=== PATIENT | female | born 1940 | race Caucasian/White ===

== ENCOUNTER 2018-01-18 19:47 | Emergency (ER) | payer OTHER ==
[~2018-01-18] VITALS: Ht 172.7 cm; Wt 79.4 kg
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
[2018-01-18] MEDS ORDERED: METHYLPREDNISOLONE SOD SUCC 125 MG/2ML VIAL ONE (20:04)
[2018-01-18] MEDS ORDERED: METHYLPREDNISOLONE SOD SUCC 125 MG/2ML VIAL IV ONE (20:15)
--- NOTE | 2018-01-18 21:59 | Diagnostic Imaging Report ---
Examination:CT SOFT TISSUE NECK WITH CONTRAST History: Throat swelling. Comparison studies: None Technique: Axial images from the skull base to the thoracic inlet Coronal and sagittal reformatted images. Intravenous contrast: 100mL of Isovue 370. Findings: Soft tissues: No abnormalities. Aerodigestive tract: Apposed true vocal cord. No enhancing abnormalities in remaining tract. Lymph nodes: No radiographically significant adenopathy. Vessels: Arteries and veins are patent. Thyroid gland: Normal in size and homogeneous. Submandibular glands: Normal in size and homogeneous. Parotid glands: Normal in size and homogeneous. Orbits: Bilateral slitlike lenses. Paranasal sinuses: Clear. Temporal bones: No abnormalities. Skull base and facial bones: Intact. Cervical spine: C5-C6: Diffuse disc osteophyte complex and bilateral uncovertebral arthropathy result in severe canal stenosis and severe left foramina narrowing. IMPRESSION: No abnormalities to explain patient's symptoms. Signed by: Dr. Aleah Gaspar M.D. on 01/18/2018 9:56 PM
[2018-01-18] MEDS ORDERED: SODIUM CHLORIDE 0.9% 50ML 50 ML ONE (22:00)
[2018-01-18] MEDS ORDERED: IOPAMIDOL 370 MG/ML 200 ML INFUS..BTL INJ ONE (22:02)
[2018-01-18 23:49] VITALS: BP 154/91
[2018-01-19 08:47] LABS: RED BLOOD COUNT 3.71 x10e6/uL (3.6-5.1)
[2018-01-19 08:48] LABS: HEMATOCRIT 37.4 % (34.2-44.1); MEAN CORPUSCULAR HEMOGLOBIN 32.3 pg (28-32); MEAN CORPUSCULAR HGB CONC 32.1 g/dL (31-35); MEAN CORPUSCULAR VOLUME 100.8 fL (81-99)
[2018-01-19 08:49] LABS: BASOPHILS % 0.3 % (0.0-1.0); EOSINOPHILS # (AUTO) 0.2 (0.0-0.4); EOSINOPHILS % 1.6 % (0.0-6.0); LYMPHOCYTES # (AUTO) 2.6 (1.0-3.2); LYMPHOCYTES % 25.3 % (18.0-39.1); MONOCYTES # (AUTO) 0.6 (0.2-0.8); MONOCYTES % 5.5 % (4.4-11.3); NEUTROPHILS # (AUTO) 6.9 (2.1-6.9); NEUTROPHILS % 66.9 % (38.7-80.0); PLATELET COUNT 361 x10e3/uL (140-360)
[2018-01-19 08:50] LABS: ALBUMIN 3.5 g/dL (3.5-5.0); ANION GAP 13.4 mmol/L (8-16); CALCIUM 9.5 mg/dL (8.4-10.2); CREATININE, SERUM 1.12 mg/dL (0.57-1.11); POTASSIUM 4.4 mmol/L (3.5-5.1)
== END 2018-01-18 23:55 | disposition home or self-care (01) ==
LOC: ER 19:47
DX: T78.3XXA Angioneurotic edema, initial encounter (principal); I10 Essential (primary) hypertension; E03.9 Hypothyroidism, unspecified; E78.5 Hyperlipidemia, unspecified; F32.9 Major depressive disorder, single episode, unspecified
CPT/HCPCS: 36415; 70491; 80053; 83518; 85025; 87070; 99284; J2930; Q9967

== ENCOUNTER 2020-03-26 12:48 | Observation (INO) | payer MEDICARE, OTHER ==
[~2020-03-26] VITALS: Ht 170.2 cm; Wt 97.1 kg
--- NOTE | 2020-03-26 14:12 | Diagnostic Imaging Report ---
EXAMINATION: CXR 2 VIEW - HOPD INDICATION: Chest pain COMPARISON: None FINDINGS: LINES/TUBES:None LUNGS:The lungs are mildly hyperinflated. Mild biapical pleural parenchymal thickening/scarring. Mild left basilar subsegmental atelectasis. No focal consolidation or pulmonary edema. PLEURA:No pleural effusion or pneumothorax. MEDIASTINUM:The cardiomediastinal silhouette appears normal in size and shape. Atherosclerotic calcifications of the thoracic aorta. Septal occlusion device. BONES/SOFT TISSUES:No acute osseous injury. Old left ninth posterior rib fracture. ABDOMEN:No free air under the diaphragm. IMPRESSION: Mildly hyperinflated lungs. Mild left basilar subsegmental atelectasis. No focal pneumonia or pulmonary edema. Signed by: Pranay Barrett MD on 03/26/2020 2:09 PM
--- NOTE | 2020-03-26 14:34 | Emergency Department Note ---
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 Patient states that she has had associated shortness of breath and increased swelling of her lower extremities for the past 2-3 days. The Chest pain lasts for a "few minutes, and then resolves." She is not currently having any chest pain. The chest pain does not seem to be exertional. She is having some orthopnea without PND. Patient denies any cough, upper respiratory symptoms, fever, chills, nausea, or vomiting. Historian: Patient Arrival Mode: Car Passenger Screener Required: No Onset (how long ago): day(s) (2) Location: upper chest Quality: tightness, heaviness Radiation: Reports non-radiation Severity: moderate Onset quality: sudden Duration (how long): hour(s) ("several minutes.") Timing of current episode: intermittent Progression: resolved Chronicity: new Context: Denies recent illness, Denies trauma/injury Relieving factors: none Exacerbating factors: none Associated symptoms: Denies cough, Denies fever/chills, Denies malaise, Denies nausea/vomiting, Denies shortness of breath Treatments prior to arrival: none Risk factors: advanced age, CHF, hypertension, obesity, and heavy cigarette use Past Medical/Family History Physician Review I have reviewed the patient's past medical and family history. Any updates have been documented here. Past Medical History Recent Fever: No Clinical Suspicion of Infectio: No New/Unexplained Change in Ment: No Past Medical History: Hypertension, COPD, CHF, A-Fib, Hypothyroidism, CAD, Depression, Hyperlipedemia, DVT/PE Other Medical History: lipoma Past Surgical History: Appendectomy, Hysterectomy Other Surgery: STATES SHE HAS HAD APPROX 15 SURGERIES AND DOES NOT KNOW WHAT ALL SHE HAD Watchman IVC Filter Breast Bx. Social History Smoking Cessation: Current every day smoker (1 - 1.5 ppd, smoked over 60 years. Here) Counseling Performed: Yes Alcohol Use: None Any Illegal Drug Use: No TB Exposure/Symptoms: No Physically hurt or threatened: No Family History Family history of heart diseas: No Other Last Tetanus: 2011 Any Pre-Existing Lines (PICC,: No Review of Systems Review of Systems Constitutional: Denies chills, Denies diaphoresis, Denies fever, Denies weakness EENTM: Reports no symptoms Cardiovascular: Reports chest pain, Reports edema (BLE); Denies palpitations Respiratory: Denies chest congestion, Denies cough Gastrointestinal: Denies abdominal pain, Denies nausea, Denies vomiting Genitourinary: Reports no symptoms Musculoskeletal: Denies back pain Integumentary: Denies change in color Neurological: Denies numbness, Denies weakness Psychological: Reports no symptoms Review of other systems: All other systems negative Physical Exam Related Data Allergies: Coded Allergies: cephalexin (Verified Allergy, Unknown, 03/26/20) Triage Vital Signs Vital Signs Date Time Temp Pulse Resp B/P (MAP) Pulse Ox O2 Delivery O2 Flow Rate FiO2 03/26/20 12:55 98.6 80 18 159/68 98 Room Air Vital signs reviewed: Yes Physical Exam CONSTITUTIONAL Constitutional: Present well-developed, Present well-nourished, Present obese; Absent distressed HENT HENT: Present normocephalic, Present atraumatic, Present oropharynx clear/moist, Present nose normal HENT L/R: Present left ext ear normal, Present right ext ear normal EYES Eyes: Reports PERRL, Reports conjunctivae normal NECK Neck: Present ROM normal PULMONARY Pulmonary: Present effort normal, Present breath sounds normal CARDIOVASCULAR Cardiovascular: Present regular rhythm, Present heart sounds normal, Present capillary refill normal, Present normal rate, Present murmur (II/ ERICA;), Present LLE edema, Present RLE edema (2+ bilateral lower extremity pedal edema) GASTROINTESTINAL Abdominal: Present soft, Present nontender, Present bowel sounds normal GENITOURINARY SKIN Skin: Present warm, Present dry, Present erythema (chronic venous stasis changes bilateral lower extremities, with no skin breakdown. 2+ pedal edema.) MUSCULOSKELETAL Musculoskeletal: Present ROM normal NEUROLOGICAL Neurological: Present alert, Present oriented x 3, Present no gross motor or sensory deficits PSYCHOLOGICAL Psychological: Present mood/affect normal, Present judgement normal Results Laboratory Lab results reviewed: Yes Laboratory comments CBC - nl WBC, no anemia; CMP - normal, except for gluc = 145; BUN = 22, Cr = 1.3; Cardiacs - negative except for CKMB = 4.7 , Vitaly = 161; BNP -137; D-dimer = 3250; UA - negative; Imaging Imaging results reviewed: Yes Impressions [place] [id number] Patient Name: TOMAS PERAZA MR #: [id number] : 1940 Age/Sex: 79/F Req #: [id number] Adm Physician: Ordered by: ANNI MANN MD Report #: [id number] Location: [facility] Room/Bed: Procedure: [id number] HOPD/CXR 2 VIEW - HOPD Exam Date: 03/26/20 Exam Time: 1403 REPORT STATUS: Signed EXAMINATION: CXR 2 VIEW - HOPD INDICATION: Chest pain COMPARISON: None FINDINGS: LINES/TUBES:None LUNGS:The lungs are mildly hyperinflated. Mild biapical pleural parenchymal thickening/scarring. Mild left basilar subsegmental atelectasis. No focal consolidation or pulmonary edema. PLEURA:No pleural effusion or pneumothorax. MEDIASTINUM:The cardiomediastinal silhouette appears normal in size and shape. Atherosclerotic calcifications of the thoracic aorta. Septal occlusion device. BONES/SOFT TISSUES:No acute osseous injury. Old left ninth posterior rib fracture. ABDOMEN:No free air under the diaphragm. IMPRESSION: Mildly hyperinflated lungs. Mild left basilar subsegmental atelectasis. No focal pneumonia or pulmonary edema. Signed by: Sandip Barrett MD on 03/26/2020 2:09 PM Dictated By: SANDIP BARRETT MD 08 Transcribed By: VAISHALI on 03/26/201408 COPY TO: ANNI MANN MD~ Diagnostics Tests Diagnostic test(s) reviewed: Yes Procedures 12 Lead ECG Interpretation ECG Interpretation : ECG: ECG 1 Passenger Screener: Interpreted by ED physician Date: Mar 26, 2020 Time: 13:01 Prior ECG tracings: not available for review Rhythm: atrial fibrillation Rate: normal BPM: 79 QRS axis: normal ST segments normal: Yes T waves normal: No (non-specific T-wave changes) Clinical Impression: abnormal ECG Assessment & Plan Medical Decision Making MDM -Explained to patient, that even know her lab work and EKG showed no acute changes of a heart attack, her symptoms are very concerning for underlying atherosclerotic cardiovascular disease. She has multiple risk factors including a history of CHF, hypertension, heavy cigarette smoking, and advanced age. Patient is advised that hospital admission, for further evaluation of her chest pain and shortness of breath is highly recommended. She may have diastolic dysfunction, as she does not appear to be volume overloaded at this time. Patient was also agreeable to admission. 15:[address] Dk Barrera, who covers patients with [employer] insurance, was agreeable to admission, to Obs telemetry. Assessment & Plan Final Impression: (1) Chest pain (2) Dyspnea (3) CHF (congestive heart failure) (4) Elevated d-dimer (5) COPD (chronic obstructive pulmonary disease) Depart Disposition: ADMITTED (to [facility] Tele Obs, with Dr. Dk Barrera) Last Vital Signs Date Time Temp Pulse Resp B/P (MAP) Pulse Ox O2 Delivery O2 Flow Rate FiO2 03/26/20 12:55 98.6 80 18 159/68 98 Room Air ANNI MANN MD Mar 26, 2020 14:34
--- OUTSIDE RECORDS SUMMARY | 2020-03-26 14:46 | XMS REPORT | Continuity of Care Document ---
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 TABLET DAILY. [facility] Matzim LA 360 MG Oral Tablet Extended Release 24 Hour Matzim LA 360 MG Oral Tablet Extended Release 24 Hour Yes 1 QD TAKE 1 TABLET DAILY. [facility] Levothyroxine Sodium 137 MCG Oral Tablet Levothyroxine Sodium 137 MCG Oral Tablet Yes MARIA GUADALUPE MICHELLE P.A. 1 QD TAKE 1 TABLET DAILY . [facility] Sertraline HCl - 50 MG Oral Tablet Sertraline HCl - 50 MG Oral Tablet Yes MARIA GUADALUPE MICHELLE P.A. 1 QD TAKE 1 TABLET DAILY. [facility] Immunizations Ordered Immunization Name Filled Immunization Name Date Status Comments Source Fluzone High-Dose 0.5 ML Intramuscular Suspension Prefilled Syringe 2019-05-14 08:41:00 Completed [facility] Pneumovax 23 25 MCG/0.5ML Injection Injectable 2019-03 11:48:00 Completed [facility] Fluzone High-Dose 0.5 ML Intramuscular Suspension Prefilled Syringe 2018-06-13 09:00:00 Completed [facility] Fluzone Quadrivalent 0.5 ML Intramuscular Suspension Prefill ed Syringe 2017-05-18 00:00:00 Completed [facility] Fluzone Quadrivalent 0.5 ML Intramuscular Suspension 2016-05-18 14:01:00 Completed [facility] Prevnar 13 Intramuscular Suspension 2015-05-12 00:00:00 Co mpleted [facility] Fluzone Quadrivalent 0.5 ML Intramuscular Suspension 2015-05-08 08:21:00 Completed [facility] Influenza 2014-07-09 17:01:[address] [facility] Influenza 2012-05-15 00:00:[address] [facility] Vital Signs Vital Name Observation Time Observation Value Comments Source Respitory Rate 2020-01-18 18:45:00 Memori al Cristhian Systolic (mm Hg) 2020-01-18 18:45:00 Riley rial Cristhian Diastolic (mm Hg) 2020-01-18 18:45:00 Mem orial [place] Respitory Rate 2020-01-18 18:30:00 Memori al [place] Systolic (mm Hg) 2020-01-18 18:30:00 Riley rial Cristhian Diastolic (mm Hg) 2020-01-18 18:30:00 Mem orial Cristhian Respitory Rate 2020-01-18 18:19:00 Memori al [place] Systolic (mm Hg) 2020-01-18 18:19:00 Riley rial [place] Diastolic (mm Hg) 2020-01-18 18:19:00 Mem orial Cristhian Height 2020-01-17 19:49:00 [facility] 2020-01-17 19:49:00 [facility] BMI Calculated 2020-01-17 19:49:00 Memori al Cristhian Systolic blood pressure 2019-12-18 10:12:00 108 mm[Hg] Loca tion: LUE; Position: Sitting [facility] Diastolic blood pressure 2019-12-18 10:12:00 63 mm[Hg] Loc ation: LUE; Position: Sitting [facility] Body height 2019-12-18 10:12:00 65 [in_us] [facility] Weight 2019-12-18 10:12:00 210 [lb_av] [facility] Body mass index (BMI) [Ratio] 2019-12-18 10:12:00 34.95 kg/m2 [facility] Heart Rate 2019-12-18 10:12:00 73 /min [facility] Body temperature 2019-12-18 10:12:00 99.3 [degF] [facility] Systolic blood pressure 2019-10-24 08:58:00 89 mm[Hg] Loca tion: LUE; Position: Sitting [facility] Diastolic blood pressure 2019-10-24 08:58:00 56 mm[Hg] Loc ation: LUE; Position: Sitting [facility] Body height 2019-10-24 08:58:00 65 [in_us] [facility] Weight 2019-10-24 08:58:00 211.5 [lb_av] [facility] Body mass index (BMI) [Ratio] 2019-10-24 08:58:00 35.2 kg/m2 [facility] Body temperature 2019-10-24 08:58:00 97.6 [degF] Method: Temporal [facility] Respiratory rate 2019-10-24 08:58:00 16 /min [facility] Heart Rate 2019-10-24 08:58:00 64 /min [facility] Systolic blood pressure 2019-09-21 09:19:00 119 mm[Hg] Loca tion: LUE; Position: Sitting [facility] Diastolic blood pressure 2019-09-21 09:19:00 82 mm[Hg] Loc ation: LUE; Position: Sitting [facility] Body height 2019-09-21 09:19:00 65 [in_us] [facility] Weight 2019-09-21 09:19:00 219.1875 [lb_av] [facility] Body mass index (BMI) [Ratio] 2019-09-21 09:19:00 36.47 kg/m2 [facility] Body temperature 2019-09-21 09:19:00 98 [degF] Method: Temporal [facility] Heart Rate 2019-09-21 09:19:00 103 /min [facility] Respiratory rate 2019-09-21 09:19:00 16 /min [facility] Systolic blood pressure 2019-09-18 10:04:00 135 mm[Hg] Loca tion: CHERYLE; Position: Sitting [facility] Diastolic blood pressure 2019-09-18 10:04:00 95 mm[Hg] Loc ation: ANUSHA; Position: Sitting [facility] Body height 2019-09-18 10:04:00 65 [in_us] [facility] Weight 2019-09-18 10:04:00 223.3125 [lb_av] [facility] Body mass index (BMI) [Ratio] 2019-09-18 10:04:00 37.16 kg/m2 [facility] Heart Rate 2019-09-18 10:04:00 147 /min Location: L Radial; [facility] BP Systolic 2019-09-11 13:44:00 108 mm[Hg] Location: ANUSHA; Positi on: Sitting [facility] BP Diastolic 2019-09-11 13:44:00 69 mm[Hg] Location: ANUSHA; Positi on: Sitting [facility] Height 2019-09-11 13:44:00 65 [in_us] [facility] Weight 2019-09-11 13:44:00 217.8 [lb_av] [facility] Body Mass Index Calculated 2019-09-11 13:44:00 36.24 kg/m2 [facility] Temperature 2019-09-11 13:44:00 98.3 [degF] Method: Temporal [facility] Respiration Rate 2019-09-11 13:44:00 20 /min [facility] Heart Rate 2019-09-11 13:44:00 115 /min [facility] BP Systolic 2019-08-22 10:09:00 129 mm[Hg] Location: ANUSHA; Positi on: Sitting [facility] BP Diastolic 2019-08-22 10:09:00 89 mm[Hg] Location: CHERYLE; Positi on: Sitting [facility] Height 2019-08-22 10:09:00 65 [in_us] [facility] Weight 2019-08-22 10:09:00 217.25 [lb_av] [facility] Body Mass Index Calculated 2019-08-22 10:09:00 36.15 kg/m2 [facility] Temperature 2019-08-22 10:09:00 97.9 [degF] Method: Temporal [facility] Respiration Rate 2019-08-22 10:09:00 16 /min [facility] Heart Rate 2019-08-22 10:09:00 114 /min [facility] BP Systolic 2019-08-03 11:01:00 107 mm[Hg] Location: ANUSHA; Positi on: Sitting [facility] BP Diastolic 2019-08-03 11:01:00 72 mm[Hg] Location: ANUSHA; Positi on: Sitting [facility] Height 2019-08-03 11:01:00 65 [in_us] [facility] Weight 2019-08-03 11:01:00 218.3125 [lb_av] [facility] Body Mass Index Calculated 2019-08-03 11:01:00 36.33 kg/m2 [facility] Temperature 2019-08-03 11:01:00 97.7 [degF] Method: Temporal [facility] Heart Rate 2019-08-03 11:01:00 117 /min [facility] Respiration Rate 2019-08-03 11:01:00 16 /min [facility] O2 SAT 2019-08-03 11:01:00 98 % [facility] BP Systolic 2019-07-07 09:28:00 94 mm[Hg] Location: CHERYLE; Positi on: Sitting [facility] BP Diastolic 2019-07-07 09:28:00 63 mm[Hg] Location: ANUSHA; Positi on: Sitting [facility] Height 2019-07-07 09:28:00 65 [in_us] [facility] Weight 2019-07-07 09:28:00 222.5 [lb_av] [facility] Body Mass Index Calculated 2019-07-07 09:28:00 37.03 kg/m2 [facility] Temperature 2019-07-07 09:28:00 98.8 [degF] Method: Temporal [facility] Heart Rate 2019-07-07 09:28:00 147 /min [facility] Respiration Rate 2019-07-07 09:28:00 16 /min [facility] BP Systolic 2019-06-19 09:18:00 118 mm[Hg] Location: ANUSHA; Positi on: Sitting [facility] BP Diastolic 2019-06-19 09:18:00 72 mm[Hg] Location: ANUSHA; Positi on: Sitting [facility] Height 2019-06-19 09:18:00 65 [in_us] [facility] Weight 2019-06-19 09:18:00 214 [lb_av] [facility] Body Mass Index Calculated 2019-06-19 09:18:00 35.61 kg/m2 [facility] Heart Rate 2019-06-19 09:18:00 65 /min Location: L Brachial Artery; [facility] BP Systolic 2019-06-08 09:49:00 134 mm[Hg] Location: ANUSHA; Positi on: Sitting [facility] BP Diastolic 2019-06-08 09:49:00 75 mm[Hg] Location: ANUSHA; Positi on: Sitting [facility] Height 2019-06-08 09:49:00 65 [in_us] [facility] Body Mass Index Calculated 2019-06-08 09:49:00 35.85 kg/m2 [facility] Weight 2019-06-08 09:49:00 215.4375 [lb_av] [facility] Temperature 2019-06-08 09:49:00 98.3 [degF] Method: Temporal [facility] Heart Rate 2019-06-08 09:49:00 69 /min [facility] Respiration Rate 2019-06-08 09:49:00 16 /min [facility] BP Systolic 2019-06-08 08:43:00 129 mm[Hg] Location: ANUSHA; Positi on: Sitting [facility] BP Diastolic 2019-06-08 08:43:00 83 mm[Hg] Location: LUE; Positi on: Sitting [facility] Height 2019-06-08 08:43:00 65 [in_us] [facility] Body Mass Index Calculated 2019-06-08 08:43:00 35.63 kg/m2 [facility] Weight 2019-06-08 08:43:00 214.125 [lb_av] [facility] Heart Rate 2019-06-08 08:43:00 76 /min [facility] Respiration Rate 2019-06-08 08:43:00 16 /min [facility] BP Systolic 2019-05-14 08:33:00 120 mm[Hg] Location: LUE; Positi on: Sitting [facility] BP Diastolic 2019-05-14 08:33:00 72 mm[Hg] Location: CHERYLE; Positi on: Sitting [facility] Height 2019-05-14 08:33:00 65 [in_us] [facility] Weight 2019-05-14 08:33:00 210.1875 [lb_av] [facility] Body Mass Index Calculated 2019-05-14 08:33:00 34.98 kg/m2 [facility] Temperature 2019-05-14 08:33:00 97.9 [degF] Method: Temporal [facility] Respiration Rate 2019-05-14 08:33:00 16 /min [facility] Heart Rate 2019-05-14 08:33:00 61 /min [facility] BP Systolic 2019-05-10 12:01:00 115 mm[Hg] Location: ANUSHA; Positi on: Sitting [facility] BP Diastolic 2019-05-10 12:01:00 74 mm[Hg] Location: CHERYLE; Positi on: Sitting [facility] Height 2019-05-10 12:01:00 65 [in_us] [facility] Weight 2019-05-10 12:01:00 212 [lb_av] [facility] Body Mass Index Calculated 2019-05-10 12:01:00 35.28 kg/m2 [facility] Temperature 2019-05-10 12:01:00 98 [degF] Method: Temporal [facility] Respiration Rate 2019-05-10 12:01:00 16 /min [facility] Heart Rate 2019-05-10 12:01:00 73 /min [facility] O2 SAT 2019-05-10 12:01:00 97 % [facility] BP Systolic 2019-04-23 10:33:00 132 mm[Hg] Location: LUE; Positi on: Sitting [facility] BP Diastolic 2019-04-23 10:33:00 82 mm[Hg] Location: LUE; Positi on: Sitting [facility] Height 2019-04-23 10:33:00 65 [in_us] [facility] Weight 2019-04-23 10:33:00 208.0625 [lb_av] [facility] Body Mass Index Calculated 2019-04-23 10:33:00 34.62 kg/m2 [facility] Temperature 2019-04-23 10:33:00 99.1 [degF] Method: Temporal [facility] Heart Rate 2019-04-23 10:33:00 68 /min Location: L Brachial Artery; [facility] Respiration Rate 2019-04-23 10:33:00 16 /min Quality: Normal [facility] BP Systolic 2019-03-21 08:42:00 133 mm[Hg] Location: LUE; Positi on: Sitting [facility] BP Diastolic 2019-03-21 08:42:00 74 mm[Hg] Location: LUE; Positi on: Sitting [facility] Height 2019-03-21 08:42:00 65 [in_us] [facility] Weight 2019-03-21 08:42:00 215.8 [lb_av] [facility] Body Mass Index Calculated 2019-03-21 08:42:00 35.91 kg/m2 [facility] Heart Rate 2019-03-21 08:42:00 64 /min Location: L Brachial Artery; [facility] Respiration Rate 2019-03-21 08:42:00 18 /min [facility] BP Systolic 2019-03-15 08:54:00 133 mm[Hg] Location: LUE; Positi on: Sitting [facility] BP Diastolic 2019-03-15 08:54:00 82 mm[Hg] Location: LUE; Positi on: Sitting [facility] Height 2019-03-15 08:54:00 65 [in_us] [facility] Weight 2019-03-15 08:54:00 215.3125 [lb_av] [facility] Body Mass Index Calculated 2019-03-15 08:54:00 35.83 kg/m2 [facility] Temperature 2019-03-15 08:54:00 98.3 [degF] Method: Temporal [facility] Respiration Rate 2019-03-15 08:54:00 16 /min [facility] Heart Rate 2019-03-15 08:54:00 75 /min [facility] BP Systolic 2019-03-08 13:31:00 80 mm[Hg] Location: LUE; Positi on: Sitting [facility] BP Diastolic 2019-03-08 13:31:00 49 mm[Hg] Location: LUE; Positi on: Sitting [facility] Heart Rate 2019-03-08 13:31:00 93 /min Location: L Radial; [facility] BP Systolic 2019-03-08 13:15:00 96 mm[Hg] Location: LUE; Positi on: Sitting [facility] BP Diastolic 2019-03-08 13:15:00 61 mm[Hg] Location: LUE; Positi on: Sitting [facility] Heart Rate 2019-03-08 13:15:00 97 /min Location: L Radial; [facility] BP Systolic 2019-03-08 13:14:00 84 mm[Hg] Location: LUE; Positi on: Sitting [facility] BP Diastolic 2019-03-08 13:14:00 54 mm[Hg] Location: LUE; Positi on: Sitting [facility] Heart Rate 2019-03-08 13:14:00 118 /min Location: L Radial; [facility] BP Systolic 2019-03-08 13:01:00 83 mm[Hg] Location: LUE; Positi on: Sitting [facility] BP Diastolic 2019-03-08 13:01:00 47 mm[Hg] Location: LUE; Positi on: Sitting [facility] Heart Rate 2019-03-08 13:01:00 105 /min [facility] Temperature 2019-03-08 13:01:00 99.4 [degF] Method: Oral [facility] BP Systolic 2019-03-01 08:30:00 122 mm[Hg] Location: RUE; Positi on: Sitting [facility] BP Diastolic 2019-03-01 08:30:00 73 mm[Hg] Location: RUE; Positi on: Sitting [facility] Height 2019-03-01 08:30:00 65 [in_us] [facility] Weight 2019-03-01 08:30:00 212.375 [facility]lb_av] [facility] Calculated 2019-03-01 08:30:00 35.34 kg/m2 [facility] Temperature 2019-03-01 08:30:00 98.2 [degF] Method[facility] Heart Rate 2019-03-01 08:30:00 62 /min [facility] Respiration Rate 2019-03-01 08:30:00 16 /min [facility] BP Systolic 2019-02-22 14:12:00 100 mm[Hg] Location: LUE; Positi on: Sitting [facility] BP Diastolic 2019-02-22 14:12:00 62 mm[Hg] Location: LUE; Positi on: Sitting [facility] Height 2019-02-22 14:12:00 65 [in_us] [facility] Weight 2019-02-22 14:12:00 220.3125 [lb_av] [facility] Body Mass Index Calculated 2019-02-22 14:12:00 36.66 kg/m2 [facility] Temperature 2019-02-22 14:12:00 98.9 [degF] [facility] Heart Rate 2019-02-22 14:12:00 82 /min [facility] Respiration Rate 2019-02-22 14:12:00 16 /min [facility] BP Systolic 2019-02-13 09:50:00 128 mm[Hg] Location: LUE; Positi on: Sitting [facility] BP Diastolic 2019-02-13 09:50:00 78 mm[Hg] Location: LUE; Positi on: Sitting [facility] Height 2019-02-13 09:50:00 65 [in_us] [facility] Weight 2019-02-13 09:50:00 216 [lb_av] [facility] [place] [facility] Body Mass Index Calculated 2019-02-13 09:50:00 35.94 kg/m2 [facility] Heart Rate 2019-02-13 09:50:00 68 /min [facility] Respiration Rate 2019-02-13 09:50:00 16 /min [facility] BP Systolic 2019-01-30 07:59:00 130 mm[Hg] Location: LUE; Positi on: Sitting [facility] BP Diastolic 2019-01-30 07:59:00 82 mm[Hg] Location: LUE; Positi on: Sitting [facility] Height 2019-01-30 07:59:00 65 [in_us] [facility] Weight 2019-01-30 07:59:00 213.1875 [lb_av] [facility] Body Mass Index Calculated 2019-01-30 07:59:00 35.48 kg/m2 [facility] Temperature 2019-01-30 07:59:00 98 [degF] Method: Temporal [facility] Respiration Rate 2019-01-30 07:59:00 16 /min [facility] Heart Rate 2019-01-30 07:59:00 65 /min [facility] BP Systolic 2019-01-15 08:57:00 133 mm[Hg] Location: CHERYLE; Positi on: Sitting [facility] BP Diastolic 2019-01-15 08:57:00 77 mm[Hg] Location: CHERYLE; Positi on: Sitting [facility] O2 SAT 2019-01-15 08:57:00 98 % Source: RA [facility] Height 2019-01-15 08:57:00 65 [in_us] [facility] Weight 2019-01-15 08:57:00 209.1875 [lb_av] [facility] Body Mass Index Calculated 2019-01-15 08:57:00 34.81 kg/m2 [facility] Temperature 2019-01-15 08:57:00 97.7 [degF] Method: Temporal [facility] Heart Rate 2019-01-15 08:57:00 72 /min Location: L Brachial Artery; [facility] Respiration Rate 2019-01-15 08:57:00 16 /min [facility] Systolic 2018-12-04 08:31:00 157 mm[Hg] Location: LUE; Positi on: Sitting [facility] BP Diastolic 2018-12-04 08:31:00 80 mm[Hg] Location: LUE; Positi on: Sitting [facility] Height 2018-12-04 08:31:00 65 [in_us] [facility] Weight 2018-12-04 08:31:00 211 [lb_av] [facility] Body Mass Index Calculated 2018-12-04 08:31:00 35.11 kg/m2 [facility] Heart Rate 2018-12-04 08:31:00 69 /min [facility] Respiration Rate 2018-12-04 08:31:00 16 /min [facility] BP Systolic 2018-12-01 10:21:00 120 mm[Hg] Location: CHERYLE; Positi on: Sitting [facility] BP Diastolic 2018-12-01 10:21:00 81 mm[Hg] Location: LUE; Positi on: Sitting [facility] Heart Rate 2018-12-01 10:21:00 67 /min [facility] BP Systolic 2018-12-01 09:57:00 147 mm[Hg] Location: CHERYLE; Positi on: Sitting [facility] BP Diastolic 2018-12-01 09:57:00 86 mm[Hg] Location: LUE; Positi on: Sitting [facility] Heart Rate 2018-12-01 09:57:00 71 /min [facility] Height 2018-12-01 09:57:00 65 [in_us] [facility] Weight 2018-12-01 09:57:00 208.0625 [lb_av] [facility] Body Mass Index Calculated 2018-12-01 09:57:00 34.62 kg/m2 [facility] Respiration Rate 2018-12-01 09:57:00 16 /min [facility] BP Systolic 2018-11-17 08:37:00 129 mm[Hg] Location: LUE; Positi on: Sitting [facility] BP Diastolic 2018-11-17 08:37:00 82 mm[Hg] Location: LUE; Positi on: Sitting [facility] Height 2018-11-17 08:37:00 65 [in_us] [facility] Weight 2018-11-17 08:37:00 212.375 [lb_av] [facility] Body Mass Index Calculated 2018-11-17 08:37:00 35.34 kg/m2 [facility] Heart Rate 2018-11-17 08:37:00 76 [facility] Respiration Rate 2018-11-17 08:37:00 16 /min [facility] BP Systolic 2018-11-07 11:52:00 127 mm[Hg] Location: LUE; Positi on: Sitting [facility] BP Diastolic 2018-11-07 11:52:00 79 mm[Hg] Location: CHERYLE; Positi on: Sitting [facility] Height 2018-11-07 11:52:00 65 [in_us] [facility] Weight 2018-11-07 11:52:00 208.1 [lb_av] [facility] Body Mass Index Calculated 2018-11-07 11:52:00 34.63 kg/m2 [facility] Temperature 2018-11-07 11:52:00 98.3 [degF] Method: Temporal [facility] Heart Rate 2018-11-07 11:52:00 82 /min [facility] O2 SAT 2018-11-07 11:52:00 96 % [facility] BP Systolic 2018-10-31 09:34:00 105 mm[Hg] Location: CHERYLE; Positi on: Sitting [facility] BP Diastolic 2018-10-31 09:34:00 69 mm[Hg] Location: ANUSHA; Positi on: Sitting [facility] Height 2018-10-31 09:34:00 65 [in_us] [facility] Weight 2018-10-31 09:34:00 211 [lb_av] [facility] Body Mass Index Calculated 2018-10-31 09:34:00 35.11 kg/m2 [facility] Heart Rate 2018-10-31 09:34:00 106 /min Location: L Radial; [facility] BP Systolic 2018-10-05 13:06:00 124 mm[Hg] Location: CHERYLE; Positi on: Sitting [facility] BP Diastolic 2018-10-05 13:06:00 78 mm[Hg] Location: CHERYLE; Positi on: Sitting [facility] Height 2018-10-05 13:06:00 65 [in_us] [facility] Weight 2018-10-05 13:06:00 212 [lb_av] [facility] Body Mass Index Calculated 2018-10-05 13:06:00 35.28 kg/m2 [facility] Heart Rate 2018-10-05 13:06:00 96 /min Location: L Radial; Q uality: Normal [facility] BP Systolic 2018-09-28 14:04:00 116 mm[Hg] Location: CHERYLE; Positi on: Sitting [facility] BP Diastolic 2018-09-28 14:04:00 69 mm[Hg] Location: CHERYLE; Positi on: Sitting [facility] Height 2018-09-28 14:04:00 65 [in_us] [facility] Weight 2018-09-28 14:04:00 215.375 [lb_av] Unive [facility] Body Mass Index Calculated 2018-09-28 14:04:00 35.84 kg/m2 [facility] Temperature 2018-09-28 14:04:00 97.8 [degF] Method: Temporal [facility] Respiration Rate 2018-09-28 14:04:00 16 /min [facility] Heart Rate 2018-09-28 14:04:00 77 /min [facility] BP Systolic 2018-08-21 10:17:00 121 mm[Hg] Location: CHERYLE; Positi on: Sitting [facility] BP Diastolic 2018-08-21 10:17:00 79 mm[Hg] Location: ANUSHA; Positi on: Sitting [facility] Height 2018-08-21 10:17:00 65 [in_us] [facility] Weight 2018-08-21 10:17:00 205.125 [lb_av] Unive [facility] Body Mass Index Calculated 2018-08-21 10:17:00 34.13 kg/m2 [facility] Temperature 2018-08-21 10:17:00 97.5 [degF] Method: [facility] Heart Rate 2018-08-21 10:17:00 81 /min [facility] Respiration Rate 2018-08-21 10:17:00 16 /min [facility] O2 SAT 2018-08-21 10:17:00 98 % [facility] BP Systolic 2018-08-03 09:23:00 132 mm[Hg] Location: ANUSHA; Positi on: Sitting [facility] BP Diastolic 2018-08-03 09:23:00 84 mm[Hg] Location: ANUSHA; Positi on: Sitting [facility] Height 2018-08-03 09:23:00 65 [in_us] [facility] Weight 2018-08-03 09:23:00 205.25 [lb_av] [facility] Body Mass Index Calculated 2018-08-03 09:23:00 34.16 kg/m2 [facility] Temperature 2018-08-03 09:23:00 98.8 [degF] Method: Temporal [facility] Heart Rate 2018-08-03 09:23:00 74 /min [facility] Respiration Rate 2018-08-03 09:23:00 16 /min [facility] BP Systolic 2018-07-26 11:16:00 133 mm[Hg] Location: [facility]IE [facility] BP Diastolic 2018-07-26 11:16:00 83 mm[Hg] Location: ELLIE Yo [facility] Height 2018-07-26 11:16:00 65 [in_us] [facility] Weight 2018-07-26 11:16:00 209 [lb_av] [facility] Body Mass Index Calculated 2018-07-26 11:16:00 34.78 kg/m2 [facility] Heart Rate 2018-07-26 11:16:00 75 /min Location: L Brachial Artery; [facility] BP Systolic 2018-06-13 08:27:00 149 mm[Hg] Location: ANUSHA; Positi on: Sitting [facility] BP Diastolic 2018-06-13 08:27:00 88 mm[Hg] Location: ANUSHA; Positi on: Sitting [facility] Heart Rate 2018-06-13 08:27:00 67 /min [facility] BP Systolic 2018-06-13 08:26:00 154 mm[Hg] Location: LUE; Positi on: Sitting [facility] BP Diastolic 2018-06-13 08:26:00 99 mm[Hg] Location: LUE; Positi on: Sitting [facility] Heart Rate 2018-06-13 08:26:00 73 /min [facility] Height 2018-06-13 08:26:00 65 [in_us] [facility] Weight 2018-06-13 08:26:00 194 [lb_av] [facility] Body Mass Index Calculated 2018-06-13 08:26:00 32.28 kg/m2 [facility] Temperature 2018-06-13 08:26:00 97.6 [degF] Method: Temporal [facility] Respiration Rate 2018-06-13 08:26:00 16 /min [facility] BP Systolic 2018-06-09 08:44:00 119 mm[Hg] Location: LUE; Positi on: Sitting [facility] BP Diastolic 2018-06-09 08:44:00 77 mm[Hg] Location: LUE; Positi on: Sitting [facility] Height 2018-06-09 08:44:00 65 [in_us] [facility] Weight 2018-06-09 08:44:00 198.3125 [lb_av] [facility] Body Mass Index Calculated 2018-06-09 08:44:00 33 kg/m2 [facility] Heart Rate 2018-06-09 08:44:00 58 /min [facility] Respiration Rate 2018-06-09 08:44:00 16 /min [facility] BP Systolic 2018-05-29 08:57:00 107 mm[Hg] Location: LUE; Positi on: Sitting [facility] BP Diastolic 2018-05-29 08:57:00 66 mm[Hg] Location: LUE; Positi on: Sitting [facility] Height 2018-05-29 08:57:00 65 [in_us] [facility] Weight 2018-05-29 08:57:00 200.375 [lb_av] [facility] Body Mass Index Calculated 2018-05-29 08:57:00 33.34 kg/m2 [facility] Heart Rate 2018-05-29 08:57:00 58 /min Location: L Radial; [facility] BP Systolic 2018-04-25 10:40:00 122 mm[Hg] Location: CHERYLE; Positi on: Sitting [facility] BP Diastolic 2018-04-25 10:40:00 86 mm[Hg] Location: CHEYRLE; Positi on: Sitting [facility] Height 2018-04-25 10:40:00 65 [in_us] [facility] Weight 2018-04-25 10:40:00 193 [lb_av] [facility] Body Mass Index Calculated 2018-04-25 10:40:00 32.12 kg/m2 [facility] Heart Rate 2018-04-25 10:40:00 56 /min Location: L Radial; Q uality: Normal [facility] BP Systolic 2018-04-24 09:38:00 144 mm[Hg] Location: ANUSHA; Positi on: Sitting [facility] BP Diastolic 2018-04-24 09:38:00 79 mm[Hg] Location: ANUSHA; Positi on: Sitting [facility] Height 2018-04-24 09:38:00 65 [in_us] [facility] Weight 2018-04-24 09:38:00 196 [lb_av] [facility] Body Mass Index Calculated 2018-04-24 09:38:00 32.62 kg/m2 [facility] Heart Rate 2018-04-24 09:38:00 61 /min [facility] Respiration Rate 2018-04-24 09:38:00 16 /min [facility] BP Systolic 2018-04-07 13:45:00 111 mm[Hg] Location: ANUSHA; Positi on: Sitting [facility] BP Diastolic 2018-04-07 13:45:00 72 mm[Hg] Location: CHERYLE; Positi on: Sitting [facility] Height 2018-04-07 13:45:00 65 [in_us] [facility] Weight 2018-04-07 13:45:00 190.0 [lb_av] [facility] Body Mass Index Calculated 2018-04-07 13:45:00 31.62 kg/m2 [facility] Heart Rate 2018-04-07 13:45:00 70 /min [facility] BP Systolic 2018-03-31 08:40:00 125 mm[Hg] Location: LUE; Positi on: Sitting [facility] BP Diastolic 2018-03-31 08:40:00 81 mm[Hg] Location: LUE; Positi on: Sitting [facility] Height 2018-03-31 08:40:00 65 [in_us] [facility] Weight 2018-03-31 08:40:00 200.5625 [lb_av] [facility] Body Mass Index Calculated 2018-03-31 08:40:00 33.38 kg/m2 [facility] Temperature 2018-03-31 08:40:00 97.8 [degF] Method[facility] Heart Rate 2018-03-31 08:40:00 65 /min [facility] Respiration Rate 2018-03-31 08:40:00 16 /min [facility] BP Systolic 2018-03-14 08:07:00 156 mm[Hg] Location: LUE; Positi on: Sitting [facility] BP Diastolic 2018-03-14 08:07:00 89 mm[Hg] Location: LUE; Positi on: Sitting [facility] Heart Rate 2018-03-14 08:07:00 61 /min [facility] BP Systolic 2018-03-14 08:05:00 172 mm[Hg] Location: LUE; Positi on: Sitting [facility] BP Diastolic 2018-03-14 08:05:00 92 mm[Hg] Location: LUE; Positi on: Sitting [facility] Heart Rate 2018-03-14 08:05:00 61 /min [facility] Height 2018-03-14 08:05:00 65 [in_us] [facility] Weight 2018-03-14 08:05:00 196 [lb_av] [facility] Body Mass Index Calculated 2018-03-14 08:05:00 32.62 kg/m2 [facility] Temperature 2018-03-14 08:05:00 98 [degF] Method: Temporal [facility] Respiration Rate 2018-03-14 08:05:00 16 /min [facility] BP Systolic 2018-02-21 15:16:00 130 mm[Hg] Location: LUE; Positi on: Supine [facility] [place] [facility] BP Diastolic 2018-02-21 15:16:00 77 mm[Hg] Location: LUE; Positi on: Supine [facility] Heart Rate 2018-02-21 15:16:00 88 /min [facility]i [facility] BP Systolic 2018-02-21 14:54:00 119 mm[Hg] Location: LUE; Positi on: Sitting [facility] BP Diastolic 2018-02-21 14:54:00 80 mm[Hg] Location: LUE; Positi on: Sitting [facility] Heart Rate 2018-02-21 14:54:00 80 /min [facility] Height 2018-02-21 14:54:00 65 [in_us] Universi ty [facility] Weight 2018-02-21 14:54:00 198 [lb_av] [facility] Body Mass Index Calculated 2018-02-21 14:54:00 32.95 kg/m2 [facility] Temperature 2018-02-21 14:54:00 97.6 [degF] Method[facility] Respiration Rate 2018-02-21 14:54:00 16 /min [facility] BP Systolic 2018-01-19 14:22:00 137 mm[Hg] Location: LUE; Positi on: Sitting [facility] BP Diastolic 2018-01-19 14:22:00 86 mm[Hg] Location: LUE; Positi on: Sitting [facility] Height 2018-01-19 14:22:00 65 [in_us] [facility] Weight 2018-01-19 14:22:00 198 [lb_av] [facility] Body Mass Index Calculated 2018-01-19 14:22:00 32.95 kg/m2 [facility] Temperature 2018-01-19 14:22:00 97.1 [degF] Method: [facility]poral [facility] Heart Rate 2018-01-19 14:22:00 88 /min [facility] Respiration Rate 2018-01-19 14:22:00 16 /min [facility] BP Systolic 2017-12-21 08:37:00 128 mm[Hg] Location: LUE; Positi on: Sitting [facility] [place] [facility] BP Diastolic 2017-12-21 08:37:00 75 mm[Hg] Location: LUE; Positi on: Sitting [facility] Heart Rate 2017-12-21 08:37:00 56 /min [facility] BP Systolic 2017-12-21 08:34:00 147 mm[Hg] Location: LUE; Positi on: Sitting [facility] BP Diastolic 2017-12-21 08:34:00 78 mm[Hg] Location: LUE; Positi on: Sitting [facility] Heart Rate 2017-12-21 08:34:00 58 /min Universi [facility] Height 2017-12-21 08:34:00 65 [in_us] [facility]i ty [facility] Weight 2017-12-21 08:34:00 193 [lb_av] [facility] Body Mass Index Calculated 2017-12-21 08:34:00 32.12 kg/m2 [facility] Temperature 2017-12-21 08:34:00 97.9 [degF] Method: Temporal [facility] Respiration Rate 2017-12-21 08:34:00 16 /min [facility] BP Systolic 2017-11-18 08:12:00 133 mm[Hg] Location: LUE; Positi on: Sitting [facility] BP Diastolic 2017-11-18 08:12:00 81 mm[Hg] Location: LUE; Positi on: Sitting [facility] Height 2017-11-18 08:12:00 65 [in_us] [facility] Weight 2017-11-18 08:12:00 192 [lb_av] [facility] Body Mass Index Calculated 2017-11-18 08:12:00 31.95 kg/m2 [facility] Heart Rate 2017-11-18 08:12:00 66 /min [facility] Respiration Rate 2017-11-18 08:12:00 16 /min [facility] BP Systolic 2017-10-25 09:53:00 144 mm[Hg] Location: LUE; Positi on: Sitting [facility] BP Diastolic 2017-10-25 09:53:00 82 mm[Hg] Location: LUE; Positi on: Sitting [facility] Height 2017-10-25 09:53:00 65 [in_us] [facility]i [facility] Weight 2017-10-25 09:53:00 194.375 [lb_av] [facility] Body Mass Index Calculated 2017-10-25 09:53:00 32.35 kg/m2 [facility] Heart Rate 2017-10-25 09:53:00 58 /min Location: L Radial; [facility] BP Systolic 2017-10-20 08:10:00 136 mm[Hg] Location: LUE; Positi on: Sitting [facility] BP Diastolic 2017-10-20 08:10:00 84 mm[Hg] Location: LUE; Positi on: Sitting [facility] Height 2017-10-20 08:10:00 65 [in_us] [facility] Weight 2017-10-20 08:10:00 190.1875 [lb_av] [facility] Body Mass Index Calculated 2017-10-20 08:10:00 31.65 kg/m2 [facility] Temperature 2017-10-20 08:10:00 97 [degF] Method: Temporal [facility] Respiration Rate 2017-10-20 08:10:00 16 /min [facility] Heart Rate 2017-10-20 08:10:00 67 /min [facility] BP Systolic 2017-07-21 14:00:00 138 mm[Hg] Location: LUE; Positi on: Sitting [facility] BP Diastolic 2017-07-21 14:00:00 82 mm[Hg] Location: LUE; Positi on: Sitting [facility] Height 2017-07-21 14:00:00 65 [in_us] [facility] Weight 2017-07-21 14:00:00 202.5 [lb_av] [facility] Body Mass Index Calculated 2017-07-21 14:00:00 33.7 kg/m2 [facility] Temperature 2017-07-21 14:00:00 97.2 [degF] Method: Temporal [facility] Respiration Rate 2017-07-21 14:00:00 16 /min [facility] Heart Rate 2017-07-21 14:00:00 60 /min [facility] Procedures Procedure Date / Time Performed Performing Clinician Sour e [QL] CULTURE, URINE, ROUTINE 2020-02-04 00:00:00 [facility] [QL] T4, FREE 2019-12-26 00:00:00 [place] [facility] [QL] TSH, 3RD GENERATION W/REFLEX TO FT4 2019-12-26 00:00:00 [facility] [QL] CBC (INCLUDES DIFF/PLT) 2019-12-18 00:00:00 [facility] [QL] CMP W/EGFR 2019-12-18 00:00:00 [place] [facility] [QL] CEA 2019-12-18 00:00:00 [place] [facility] [QL] CA 19-9 2019-12-18 00:00:00 [place] [facility] [QLH] URINALYSIS, COMPLETE W/REFLEX TO CULTURE 2019-10-22 00:00: 00 [facility] [QLH] CMP W/EGFR 2019-08-22 00:00:00 [facility] [QLH] TSH, 3RD GENERATION W/REFLEX TO FT4 2019-08-22 00:00:00 [facility] CBC (INCLUDES DIFF/PLT) 2019-08-22 00:00:00 [facility] [QL] HEMOGLOBIN A1c 2019-08-22 00:00:00 [facility] ity [facility] XRAY Chest 2 views [id number] 2019-08-03 00:00:00 Uni versity [facility] CT Chest w contrast [id number] 2019-05-14 00:00:00 Un iversity [facility] EKG (In Office) 2019-05-10 00:00:00 [place] [facility] XRAY Chest 2 views [id number] 2019-05-10 00:00[facility]00 [facility] US Extremity lower venous Doppler Unilat [id number] 2019-02-22 00:00: 00 [facility] [QLH] CBC (INCLUDES DIFF/PLT) 2019-01-30 00:00:00 [facility] [QLH] CMP W/EGFR 2019-01-30 00:00:00 [facility] [QL] TSH, 3RD GENERATION W/REFLEX TO FT4 2019-01-30 00:00:00 [facility] [QL] VITAMIN B12 2019-01-30 00:00:00 [facility]] Lupus Anticoagulant Panel 2018-12-01 00:00:00 [facility] [QL] BETA 2 GLYCOPROTEIN I AB (IGG,IGA,IGM) 2018-12-01 00:00:00 [facility] [QLH] CARDIOLIPIN AB (IGA,IGG,IGM) 2018-12-01 00:00:00 [facility] [QLH] CRYOGLOBULIN SCREEN W/REFLEX TO CRYOGLOBULIN PRO FILE, SERUM 2018-12-01 00:00:00 [facility] US Extremity lower venous Doppler Unilat [id number] 2018-10-31 00:00: 00 [facility] [N] Venous Duplex Lower Unilateral 2018-10-31 00:00:00 [facility] Colonoscopy 2018-10-11 00:00:00 [facility] [QLH] CBC (INCLUDES DIFF/PLT) 2018-05-26 00:00:00 [facility] US Transesophageal echo [id number] 2018-05-24 00:00:00 [facility] [QLH] CMP W/EGFR 2018-04-06 00:00:00 [facility] [QL] CBC (INCLUDES DIFF/PLT) 2018-04-06 00:00:00 [facility] [QLH] CBC (INCLUDES DIFF/PLT) 2018-03-31 00:00:00 [facility] [QLH] CMP W/EGFR 2018-03-31 00:00:00 [facility] XRAY Chest 2 views [id number] 2018-03-31 00:00:00 Uni [facility] CT Abdomen/Pelvis w contrast [id number] 2018-03-14 00:00:00 [facility] Computed tomography of soft tissues of neck with contrast 20 30-01-06 00:00:00 MARIUSZ BRADY [facility] [N] 2D Echo complete, with Doppler [id number] 2017-10-25 00:00:00 [facility] [QLH] CBC (INCLUDES DIFF/PLT) 2017-10-20 00:00:00 [facility] [QLH] CMP W/EGFR 2017-10-20 00:00:00 [facility] [QLH] VITAMIN D, 25-HYDROXY, LC/MS/MS 2017-10-20 00:00:00 [facility] [QL] VITAMIN B12/FOLATE, SERUM PANEL 2017-10-20 00:00:00 [facility] [QLH] TSH, 3RD GENERATION W/REFLEX TO FT4 2017-10-20 00:00:00 [facility]] CULTURE, URINE, ROUTINE 2017-10-20 00:00:00 [facility] MA Digital Mammo Screening Hang [id number] 2017-10-20 00:00:00 [facility]] CBC (INCLUDES DIFF/PLT) 2017-07-21 00:00:00 [facility]] CMP W/EGFR 2017-07-21 00:00:00 [facility]] TSH, 3RD GENERATION W/REFLEX TO FT4 2017-07-21 00:00:00 [facility] [[facility]] HEMOGLOBIN A1c 2017-07-21 00:00:00 Univers [facility] History of Appendectomy [facility] History of Hysterectomy [facility] History of Oophorectomy - Bilat (Removal Of Both Ovaries) Laparo scopic [facility] History of Dilation And Curettage [facility] History of [facility]adder [facility] of Hernia [facility] History [facility] of Section [facility] History of Atrial appendage closure device insertion [facility] Appendectomy [facility] Back care<sup>1</sup> [facility] Bladder care management [facility] section [facility] n Colonoscopy [facility] D&C - Dilatation and curettage [facility] Esophagogastroduodenoscopy Memor ial [facility] Hernia repair [facility] Hysterectomy [facility] Implantation of heart assist system<sup>2</sup> [facility] Oophorectomy [facility] Operation [facility] Plan of Care Planned Activity Planned Date Details Comments Source Diagnostic Test Pending 2019-04-03 00:00:00 Colonoscopy [code = 737 27428] [facility] Diagnostic Test Pending 2019-04-03 00:00:00 Colonoscopy [code = 737 61510] [facility] Diagnostic Test Pending 2018-11-16 00:00:00 Colonoscopy [code = 737 00608] [facility] Diagnostic Test Pending 2018-11-16 00:00:00 Colonoscopy [code = 737 62688] [facility] Diagnostic Test Pending 2018-10-31 00:00:00 [N] Venous Duple x Lower Unilateral [code = [N] Venous Duplex Lower Unilateral] [facility] Diagnostic Test Pending 2018-05-24 00:00:00 US Rafa al echo 37803 [code = 86502] [facility] Diagnostic Test Pending 2018-04-14 00:00:00 [QLH] CMP W/EGFR [code = [QLH] CMP W/EGFR] [facility] Diagnostic Test Pending 2018-04-14 00:00:00 [QLH] CBC (INCLU GABI DIFF/PLT) [code = [QLH] CBC (INCLUDES DIFF/PLT)] [facility] Future Scheduled Test 2013-12-17 14:32:43 Plan of Care [code = 1877 6-5] [facility] Scheduled Test 2013-11-23 02:30:42 Plan of Care [code = 1877 6-5] [facility] Scheduled Test 2013-11-22 21:32:18 Plan of Care [code = 1877 6-5] [facility] Scheduled Test 2013-11-14 22:46:21 Plan of Care [code = 1877 6-5] [facility] Scheduled Test 2013-11-12 15:02:48 Plan of Care [code = 1877 6-5] [facility] Scheduled Test 2013-10-25 14:34:03 Plan of Care [code = 1877 6-5] [facility] Scheduled Test 2013-10-18 19:51:26 Plan of Care [code = 1877 6-5] [facility] Scheduled Test 2013-04-27 02:00:20 Plan of Care [code = 1877 6-5] [facility] Scheduled Test 2013-01-25 07:11:51 Plan of Care [code = 1877 6-5] [facility] Appointment 2020-05-23 10:00:00 Lela LAND, [facility] Future Appointment 2020-04-01 10:00:00 Cedric LERMA, [facility] Future Appointment 2020-03-31 13:45:00 Lela WYATT, [facility] Encounters Start Date/Time End Date/Time Encounter Type Admission Type Attendi [email or web address] Care Department Encounter ID Source 2020-01-09 07:43:06 Outpatient MHSE MHSE [id number] [facility] 2019-11-13 15:21:49 Outpatient MHSE MHSE [id number] [facility] 2019-11-06 08:55:38 Outpatient MHSE MHSE [id number] [facility] 2020-03-25 10:00:00 2020-03-25 10:00:00 Appointment; MARIA GUADALUPE MARTINEZ P.A. CRUZ, LETICIA, P.A. [facility] [id number] [facility] 2020-01-31 11:42:00 2020-01-31 23:59:00 Outpatient Lilly Leung MHSE MHSE [id number] 2020-01-31 11:42:00 2020-01-31 11:42:00 Outpatient MHSE MHSE [id number] [facility] 2020-01-18 08:55:00 2020-01-18 14:00:00 Outpatient Lucero Oden MHSE MHSE [id number] 2019-12-18 10:00:00 2019-12-18 10:00:00 Appointment; Manny Mina M.D. Quesada, Jorge, M.D. [facility], [address] [id number] [facility] 2019-11-20 12:40:00 2019-11-20 12:40:00 Appointment; SHANDA KITCHEN M.D. CHARITAKIS, KONSTANTINOS, M.D. [facility], [address] [id number] [facility] 2019-11-02 09:30:00 2019-11-02 09:30:00 Appointment; Manny Mina M.D. Quesada, Jorge, M.D. [facility] [id number] [facility] 2019-10-24 09:00:00 2019-10-24 09:00:00 Appointment; MARIA GUADALUPE MARTINEZ P.A. CRUZ, LETICIA, P.A. [facility], [address] [id number] [facility] 2019-10-22 13:15:00 2019-10-22 13:15:00 Appointment; CODI HUI A PRN SAXE, KAILA, APRN [facility] [id number] [facility] 2019-09-28 09:00:00 2019-09-28 09:00:00 Appointment; SHANDA KITCHEN M.D. CHARITAKIS, KONSTANTINOS, M.D. [facility] [id number] [facility] 2019-09-27 12:38:00 2019-09-27 06:27:00 Inpatient E MHSE MED [id number] [facility] 2019-09-21 09:30:00 2019-09-21 09:30:00 Appointment; MARIA GUADALUPE MARTINEZ P.A. CRUZ, LETICIA, P.A. [facility], [address] [id number] [facility] 2019-09-18 09:40:00 2019-09-18 09:40:00 Appointment; SHANDA KITCHEN M.D. CHARITAKIS, KONSTANTINOS, M.D. [facility] [address] [id number] [facility] 2019-09-14 10:30:00 2019-09-14 10:30:00 Appointment; RAMY REDMOND M.D. MARTIN, GORDON, M.D. [facility] Thoracic Surgery [facility] [id number] [facility] 2019-09-11 13:30:00 2019-09-11 13:30:00 Appointment; MARIA GUADALUPE MARTINEZ P.A. CRUZ, LETICIA, P.A. [facility], [address] [id number] [facility] 2019-09-04 05:27:00 2019-09-04 05:27:00 Emergency E MHSE MHSE [id number] [facility] 2019-08-22 10:45:00 2019-08-22 10:45:00 Appointment; MARIA GUADALUPE MARTINEZ P.A. CRUZ, LETICIA, P.A. [facility] [id number] [facility] 2019-08-21 14:00:00 2019-08-21 14:00:00 Appointment; MARIA GUADALUPE MARTINEZ P.A. CRUZ, LETICIA, P.A. [facility] [id number] [facility] 2019-08-16 12:30:00 2019-08-16 12:30:00 Appointment; ANASTASIYA MCKENZIE RADIATION PROTECTION ENGINEERRODY HAIR APRN [facility] [id number] [facility] 2019-08-06 08:45:00 2019-08-06 08:45:00 Appointment; RAMY REDMOND M.D. MARTIN, GORDON, M.D. [facility] Thoracic Surgery [facility] [id number] [facility] 2019-08-03 11:00:00 2019-08-03 11:00:00 Appointment; MARIA GUADALUPE MARTINEZ P.A. CRUZ, LETICIA, P.A. [facility], [address] [id number] [facility] 2019-07-20 11:00:00 2019-07-20 11:00:00 Appointment; RAMY REDMOND M.D. MARTIN, GORDON, M.D. [facility] Cardiothoracic & Vascular Surgery [facility] [id number] [facility] 2019-07-07 09:30:00 2019-07-07 09:30:00 Appointment; MARIA GUADALUPE MARTINEZ P.A. CRUZ, LETICIA, P.A. [facility], [address] [id number] [facility] 2019-06-19 09:20:00 2019-06-19 09:20:00 Appointment; SHANDA KITCHEN M.D. CHARITAKIS, KONSTANTINOS, M.D. [facility], [address] [id number] [facility] 2019-06-08 09:45:00 2019-06-08 09:45:00 Appointment; MARIA GUADALUPE MARTINEZ P.A. CRUZ, LETICIA, P.A. [facility], [address] [id number] [facility] 2019-06-08 08:30:00 2019-06-08 08:30:00 Appointment; EVELINE BURDEN M.D. KOSHELEV, MISHA, M.D. [facility], [address] [id number] [facility] 2019-05-14 08:30:00 2019-05-14 08:30:00 Appointment; MARIA GUADALUPE MARTINEZ P.A. CRUZ, LETICIA, P.A. [facility], [address] [id number] [facility] 2019-05-10 12:00:00 2019-05-10 12:00:00 Appointment; ALESSANDRO MESA AP RN TRAN, THUY, APRN [facility] [id number] [facility] 2019-04-23 10:45:00 2019-04-23 10:45:00 Appointment; ORTEGA LONGO APRN DUGAS, NANCY, APRN [facility], [address] [id number] [facility] 2019-04-03 08:09:00 2019-04-03 08:09:00 Outpatient MHSE MHSE [id number] [facility] 2019-03-21 08:45:00 2019-03-21 08:45:00 Appointment; ANTIONETTE CABRERA APRN OBONYANO, THERESA, APRN [facility] [id number] [facility] 2019-03-15 08:30:00 2019-03-15 08:30:00 Appointment; MARIA GUADALUPE MARTINEZ P.A. CRUZ, LETICIA, P.A. [facility], [address] [id number] [facility] 2019-03-08 14:29:00 2019-03-08 14:29:00 Emergency E MHSE MHSE [id number] [facility] 2019-03-08 13:00:00 2019-03-08 13:00:00 Appointment; YOSELIN DIXON M.D. CATALANO, MARC, M.D. [facility], [address] [id number] [facility] 2019-03-01 13:08:00 2019-03-01 13:08:00 Emergency E MHSE MHSE [id number] [facility] 2019-03-01 08:30:00 2019-03-01 08:30:00 Appointment; CODI HUI A PRN SAXE, KAILA, APRN [facility] [id number] [facility] 2019-02-22 14:30:00 2019-02-22 14:30:00 Appointment; CODI HUI A PRN SAXE, KAILA, APRN [facility] [id number] [facility] 2019-02-13 09:20:00 2019-02-13 09:20:00 Appointment; SHANDA KITCHEN M.D. CHARITAKIS, KONSTANTINOS, M.D. [facility] [address] [id number] [facility] 2019-01-30 08:00:00 2019-01-30 08:00:00 Appointment; MARIA GUADALUPE MARTINEZ P.A. CRUZ, LETICIA, P.A. [facility], [address] [id number] [facility] 2019-01-15 09:00:00 2019-01-15 09:00:00 Appointment; CODI HUI A PRN SAXE, KAILA, APRN [facility] [id number] [facility] 2018-12-04 08:40:00 2018-12-04 08:40:00 Appointment; JEREMIAH VENTURA M.D. DHOBLE, ABHIJEET, M.D. [facility] [id number] [facility] 2018-12-01 10:00:00 2018-12-01 10:00:00 Appointment; EVELINE BURDEN M.D. KOSHELEV, MISHA, M.D. [facility] [address] [id number] [facility] 2018-11-28 11:43:00 2018-11-28 11:43:00 Emergency E MHSE SE [id number] [facility] 2018-11-21 08:36:00 2018-11-21 08:36:00 Outpatient [facility] CAR [id number] [facility] 2018-11-17 08:00:00 2018-11-17 08:00:00 Appointment; EVELINE BURDEN M.D. KOSHELEV, MISHA, M.D. [facility] [address] [id number] [facility] 2018-11-17 08:00:00 2018-11-17 08:00:00 Appointment; EVELINE BURDEN M.D. KOSHELEV, MISHA, M.D. [facility] [id number] [facility] 2018-11-07 11:15:00 2018-11-07 11:15:00 Appointment; MARIA GUADALUPE MARTINEZ P.A. CRUZ, LETICIA, P.A. [facility] [address] [id number] [facility] 2018-11-02 13:00:00 2018-11-02 13:00:00 Appointment; KENYETTA-MS, E KEVIN [facility], YARIEL [facility] [id number] [facility] 2018-10-31 09:20:00 2018-10-31 09:20:00 Appointment; SHANDA KITCHEN M.D. CHARITAKIS, KONSTANTINOS, M.D. [facility]Specialty [address] [id number] [facility] 2018-10-05 13:00:00 2018-10-05 13:00:00 Appointment; YOSELIN DIXON M.D. CATALANO, MARC, M.D. [facility] [address] [id number] [facility] 2018-09-28 14:00:00 2018-09-28 14:00:00 Appointment; MARIA GUADALUPE MARTINEZ P.A. CRUZ, LETICIA, P.A. [facility] [address] [id number] [facility] 2018-08-21 10:15:00 2018-08-21 10:15:00 Appointment; MARIA GUADALUPE MARTINEZ P.A. CRUZ, LETICIA PMadyson [facility] [address] [id number] [facility] 2018-08-09 10:20:00 2018-08-09 10:20:00 Appointment; JEREMIAH VENTURA M.D. DHOBLE, ABHIJEET, M.D. [facility] [id number] [facility] 2018-08-03 09:00:00 2018-08-03 09:00:00 Appointment; MARIA GUADALUPE MARTINEZ P.A. CRUZ, LETICIA, P.A. [facility] [address] [id number] [facility] 2018-07-26 11:40:00 2018-07-26 11:40:00 Appointment; JEREMIAH VENTURA M.D. DHOBLE, ABHIJEET, M.D. [facility] [id number] [facility] 2018-06-13 08:45:00 2018-06-13 08:45:00 Appointment; MARIA GUADALUPE MARTINEZ P.A. CRUZ, LETICIA, P.A. [facility] [address] [id number] [facility] 2018-06-09 08:15:00 2018-06-09 08:15:00 Appointment; THU CHEEMA M.D. SIMMONS, JOHN, M.D. [facility] [id number] [facility] 2018-05-29 09:00:00 2018-05-29 09:00:00 Appointment; JEREMIAH VENTURA M.D. DHOBLE, ABHIJEET, M.D. [facility] [address] [id number] [facility] 2018-04-25 11:00:00 2018-04-25 11:00:00 Appointment; SHANDA KITCHEN M.D. CHARITAKIS, KONSTANTINOS, M.D. [facility] [address] [id number] [facility] 2018-04-25 10:00:00 2018-04-25 10:00:00 Appointment; Herbert CHATMAN ECHO [facility] [id number] [facility] 2018-04-24 09:00:00 2018-04-24 09:00:00 Appointment; JEREMIAH VENTURA M.D. DHOBLE, ABHIJEET, M.D. [facility] [id number] [facility] 2018-04-07 13:30:00 2018-04-07 13:30:00 Appointment; THU CHEEMA M.D. SIMMONS, JOHN, M.D. [facility] [id number] [facility] 2018-03-31 09:15:00 2018-03-31 09:15:00 Appointment; MARIA GUADALUPE MARTINEZ P.A. CRUZ, LETICIA PKevenAKeven [facility] [address] [id number] [facility] 2018-03-21 13:30:00 2018-03-21 13:30:00 Appointment; NICO CORNEJO D.O. YEH, SHAO-CHUN, D.O. [facility] [id number] [facility] 2018-03-14 08:00:00 2018-03-14 08:00:00 Appointment; MARIA GUADALUPE MARTINEZ P.A. CRUZ, LETICIA P.AKeven [facility] [address] [id number] [facility] 2018-02-21 15:00:00 2018-02-21 15:00:00 Appointment; MARIA GUADALUPE MARTINEZ P.A. CRUZ, LETICIA P.AKeven [facility] [address] [id number] [facility] 2018-01-19 14:00:00 2018-01-19 14:00:00 Appointment; MARIA GUADALUPE MARTINEZ P.A. CRUZ, LETICIA PKevenAKeven [facility] [address] [id number] [facility] 2018-01-18 19:47:00 2018-01-18 23:55:00 Departed Emergency Room 1 MARIUSZ BRADY [facility] [id number] [facility] 2017-12-21 08:15:00 2017-12-21 08:15:00 Appointment; MARIA GUADALUPE MARTINEZ P.A. CRUZ, LETICIA P.AKeven [facility] [address] [id number] [facility] 2017-11-18 08:00:00 2017-11-18 08:00:00 Appointment; EVELINE BURDEN M.D. KOSHELEV, MISHA, M.D. [facility] [address] [id number] [facility] 2017-10-25 10:20:00 2017-10-25 10:20:00 Appointment; SHANDA KITCHEN M.D. CHARITAKIS, KONSTANTINOS, M.D. [facility] [address] [id number] [facility] 2017-10-20 08:00:00 2017-10-20 08:00:00 Appointment; MARIA GUADALUPE MARTINEZ P.A. CRUZ, LETICIA, P.A. UTP [facility] [address] [id number] [facility] 2017-07-21 13:30:00 2017-07-21 13:30:00 Appointment; MARIA GUADALUPE MARTINEZ P.A. CRUZ, LETICIA, P.A. UTP [facility]3] [address] [id number] [facility] 2017-05-26 08:30:00 2017-05-26 08:30:00 Appointment; MARIA GUADALUPE MARTINEZ P.A. CRUZ, LETICIA, P.A. UTP UTP [id number] [facility] 2017-05-06 10:20:00 2017-05-06 10:20:00 Appointment; SHANDA KITCHEN M.D. CHARITAKIS, KONSTANTINOS, M.D. UTP UTP [id number] [facility] 2017-05-06 09:00:00 2017-05-06 09:00:00 Appointment; [place]-MS, Herbert BROWN [place]-MS, ECHO UTP UTP [id number] [facility] 2017-03-15 13:40:00 2017-03-15 13:40:00 Appointment; SHANDA KITCHEN M.D. CHARITAKIS, KONSTANTINOS, M.D. UTP UTP [id number] [facility] 2017-03-07 13:00:00 2017-03-07 13:00:00 Appointment; [place]-MS, E KEVIN [place]-MS, ECHO UTP UTP [id number] [facility] 2017-02-21 08:00:00 2017-02-21 08:00:00 Appointment; MARIA GUADALUPE MARTINEZ P.A. CRUZ, LETICIA, P.AKeven UTP UTP [id number] [facility] 2017-02-16 08:00:00 2017-02-16 08:00:00 Appointment; MARIA GUADALUPE MARTINEZ P.A. CRUZ, LETICIA, P.A. UTP UTP [id number] [facility] 2017-01-19 10:15:00 2017-01-19 10:15:00 Appointment; MARIA GUADALUPE MARTINEZ P.A. CRUZ, LETICIA P.A. UTP UTP [id number] [facility] 2016-11-30 09:30:00 2016-11-30 09:30:00 Appointment; MARIA GUADALUPE MARTINEZ P.A. CRUZ, LETICIA, P.A. UTP UTP [id number] [facility] 2016-11-02 09:00:00 2016-11-02 09:00:00 Appointment; SHANDA KITCHEN M.D. CHARITAKIS, KONSTANTINOS, M.D. UTP UTP [id number] [facility] 2016-11-01 08:00:00 2016-11-01 08:00:00 Appointment; MARIA GUADALUPE MARTINEZ P.A. CRUZ, LETICIA, P.A. UTP UTP [id number] [facility] 2016-10-20 09:45:00 2016-10-20 09:45:00 Appointment; THU CHEEMA M.D. SIMMONS, JOHN, M.D. UTP UTP [id number] [facility] 2016-10-18 08:15:00 2016-10-18 08:15:00 Appointment; MARIA GUADALUPE MARTINEZ P.A. CRUZ, LETICIA, P.A. UTP UTP [id number] [facility] 2016-08-10 08:15:00 2016-08-10 08:15:00 Appointment; NING LECHUGA M.D. HARLIN, STUART, M.D. UTP UTP [id number] [facility] 2016-08-02 11:00:00 2016-08-02 11:00:00 Appointment; VASCULAR, SE VASCULAR, SE UTP UTP [id number] [facility] 2016-07-27 10:00:00 2016-07-27 10:00:00 Appointment; NING LECHUGA M.D. HARLIN, STUART, M.D. UTP UTP [id number] [facility] 2016-07-14 08:30:00 2016-07-14 08:30:00 Appointment; MARIA GUADALUPE MARTINEZ P.A. CRUZ, LETICIA P.A. UTP UTP [id number] [facility] 2016-05-31 11:00:00 2016-05-31 11:00:00 Appointment; MARIA GUADALUPE MARTINEZ P.A. CRUZ, LETICIA, P.A. UTP UTP [id number] [facility] 2016-05-26 15:15:00 2016-05-26 15:15:00 Appointment; MARIA GUADALUPE MARTINEZ P.A. CRUZ, LETICIA, P.A. UTP UTP [id number] [facility] 2016-05-24 16:00:00 2016-05-24 16:00:00 Appointment; MARIA GUADALUPE MARTINEZ P.A. CRUZ, LETICIA, P.A. UTP UTP [id number] [facility] 2016-05-18 13:30:00 2016-05-18 13:30:00 Appointment; MARIA GUADALUPE MARTINEZ P.A. CRUZ, LETICIA, P.A. UTP UTP [id number] [facility] 2016-05-04 10:40:00 2016-05-04 10:40:00 Appointment; SHANDA KITCHEN M.D. CHARITAKIS, KONSTANTINOS, M.D. UTP UTP [id number] [facility] 2016-05-04 08:45:00 2016-05-04 08:45:00 Appointment; NING LECHUGA M.D. HARLIN, STUART, M.D. UTP UTP [id number] [facility] 2016-04-26 13:00:00 2016-04-26 13:00:00 Appointment; [facility] UTP UTP [id number] [facility] 2016-04-20 09:00:00 2016-04-20 09:00:00 Appointment; NING LECHUGA M.D. HARLIN, STUART, M.D. UTP UTP [id number] [facility] 2016-04-08 15:00:00 2016-04-08 15:00:00 Appointment; MARIA GUADALUPE MARTINEZ P.A. CRUZ, LETICIA P.A. UTP UTP [id number] [facility] 2016-03-15 08:30:00 2016-03-15 08:30:00 Appointment; NING LECHUGA M.D. HARLIN, STUART, M.D. UTP UTP [id number] [facility] 2016-03-05 13:00:00 2016-03-05 13:00:00 Appointment; [facility] U[facility] UTP [id number] [facility] 2016-03-01 09:15:00 2016-03-01 09:15:00 Appointment; NING LECHUGA M.D. HARLIN, STUART, M.D. UTP UTP [id number] [facility] 2016-02-24 09:40:00 2016-02-24 09:40:00 Appointment; SHANDA KITCHEN M.D. CHARITAKIS, KONSTANTINOS, M.D. UTP UTP [id number] [facility] 2016-02-11 11:30:00 2016-02-11 11:30:00 Appointment; ALESSANDRO MESA, ICE CREAM MAKER MESAALESSANDRO, ICE CREAM MAKER UTP UTP [id number] [facility] 2016-02-04 17:30:00 2016-02-04 17:30:00 Appointment; ALESSANDRO MESA ICE CREAM MAKER MESA, ALESSANDRO, ICE CREAM MAKER UTP UTP [id number] [facility] 2015-12-02 08:30:00 2015-12-02 08:30:00 Appointment; MARIA GUADALUPE MARTINEZ P.A. CRUZ, LETICIA, P.A. UTP UTP [id number] [facility] 2015-10-29 12:20:00 2015-10-29 12:20:00 Appointment; SHANDA KITCHEN M.D. CHARITAKIS, KONSTANTINOS, M.D. UTP UTP [id number] [facility] 2015-09-12 08:45:00 2015-09-12 08:45:00 Appointment; CHARLA BETTS P.A. CAMPOS, BERTHA, P.A. UTP UTP [id number] [facility] 2015-08-26 11:20:00 2015-08-26 11:20:00 Appointment; SHANDA KITCHEN M.D. CHARITAKIS, KONSTANTINOS, M.D. [facility] UTP [id number] [facility] 2015-08-13 09:30:00 2015-08-13 09:30:00 Appointment; CHARLA BETTS P.A. CAMPOS, BERTHA, P.A. UTP UTP [id number] [facility] 2013-12-17 09:32:43 2013-12-17 09:32:43 Outpatient MHIE MHIE [id number] 2013-11-22 21:30:43 2013-11-22 21:30:42 Outpatient MHIE MHIE [id number] 2013-11-22 16:32:19 2013-11-22 16:32:18 Outpatient MHIE MHIE [id number] 2013-11-22 14:15:00 2013-11-22 14:15:00 Appointment; MARIA GUADALUPE MARTINEZ P.A. CRUZ, LETICIA, P.A. UTP [facility] 2 [id number] [facility] 2013-11-14 17:46:22 2013-11-14 17:46:21 Outpatient MHIE MHIE [id number] 2013-11-12 10:02:49 2013-11-12 10:02:48 Outpatient MHIE MHIE [id number] 2013-10-25 09:34:03 2013-10-25 09:34:03 Outpatient MHIE MHIE [id number] 2013-10-18 13:51:27 2013-10-18 13:51:26 Outpatient MHIE MHIE [id number] 2013-09-20 15:06:43 2013-09-20 15:06:42 Outpatient MHIE MHIE [id number] 2013-09-18 15:47:13 2013-09-18 15:47:12 Outpatient MHIE MHIE [id number] 2013-07-04 17:47:33 2013-07-04 17:47:33 Outpatient MHIE MHIE [id number] 2013-06-25 08:16:14 2013-06-25 08:16:14 Outpatient MHIE MHIE [id number] 2013-06-18 17:31:26 2013-06-18 17:31:25 Outpatient MHIE MHIE [id number] 2013-06-13 18:02:07 2013-06-13 18:02:06 Outpatient BRANDON BRANDON [id number] 2013-04-28 14:00:22 2013-04-28 14:00:22 Outpatient BRANDON BRANDON [id number] 2013-04-26 21:00:20 2013-04-26 21:00:20 Outpatient HEIKE BURROUGHS [id number] 2013-02-06 23:04:23 2013-02-06 23:03:58 Outpatient BRANDON BURROUGHS [id number] 2013-01-25 02:12:10 2013-01-25 02:11:51 Outpatient BRANDON BRANDON [id number] 2012-12-20 00:14:19 2012-12-20 00:14:01 Outpatient BRANDON BRANDON [id number] Results Test Description Test Time Test Comments Results Result Comments Source CXR 2 VIEW - HOPD 2020-03-26 14:07:00 [place] [address] Patient Name: TOMAS PERAZA MR #: [id number] : 1940 Age/Sex: 79/F Req #: [id number] Adm Physician: Ordered by: ANNI MANN MD Report #: [id number] Location: [facility] Room/Bed: Procedure: [id number] HOPD/CXR 2 VIEW - HOPD Exam Date: 03/26/20 Exam Time: 1403 REPORT STATUS: Signed EXAMINATION: CXR 2 VIEW - HOPD INDICATION: Chest pain COMPARISON: None FINDINGS: LINES/TUBES:None LUNGS:The lungs are mildly hyperinflated. Mild biapical pleural parenchymal thickening/scarring. Mild left basilar subsegmental atele ctasis. No focal consolidation or pulmonary edema. PLEURA:No pleural effusion or pneumothorax. MEDIASTINUM:The cardiomediastinal silhouette appears normal in size and shape. Atherosclerotic calcifications of the thoracic aorta. Septal occlusion device. BONES/SOFT TISSUES:No acute osseous injury. Old left ninth posterior rib fracture. ABDOMEN:No free air under the diaphragm. IMPRESSION: Mildly hyperinflated lungs. Mild left basilar subsegmental atelectasis. No focal pneumonia or pulmonary edema. Signed by: Sandip Olivera MD on 03/26/2020 2:09 PM Dictated By: SANDIP OLIVERA MD 08 Transcribed By: VAISHALI on 03/26/201408 COPY TO: ANNI MANN MD [QL] CULTURE, URINE, ROUTINE 2020-02-05 10:51:00 Test Item CULTURE (test code = CULTURE) See Comment A CULTURE, URINE, ROUTINE Micro Number: [id number] Test Status: Final Specimen Source: URINE Specimen Quality: Adequate Result: Greater than 100,000 CFU/mL of Escherichia coli E.coli INT EDUAR AMOX/CLAVULANATE I 16 AMPICILLIN R >=32 AMP/SULBACTAM R >=32 CEFAZOLIN NR <=4 2 CEFEPIME S <=1 CEFTRIAXONE S <=1 CIPROFLOXACIN R >=4 GENTAMICIN S <=1 IMIPENEM S <=0.25 LEVOFLOXACIN R >=8 NITROFURANTOIN S <=16 PIP/TAZOBACTAM S <=4 TOBRAMYCIN S <=1 TRIMETHOPRIM/SULFA R >=320S=Susceptible I=Intermediate R=Resistant * = Not TestedNR = Not Reported NN = See Therapy CommentsTHERAPY COMMENTS Note 1: For infections other than uncomplicated UTI caused by E. coli, K. pneumoniae or P. mirabilis: Cefazolin is resistant if EDUAR > or = 8 mcg/mL. (Distinguishing susceptible versus intermediate for isolates with EDUAR < or = 4 mcg/mL requires additional testing.) Note 2: For uncomplicated UTI caused by E. coli, K. pneumoniae or P. mirabilis: Cefazolin is susceptible if EDUAR <32 mcg/mL and predicts susceptible to the oral agents cefaclor, cefdinir, cefpodoxime, cefprozil, cefuroxime, cephalexin and loracarbef. [facility] [id number] 14:43:00Not Detected (01/14/20 9:43 AM)[facility][QL] CMP [id number] 11:39:00* Test Item Value Reference Range Interpretation Comments GLUCOSE; Normal (test code = 1547-9) 120 mg/dl 65-139 N Non-fasting reference interval UREA NITROGEN (BUN) (test code = UREA NITROGEN (BUN)) 22 mg/dl 7-25 N CREATININE (test code = CREATININE) 1.61 mg/dl 0.60-0.93 For patients >49 years of age, the reference limitfor Creatinine is approximately 13% higher for peopleidentified as -[place]. eGFR NON- (test code = eGFR NON-DANILO N CYMRAES) 31 {ML/MIN/1.7} > OR = 60 eGFR (test code = eGFR ) 36 {ML/MIN/1.7} > OR = 60 BUN/CREATININE RATIO (test code = BUN/CREATININE RATIO) 14 {CALC} 6-22 N SODIUM (test code = SODIUM) 145 mmol/L 135-146 N POTASSIUM (test code = POTASSIUM) 5.2 mmol/L 3.5-5.3 N CHLORIDE (test code = CHLORIDE) 109 mmol/L 98-110 N CARBON DIOXIDE (test code = CARBON DIOXIDE) 30 mmol/L 20-32 N CALCIUM (test code = CALCIUM) 9.1 mg/dl 8.6-10.4 N PROTEIN, TOTAL (test code = PROTEIN, TOTAL) 6.2 g/dl 6.1-8.1 N ALBUMIN (test code = ALBUMIN) 4.0 g/dl 3.6-5.1 N GLOBULIN (test code = GLOBULIN) 2.2 {G/DL CALC} 1.9-3.7 N ALBUMIN/GLOBULIN RATIO (test code = ALBUMIN/GLOBULIN RATIO) 1.8 {CALC} 1.0-2.5 N BILIRUBIN, TOTAL; Normal (test code = 14244-7) 0.3 mg/dl 0.2-1.2 N ALKALINE PHSPHATASE (test code = ALKALINE PHSPHATASE) 109 u/l 37-153 N AST; Normal (test code = 1916-6) 12 u/l 10-35 N ALT; Normal (test code = 1742-6) 9 u/l 6-29 N [facility][QL] CBC (INCLUDES DIFF/PLT)2019-12-18 11:39:00* Test Item Value Reference Range Interpretation Comments WHITE BLOOD CELL COUNT (test code = WHITE BLOOD CELL COUNT) 7.6 {Thousand/u} 3.8-10.8 N RED BLOOD CELL COUNT (test code = RED BLOOD CELL COUNT) 3.99 {Million/uL} 3.80-5.10 N HEMAGLOBIN; Normal (test code = 16786-3) 12.8 g/dl 11.7-15.5 N HEMATOCRIT; Normal (test code = 4544-3) 39.1 % 35.0-45.0 N MCV; Normal (test code = 787-2) 98.0 fL 80.0-100.0 N MCHC; Normal (test code = 61656-7) 32.7 g/dl 32.0-36.0 N RDW; Normal (test code = 788-0) 13.1 % 11.0-15.0 N PLATELET COUNT; Normal (test code = 777-3) 351 {Thousand/u} 140-400 N MPV; Normal (test code = 89603-7) 9.7 fL 7.5-12.5 N ABSOLUTE NEUTROPHILS (test code = ABSOLUTE NEUTROPHILS) 5480 {cells/uL} 3626-4151 N ABSOLUTE LYMPHOCYTES (test code = ABSOLUTE LYMPHOCYTES) 1497 {cells/uL} 850-3900 N ABSOLUTE MONOCYTES (test code = ABSOLUTE MONOCYTES) 410 {cells/uL} 200-950 N ABSOLUTE EOSINOPHILS (test code = ABSOLUTE EOSINOPHILS) 182 {cells/ uL} 15-500 N ABSOLUTE BASOPHILS (test code = ABSOLUTE BASOPHILS) 30 {cells/uL} 0 -200 N NEUTROPHILS (test code = NEUTROPHILS) 72.1 % N LYMPHOCYTES (test code = LYMPHOCYTES) 19.7 % N MONOCYTES; Normal (test code = 59929-2) 5.4 % N EOSINOPHILS; Normal (test code = 80447-5) 2.4 % N BASOPHILS; Normal (test code = 10565-8) 0.4 % N [facility][QL] [id number] 11:39:00* Test Item Value Reference Range Interpretation Comments CEA (test code = CEA) 2.3 ng/ml N Non-Sm oker: <2.5Smoker: <5.0 This test was performed using the Siemens chemiluminescent method. Values obtained fromdifferent assay methods cannot be usedinterchangeably. CEA levels, regardle ss ofvalue, should not be interpreted as absoluteevidence of the presence or absence of disease. [facility][] [id number] 11:39:00* Test Item Value Reference Range Interpretation Comments CA 19-9 (test code = CA 19-9) 26 U/ml <34 N This test was performed using the Siemens chemiluminescent method. Values obtained fromdifferent assay methods cannot be usedinterchangeably. CA 19-9 levels, regardless ofvalue, should not be interpreted as absoluteevidence of the presence or absence of disease. [facility][O] Urine Dipstick (In Office)2019-10-22 13:07:00 * Test Item Value Reference Range Interpretation Comments Glucose (test code = Glucose) negative N LEUKOCYTES (test code = LEUKOCYTES) ++ A NITRITE; Abnormal (test code = 84994-8) Positive A UROBILINOGEN; Normal (test code = 00643-9) normal N PROTEIN; Abnormal (test code = 71872-5) +30 A pH (test code = pH) 6 N URINE BLOOD; Abnormal (test code = 59973-1) ~250 A SPECIFIC GRAVITY; Normal (test code = 2965-2) 1.015 N KETONES; Normal (test code = 97107-1) negative N BILIRUBIN; Normal (test code = 91775-9) negative N COLOR URINE; Abnormal (test code = 5778-6) dk yellow A APPEARANCE; Abnormal (test code = 5767-9) cloudy A COMMENT (test code = COMMENT) foul odor A [facility]] URINALYSIS, COMPLETE W/REFLEX TO CULTURE 2019-10-22 00:00:00* Test Item Value Reference Range Interpretation Comments COLOR; Normal (test code = 5778-6) DARK YELLOW YELLOW N APPEARANCE (test code = APPEARANCE) CLOUDY CLEAR A SPECIFIC GRAVITY; Normal (test code = 2965-2) 1.020 1.001-1. 035 N PH; Normal (test code = 2756-5) 5.5 5.0-8.0 N GLUCOSE; Normal (test code = 1547-9) NEGATIVE NEGATIVE N BILIRUBIN; Normal (test code = 90333-8) NEGATIVE NEGATIVE N KETONES; Abnormal (test code = 24997-2) TRACE NEGATIVE A OCCULT BLOOD; Normal (test code = 77910-0) NEGATIVE NEGATIVE N PROTEIN; Abnormal (test code = 39151-5) 1+ NEGATIVE A NITRITE (test code = NITRITE) NEGATIVE NEGATIVE N LEUKOCYTE ESTERASE (test code = LEUKOCYTE ESTERASE) 2+ NE GATIVE A WBC; Abnormal (test code = 6690-2) PACKED < OR = 5 A RBC; Normal (test code = 789-8) 0-2 < OR = 2 N SQUAMOUS EPITHELIAL CELLS (test code = 29865-8) 0-5 < OR = 5 BACTERIA; Abnormal (test code = 630-4) MODERATE NONE SEEN A HYALINE CAST; Normal (test code = 21983-6) NONE SEEN NONE SEEN N NOTE (test code = NOTE) See Below This urine was analyzed for the presence of WBC, RBC, bacteria, casts, and other formed elements. Only those elements seen were reported. [facility][] REFLEXIVE URINE [id number] 00:00:00* Test Item Value Reference Range Interpretation Comments REFLEXIVE URINE CULTURE (test code = REFLEXIVE URINE C ULTURE) CULTURE INDICATED - RESULTS TO FOLLOW [facility]] CULTURE, URINE, [id number] 00:00:00* Test Item Value Reference Range Interpretation Comments CULTURE (test code = CULTURE) See Comment A CULTURE, URINE, ROUTINE Micro Number: [id number] Test Status: Final Specimen Source: URINE Specimen Quality: Adequate Result: Greater than 100,000 CFU/mL of Escherichia coli E.coli INT EDUAR AMOX/CLAVULANATE S 4 AMPICILLIN R >=32 AMP/SULBACTAM I 16 CEFAZOLIN NR <=4 2 CEFEPIME S <=1 CEFTRIAXONE S <=1 CIPROFLOXACIN R >=4 GENTAMICIN S <=1 IMIPENEM S <=0.25 LEVOFLOXACIN R >=8 NITROFURANTOIN S <=16 PIP/TAZOBACTAM S <=4 TOBRAMYCIN S <=1 TRIMETHOPRIM/SULFA R >=320S=Susceptible I=Intermediate R=Resistant * = Not TestedNR = Not Reported NN = See Therapy CommentsTHERAPY COMMENTS Note 1: For infections other than uncomplicated UTI caused by E. coli, K. pneumoniae or P. mirabilis: Cefazolin is resistant if EDUAR > or = 8 mcg/mL. (Distinguishing susceptible versus intermediate for isolates with EDUAR < or = 4 mcg/mL requires additional testing.) Note 2: For uncomplicated UTI caused by E. coli, K. pneumoniae or P. mirabilis: Cefazolin is susceptible if EDUAR <32 mcg/mL and predicts susceptible to the oral agents cefaclor, cefdinir, cefpodoxime, cefprozil, cefuroxime, cephalexin and loracarbef. [facility][QL] URINALYSIS, COMPLETE W/REFLEX TO CULTURE 2019-10-22 00:00:00* Test Item Value Reference Range Interpretation Comments COLOR; Normal (test code = 5778-6) DARK YELLOW YELLOW N APPEARANCE (test code = APPEARANCE) CLOUDY CLEAR A SPECIFIC GRAVITY; Normal (test code = 2965-2) 1.020 1.001-1. 035 N PH; Normal (test code = 2756-5) 5.5 5.0-8.0 N GLUCOSE; Normal (test code = 1547-9) NEGATIVE NEGATIVE N BILIRUBIN; Normal (test code = 96163-0) NEGATIVE NEGATIVE N KETONES; Abnormal (test code = 76623-7) TRACE NEGATIVE A OCCULT BLOOD; Normal (test code = 30889-5) NEGATIVE NEGATIVE N PROTEIN; Abnormal (test code = 73739-7) 1+ NEGATIVE A NITRITE (test code = NITRITE) NEGATIVE NEGATIVE N LEUKOCYTE ESTERASE (test code = LEUKOCYTE ESTERASE) 2+ NE GATIVE A WBC; Abnormal (test code = 6690-2) PACKED < OR = 5 A RBC; Normal (test code = 789-8) 0-2 < OR = 2 N SQUAMOUS EPITHELIAL CELLS (test code = 17983-8) 0-5 < OR = 5 BACTERIA; Abnormal (test code = 630-4) MODERATE NONE SEEN A HYALINE CAST; Normal (test code = 28616-4) NONE SEEN NONE SEEN N NOTE (test code = NOTE) See Below This urine was analyzed for the presence of WBC, RBC, bacteria, casts, and other formed elements. Only those elements seen were reported. [facility][] CULTURE, URINE, [id number] 00:00:00* Test Item Value Reference Range Interpretation Comments CULTURE (test code = CULTURE) See Comment A CULTURE, URINE, ROUTINE Micro Number: [id number] Test Status: Final Specimen Source: URINE Specimen Quality: Adequate Result: Greater than 100,000 CFU/mL of Escherichia coli E.coli INT EDUAR AMOX/CLAVULANATE S 4 AMPICILLIN R >=32 AMP/SULBACTAM I 16 CEFAZOLIN NR <=4 2 CEFEPIME S <=1 CEFTRIAXONE S <=1 CIPROFLOXACIN R >=4 GENTAMICIN S <=1 IMIPENEM S <=0.25 LEVOFLOXACIN R >=8 NITROFURANTOIN S <=16 PIP/TAZOBACTAM S <=4 TOBRAMYCIN S <=1 TRIMETHOPRIM/SULFA R >=320S=Susceptible I=Intermediate R=Resistant * = Not TestedNR = Not Reported NN = See Therapy CommentsTHERAPY COMMENTS Note 1: For infections other than uncomplicated UTI caused by E. coli, K. pneumoniae or P. mirabilis: Cefazolin is resistant if EDUAR > or = 8 mcg/mL. (Distinguishing susceptible versus intermediate for isolates with EDUAR < or = 4 mcg/mL requires additional testing.) Note 2: For uncomplicated UTI caused by E. coli, K. pneumoniae or P. mirabilis: Cefazolin is susceptible if EDUAR <32 mcg/mL and predicts susceptible to the oral agents cefaclor, cefdinir, cefpodoxime, cefprozil, cefuroxime, cephalexin and loracarbef. [facility] Chest 2 views [id number] 13:31:00EXAM: XR CHEST 2 VIEWSDATE: 08/23/2019 13:31 CSTINDICATION: - J18.9 Pneumonia, unspecified organismCOMPARISON: May 10, 2019TECHNIQUE: PA and lateral ches t radiographsFINDINGS:BONES: The bones are osteopenic. There are mild compressio n deformities of midthoracic vertebral bodies with anterior disc space loss lead to a prominentdorsal kyphosis. This is grossly stable.HEART: [Normal in size an d configuration]Mediastinum and Gus: There is mild, stable tortuosity of the de scendingthoracic aorta.Lungs: Patchy airspace disease is present in the right lo wer lung partiallysilhouetting the dome of the right hemidiaphragm and part of t he right heartborder.A stable 7.5 mm calcified granulomas present in the left cheryl ng base.There is stable apical pleural thickening to a mild degree bilaterally.I MPRESSION: New airspace disease in the right lower lung likely mostly in therigh t middle lobe. This is consistent with pneumonia or other airspaceprocesses such as atelectasis.--Read by: Mariusz Arredondo MDDictated Date/time: 08/23/19 1 4:01Electronically Signed by: Mariusz Arredondo MD 014:05FINAL REPORTO[facility]] CMP [id number] 12:51:00* Test Item Value Reference Range Interpretation Comments GLUCOSE; Above High Threshold (test code = 1547-9) 104 mg/dl 65- 99 Fasting reference interval For someone without known diabetes, a glucose valuebetween 100 and 125 mg/dL is consistent withprediabetes and should be confirmed with afollow-up test. UREA NITROGEN (BUN) (test code = UREA NITROGEN (BUN)) 22 mg/dl 7-25 N CREATININE (test code = CREATININE) 1.13 mg/dl 0.60-0.93 For patients >49 years of age, the reference limitfor Creatinine is approximately 13% higher for peopleidentified as -[place]. eGFR NON- (test code = eGFR NON-DANILO N CYMRAES) 47 {ML/MIN/1.7} > OR = 60 eGFR (test code = eGFR ) 55 {ML/MIN/1.7} > OR = 60 BUN/CREATININE RATIO (test code = BUN/CREATININE RATIO) 19 {CALC} 6-22 N SODIUM (test code = SODIUM) 140 mmol/L 135-146 N POTASSIUM (test code = POTASSIUM) 4.5 mmol/L 3.5-5.3 N CHLORIDE (test code = CHLORIDE) 104 mmol/L 98-110 N CARBON DIOXIDE (test code = CARBON DIOXIDE) 27 mmol/L 20-32 N CALCIUM (test code = CALCIUM) 9.2 mg/dl 8.6-10.4 N PROTEIN, TOTAL (test code = PROTEIN, TOTAL) 6.2 g/dl 6.1-8.1 N ALBUMIN (test code = ALBUMIN) 4.0 g/dl 3.6-5.1 N GLOBULIN (test code = GLOBULIN) 2.2 {G/DL CALC} 1.9-3.7 N ALBUMIN/GLOBULIN RATIO (test code = ALBUMIN/GLOBULIN RATIO) 1.8 {CALC} 1.0-2.5 N BILIRUBIN, TOTAL; Normal (test code = 84839-9) 0.3 mg/dl 0.2-1.2 N ALKALINE PHSPHATASE (test code = ALKALINE PHSPHATASE) 67 u/l 33-130 N AST; Normal (test code = 1916-6) 14 u/l 10-35 N ALT; Normal (test code = 1742-6) 24 u/l 6-29 N [facility]] CBC (INCLUDES DIFF/PLT)2019-08-23 12:51:00* Test Item Value Reference Range Interpretation Comments WHITE BLOOD CELL COUNT (test code = WHITE BLOOD CELL COUNT) 6.7 {Thousand/u} 3.8-10.8 N RED BLOOD CELL COUNT (test code = RED BLOOD CELL COUNT) 3.69 {Million/uL} 3.80-5.10 HEMAGLOBIN; Normal (test code = 94721-0) 11.9 g/dl 11.7-15.5 N HEMATOCRIT; Normal (test code = 4544-3) 35.1 % 35.0-45.0 N MCV; Normal (test code = 787-2) 95.1 fL 80.0-100.0 N MCHC; Normal (test code = 97327-1) 33.9 g/dl 32.0-36.0 N RDW; Normal (test code = 788-0) 14.5 % 11.0-15.0 N PLATELET COUNT; Normal (test code = 777-3) 248 {Thousand/u} 140-400 N MPV; Normal (test code = 10061-4) 9.4 fL 7.5-12.5 N ABSOLUTE NEUTROPHILS (test code = ABSOLUTE NEUTROPHILS) 4663 {cells/uL} 3225-3307 N ABSOLUTE LYMPHOCYTES (test code = ABSOLUTE LYMPHOCYTES) 1561 {cells/uL} 850-3900 N ABSOLUTE MONOCYTES (test code = ABSOLUTE MONOCYTES) 382 {cells/uL} 200-950 N ABSOLUTE EOSINOPHILS (test code = ABSOLUTE EOSINOPHILS) 67 {cells/u L} 15-500 N ABSOLUTE BASOPHILS (test code = ABSOLUTE BASOPHILS) 27 {cells/uL} 0 -200 N NEUTROPHILS (test code = NEUTROPHILS) 69.6 % N LYMPHOCYTES (test code = LYMPHOCYTES) 23.3 % N MONOCYTES; Normal (test code = 45743-4) 5.7 % N EOSINOPHILS; Normal (test code = 32786-6) 1.0 % N BASOPHILS; Normal (test code = 04351-4) 0.4 % N [facility]] TSH, 3RD GENERATION W/REFLEX TO FT4 2019-08-23 12:51:00* Test Item Value Reference Range Interpretation Comments TSH, 3RD GENERATION W/REFLEX TO FT4 (rocio t code = TSH, 3RD GENERATION W/REFLEX TO FT4) 45.33 {MIU/L} 0.40-4.50 [facility]] T4, [id number] 12:51:00* Test Item Value Reference Range Interpretation Comments T4, FREE (test code = T4, FREE) 0.8 ng/dl 0.8-1.8 N [facility]] HEMOGLOBIN [id number] 12:51:00* Test Item Value Reference Range Interpretation Comments HEMOGLOBIN A1c; Above High Threshold (test code = 4548-4) 7.0 {% of total} <5.7 For someone without known diabetes, a he [facility] O4pukblu of 6.5% or greater indicates that they may have diabetes and this should be confirmed with a follow-up test. For someone with known diabetes, a value <7% indicates that their diabetes is well controlled and a value greater than or equal to 7% indicates suboptimal control. A1c targets should be individualized based on duration of diabetes, age, comorbid conditions, and other considerations. Currently, no consensus exists regarding use ofhemoglobin A1c for diagnosis of diabetes for children. [facility] ZicibigtpiMSLCBBQW-[id number] 01:05:00* Test Item Value Reference Range Interpretation Comments TROPONIN-I (test code = TROPI) 0.045 ng/mL 0-0.045 N COMMENTS TO ABORIGINAL CEREMONIAL CELEBRANT: COLLECT 3 HOURS AFTER PREVIOUS [id number] 21:38:00* Test Item Value Reference Range Interpretation Comments TROPONIN-I (test code = TROPI) 0.057 ng/mL 0-0.045 HH COMMENTS TO ABORIGINAL CEREMONIAL CELEBRANT: COLLECT 3 HOURS AFTER PREVIOUS SAMPLE- CT CHEST W/O [id number] 18:39:00 Name: TOMAS PERAZA [facility] : 1940 Age/S: 78 / F [address] Unit #: [id number] Loc: SARAH [place] [address] Phys: Dk Mesa MD Acct: [id number] Dis Date: Status: ADM IN PHONE #: [phone] Exam Date: 07/31/2019 180 FAX #: [phone] Reason: sob EXAMS: CPT CODE: [id number] CT CHEST W/O CONTRAST [id number] EXAM: CT of the chest without contrast; INFORMATION: Shortness of breath, pneumonia; TECHNIQUE AND FINDINGS: CT dose reduction protocol; 5 mm cuts through the chest without contrast. Lung windows show no parenchymal abnormalities; no infiltrates. There is a small interlobar effusion in the medial basilar portions of the greater fissure and there is a partially organized, small right pleural effusion. There is chest wall herniation along the posterior basilar portion of the left hemithorax herniation of a small portion of the left lower lobe and of subdiaphragmatic tissues including a portion of the colon. The heart is slightly enlarged. There is a left atrial occluder device in place and there are calcifications of the thoracic aorta and coronary arteries. Scans through the upper abdomen show a 1 cm left cortical renal cyst. IMPRESSION: 1. No evidence of pulmonary infiltrates or other acute cardiothoracic abnormalities. 2. Small right pleural effusion, partially organized and small interlobar effusion on the right. 3. Left posterior latera l chest wall hernia. 4. Mild cardiomegaly. 5. Small left renal c yst. Location code: [facility] Electronically Si gned by Lela Diaz on 07/31/2019 at 1839 Reported and signed by: Abelino Diaz M.D. CC: Richard Dawson; Dk Mesa Technologist :Mily [place] RT(R); GERMAIN Zendejas CTDI: DLP: Trnscb Date/Time: 07/15 (183) Patricia Orig Print D/T: S: 07/31/2019 (18 42) PAGE 1 Signed Report - CTA [id number] 16:02:00 Name: TOMAS PERAZA [facility] : 1940 Age/S: 78 / F [address] [facility] Unit #: [id number] Loc: Sarah Morrissey [address] Phys: Yan Rudolph MD Acct: [id number] Dis Date: 07/20/2019 Status: DIS IN PHONE #: [phone] Exam Date: 07/11/2019 1140 FAX #: [phone] Reason: AAA Report Has Been Amended EXAMS: CPT CODE: [id number] CTA ABDOMEN 44178 Addendum - 07/31/2019 SIGNED 07/31/2019 ADDENDUM: [id number] CT/CTABWWO Focal herniation of the left lung as well as a stenotic change of the adjacent rib likely represents sequela of remote trauma. at 1602 Reported and signed by: Vince Willett MD Transcribed: 07/31/2019 (1602) [email or web address] Report REASON FOR EXAM: history of AAA< epigastric pain EXAM ORDER DATE: 07/11/2019 10:06 AM Ordering M.D.: Yan Rudolph MD PROCEDURE: - CTA CHEST contrast-enhanced axial CT images were acquired through the chest/abdomen/pelvis. Sagittal and coronal reformatted images were generated. Automated exposure control was utilized for this reduction. Phases of contrast: Aortic and delayed COMPARISON: Report of CT chest May 18, 2012 was reviewed however the images are not available at this time FINDINGS: Timing of the contrast bolus is suboptimal for evaluation of nonvascular pathologies Vascular findings There is severe atherosclerotic disease in the thoracic aorta. Evaluation of the aortic annulus is somewhat limited due to absence of cardiac gating resulting in cardiac motion. Ascending aorta is normal in caliber measuring approximately 3.2 cm in diameter. At the aortic arch the aorta is normal in caliber measuring 2.6 cm in diameter. At the level of the pulmonary trunk the descending thoracic aorta is PAGE 1 Signed Report (CONTINUED) Name: TOMAS PERAZA [facility] : 1940 Age/S: 78 / F [address] [facility] Unit #: [id number] Loc: [place] [address] Phys: Yan Rudolph MD Acct: [id number] Dis Date: 07/20/2019 Stat us: DIS IN PHONE #: [phone] Exam Date: 07/11/2019 1140 FAX #: [phone] Reason: AAA Report Has Been Amended EXAMS: CPT CODE: [id number] CTA ABDOMEN 55868 < Continued> mildly dilated measuring 3.2 cm in diameter. At the aortic hiatus, the thoracic aorta normalizes in caliber measuring 2.8 cm in diameter. There is extensive atherosclerotic disease of the abdominal aorta that extends into the iliac arteries. There is fusiform aneurysmal dilatation of the infrarenal abdominal aorta. The aneurysmal segment measures approximately 7.9 cm in length and measures up to 4.2 x 3.3 cm in diameter. Normal caliber of the iliac arteries. Nonvascular findings Visualized neck: Normal Airways, Lungs and Pleura: Small right-sided pleural effusion and a trace left-sided pleural effusion is seen. There are also groundglass opacities throughout the right lung and in the dependent left lung. Small amount of mucous is present in the bronchus intermedius there is also bronchial wall thickening in the right lower lobe. Incidental note is made of a hernia of the left lung between the ninth and 10th ribs. Posttraumatic change is also noted in the left ninth rib adjacent to the hernia site. Heart, pulmonary vessels, mediastinum: Left atrial appendage closure device is noted. Central pulmonary arteries are normal in size. The heart is slightly prominent relative to the thorax. Thoracic Lymph nodes: There are subcentimeter mediastinal lymph nodes which are nonspecific. No axillary or internal mammary adenopathy. Subcentimeter right hilar lymph nodes are also noted. Hepatobiliary system: Grossly normal Pancreas: Atrophic with fatty replacement Spleen: Numerous calcified granulomas are present Adrenal glands: Grossly normal Genitourinary system: Simple exophytic cortical cyst in the midpole of PAGE 2 Signed Report (CONTINUED) Name: TOMAS PERAZA [facility] : 1940 Age/S: 78 / F [address] [facility] Unit #: [id number] Loc: [place] [address] Phys: Yan Rudolph MD Acct: [id number] Dis Date: 07/20/2019 Status: DIS IN PHONE #: [phone] Exam Date: 07/11/2019 1140 FAX #: [phone] Reason: AAA Report Has Been Amended EXAMS: CPT CODE: [id number] CTA ABDOMEN 77112 < Continued> the left kidney. Prior hysterectomy. Otherwise grossly normal Gastrointestinal tract and appendix: Prior appendectomy. Otherwise grossly normal Peritoneum and retroperitoneum: No free fluid or free air. No omental or mesenteric masses. No abnormal lymph nodes. Musculoskeletal structures, chest wall, and abdominal wall: There appears to be chronic compression fracture of the L1 vertebrae. No bone retropulsion into the spinal canal. Disc degeneration is seen in the mid to lower thoracic spine and in the lower lumbar spine and there are vertebral body sclerotic changes at L4-L5. IMPRESSION: Infrarenal abdominal aortic aneurysm measures up to 4.2 cm in diameter and involves a 7.9 cm length of the aorta. There is also fusiform dilation of the descending thoracic aorta. Severe atherosclerotic disease of the thoracic and abdominal aorta. Bronchial wall thickening in the right lower lobe with mucous in the right bronchus may represent aspiration and/or infectious bronchiolitis. Cardiomegaly with small pleural effusions and groundglass opacities, may represent CHF with pulmonary edema. Location: [facility] at 1201 Reported and signed by: Vince Willett MD CC: Richard Dawson; Yan Rudolph MD Technologist:Chris Hastings RT(R) CTDI: DLP: Trnscb Date/Time: 07/11/2019 (1201) [email or web address] Orig Print D/T: S: 07/31/2019 (2744) PAGE 3 Signed Report - CTA [id number] 16:02:00 Name: TOMAS PERAZA [facility] : 1940 Age/S: 78 / F [address] [facility] Unit #: [id number] Loc: [place] [address] Phys: Yan Rudolph MD Acct: [id number] Dis Date: 07/20/2019 Status: DIS IN PHONE #: [phone] Exam Date: 07/11/2019 1142 FAX #: [phone] Reason: AAA Report Has Been Amended EXAMS: CPT CODE: [id number] CTA ABDOMEN 79077 Addendum - 07/31/2019 SIGNED 07/31/2019 ADDENDUM: [id number] CT/CTABWWO Focal herniation of the left lung as well as a stenotic change of the adjacent rib likely represents sequela of remote trauma. at 1602 Reported and signed by: Vince Willett MD Transcribed: 07/31/2019 (9480) [email or web address] Report REASON FOR EXAM: history of AAA< epigastric pain EXAM ORDER DATE: 07/11/2019 10:06 AM Ordering M.D.: Yan Rudolph MD PROCEDURE: - CTA CHEST contrast-enhanced axial CT images were acquired through the chest/abdomen/pelvis. Sagittal and coronal reformatted images were generated. Automated exposure control was utilized for this reduction. Phases of contrast: Aortic and delayed COMPARISON: Report of CT chest May 18, 2012 was reviewed however the images are not available at this time FINDINGS: Timing of the contrast bolus is suboptimal for evaluation of nonvascular pathologies Vascular findings There is severe atherosclerotic disease in the thoracic aorta. Evaluation of the aortic annulus is somewhat limited due to absence of cardiac gating resulting in cardiac motion. Ascending aorta is normal in caliber measuring approximately 3.2 cm in diameter. At the aortic arch the aorta is normal in caliber measuring 2.6 cm in diameter. At the level of the pulmonary trunk the descending thoracic aorta is PAGE 1 Signed Report (CONTINUED) Name: TOMAS PERAZA [facility] : 1940 Age/S: 78 / F [address] [facility] Unit #: [id number] Loc: [place] [address] Phys: Yan Rudolph MD Acct: [id number] Dis Date: 07/20/2019 Status: DIS IN PHONE #: [phone] Exam Date: 07/11/2019 1140 FAX #: [phone] Reason: AAA Report Has Been Amended EXAMS: CPT CODE: [id number] CTA ABDOMEN 33300 <Continued> mildly dilated measuring 3.2 cm in diameter. At the aortic hiatus, the thoracic aorta normalizes in caliber measuring 2.8 cm in diameter. There is extensive atherosclerotic disease of the abdominal aorta that extends into the iliac arteries. There is fusiform aneurysmal dilatation of the infrarenal abdominal aorta. The aneurysmal segment measures appr oximately 7.9 cm in length and measures up to 4.2 x 3.3 cm in diameter. Normal caliber of the iliac arteries. Nonvascu lar findings Visualized neck: Normal Airways, Lungs and Pleura: Small right-sided pleural effusion and a trace left-sided pleu ral effusion is seen. There are also groundglass opacities throughout the right lung and in the dependent left lung. Small amount of mucous is prese nt in the bronchus intermedius there is also bronchial wall thickening in the right lower lobe. Incidental note is made of a hernia of the left lung between the ninth and 10th ribs. Posttraumatic change is also noted in th e left ninth rib adjacent to the hernia site. Heart, pulmona ry vessels, mediastinum: Left atrial appendage closure device is noted. Ce ntral pulmonary arteries are normal in size. The heart is slightly promine nt relative to the thorax. Thoracic Lymph nodes: There are subcent imeter mediastinal lymph nodes which are nonspecific. No axillary or inter nal mammary adenopathy. Subcentimeter right hilar lymph nodes are also not ed. Hepatobiliary system: Grossly normal Pancreas: A trophic with fatty replacement Spleen: Numerous calcified granulom as are present Adrenal glands: Grossly normal Genito urinary system: Simple exophytic cortical cyst in the midpole of PAGE 2 Signed Report (CONTINUED) Name: TOMAS PERAZA [facility] : 1940 Age /S: 78 / F [address] [facility] Unit #: [id number] Loc: [place] [address] Phys: Yan Rudolph MD Acct: [id number] Dis Date: 2018 Status: DIS IN PHONE #: [phone] Exam Date: 07/11/2019 1140 FAX #: [phone] Reason: AAA Repor t Has Been Amended EXAMS: CPT CODE: [id number] CTA ABDOMEN 47633 <Continued> the left kidney. Prior hysterectomy. Otherwise grossly normal Gastrointestinal tract and appendix: Prior appendectomy. Otherwise grossly normal Peritoneum and retroperitoneum: No free fluid or free air. No omental or mesenteric masses. No abnormal lymph nodes. Musculoskeletal structures, chest wall, and abdominal wall: There appears to be chronic compression fracture of the L1 vertebrae. No bone retropulsion into the spinal canal. Disc degeneration is seen in the mid to lower thoracic spine and in the lower lumbar spine and there are vertebral body sclerotic changes at L4- L5. IMPRESSION: Infrarenal abdominal aortic aneurysm measures up to 4.2 cm in diameter and involves a 7.9 cm length of the aorta. There is also fusiform dilation of the descending thoracic aorta. Severe atherosclerotic disease of the thoracic and abdominal aorta. Bronchial wall thickening in the right lower lobe with mucous in the right bronchus may represent aspiration and/or infectious bronchiolitis. Cardiomegaly with small pleural effusions and groundglass opacities, may represent CHF with pulmonary edema. Location: [facility] at 1201 Reported and signed by: Vince Willett MD CC: Richard Dawson; Yan Rudolph MD Technologist:Chris Hastings RT(R) CTDI: DLP: Trnscb Date/Time: 07/11/2019 (1201) [email or web address] Orig Print D/T: S: 07/31/2019 (8804) PAGE 3 Signed Report - CTA [id number] 16:02:00 Name: TOMAS PERAZA [facility] : 1940 Age/S: 78 / F [address] [facility] Unit #: [id number] Loc: [place] [address] Phys: Yan Rudolph MD Acct: [id number] Dis Date: 07/20/2019 Status: DIS IN PHONE #: [phone] Exam Date: 07/11/2019 1123 FAX #: [phone] Reason: history of AAA< epigastric pain Report Has Been Amended EXAMS: CPT CODE: [id number] CTA CHEST 27028 Addendum - 07/31/2019 SIGNED 07/31/2019 ADDENDUM: [id number] CT/CTACHWWO Focal herniation of the left lung as well as a stenotic change of the adjacent rib likely represents sequela of remote trauma. at 1602 Reported and signed by: Vince Willett MD Transcribed: 07/31/2019 (1602) [email or web address] Addendum - 07/11/2019 SIGNED 07/11/2019 ADDENDUM: [id number] CT/CTACHWWO Focal herniation of the left lung as well as a s tenotic change of the adjacent rib likely represents sequela of remote tra wilbert. at 1444 * * Reported and signed by: Vince Willett MD Transcribed: 07/11/2019 (1444) [email or web address] Report REASON FOR EXAM: history of AAA< epigastric pain EXAM ORDER DATE: 07/11/2019 10:06 AM Ordering M.D.: Yan Rudolph MD PROCEDURE: - CTA CHEST contrast-enhanced axial CT images were acquired through the chest/abdomen/pelvis. Sagittal and coronal reformatted images were generated. Automated exposure control was utilized for this reduction. Phases of contrast: Aortic and delayed COMPARISON: Report of CT chest May 18, 2012 was reviewed however the images are not available at this time FINDINGS: PAGE 1 Signed Report (CONTINUED) Name: TOMAS PERAZA [facility] : 1940 Age/S: 78 / F [address] [facility] Unit #: [id number] [place]: [place] [address] Phys: Yan Rudolph MD Acct: [id number] Dis Date: 07/20/2019 Status: DIS IN PHONE #: [phone] Exam Date: 07/11/2019 1123 FAX #: [phone] Reason: history of AAA< epigastric pain Report Has Been Amended EXAMS: CPT CODE: [id number] CTA CHEST 25518 <Continued> Timing of the contrast bolus is suboptimal for evaluation of nonvascular pathologies Vascular findings There is severe atherosclerotic disease in the thoracic aorta. Evaluation of the aortic annulus is somewhat limited due to absence of cardiac gating resulting in cardiac motion. Ascending aorta is normal in caliber measuring approximately 3.2 cm in diameter. At the aortic arch the aorta is normal in caliber measuring 2.6 cm in diameter. At the level of the pulmonary trunk the descending thoracic aorta is mildly dilated measuring 3.2 cm in diameter. At the aortic hiatus, the thoracic aorta normalizes in caliber measuring 2.8 cm in diameter. There is extensive atherosclerotic disease of the abdominal aorta that extends into the iliac arteries. There is fusiform aneurysmal dilatation of the infrarenal abdominal aorta. The aneurysmal segment measures approximately 7.9 cm in length and measures up to 4.2 x 3.3 cm in diameter. Normal caliber of the iliac arteries. Nonvascular findings Visualized neck: Normal Airways, Lungs and Pleura: Small right-sided pleural effusion and a trace left-sided pleural effusion is seen. There are also groundglass opacities throughout the right lung and in the dependent left lung. Small amount of mucous is present in the bronchus intermedius there is also bronchial wall thickening in the right lower lobe. Incidental note is made of a hernia of the left lung between the ninth and 10th ribs. Posttraumatic change is also noted in the left ninth rib adjacent to the hernia site. Heart, pulmonary vessels, mediastinum: Left atrial appendage closure device is noted. Central pulmonary arteries are normal in size. The heart is slightly prominent relative to the thorax. Thoracic Lymph nod es: There are subcentimeter mediastinal lymph nodes which are nonspecific. No axillary or internal mammary adenopathy. PAGE 2 S igned Report (CONTINUED) Name: TOMAS PERAZA [facility] : 1940 Age/S: 78 / F [address] [facility] Unit #: [id number] Loc: [place] [address] Phys: Yan Rudolph MD Acct: [id number] Dis Date: 07/20/2019 Status: DIS IN PHONE #: [phone] Exam Date: 9 1123 FAX #: [phone] Reason: history of AAA< epigastric pain Report Has Been Amend ed EXAMS: CPT CODE: [id number] CTA CHEST 88901 < Continued> Subcentimeter right hilar lymph nodes are also noted. Hepatobiliary system: Grossly normal Pancreas: Atrophic with fatty replacement Spleen: Numerous calcified granulomas are present Adrenal glands: Grossly normal Genitourinary system: Simple exophytic cortical cyst in the midpole of the left kidney. Prior hysterectomy. Otherwise grossly normal Gastrointestinal tract and appendix: Prior appendectomy. Otherwise grossly normal Peritoneum and retroperitoneum: No free fluid or free air. No omental or mesenteric masses. No abnormal lymph nodes. Musculoskeletal structures, chest wall, and abdominal wall: There appears to be chronic compression fracture of the L1 vertebrae. No bone retropulsion into the spinal canal. Disc degeneration is seen in the mid to lower thoracic spine and in the lower lumbar spine and there are vertebral body sclerotic changes at L4-L5. IMPRESSION: Infrarenal abdominal aortic aneurysm measures up to 4.2 cm in diameter and involves a 7.9 cm length of the aorta. There is also fusiform dilation of the descending thoracic aorta. Severe atherosclerotic disease of the thoracic and abdominal aorta. Bronchial wall thickening in the right lower lobe with mucous in the right bronchus may represent aspiration and/or infectious bronchiolitis. Cardiomegaly with small pleural effusions and groundglass opacities, may represent CHF with pulmonary edema. Location: [facility] at 1201 Reported and signed by: Vince Willett MD PAGE 3 Signed Report (CONTINUED) Name: TOMAS PERAZA [facility] : 1940 Age/S: 78 / F [address] [facility] Unit #: [id number] Loc: [place] [address] Phys: Yan Rudolph MD Acct: [id number] Dis Date: 07/20/2019 Status: DIS IN PHONE #: [phone] Exam Date: 07/11/2019 1123 FAX #: [phone] Reason: history of AAA< epigastric pain Report Has Been Amended EXAMS: CPT CODE: [id number] CTA CHEST 69271 <Continued> CC: Yan Rudolph MD Technologist:Chris Hastings RT(R) CTDI: DLP: Trnscb Date/Time: 07/11/2019 (1201) [email or web address] Orig Print D/T: S: 07/11/2019 (8445) PAGE 4 Signed Report - CTA [id number] 16:02:00 Name: TOMAS PERAZA [facility] : 1940 Age/S: 78 / F [address] [facility] Unit #: [id number] Loc: [place] [address] Phys: Yan Rudolph MD Acct: [id number] Dis Date: 07/20/2019 Status: DIS IN PHONE #: [phone] Exam Date: 07/11/2019 1123 FAX #: [phone] Reason: history of AAA< epigastric pain Report Has Been Amended EXAMS: CPT CODE: [id number] CTA CHEST 39786 Addendum - 07/31/2019 SIGNED 07/31/2019 ADDENDUM: [id number] CT/CTACHWWO Focal herniation of the left lung as well as a stenotic change of the adjacent rib likely represents sequela of remote trauma. at 1602 Reported and signed by: Vince Willett MD Transcribed: 07/31/2019 (1602) [email or web address] Addendum - 07/31/2019 SIGNED 07/31/2019 ADDENDUM: [id number] CT/CTACHWWO Focal herniation of the left lung as well as a stenotic change of the adjacent rib likely represents sequela of remote trauma. at 1602 Reported and signed by: Vince Willett MD Transcribed: 07/31/2019 (1602) [email or web address] Addendum - 07/11/2019 SIGNED 07/11/2019 ADDENDUM: [id number] CT/CTACHWWO Focal herniation of the left lung as well as a stenotic change of the adjacent rib likely represents sequela of remote trauma. at 1444 Reported and signed by: Vince Willett MD Transcribed: 07/11/2019 (2753) [email or web address] Report REASON FOR EXAM: history of AAA< epigastric pain EXAM ORDER DATE: 07/11/2019 10:06 AM Ordering M.D.: Yan Rudolph MD PROCEDURE: - CTA CHEST contrast-enhanced axial CT images were PAGE 1 Signed Report (CONTINUED) Name: TOMAS PERAZA [facility] : 1940 Age/S: 78 / F [address] [facility] Unit #: [id number] Loc: [place] [address] Phys: Yan Rudolph MD Acct: [id number] Dis Date: 07/20/2019 Status: DIS IN PHONE #: [phone] Exam Date: 07/11/2019 1123 FAX #: [phone] Reason: history of AAA< epigastric pain Report Has Been Amended EXAMS: CPT CODE: [id number] CTA CHEST 26816 <Continued> acquired through the chest/abdomen/pelvis. Sagittal and coronal reformatted images were generated. Automated exposure control was utilized for this reduction. Phases of contrast: Aortic and delayed COMPARISON: Report of CT chest May 18, 2012 was reviewed however the images are not available at this time FINDINGS: Timing of the contrast bolus is suboptimal for evaluation of nonvascular pathologies Vascular findings There is severe atherosclerotic disease in the thoracic aorta. Evaluation of the aortic annulus is somewhat limited due to absence of cardiac gating resulting in cardiac motion. Ascending aorta is normal in caliber measuring approximately 3.2 cm in diameter. At the aortic arch the aorta is normal in caliber measuri ng 2.6 cm in diameter. At the level of the pulmonary trunk the descending thoracic aorta is mildly dilated measuring 3.2 cm in diameter. At the aort ic hiatus, the thoracic aorta normalizes in caliber measuring 2.8 cm in di ameter. There is extensive atherosclerotic disease of the abdomin al aorta that extends into the iliac arteries. There is fusiform ane urysmal dilatation of the infrarenal abdominal aorta. The aneurysmal segme nt measures approximately 7.9 cm in length and measures up to 4.2 x 3.3 cm in diameter. Normal caliber of the iliac arteries. Nonvascular findings Visualized neck: Normal Airways, Lungs and Pleura: Small right-sided pleural effusion and a trace left-sided pleural effusion is seen. There are also groundglass opacities throughout the right lung and in the dependent left lung. Small amount of mucous is present in the bronchus intermedius there is PAGE 2 Signed Report (CONTINUED) Name: TOMAS PERAZA [facility] : 1940 Age/S: 78 / F [address] [facility] Unit #: [id number] Loc: [place] [address] Phys: Yan Rudolph MD Acct: [id number] Dis Date: 07/20/2019 Sta tus: DIS IN PHONE #: [phone] Exam Date : 07/11/2019 1123 FAX #: [phone] Reason: history of AAA< epigastric pain Report Has Been Amended EXAMS: CPT CODE: [id number] CTA CHEST 16872 <Continued> also bronchial wall thickening in the right lower lobe. Incidental note is made of a hernia of the left lung between the ninth and 10th ribs. Posttraumatic change is also noted in the left ninth rib adjacent to the hernia site. Heart, pulmonary vessels, mediastinum: Left atrial appendage closure device is noted. Central pulmonary arteries are normal in size. The heart is slightly prominent relative to the thorax. Thoracic Lymph nodes: There are subcentimeter mediastinal lymph nodes which are nonspecific. No axillary or internal mammary adenopathy. Subcentimeter right hilar lymph nodes are also noted. Hepatobiliary system: Grossly normal Pancreas: Atrophic with fatty replacement Spleen: Numerous calcified granulomas are present Adrenal glands: Grossly normal Genitourinary system: Simple exophytic cortical cyst in the midpole of the left kidney. Prior hysterectomy. Otherwise grossly normal Gastrointestinal tract and appendix: Prior appendectomy. Otherwise grossly normal Peritoneum and retroperitoneum: No free fluid or free air. No omental or mesenteric masses. No abnormal lymph nodes. Musculoskeletal structures, chest wall, and abdominal wall: There appears to be chronic compression fracture of the L1 vertebrae. No bone retropulsion into the spinal canal. Disc degeneration is seen in the mid to lower thoracic spine and in the lower lumbar spine and there are vertebral body sclerotic changes at L4-L5. IMPRESSION: Infrarenal abdominal aortic aneurysm measures up to 4.2 cm in diameter and involves a 7.9 cm length of the aorta. There is also fusiform dilation of the descending thoracic aorta. Severe atherosclerotic d isease of the thoracic and abdominal aorta. Bronchial wall thickening in the right lower lobe with mucous in the PAGE 3 Alona d Report (CONTINUED) Name: TOMAS PERAZA [facility] : 1940 Age/S: 78 / F [address] [facility] Unit #: [id number] Loc: [place] [address] Phys: Yan Rudolph MD Acct: [id number] Dis Date: 07/20/2019 Status: DIS IN PHONE #: [phone] Exam Date: 07/11/2019 1 123 FAX #: [phone] Reason: history of AAA< epigastric pain Report Has Been Amend ed EXAMS: CPT CODE: [id number] CTA CHEST 80247 < Continued> right bronchus may represent aspiration and/or infectious bronchiolitis. Cardiomegaly with small pleural effusions and groundglass opacities, may represent CHF with pulmonary edema. Location: [facility] at 1201 Reported and signed by: Vince Willett MD CC: Yan Rudolph MD Technologist:Chris Hastings RT(R) CTDI: DLP: Trnscb Date/Time: 07/11/2019 (1201) [email or web address] Orig Print D/T: S: 07/11/2019 (1205) PAGE 4 Signed Report B-TYPE NATRIURETIC [id number] 14:00:00* Test Item Value Reference Range Interpretation Comments B-TYPE NATRIURETIC PEPTIDE (test code = BNP) 292.89 pgram/mL 0-100 H BASIC METABOLIC [id number] 13:24:00* Test Item Value Reference Range Interpretation Comments SODIUM (test code = NA) 142 mmol/L 136-145 N POTASSIUM (test code = K) 4.6 mmol/L 3.5-5.1 N CHLORIDE (test code = CL) 106.0 mmol/L 98-107 N CARBON DIOXIDE (test code = CO2) 30.0 mmol/L 21-32 N ANION GAP (test code = GAP) 10.6 10-20 N GLUCOSE (test code = GLU) 192 mg/dL 74-106 H BLOOD UREA NITROGEN (test code = BUN) 31 mg/dL 7-18 H GLOMERULAR FILTRATION RATE (test code = GFR) 48 mL/min >=60 Estimated GFR by using Modified MDRD formula.Chronic kidney disease is defined as either kidney damageor GFR <60 mL/min/1.73 m2 for >3 months. CREATININE (test code = CREAT) 1.10 mg/dL 0.55-1.02 H Note change in reference range due to change in reagent. BUN/CREATININE RATIO (test code = BUN/CREA) 28.2 10-20 H CALCIUM (test code = CA) 8.8 mg/dL 8.5-10.1 N [id number] 13:24:00* Test Item Value Reference Range Interpretation Comments TROPONIN-I (test code = TROPI) 0.051 ng/mL 0-0.045 HH Results called to DR CALLE by [email or web address] 07/31/19 1322Critical results verified and read back by Nurse? Y BASIC METABOLIC [id number] 13:13:00* Test Item Value Reference Range Interpretation Comments SODIUM (test code = NA) 142 mmol/L 136-145 N POTASSIUM (test code = K) 4.6 mmol/L 3.5-5.1 N CHLORIDE (test code = CL) 106.0 mmol/L 98-107 N CARBON DIOXIDE (test code = CO2) mmol/L 21-32 ANION GAP (test code = GAP) 10-20 GLUCOSE (test code = GLU) mg/dL 74-106 BLOOD UREA NITROGEN (test code = BUN) mg/dL 7-18 GLOMERULAR FILTRATION RATE (test code = GFR) mL/min >=60 CREATININE (test code = CREAT) mg/dL 0.55-1.02 BUN/CREATININE RATIO (test code = BUN/CREA) 10-20 CALCIUM (test code = CA) 8.8 mg/dL 8.5-10.1 N [id number] 13:13:00* Test Item Value Reference Range Interpretation Comments TROPONIN-I (test code = TROPI) ng/mL 0-0.045 CBC W/O [id number] 13:08:00* Test Item Value Reference Range Interpretation Comments WHITE BLOOD CELL (test code = WBC) 9.4 K/mm3 4.5-12.5 N RED BLOOD CELL (test code = RBC) 3.36 mill/mm3 3.7-5.2 L HEMOGLOBIN (test code = HGB) 10.7 gram/dL 11.5-15.5 L HEMATOCRIT (test code = HCT) 33.7 % 36.0-46.0 L MEAN CELL VOLUME (test code = MCV) 100.3 fL 80-98 H MEAN CELL HGB (test code = MCH) 31.8 picogram 27.0-33.0 N MEAN CELL HGB CONCETRATION (test code = MCHC) 31.8 gram/dL 33.0-36. 0 L RED CELL DISTRIBUTION WIDTH (test code = RDW) 14.5 % 11.6-16. 2 N PLATELET COUNT (test code = PLT) 214 K/mm3 150-450 N MEAN PLATELET VOLUME (test code = MPV) 8.7 fL 6.7-11.0 N - XR CHEST 2 [id number] 12:29:00 FAX: Franck Calle MD [place]: St: [facility] FAX: Richard Gabriel MD [phone] Name: TOMAS PERAZA [facility] : 1940 Age/S: 78/F [address] Unit #: [id number] Loc: [place] [address] Phys: Franck Calle MD Acct: [id number] Dis Date: Status: REG ER PHONE #: [phone] Exam Date: 07/31/2019 1219 FAX #: [phone] Reason: cough sob EXAMS: CPT CODE: [id number] XR CHEST 2 V 09140 HISTORY: Cough and shortness of breath. COMPARISON: July 11, 2019. Location: [facility]. Small right effusion with subsegmental atelectasis. Patchy basal infiltrate. Calcified granuloma in the left lower lobe. DJD of the dorsal spine. Cardiac silhouette is moderately enlarged. IMPRESSION: Small right effusion with subsegmental atelectasis and patchy infiltrate. at 1229 Reported and signed by: Harjeet Ryder M.D. CC: Franck Calle MD; Richard Dawson Technologist: Dawna Hansen(Fiona) Trnscrd Date/Time/By: 9 (1222) : By: [email or web address] Orig Print D/T: S: 07/31/2019 (6023) PAGE 1 Signed Report [id number] 06:19:00* Test Item Value Reference Range Interpretation Comments GLYCOSYLATED HEMOGLOBIN (HA1C) (test code = GLYHGB) 6.7 % HbA1 SUGGESTED DIAGNOSIS: HbA1C (%) Diabetic >6.4Prediabetes 5.7 - 6.4Normal <5.7 ESTIMATED AVERAGE GLUCOSE (test code = EAG) 146 MG/DL BASIC METABOLIC [id number] 05:49:00* Test Item Value Reference Range Interpretation Comments SODIUM (test code = NA) 138 mmol/L 136-145 N POTASSIUM (test code = K) 4.1 mmol/L 3.5-5.1 N CHLORIDE (test code = CL) 100.0 mmol/L 98-107 N CARBON DIOXIDE (test code = CO2) 33.0 mmol/L 21-32 H ANION GAP (test code = GAP) 9.1 10-20 L GLUCOSE (test code = GLU) 273 mg/dL 74-106 H BLOOD UREA NITROGEN (test code = BUN) 40 mg/dL 7-18 H GLOMERULAR FILTRATION RATE (test code = GFR) 54 mL/min >=60 Estimated GFR by using Modified MDRD formula.Chronic kidney disease is defined as either kidney damageor GFR <60 mL/min/1.73 m2 for >3 months. CREATININE (test code = CREAT) 1.00 mg/dL 0.55-1.02 N Note change in reference range due to change in reagent. BUN/CREATININE RATIO (test code = BUN/CREA) 41.8 10-20 H CALCIUM (test code = CA) 8.6 mg/dL 8.5-10.1 N BASIC METABOLIC [id number] 05:46:00* Test Item Value Reference Range Interpretation Comments SODIUM (test code = NA) 138 mmol/L 136-145 N POTASSIUM (test code = K) 4.1 mmol/L 3.5-5.1 N CHLORIDE (test code = CL) 100.0 mmol/L 98-107 N CARBON DIOXIDE (test code = CO2) mmol/L 21-32 ANION GAP (test code = GAP) 10-20 GLUCOSE (test code = GLU) mg/dL 74-106 BLOOD UREA NITROGEN (test code = BUN) mg/dL 7-18 GLOMERULAR FILTRATION RATE (test code = GFR) mL/min >=60 CREATININE (test code = CREAT) mg/dL 0.55-1.02 BUN/CREATININE RATIO (test code = BUN/CREA) 10-20 CALCIUM (test code = CA) 8.6 mg/dL 8.5-10.1 N BASIC METABOLIC [id number] 07:55:00* Test Item Value Reference Range Interpretation Comments SODIUM (test code = NA) 139 mmol/L 136-145 N POTASSIUM (test code = K) 4.3 mmol/L 3.5-5.1 N CHLORIDE (test code = CL) 100.0 mmol/L 98-107 N CARBON DIOXIDE (test code = CO2) 32.0 mmol/L 21-32 N ANION GAP (test code = GAP) 11.3 10-20 N GLUCOSE (test code = GLU) 227 mg/dL 74-106 H BLOOD UREA NITROGEN (test code = BUN) 35 mg/dL 7-18 H GLOMERULAR FILTRATION RATE (test code = GFR) > 60 mL/min >=60 Estimated GFR by using Modified MDRD formula.Chronic kidney disease is defined as either kidney damageor GFR <60 mL/min/1.73 m2 for >3 months. CREATININE (test code = CREAT) 0.90 mg/dL 0.55-1.02 N Note change in reference range due to change in reagent. BUN/CREATININE RATIO (test code = BUN/CREA) 40.8 10-20 H CALCIUM (test code = CA) 8.8 mg/dL 8.5-10.1 N BASIC METABOLIC [id number] 08:15:00* Test Item Value Reference Range Interpretation Comments SODIUM (test code = NA) 140 mmol/L 136-145 N POTASSIUM (test code = K) 4.4 mmol/L 3.5-5.1 N CHLORIDE (test code = CL) 103.0 mmol/L 98-107 N CARBON DIOXIDE (test code = CO2) 30.0 mmol/L 21-32 N ANION GAP (test code = GAP) 11.4 10-20 N GLUCOSE (test code = GLU) 209 mg/dL 74-106 H BLOOD UREA NITROGEN (test code = BUN) 29 mg/dL 7-18 H GLOMERULAR FILTRATION RATE (test code = GFR) > 60 mL/min >=60 Estimated GFR by using Modified MDRD formula.Chronic kidney disease is defined as either kidney damageor GFR <60 mL/min/1.73 m2 for >3 months. CREATININE (test code = CREAT) 0.90 mg/dL 0.55-1.02 N Note change in reference range due to change in reagent. BUN/CREATININE RATIO (test code = BUN/CREA) 33.0 10-20 H CALCIUM (test code = CA) 9.0 mg/dL 8.5-10.1 N BASIC METABOLIC [id number] 08:09:00* Test Item Value Reference Range Interpretation Comments SODIUM (test code = NA) 140 mmol/L 136-145 N POTASSIUM (test code = K) 4.4 mmol/L 3.5-5.1 N CHLORIDE (test code = CL) 103.0 mmol/L 98-107 N CARBON DIOXIDE (test code = CO2) mmol/L 21-32 ANION GAP (test code = GAP) 10-20 GLUCOSE (test code = GLU) mg/dL 74-106 BLOOD UREA NITROGEN (test code = BUN) mg/dL 7-18 GLOMERULAR FILTRATION RATE (test code = GFR) mL/min >=60 CREATININE (test code = CREAT) mg/dL 0.55-1.02 BUN/CREATININE RATIO (test code = BUN/CREA) 10-20 CALCIUM (test code = CA) mg/dL 8.5-10.1 CBC W/AUTO [id number] 07:42:00* Test Item Value Reference Range Interpretation Comments WHITE BLOOD CELL (test code = WBC) K/mm3 4.5-12.5 RED BLOOD CELL (test code = RBC) mill/mm3 3.7-5.2 HEMOGLOBIN (test code = HGB) 12.3 gram/dL 11.5-15.5 N HEMATOCRIT (test code = HCT) 38.4 % 36.0-46.0 N MEAN CELL VOLUME (test code = MCV) fL 80-98 MEAN CELL HGB (test code = MCH) picogram 27.0-33.0 MEAN CELL HGB CONCETRATION (test code = MCHC) gram/dL 33.0-36. 0 RED CELL DISTRIBUTION WIDTH (test code = RDW) % 11.6-16. 2 RED CELL DISTRIBUTION WIDTH SD (test code = RDW-SD) fL 37 .0-51.0 PLATELET COUNT (test code = PLT) K/mm3 150-450 MEAN PLATELET VOLUME (test code = MPV) fL 6.7-11.0 NEUTROPHIL % (test code = NT%) % 39.0-69.0 IMMATURE GRANULOCYTE % (test code = IG%) % 0.0-5.0 LYMPHOCYTE % (test code = LY%) % 25.0-55.0 MONOCYTE % (test code = MO%) % 0.0-10.0 EOSINOPHIL % (test code = EO%) % 0.0-5.0 BASOPHIL % (test code = BA%) % 0.0-1.0 NEUTROPHIL # (test code = NT#) K/mm3 1.8-7.7 LYMPHOCYTE # (test code = LY#) K/mm3 1.0-5.0 MONOCYTE # (test code = MO#) K/mm3 0-0.8 EOSINOPHIL # (test code = EO#) K/mm3 0.0-0.5 BASOPHIL # (test code = BA#) K/mm3 0.0-0.2 CBC W/AUTO [id number] 07:42:00* Test Item Value Reference Range Interpretation Comments WHITE BLOOD CELL (test code = WBC) 8.4 K/mm3 4.5-12.5 N RED BLOOD CELL (test code = RBC) 3.91 mill/mm3 3.7-5.2 N HEMOGLOBIN (test code = HGB) 12.3 gram/dL 11.5-15.5 N HEMATOCRIT (test code = HCT) 38.4 % 36.0-46.0 N MEAN CELL VOLUME (test code = MCV) 98.2 fL 80-98 H MEAN CELL HGB (test code = MCH) 31.5 picogram 27.0-33.0 N MEAN CELL HGB CONCETRATION (test code = MCHC) 32.0 gram/dL 33.0-36. 0 L RED CELL DISTRIBUTION WIDTH (test code = RDW) 14.1 % 11.6-16. 2 N RED CELL DISTRIBUTION WIDTH SD (test code = RDW-SD) 50.4 fL 37 .0-51.0 N PLATELET COUNT (test code = PLT) 497 K/mm3 150-450 H MEAN PLATELET VOLUME (test code = MPV) 9.2 fL 6.7-11.0 N NEUTROPHIL % (test code = NT%) 86.6 % 39.0-69.0 H IMMATURE GRANULOCYTE % (test code = IG%) 3.1 % 0.0-5.0 N LYMPHOCYTE % (test code = LY%) 6.6 % 25.0-55.0 L MONOCYTE % (test code = MO%) 3.5 % 0.0-10.0 N EOSINOPHIL % (test code = EO%) 0.0 % 0.0-5.0 N BASOPHIL % (test code = BA%) 0.2 % 0.0-1.0 N NUCLEATED RBC % (test code = NRBC%) 0.4 % 0-0 H NEUTROPHIL # (test code = NT#) 7.26 K/mm3 1.8-7.7 N IMMATURE GRANULOCYTE # (test code = IG#) 0.26 x10 3/uL 0-0.03 H LYMPHOCYTE # (test code = LY#) 0.55 K/mm3 1.0-5.0 L MONOCYTE # (test code = MO#) 0.29 K/mm3 0-0.8 N EOSINOPHIL # (test code = EO#) 0.00 K/mm3 0.0-0.5 N BASOPHIL # (test code = BA#) 0.02 K/mm3 0.0-0.2 N NUCLEATED RBC # (test code = NRBC#) 0.03 K/mm3 0.0-0.1 N BASIC METABOLIC [id number] 05:56:00* Test Item Value Reference Range Interpretation Comments SODIUM (test code = NA) 143 mmol/L 136-145 N POTASSIUM (test code = K) 5.0 mmol/L 3.5-5.1 N CHLORIDE (test code = CL) 110.0 mmol/L 98-107 H CARBON DIOXIDE (test code = CO2) 27.0 mmol/L 21-32 N ANION GAP (test code = GAP) 11.0 10-20 N GLUCOSE (test code = GLU) 201 mg/dL 74-106 H BLOOD UREA NITROGEN (test code = BUN) 36 mg/dL 7-18 H GLOMERULAR FILTRATION RATE (test code = GFR) 48 mL/min >=60 Estimated GFR by using Modified MDRD formula.Chronic kidney disease is defined as either kidney damageor GFR <60 mL/min/1.73 m2 for >3 months. CREATININE (test code = CREAT) 1.10 mg/dL 0.55-1.02 H Note change in reference range due to change in reagent. BUN/CREATININE RATIO (test code = BUN/CREA) 32.4 10-20 H CALCIUM (test code = CA) 8.7 mg/dL 8.5-10.1 N BASIC METABOLIC [id number] 05:52:00* Test Item Value Reference Range Interpretation Comments SODIUM (test code = NA) 143 mmol/L 136-145 N POTASSIUM (test code = K) 5.0 mmol/L 3.5-5.1 N CHLORIDE (test code = CL) 110.0 mmol/L 98-107 H CARBON DIOXIDE (test code = CO2) mmol/L 21-32 ANION GAP (test code = GAP) 10-20 GLUCOSE (test code = GLU) mg/dL 74-106 BLOOD UREA NITROGEN (test code = BUN) mg/dL 7-18 GLOMERULAR FILTRATION RATE (test code = GFR) mL/min >=60 CREATININE (test code = CREAT) mg/dL 0.55-1.02 BUN/CREATININE RATIO (test code = BUN/CREA) 10-20 CALCIUM (test code = CA) mg/dL 8.5-10.1 CBC W/AUTO [id number] 05:31:00* Test Item Value Reference Range Interpretation Comments WHITE BLOOD CELL (test code = WBC) 8.9 K/mm3 4.5-12.5 N RED BLOOD CELL (test code = RBC) 3.18 mill/mm3 3.7-5.2 L HEMOGLOBIN (test code = HGB) 9.9 gram/dL 11.5-15.5 L HEMATOCRIT (test code = HCT) 33.0 % 36.0-46.0 L MEAN CELL VOLUME (test code = MCV) 103.8 fL 80-98 H MEAN CELL HGB (test code = MCH) 31.1 picogram 27.0-33.0 N MEAN CELL HGB CONCETRATION (test code = MCHC) 30.0 gram/dL 33.0-36. 0 L RED CELL DISTRIBUTION WIDTH (test code = RDW) 14.4 % 11.6-16. 2 N RED CELL DISTRIBUTION WIDTH SD (test code = RDW-SD) 55.1 fL 37 .0-51.0 H PLATELET COUNT (test code = PLT) 351 K/mm3 150-450 N MEAN PLATELET VOLUME (test code = MPV) 9.2 fL 6.7-11.0 N NEUTROPHIL % (test code = NT%) 88.4 % 39.0-69.0 H IMMATURE GRANULOCYTE % (test code = IG%) 0.8 % 0.0-5.0 N LYMPHOCYTE % (test code = LY%) 8.0 % 25.0-55.0 L MONOCYTE % (test code = MO%) 2.8 % 0.0-10.0 N EOSINOPHIL % (test code = EO%) 0.0 % 0.0-5.0 N BASOPHIL % (test code = BA%) 0.0 % 0.0-1.0 N NUCLEATED RBC % (test code = NRBC%) 0.0 % 0-0 N NEUTROPHIL # (test code = NT#) 7.88 K/mm3 1.8-7.7 H IMMATURE GRANULOCYTE # (test code = IG#) 0.07 x10 3/uL 0-0.03 H LYMPHOCYTE # (test code = LY#) 0.71 K/mm3 1.0-5.0 L MONOCYTE # (test code = MO#) 0.25 K/mm3 0-0.8 N EOSINOPHIL # (test code = EO#) 0.00 K/mm3 0.0-0.5 N BASOPHIL # (test code = BA#) 0.00 K/mm3 0.0-0.2 N NUCLEATED RBC # (test code = NRBC#) 0.00 K/mm3 0.0-0.1 N MANUAL DIFF REQUIRED (test code = MDIFF) NO [id number] 18:05:00* Test Item Value Reference Range Interpretation Comments TROPONIN-I (test code = TROPI) <0.015 ng/mL 0-0.045 N [id number] 17:06:00* Test Item Value Reference Range Interpretation Comments MAGNESIUM (test code = MAG) 2.1 mg/dL 1.8-2.4 N THYROID STIMULATING [id number] 17:06:00* Test Item Value Reference Range Interpretation Comments THYROID STIMULATING HORMONE (test code = TSH) 3.410 uIU/mL 0.36-3.7 4 N TSH REFERENCE RANGES: EUTHYROID: 0.35 - 4.3 mIU/mL HYPO : > 5.5 mIU/mL HYPER : < 0.35 mIU/mL [id number] 16:36:00* Test Item Value Reference Range Interpretation Comments MAGNESIUM (test code = MAG) 2.1 mg/dL 1.8-2.4 N THYROID STIMULATING [id number] 16:36:00* Test Item Value Reference Range Interpretation Comments THYROID STIMULATING HORMONE (test code = TSH) uIU/mL 0.36-3.7 4 [id number] 15:41:00* Test Item Value Reference Range Interpretation Comments TROPONIN-I (test code = TROPI) <0.015 ng/mL 0-0.045 N - CTA [id number] 14:44:00 Name: TOMAS PERAZA [facility] : 1940 Age/S: 78 / F [address] [facility] Unit #: [id number] Loc: [place] [address] Phys: Yan Rudolph MD Acct: [id number] Dis Date: Status: ADM IN PHONE #: [phone] Exam Date: 07/11/2019 1123 FAX #: [phone] Reason: history of AAA< epigastric pain Report Has Been Amended EXAMS: CPT CODE: [id number] CTA CHEST 11594 Addendum - 07/11/2019 SIGNED 07/11/2019 ADDENDUM: [id number] CT/CTACHWWO Focal herniation of the left lung as well as a stenotic change of the adjacent rib likely represents sequela of remote trauma. at 1444 Reported and signed by: Vince Willett MD Transcribed: 07/11/2019 (0681) [id number].RR31 Report REASON FOR EXAM: history of AAA< epigastric pain EXAM ORDER DATE: 07/11/2019 10:06 AM Ordering MAdama: Yan Rudolph MD PROCEDURE: - CTA CHEST contrast-enhanced axial CT images were acquired through the chest/abdomen/pelvis. Sagittal and coronal reformatted images were generated. Automated exposure control was utilized for this reduction. Phases of contrast: Aortic and delayed COMPARISON: Report of CT chest May 18, 2012 was reviewed however the images are not available at this time FINDINGS: Timing of the contrast bolus is suboptimal for evaluation of nonvascular pathologies Vascular findings There is severe atherosclerotic disease in the thoracic aorta. Evaluation of the aortic annulus is somewhat limited due to absence of cardiac gating resulting in cardiac motion. Ascending aorta is normal in caliber measuring approximately 3.2 cm in diameter. At the aortic arch the aorta is normal in caliber measuring 2.6 cm in diameter. At the level of the pulmonary trunk the descending thoracic aorta is PAGE 1 Signed Report (CONTINUED) Name: TOMAS PERAZA [facility] : 1940 Age/S: 78 / F [address] [facility] Unit #: [id number] [place]: [place] [address] Phys: Yan Rudolph MD Acct: [id number] Dis Date: Status: ADM IN PHONE #: [phone] Exam Date: 07/11/2019 1123 FAX #: [phone] Reason: history of AAA< epigastric pain Report Has Been Amend ed EXAMS: CPT CODE: [id number] CTA CHEST 07277 < Continued> mildly dilated measuring 3.2 cm in diameter. At the aortic hiatus, the thoracic aorta normalizes in caliber measuring 2.8 cm in diameter. There is extensive atherosclerotic disease of the abdominal aorta that extends into the iliac arteries. There is fusiform aneurysmal dilatation of the infrarenal abdominal aorta. The aneurysmal segment measures approximately 7.9 cm in length and measures up to 4.2 x 3.3 cm in diameter. Normal caliber of the iliac arteries. Nonvascular findings Visualized neck: Normal Airways, Lungs and Pleura: Small right-sided pleural effusion and a trace left-sided pleural effusion is seen. There are also groundglass opacities throughout the right lung and in the dependent left lung. Small amount of mucous is present in the bronchus intermedius there is also bronchial wall thickening in the right lower lobe. Incidental note is made of a hernia of the left lung between the ninth and 10th ribs. Posttraumatic change is also noted in the left ninth rib adjacent to the hernia site. Heart, pulmonary vessels, mediastinum: Left atrial appendage closure device is noted. Central pulmonary arteries are normal in size. The heart is slightly prominent relative to the thorax. Thoracic Lymph nodes: There are subcentimeter mediastinal lymph nodes which are nonspecific. No axillary or internal mammary adenopathy. Subcentimeter right hilar lymph nodes are also noted. Hepatobiliary system: Grossly normal Pancreas: Atrophic with fatty replacement Spleen: Numerous calcified granulomas are present Adrenal glands: Grossly normal Genitourinary system: Simple exophytic cortical cyst in the midpole of PAGE 2 Signed Report (CONTINUED) Name: TOMAS PERAZA [facility] : 1940 Age/S: 78 / F [address] [facility] Unit #: [id number] Loc: [place] [address] Phys: Yan Rudolph MD Acct: [id number] Dis Date: Status: ADM IN PHONE #: [phone] Exam Date: 07/11/2019 1123 FAX #: [phone] Reason: history of AAA< epigastric pain Report Has Been Amended EXAMS: CPT CODE: [id number] CTA CHEST 39818 < Continued> the left kidney. Prior hysterectomy. Otherwise grossly normal Gastrointestinal tract and appendix: Prior appendectomy. Otherwise grossly normal Peritoneum and retroperitoneum: No free fluid or free air. No omental or mesenteric masses. No abnormal lymph nodes. Musculoskeletal structures, chest wall, and abdominal wall: There appears to be chronic compression fracture of the L1 vertebrae. No bone retropulsion into the spinal canal. Disc degeneration is seen in the mid to lower thoracic spine and in the lower lumbar spine and there are vertebral body sclerotic changes at L4-L5. IMPRESSION: Infrarenal abdominal aortic aneurysm measures up to 4.2 cm in diameter and involves a 7.9 cm length of the aorta. There is also fusiform dilation of the descending thoracic aorta. Severe atherosclerotic disease of the thoracic and abdominal aorta. Bronchial wall thickening in the right lower lobe with mucous in the right bronchus may represent aspiration and/or infectious bronchiolitis. Cardiomegaly with small pleural effusions and groundglass opacities, may represent CHF with pulmonary edema. Location: [facility] at 1201 Reported and signed by: Vince Willett MD CC: Yan Rudolph MD Technologist:Chris Hastings RT(R) CTDI: DLP: Trnscb Date/Time: 07/11/2019 (1201) [email or web address].[email or web address] Orig Print D/T: S: 07/11/2019 (5221) PAGE 3 Signed Report - CTA [id number] 12:01:00 Name: TOMAS PERAZA [facility] : 1940 Age/S: 78 / F [address] [facility] Unit #: [id number] Loc: [place] [address] Phys: Kyra Rudolph MD Acct: [id number] Di s Date: Status: REG ER PHONE #: [phone] Exam Date: 07/11/2019 1123 FAX #: Reason: history of AAA< epigastric pain EXAMS: CPT CODE: [id number] CTA CHEST 74641 REASON FOR EXAM: history of AAA< epigastric pain EXAM ORDER DATE: 07/11/2019 10:06 AM Ordering M.DKeven: Yan Rudolph MD PROCEDURE: - CTA CHEST contrast-enhanced axial CT images were acquired through the chest/abdomen/pelvis. Sagittal and coronal reformatted images were generated. Automated exposure control was utilized for this reduction. Phases of contrast: Aortic and delayed COMPARISON: Report of CT chest May 18, 2012 was reviewed however the images are not available at this time FINDINGS: Timing of the contrast bolus is suboptimal for evaluation of nonvascular pathologies Vascular findings There is severe atherosclerotic disease in the thoracic aorta. Evaluation of the aortic annulus is somewhat limited due to absence of cardiac gating resulting in cardiac motion. Ascending aorta is normal in caliber measuring approximately 3.2 cm in diameter. At the aortic arch the aorta is normal in caliber measuring 2.6 cm in diameter. At the level of the pulmonary trunk the descending thoracic aorta is mildly dilated measuring 3.2 cm in diameter. At the aortic hiatus, the thoracic aorta normalizes in caliber measuring 2.8 cm in diameter. There is extensive atherosclerotic disease of the abdominal aorta that extends into the iliac arteries. There is fusiform aneurysmal dilatation of the infrarenal abdominal aorta. The aneurysmal segment measures approximately 7.9 cm in length and measures up to 4.2 x 3.3 cm in diameter. Normal caliber of the iliac arteries. Nonvascular findings Visualized neck: Normal PAGE 1 Signed Report (CONTINUED) Name: TOMAS PERAZA [facility] : 1940 Age/S: 78 / F [address] [facility] Unit #: [id number] Loc: [place] [address] Phys: Yan Rudolph MD Acct: [id number] Dis Date: Status: REG ER PHONE #: [phone] Exam Date: 07/11/2019 1123 FAX #: [phone] Reason: history of AAA< epigastric pain EXAMS: CPT CODE: [id number] CTA CHEST 79686 < Continued> Airways, Lungs and Pleura: Small right-sided pleural effusion and a trace left-sided pleural effusion is seen. There are also groundglass opacities throughout the right lung and in the dependent left lung. Small amount of mucous is present in the bronchus intermedius there is also bronchial wall thickening in the right lower lobe. Incidental note is made of a hernia of the left lung between the ninth and 10th ribs. Posttraumatic change is also noted in the left ninth rib adjacent to the hernia site. Heart, pulmonary vessels, mediastinum: Left atrial appendage closure device is noted. Central pulmonary arteries are normal in size. The heart is slightly prominent relative to the thorax. Thoracic Lymph nodes: There are subcentimeter mediastinal lymph nodes which are nonspecific. No axillary or internal mammary adenopathy. Subcentimeter right hilar lymph nodes are also noted. Hepatobiliary system: Grossly normal Pancreas: Atrophic with fatty replacement Spleen: Numerous calcified granulomas are present Adrenal glands: Grossly normal Genitourinary system: Simple exophytic cortical cyst in the midpole of the left kidney. Prior hysterectomy. Otherwise grossly normal Gastrointestinal tract and appendix: Prior appendectomy. Otherwise grossly normal Peritoneum and retroperitoneum: No free fluid or free air. No omental or mesenteric masses. No abnormal lymph nodes. Musculoskeletal structures, chest wall, and abdominal wall: There appears to be chronic compression fracture of the L1 vertebrae. No bone retropulsion into the spinal canal. Disc degeneration is seen in the mid to lower thoracic spine and in the lower lumbar spine and there are vertebral body sclerotic changes at L4-L5. IMPRESSION: Infrarenal abdominal aortic aneurysm measures up to 4.2 cm in diameter and involves a 7.9 cm length of the aorta. There is also fusiform dilation of the descending thoracic aorta. PAGE 2 Signed Report (CONTINUED) Name: TOMAS PERAZA [facility] : 1940 Age/S: 78 / F [address] [facility] Unit #: [id number] Loc: [place] [address] Phys: Yan Rudolph MD Acct: [id number] Dis Date: Status: REG ER PHONE #: [phone] Exam Date: 07/11/2019 1123 FAX #: [phone] Reason: history of AAA< epigastric pain EXAMS: CPT CODE: [id number] CTA CHEST 44209 < Continued> Severe atherosclerotic disease of the thoracic and abdominal aorta. Bronchial wall thickening in the right lower lobe with mucous in the right bronchus may represent aspiration and/or infectious bronchiolitis. Cardiomegaly with small pleural effusions and groundglass opacities, may represent CHF with pulmonary edema. Location: [facility] at 1201 Reported and signed by: Vince Willett MD CC: Yan Rudolph MD Technologist:Chris Hastings RT(R) CTDI: DLP: Trnscb Date/Time: 07/11/2019 (1201) [id number] Orig Print D/T: S: 07/11/2019 (2340) PAGE 3 Signed Report URINALYSIS [id number] 10:52:00* Test Item Value Reference Range Interpretation Comments UA COLOR (test code = COLU) YELLOW YELLOW UA APPEARANCE (test code = APPU) HAZY CLEAR A UA GLUCOSE DIPSTICK (test code = DGLUU) norm mg/dL NEGATIVE UA BILIRUBIN DIPSTICK (test code = BILU) NEGATIVE mg/dL NEGATIVE UA KETONE DIPSTICK (test code = KETU) neg mg/dL NEGATIVE UA SPECIFIC GRAVITY (test code = SGU) 1.015 1.001-1.035 UA BLOOD DIPSTICK (test code = RIAN) 25 (1+) Cole/uL NEGATIVE A UA PH DIPSTICK (test code = CLARK) 5.0 5.0-8.0 UA PROTEIN DIPSTICK (test code = PROU) 30 (1+) mg/dL Neg-15 A UA UROBILINIOGEN DIPSTICK (test code = URO) norm mg/dL 0.0-0.2 UA NITRITE DIPSTICK (test code = ARAM) POSITIVE NEGATIVE UA LEUKOCYTE ESTERASE DIPSTICK (test code = LEUU) 500 Philip/uL (3+) u L NEGATIVE A UA WBC (test code = WBCU) TNTC per HPF 0-5 A UA RBC (test code = RBCU) 3-5 per HPF 0-5 A UA EPITHELIAL CELLS (test code = EPIU) Moderate (5-10/hpf) per HPF Few UA BACTERIA (test code = BACU) MANY per HPF NONE A Urine Source? Clean Catch- XR CHEST 1 [id number] 10:45:00 Name: TOMAS PERAZA [facility] : 1940 Age/S:78 /F [address] [facility] Unit#:[id number] Loc: [place] [address] Phys: Kyra Rudolph MD Dis Date: PHONE #: [phone] Status: REG ER FAX #: [phone] Exam Date: 07/11/2019 Re ason: CODE SEPSIS EXAMS: CPT CODE: [id number] XR CHEST 1 V 32108 REASON FOR EXAM: CODE SEPSIS Exam Order Date: 07/11/2019 9:57 AM Ordering M.D.: Yan Rudolph MD PROCEDURE: - XR CHEST 1 V CO MPARISON: Frontal chest x-ray November 08, 2016 FINDINGS: The re are opacities in the lung bases which may represent any combination of atelectasis and consolidations. Upper lungs are clear. Cardiomedia stinal silhouette is enlarged but stable in size. The aorta is tortuous. Musculoskeletal structures are within normal limits. The visualized upper abdomen is within normal limits. IM PRESSION: Bibasilar pulmonary opacities. These may represent any combina tion of atelectasis and pneumonia. The upper lungs are clear. Location: [facility] Electronically Signed by Vince Willett MD on at 1045 Reported and signed by: Vince Willett MD CC: Yan Rudolph MD Technologi st: [facility] Venkata RT(R) Trnscrpt Data: 2018 (1045) t.SDR.RR31 Orig Print D/T: S: 07/11/2019 (89 76) PAGE 1 Signed Report B-TYPE NATRIURETIC [id number] 10:44:00* Test Item Value Reference Range Interpretation Comments B-TYPE NATRIURETIC PEPTIDE (test code = BNP) 489 pg/mL 0-100 H URINALYSIS [id number] 10:43:00* Test Item Value Reference Range Interpretation Comments UA COLOR (test code = COLU) YELLOW YELLOW UA APPEARANCE (test code = APPU) HAZY CLEAR A UA GLUCOSE DIPSTICK (test code = DGLUU) norm mg/dL NEGATIVE UA BILIRUBIN DIPSTICK (test code = BILU) NEGATIVE mg/dL NEGATIVE UA KETONE DIPSTICK (test code = KETU) neg mg/dL NEGATIVE UA SPECIFIC GRAVITY (test code = SGU) 1.015 1.001-1.035 UA BLOOD DIPSTICK (test code = RIAN) 25 (1+) Cole/uL NEGATIVE A UA PH DIPSTICK (test code = CLARK) 5.0 5.0-8.0 UA PROTEIN DIPSTICK (test code = PROU) 30 (1+) mg/dL Neg-15 A UA UROBILINIOGEN DIPSTICK (test code = URO) norm mg/dL 0.0-0.2 UA NITRITE DIPSTICK (test code = ARAM) POSITIVE NEGATIVE UA LEUKOCYTE ESTERASE DIPSTICK (test code = LEUU) 500 Philip/uL (3+) u L NEGATIVE A UA WBC (test code = WBCU) per HPF 0-5 UA RBC (test code = RBCU) per HPF 0-5 UA EPITHELIAL CELLS (test code = EPIU) per HPF Few UA BACTERIA (test code = BACU) per HPF NONE Urine Source? Clean CatchBASIC METABOLIC [id number] 10:38:00* Test Item Value Reference Range Interpretation Comments SODIUM (test code = NA) 144 mmol/L 136-145 N POTASSIUM (test code = K) 3.5 mmol/L 3.5-5.1 N CHLORIDE (test code = CL) 103 mmol/L 101-109 N CARBON DIOXIDE (test code = CO2) 27.1 mmol/L 21-32 N ANION GAP (test code = GAP) 17 mmol/L 10-20 N GLUCOSE (test code = GLU) 138 mg/dL 74-106 H BLOOD UREA NITROGEN (test code = BUN) 13 mg/dL 3-21 N GLOMERULAR FILTRATION RATE (test code = GFR) 53 mL/min >=60 Estimated GFR by using Modified MDRD formula.Chronic kidney disease is defined as either kidney damageor GFR <60 mL/min/1.73 m2 for >3 months. CREATININE (test code = CREAT) 1.02 mg/dL 0.55-1.3 N BUN/CREATININE RATIO (test code = BUN/CREA) 12.7 10-20 N CALCIUM (test code = CA) 8.9 mg/dL 8.4-10.2 N HEPATIC FUNCTION [id number] 10:38:00* Test Item Value Reference Range Interpretation Comments TOTAL PROTEIN (test code = PROT) 7.2 g/dL 6.5-8.4 N ALBUMIN (test code = ALB) 3.2 g/dL 3.4-4.8 L GLOBULIN (test code = GLOB) 4.0 G/DL 1-10 N ALBUMIN/GLOBULIN RATIO (test code = A/G) 0.80 RATIO 0.75-1.50 N BILIRUBIN TOTAL (test code = BILT) 0.70 mg/dL 0.0-1.0 N BILIRUBIN DIRECT (test code = BILD) 0.10 mg/dL 0.0-0.30 N SGOT/AST (test code = AST) 19 U/L 6-32 N SGPT/ALT (test code = ALT) 26 U/L 12-78 N N ote: Change in REFERENCE RANGE due to new reagent method. ALKALINE PHOSPHATASE TOTAL (test code = ALKP) 92 U/L 38-126 N [id number] 10:38:00* Test Item Value Reference Range Interpretation Comments TROPONIN-I (test code = TROPI) <0.015 ng/mL 0.00-0.056 N LACTIC [id number] 10:36:00* Test Item Value Reference Range Interpretation Comments LACTIC ACID (test code = LACT) 1.6 MMOL/L 0.4-1.9 N CBC W/AUTO [id number] 10:31:00* Test Item Value Reference Range Interpretation Comments WHITE BLOOD CELL (test code = WBC) 7.2 K/mm3 4.5-12.5 N RED BLOOD CELL (test code = RBC) 3.49 mill/mm3 3.7-5.2 L HEMOGLOBIN (test code = HGB) 11.0 gram/dL 11.5-15.5 L HEMATOCRIT (test code = HCT) 33.9 % 36.0-46.0 L MEAN CELL VOLUME (test code = MCV) 97.1 fL 80-98 N MEAN CELL HGB (test code = MCH) 31.5 picogram 27.0-33.0 N MEAN CELL HGB CONCETRATION (test code = MCHC) 32.4 gram/dL 33.0-36. 0 L RED CELL DISTRIBUTION WIDTH (test code = RDW) 13.7 % 11.6-16. 2 N RED CELL DISTRIBUTION WIDTH SD (test code = RDW-SD) 49.3 fL 37 .0-51.0 N PLATELET COUNT (test code = PLT) 345 K/mm3 150-450 N MEAN PLATELET VOLUME (test code = MPV) 9.1 fL 6.7-11.0 N NEUTROPHIL % (test code = NT%) 77.0 % 39.0-69.0 H LYMPHOCYTE % (test code = LY%) 15.5 % 25.0-55.0 L MONOCYTE % (test code = MO%) 6.9 % 0.0-10.0 N EOSINOPHIL % (test code = EO%) 0.3 % 0.0-5.0 N BASOPHIL % (test code = BA%) 0.3 % 0.0-1.0 N NEUTROPHIL # (test code = NT#) 5.56 K/mm3 1.8-7.7 N LYMPHOCYTE # (test code = LY#) 1.12 K/mm3 1.0-5.0 N MONOCYTE # (test code = MO#) 0.50 K/mm3 0-0.8 N EOSINOPHIL # (test code = EO#) 0.02 K/mm3 0.0-0.5 N BASOPHIL # (test code = BA#) 0.02 K/mm3 0.0-0.2 N PROTHROMBIN [id number] 10:30:00* Test Item Value Reference Range Interpretation Comments PROTHROMBIN TIME PATIENT (test code = PTP) 10.4 seconds 9.0-13.0 N INTERNATIONAL NORMAL RATIO (test code = INR) 1.0 0.8-1.2 N The therapeutic range for oral anticoagulant therapy formost indications is an international normalized ratio (INR)of between 2.0 and 3.0. The recommended therapeutic INRrange for various clinical situations is listed below: Clinical Situation INR range Pulmonary e mbolism treatment (2.0-3.0)Venous thrombosis treatmentVenous thrombosis prophylaxis (high risk surgery)Prevention of systemic embolism from: Acute myocardial infarction Valvular heart disease Atrial fibrillation Mechanical prosthetic heart valves (2.5-3.5) IS PATIENT ON ANTICOAGULANTS? NTHROMBOPLASTIN TIME [id number] 10:30:00* Test Item Value Reference Range Interpretation Comments THROMBOPLASTIN TIME PARTIAL (test code = PTT) 25.7 seconds 25.5-34. 3 N Therapeutic Range for patients on Heparin Therapy is 2 to2.5 times their baseline PTT level. IS PATIENT ON ANTICOAGULANTS? NCT Chest w contrast [id number] 15:55:00EXAM: CT CHEST WITH CONTRASTDATE: 05/15/2019 15:55 CDTINDICATION: - R07.89 Other chest painCOMPARISON: CT chest dated 03/21/2018TECHNIQUE: Volumetric CT of the chest is acquired following intravenousadministration of contrast. Axial, axial MIPS coronal and sagittal images areprovided.IV Contrast: 100 mL Visipaque 32 0.DLP (mGy-cm): 717.48FINDINGS: Lines, tubes and hardware: None.Lower neck: The visible portions or the lower neck and thyroid areunremarkable.No supraclavicul ar lymphadenopathy.Axilla: Clear, no lymphadenopathy.Airway: Patent.Lungs and pl eura: Stable biapical pleural-parenchymal opacities, likely torepresent scarrin g. Mild centrilobular and paraseptal emphysema with upper lobepredominance. Ther e is interval resolution of previously seen patchygroundglass opacities in the l eft upper, left lower and right lower lobes.There is a small groundglass nodule in the right lower lobe on image 138 ofseries 2 measuring 8 mm. This nodule is n ot seen on prior study, may be due todifference in slice selection. A few small calcified granulomas are noted.There is interval improvement of previously seen diffuse bronchial wallthickening in the lower lobes. Small residual area of bron chial wall thickeningis seen the right lower lobe on image 155 of series 2. No p leural effusions orpneumothorax. Stable small posterolateral broad-based interco stal herniation ofthe left lower lobe as seen on image 192 of series 2.Mediastin um, gus and intrathoracic lymph nodes: Unchanged small calcified lefthilar gran ulomas are present. No enlarged mediastinal or hilar lymph nodes.Heart, pericard ium and great vessels: The ascending aorta and main pulmonaryartery are normal i n caliber. Mild coronary calcified atherosclerosis, andcalcified atherosclerosis in the aorta. The descending aorta is ectatic andthere is partially visualized aneurysmal dilatation of the abdominal aorta. Theheart is normal in size. Interv al placement of left atrial appendage device inposition.Upper abdomen: Stable 7 mm right hypodense hepatic focal lesion, too small tocharacterize. Scattered he patic and splenic calcifications, most consistentwith sequela prior granulomatou s disease. Bilateral simple renal cysts.Bones: Severe chronic fracture deformity of vertebral body L1. Degenerativechanges throughout the thoracic spine.Soft ti ssues: UnremarkableIMPRESSION: 1. Stable biapical pleural-parenchymal opacities , likely to representscarring.2. Mild centrilobular and paraseptal emphysema wi th upper lobe predominance.3. Interval resolution of patchy groundglass opaciti es in the left upper, leftlower and right lower lobes.4. Small groundglass nodu le in the right lower lobe is not seen on priorstudy, may be due to difference i n slice selection. This may representinfectious/inflammatory etiology or sequela prior infection.5. Interval improvement of diffuse bronchial wall thickening i n the lowerlobes. Small residual area of bronchial wall thickening is seen the r ight lowerlobe. This is likely to represent chronic mucoid impaction, although u nderlyingendobronchial lesion cannot be completely excluded. Follow-up in 3 shruthi hsrecommended.6. Stable small posterolateral broad-based intercostal herniation of the leftlower lobe.7. Partially visualized dilatation of the abdominal aort a, characterized on CTabdomen pelvis February 2019. Recommend follow-up imaging to a ssess for stability.8. Stable small hypodense right hepatic focal lesion is too small tocharacterize.9. Bilateral simple renal cysts.10. Chronic severe compr ession deformity vertebral body L1.--This report was dictated by a Radiology Res ident/Fellow/Physician [employer]. Ihave personallyreviewed the images as well as the interpretation and agree with the findings.Read by: Ashwin Rios MD Resident/Fellow/PhysicianAssistant: Ashwin Rios MDDict ated Date/time: 05/16/19 08:23Electronically Signed by: Ayah Balderas MD 05/16/1912:17FINAL REPORTUnGarfield Memorial Hospital PhysiciansXRAY Chest 2 views [id number] 13:13:00EXAM: XR CHEST 2 VIEWSDATE: 05/10/2019 13:13 CDTINDICATION: - bronchitisCOMPARISON: 05/10/2019 at 1313 hours.TECHNIQUE: PA and lateral chest radiographs.FINDINGS:Lines, tubes and hardware: None.Lungs and pleura: Pulmonary vascularity is normal. The lungs are clear. Thecostophrenic sulci are sharp without effusion. No pneumothorax is identified.Heart and mediastinum: The heart size is normal. The mediastinal contours arenormal.Bones, soft tissues: No acute abnormality.IMPRESSION: 1. No significant abnormalities.--Read by: Michael Stewart MDDictated Date/time: 05/10/19 14:58Electronically Signed by: Michael Stewart MD 05/10/1914:59FINAL REPORTUnGarfield Memorial Hospital Physicians[QL] CMP W/EGFR 2019-01-30 09:03:00* Test Item Value Reference Range Interpretation Comments GLUCOSE; Normal (test code = 1547-9) 94 mg/dl 65-99 N Fasting reference interval UREA NITROGEN (BUN) (test code = UREA NITROGEN (BUN)) 24 mg/dl 7-25 N CREATININE (test code = CREATININE) 0.97 mg/dl 0.60-0.93 For patients >49 years of age, the reference limitfor Creatinine is approximately 13% higher for peopleidentified as -[place]. eGFR NON- (test code = eGFR NON-DANILO N CYMRAES) 57 {ML/MIN/1.7} > OR = 60 eGFR (test code = eGFR ) 66 {ML/MIN/1.7} > OR = 60 N BUN/CREATININE RATIO (test code = BUN/CREATININE RATIO) 25 {CALC} 6-22 SODIUM (test code = SODIUM) 145 mmol/L 135-146 N POTASSIUM (test code = POTASSIUM) 4.6 mmol/L 3.5-5.3 N CHLORIDE (test code = CHLORIDE) 108 mmol/L 98-110 N CARBON DIOXIDE (test code = CARBON DIOXIDE) 32 mmol/L 20-32 N CALCIUM (test code = CALCIUM) 9.2 mg/dl 8.6-10.4 N PROTEIN, TOTAL (test code = PROTEIN, TOTAL) 6.7 g/dl 6.1-8.1 N ALBUMIN (test code = ALBUMIN) 4.0 g/dl 3.6-5.1 N GLOBULIN (test code = GLOBULIN) 2.7 {G/DL CALC} 1.9-3.7 N ALBUMIN/GLOBULIN RATIO (test code = ALBUMIN/GLOBULIN RATIO) 1.5 {CALC} 1.0-2.5 N BILIRUBIN, TOTAL; Normal (test code = 47922-6) 0.4 mg/dl 0.2-1.2 N ALKALINE PHSPHATASE (test code = ALKALINE PHSPHATASE) 67 u/l 33-130 N AST; Normal (test code = 1916-6) 16 u/l 10-35 N ALT; Normal (test code = 1742-6) 21 u/l 6-29 N [facility]] CBC (INCLUDES DIFF/PLT)2019-01-30 09:03:00* Test Item Value Reference Range Interpretation Comments WHITE BLOOD CELL COUNT (test code = WHITE BLOOD CELL COUNT) 6.5 {Thousand/u} 3.8-10.8 N RED BLOOD CELL COUNT (test code = RED BLOOD CELL COUNT) 4.00 {Million/uL} 3.80-5.10 N HEMAGLOBIN; Normal (test code = 28939-3) 12.4 g/dl 11.7-15.5 N HEMATOCRIT; Normal (test code = 4544-3) 37.9 % 35.0-45.0 N MCV; Normal (test code = 787-2) 94.8 fL 80.0-100.0 N MCHC; Normal (test code = 67094-1) 32.7 g/dl 32.0-36.0 N RDW; Normal (test code = 788-0) 13.3 % 11.0-15.0 N PLATELET COUNT; Normal (test code = 777-3) 347 {Thousand/u} 140-400 N MPV; Normal (test code = 26655-4) 9.3 fL 7.5-12.5 N ABSOLUTE NEUTROPHILS (test code = ABSOLUTE NEUTROPHILS) 4219 {cells/uL} 9085-7205 N ABSOLUTE LYMPHOCYTES (test code = ABSOLUTE LYMPHOCYTES) 1567 {cells/uL} 850-3900 N ABSOLUTE MONOCYTES (test code = ABSOLUTE MONOCYTES) 371 {cells/uL} 200-950 N ABSOLUTE EOSINOPHILS (test code = ABSOLUTE EOSINOPHILS) 293 {cells/ uL} 15-500 N ABSOLUTE BASOPHILS (test code = ABSOLUTE BASOPHILS) 52 {cells/uL} 0 -200 N NEUTROPHILS (test code = NEUTROPHILS) 64.9 % N LYMPHOCYTES (test code = LYMPHOCYTES) 24.1 % N MONOCYTES; Normal (test code = 59298-2) 5.7 % N EOSINOPHILS; Normal (test code = 38981-7) 4.5 % N BASOPHILS; Normal (test code = 34441-4) 0.8 % N [facility]] VITAMIN [id number] 09:03:00* Test Item Value Reference Range Interpretation Comments VITAMIN B12 (test code = VITAMIN B12) 574 pg/ml 200-1100 N [facility]] TSH, 3RD GENERATION W/REFLEX TO FT4 2019-01-30 09:03:00* Test Item Value Reference Range Interpretation Comments TSH, 3RD GENERATION W/REFLEX TO FT4 (rocio t code = TSH, 3RD GENERATION W/REFLEX TO FT4) 3.58 {MIU/L} 0.40-4.50 N [facility][] BETA 2 GLYCOPROTEIN I AB (IGG,IGA,IGM) 2018-12-01 10:46:00* Test Item Value Reference Range Interpretation Comments B2 GLYCOPROTEIN I (IGG)AB (test code = B2 GLYCOPROTEIN I (IGG)AB ) <9 < OR = 20 B2 GLYCOPROTEIN I (IGM)AB (test code = B2 GLYCOPROTEIN I (IGM)AB ) <9 < OR = 20 B2 GLYCOPROTEIN I AB (IGA)AB (test code = B2 GLYCOPROTEIN I AB (IGA)AB) <9 < OR = 20 The antiphospholipid antibod y syndrome (APS) steve clinical-pathologic correlation that includesa clinical event (e.g. thrombosis, pregnancyloss, thrombocytopenia) and persistent positiveantiphospholipid antibodies (IgM or IgG DORITA>40 MPL/GPL,IgM or IgG anti-b2GPI antibodies ora lupus anticoagulant). International consensusguidelines for APS suggest waiting at least 12weeks before retesting to confirm antibodypersistence. The Systemic Lupus InternationalCollaborating Clinics immunologicalclassification criteria for systemic lupuserythematosus (SLE) include testing for isotypeIgA, which has yet to be incorporated into APScriteria. Low level antiphospholipid antibodiesmay sometimes be detected in the setting ofinfection, drug therapy or aging. [facility]] CRYOGLOBULIN SCREEN W/REFLEX TO CRYOGLOBULIN PROFILE, [id number] 10:46:00* Test Item Value Reference Range Interpretation Comments CRYOGLOBULIN SCR W/REFL CRYOGLOBULIN PRO FILE, S (test code = CRYOGLOBULIN SCR W/REFL CRYOGLOBULIN PROFILE, S) NEGATIVE Reference Range: NEGATIVE IN NORMAL INDIVIDUALS This test was developed and its analytical performancecharacteristics have been determined by [facility]. It has not beencleared or approved by FDA. This assay has been validatedpursuant to the CLIA regulations and is used for clinica lpurposes. [facility]] CARDIOLIPIN AB (IGA,IGG,IGM)2018-12-01 10:46:00* Test Item Value Reference Range Interpretation Comments CARDIOLIPIN AB (IGA) (test code = CARDIOLIPIN AB (IGA)) <11 N Value Interpretation ----- < or = 11 Negative 12 - 20 Indeterminate 21 - 80 Low to Medium Positive >80 High Positive CARDIOLIPIN AB (IGG) (test code = CARDIOLIPIN AB (IGG)) <14 N Value Interpretation ----- < or = 14 Negative 15 - 20 Indeterminate 21 - 80 Low to Medium Positive >80 High Positive CARDIOLIPIN AB (IGM) (test code = CARDIOLIPIN AB (IGM)) <12 N Value Interpretation ----- < or = 12 Negative 13 - 20 Indeterminate 21 - 80 Low to Medium Positive >80 High Positive The antiphospholipid antibody syndrome (APS) is a clinical-pathologic correlation that includes a clinical event (e.g. thrombosis, loss, thrombocytopenia) and persistent positive antiphospholipid antibodies (IgM or IgG DORITA >40 MPL/GPL, IgM or IgG anti-v1MMHbqpnpgocfs or a lupus anticoagulant). International consensus guidelines for APS suggest waiting at least 12 weeks before retesting to confirm antibody persistence. The Systemic Lupus [facility] immunological classification criteria for systemic lupus erythematosus (SLE) include testing for isotype IgA, which has yet to be incorporated into APS criteria. Low level antiphospholipid antibodies may sometimes be detected in the setting of infection, drug therapy or aging. CARDIOLIPIN AB(IGA) (test code = CARDIOLIPIN AB(IGA)) <11 N Value Interpretation ----- < or = 11 Negative 12 - 20 Indeterminate 21 - 80 Low to Medium Positive >80 High Positive [facility]] Lupus Anticoagulant [id number] 10:46:00 * Test Item Value Reference Range Interpretation Comments LUPUS ANTICOAGULANT (test code = LUPUS ANTICOAGULANT) TNP Test Not Performed. Specimen detected with excess platelets which could yield a false negative result. Please resubmit a platelet poor plasma (<10,000/uL). [facility]iciansUT Pathology [id number] 00:00:00* Test Item Value Reference Range Interpretation Comments REPORT (test code = REPORT) [facility] [id number] 09:20:00* Test Item Value Reference Range Interpretation Comments Completed (test code = Completed) DONE [facility][O] Streptococcus Test Rapid (In Office)2018-08-21 10:27:00* Test Item Value Reference Range Interpretation Comments Group A Strep Screen; Abnormal (test code = 11061-3) positive A [facility] Use [id number] 16:50:00* Test Item Value Reference Range Interpretation Comments Completed (test code = Completed) DONE [facility]] CBC (INCLUDES DIFF/PLT)2018-05-27 09:15:00* Test Item Value Reference Range Interpretation Comments WHITE BLOOD CELL COUNT (test code = WHITE BLOOD CELL COUNT) 6.8 {Thousand/u} 3.8-10.8 N RED BLOOD CELL COUNT (test code = RED BLOOD CELL COUNT) 3.44 {Million/uL} 3.80-5.10 HEMAGLOBIN; Below Low Threshold (test code = 27001-7) 10.9 g/dl 11.7-15.5 HEMATOCRIT; Below Low Threshold (test code = 4544-3) 32.1 % 3 5.0-45.0 MCV; Normal (test code = 787-2) 93.3 fL 80.0-100.0 N MCHC; Normal (test code = 76860-4) 34.0 g/dl 32.0-36.0 N RDW; Normal (test code = 788-0) 12.4 % 11.0-15.0 N PLATELET COUNT; Normal (test code = 777-3) 332 {Thousand/u} 140-400 N MPV; Normal (test code = 71449-3) 9.9 fL 7.5-12.5 N ABSOLUTE NEUTROPHILS (test code = ABSOLUTE NEUTROPHILS) 4121 {cells/uL} 0659-1018 N ABSOLUTE LYMPHOCYTES (test code = ABSOLUTE LYMPHOCYTES) 1924 {cells/uL} 850-3900 N ABSOLUTE MONOCYTES (test code = ABSOLUTE MONOCYTES) 422 {cells/uL} 200-950 N ABSOLUTE EOSINOPHILS (test code = ABSOLUTE EOSINOPHILS) 292 {cells/ uL} 15-500 N ABSOLUTE BASOPHILS (test code = ABSOLUTE BASOPHILS) 41 {cells/uL} 0 -200 N NEUTROPHILS (test code = NEUTROPHILS) 60.6 % N LYMPHOCYTES (test code = LYMPHOCYTES) 28.3 % N MONOCYTES; Normal (test code = 63162-8) 6.2 % N EOSINOPHILS; Normal (test code = 13470-0) 4.3 % N BASOPHILS; Normal (test code = 31661-5) 0.6 % N [facility]] CMP [id number] 08:20:00* Test Item Value Reference Range Interpretation Comments GLUCOSE; Normal (test code = 1547-9) 93 mg/dl 65-99 N Fasting reference interval UREA NITROGEN (BUN) (test code = UREA NITROGEN (BUN)) 12 mg/dl 7-25 N CREATININE (test code = CREATININE) 0.80 mg/dl 0.60-0.93 N For patients >49 years of age, the reference limitfor Creatinine is approximately 13% higher for peopleidentified as -[place]. eGFR NON- (test code = eGFR NON-DANILO N CYMRAES) 72 {ML/MIN/1.7} > OR = 60 N eGFR (test code = eGFR ) 84 {ML/MIN/1.7} > OR = 60 N BUN/CREATININE RATIO (test code = BUN/CREATININE RATIO) NOT APPLICA BLE 6-22 SODIUM (test code = SODIUM) 144 mmol/L 135-146 N POTASSIUM (test code = POTASSIUM) 5.0 mmol/L 3.5-5.3 N CHLORIDE (test code = CHLORIDE) 108 mmol/L 98-110 N CARBON DIOXIDE (test code = CARBON DIOXIDE) 32 mmol/L 20-32 N CALCIUM (test code = CALCIUM) 9.3 mg/dl 8.6-10.4 N PROTEIN, TOTAL (test code = PROTEIN, TOTAL) 6.7 g/dl 6.1-8.1 N ALBUMIN (test code = ALBUMIN) 4.1 g/dl 3.6-5.1 N GLOBULIN (test code = GLOBULIN) 2.6 {G/DL CALC} 1.9-3.7 N ALBUMIN/GLOBULIN RATIO (test code = ALBUMIN/GLOBULIN RATIO) 1.6 {CALC} 1.0-2.5 N BILIRUBIN, TOTAL; Normal (test code = 12131-7) 0.4 mg/dl 0.2-1.2 N ALKALINE PHSPHATASE (test code = ALKALINE PHSPHATASE) 70 u/l 33-130 N AST; Normal (test code = 1916-6) 15 u/l 10-35 N ALT; Normal (test code = 1742-6) 12 u/l 6-29 N [facility]] CBC (INCLUDES DIFF/PLT)2018-05-04 08:20:00* Test Item Value Reference Range Interpretation Comments WHITE BLOOD CELL COUNT (test code = WHITE BLOOD CELL COUNT) 5.3 {Thousand/u} 3.8-10.8 N RED BLOOD CELL COUNT (test code = RED BLOOD CELL COUNT) 4.06 {Million/uL} 3.80-5.10 N HEMAGLOBIN; Normal (test code = 41867-6) 12.5 g/dl 11.7-15.5 N HEMATOCRIT; Normal (test code = 4544-3) 38.4 % 35.0-45.0 N MCV; Normal (test code = 787-2) 94.6 fL 80.0-100.0 N MCHC; Normal (test code = 41705-3) 32.6 g/dl 32.0-36.0 N RDW; Normal (test code = 788-0) 12.8 % 11.0-15.0 N PLATELET COUNT; Normal (test code = 777-3) 358 {Thousand/u} 140-400 N MPV; Normal (test code = 52197-4) 9.5 fL 7.5-12.5 N ABSOLUTE NEUTROPHILS (test code = ABSOLUTE NEUTROPHILS) 3132 {cells/uL} 2486-6772 N ABSOLUTE LYMPHOCYTES (test code = ABSOLUTE LYMPHOCYTES) 1648 {cells/uL} 850-3900 N ABSOLUTE MONOCYTES (test code = ABSOLUTE MONOCYTES) 329 {cells/uL} 200-950 N ABSOLUTE EOSINOPHILS (test code = ABSOLUTE EOSINOPHILS) 170 {cells/ uL} 15-500 N ABSOLUTE BASOPHILS (test code = ABSOLUTE BASOPHILS) 21 {cells/uL} 0 -200 N NEUTROPHILS (test code = NEUTROPHILS) 59.1 % N LYMPHOCYTES (test code = LYMPHOCYTES) 31.1 % N MONOCYTES; Normal (test code = 20026-0) 6.2 % N EOSINOPHILS; Normal (test code = 29917-2) 3.2 % N BASOPHILS; Normal (test code = 39840-3) 0.4 % N [facility] views [id number] 10:18:00EXAM: XR CHEST 2 VIEWSDATE: 03/31/2018 10:18 AM CDTINDICATION: - pneumoniaCOMPARISON: 03/21/2018, 06/09/2015. CT scan of the chest of 03/21/2018.TECHNIQUE: PA and lateral chest radiographsFINDINGS: Airspace opacities in the left lung base have decreased from theprior exam with a few areas of linear subsegmental atelectasis or scarring inthe left mid to lower lung. Mild bilateral apical pleural thic kening is againdemonstrated. Cardiac silhouette is normal in size. There is tort uosity of thedescending thoracic aorta. No acute bony abnormality is identified. An oldhealed left posterior eighth rib fracture is again seen. Stable degenerat ivechanges are seen in the thoracic spine with mild kyphosis.IMPRESSION: 1. Inte rim improvement in airspace opacities/pneumonia in the left lower lobewith some residual subsegmental atelectasis and/or scarring.2. Remainder of the findings i n the chest are stable and compared with priorexams--Read by: John Andrews MDDictated Date/time: 03/31/18 10:42Electronically Signed by: John Andrews MD 03/31/1810:47[facility]] CMP [id number] 09:51:00* Test Item Value Reference Range Interpretation Comments GLUCOSE; Normal (test code = 1547-9) 77 mg/dl 65-99 N Fasting reference interval UREA NITROGEN (BUN) (test code = UREA NITROGEN (BUN)) 16 mg/dl 7-25 N CREATININE (test code = CREATININE) 0.93 mg/dl 0.60-0.93 N For patients >49 years of age, the reference limitfor Creatinine is approximately 13% higher for peopleidentified as -[place]. eGFR NON- (test code = eGFR NON-DANILO N CYMRAES) 60 {ML/MIN/1.7} > OR = 60 N eGFR (test code = eGFR ) 70 {ML/MIN/1.7} > OR = 60 N BUN/CREATININE RATIO (test code = BUN/CREATININE RATIO) NOT APPLICA BLE 6-22 SODIUM (test code = SODIUM) 143 mmol/L 135-146 N POTASSIUM (test code = POTASSIUM) 5.0 mmol/L 3.5-5.3 N CHLORIDE (test code = CHLORIDE) 102 mmol/L 98-110 N CARBON DIOXIDE (test code = CARBON DIOXIDE) 32 mmol/L 20-32 N CALCIUM (test code = CALCIUM) 9.3 mg/dl 8.6-10.4 N PROTEIN, TOTAL (test code = PROTEIN, TOTAL) 6.6 g/dl 6.1-8.1 N ALBUMIN (test code = ALBUMIN) 3.6 g/dl 3.6-5.1 N GLOBULIN (test code = GLOBULIN) 3.0 {G/DL CALC} 1.9-3.7 N ALBUMIN/GLOBULIN RATIO (test code = ALBUMIN/GLOBULIN RATIO) 1.2 {CALC} 1.0-2.5 N BILIRUBIN, TOTAL; Normal (test code = 14917-9) 0.2 mg/dl 0.2-1.2 N ALKALINE PHSPHATASE (test code = ALKALINE PHSPHATASE) 67 u/l 33-130 N AST; Normal (test code = 1916-6) 11 u/l 10-35 N ALT; Normal (test code = 1742-6) 8 u/l 6-29 N [facility]] CBC (INCLUDES DIFF/PLT)2018-03-31 09:51:00* Test Item Value Reference Range Interpretation Comments WHITE BLOOD CELL COUNT (test code = WHITE BLOOD CELL COUNT) 6.8 {Thousand/u} 3.8-10.8 N RED BLOOD CELL COUNT (test code = RED BLOOD CELL COUNT) 3.13 {Million/uL} 3.80-5.10 HEMAGLOBIN; Below Low Threshold (test code = 56743-8) 9.9 g/dl 11.7-15.5 HEMATOCRIT; Below Low Threshold (test code = 4544-3) 29.9 % 3 5.0-45.0 MCV; Normal (test code = 787-2) 95.5 fL 80.0-100.0 N MCHC; Normal (test code = 29412-9) 33.1 g/dl 32.0-36.0 N RDW; Normal (test code = 788-0) 12.3 % 11.0-15.0 N PLATELET COUNT; Above High Threshold (test code = 777-3) 512 {Thousand/u} 140-400 MPV; Normal (test code = 13591-2) 9.1 fL 7.5-12.5 N ABSOLUTE NEUTROPHILS (test code = ABSOLUTE NEUTROPHILS) 4468 {cells/uL} 7051-7618 N ABSOLUTE LYMPHOCYTES (test code = ABSOLUTE LYMPHOCYTES) 1693 {cells/uL} 850-3900 N ABSOLUTE MONOCYTES (test code = ABSOLUTE MONOCYTES) 388 {cells/uL} 200-950 N ABSOLUTE EOSINOPHILS (test code = ABSOLUTE EOSINOPHILS) 211 {cells/ uL} 15-500 N ABSOLUTE BASOPHILS (test code = ABSOLUTE BASOPHILS) 41 {cells/uL} 0 -200 N NEUTROPHILS (test code = NEUTROPHILS) 65.7 % N LYMPHOCYTES (test code = LYMPHOCYTES) 24.9 % N MONOCYTES; Normal (test code = 82604-3) 5.7 % N EOSINOPHILS; Normal (test code = 60825-8) 3.1 % N BASOPHILS; Normal (test code = 57100-9) 0.6 % [facility] [id number] 21:50:00 [facility] [address] [address] Patient Name: TOMAS PERAZA MR #: [id number] : 1940 Age/Sex: 77/F Req #: [id number] Adm Physician: Ordered by: MARIUSZ BRADY MD Report #: [id number] Location: ER Room/Bed: Procedure: [id number] CT/CT SOFT TISSUE NEC K W Exam Date: 01/18/18 Exam Time: 2129 REPORT STATUS: Signed Examination:CT SOFT TISSUE NECK WITH CONTRAST History: T hroat swelling. Comparison studies: None Technique: Axial images from the skull base to the thoracic inlet Coronal and sagittal reformatted images. Intravenous contrast: 100mL of Isovue 370. Findings: Soft tissues: No abnormalities. Aerodigestive tract: Apposed true vocal cord. No e nhancing abnormalities in remaining tract. Lymph nodes: No radiographical ly significant adenopathy. Vessels: Arteries and veins are patent. Thyroid gland: Normal in size and homogeneous. Submandibular glands: N ormal in size and homogeneous. Parotid glands: Normal in size and homogen eous. Orbits: Bilateral slitlike lenses. Paranasal sinuses: Clear. Temp oral bones: No abnormalities. Skull base and facial bones: Intact. 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 IMPRESSION: No abnormalities to explain patient's symptoms. Signed by: Dr. Aleah Gaspar M.D. on 01/18/2018 9:56 PM Dictated By: ALEAH PAYAN MD 57 Transcribed By: VAISHALI on 01/18/182155 COPY TO: MARIUSZ CERVANTES MD [[facility]] CMP [id number] 08:56:00* Test Item Value Reference Range Interpretation Comments GLUCOSE; Above High Threshold (test code = 1547-9) 107 mg/dl 65- 99 Fasting reference interval For someone without known diabetes, a glucose valuebetween 100 and 125 mg/dL is consistent withprediabetes and should be confirmed with afollow-up test. UREA NITROGEN (BUN) (test code = UREA NITROGEN (BUN)) 17 mg/dl 7-25 N CREATININE (test code = CREATININE) 0.78 mg/dl 0.60-0.93 N For patients >49 years of age, the reference limitfor Creatinine is approximately 13% higher for peopleidentified as -[place]. eGFR NON- (test code = eGFR NON-DANILO N CYMRAES) 75 {ML/MIN/1.7} > OR = 60 N eGFR (test code = eGFR ) 87 {ML/MIN/1.7} > OR = 60 N BUN/CREATININE RATIO (test code = BUN/CREATININE RATIO) NOT APPLICA BLE 6-22 SODIUM (test code = SODIUM) 144 mmol/L 135-146 N POTASSIUM (test code = POTASSIUM) 4.5 mmol/L 3.5-5.3 N CHLORIDE (test code = CHLORIDE) 109 mmol/L 98-110 N CARBON DIOXIDE (test code = CARBON DIOXIDE) 30 mmol/L 20-31 N CALCIUM (test code = CALCIUM) 9.8 mg/dl 8.6-10.4 N PROTEIN, TOTAL (test code = PROTEIN, TOTAL) 7.3 g/dl 6.1-8.1 N ALBUMIN (test code = ALBUMIN) 4.4 g/dl 3.6-5.1 N GLOBULIN (test code = GLOBULIN) 2.9 {G/DL CALC} 1.9-3.7 N ALBUMIN/GLOBULIN RATIO (test code = ALBUMIN/GLOBULIN RATIO) 1.5 {CALC} 1.0-2.5 N BILIRUBIN, TOTAL; Normal (test code = 71549-1) 0.4 mg/dl 0.2-1.2 N ALKALINE PHSPHATASE (test code = ALKALINE PHSPHATASE) 72 u/l 33-130 N AST; Normal (test code = 1916-6) 15 u/l 10-35 N ALT; Normal (test code = 1742-6) 10 u/l 6-29 N [facility]] CBC (INCLUDES DIFF/PLT)2017-10-20 08:56:00* Test Item Value Reference Range Interpretation Comments WHITE BLOOD CELL COUNT (test code = WHITE BLOOD CELL COUNT) 6.5 {Thousand/u} 3.8-10.8 N RED BLOOD CELL COUNT (test code = RED BLOOD CELL COUNT) 4.54 {Million/uL} 3.80-5.10 N HEMOGLOBIN; Normal (test code = 46753-8) 14.1 g/dl 11.7-15.5 N HEMATOCRIT; Normal (test code = 4544-3) 42.0 % 35.0-45.0 N MCV; Normal (test code = 787-2) 92.5 fL 80.0-100.0 N MCHC; Normal (test code = 14978-4) 33.6 g/dl 32.0-36.0 N RDW; Normal (test code = 788-0) 12.8 % 11.0-15.0 N PLATELET COUNT; Normal (test code = 777-3) 330 {Thousand/u} 140-400 N MPV; Normal (test code = 16189-6) 9.8 fL 7.5-12.5 N ABSOLUTE NEUTROPHILS (test code = ABSOLUTE NEUTROPHILS) 3939 {cells/uL} 9615-7283 N ABSOLUTE LYMPHOCYTES (test code = ABSOLUTE LYMPHOCYTES) 2093 {cells/uL} 850-3900 N ABSOLUTE MONOCYTES (test code = ABSOLUTE MONOCYTES) 299 {cells/uL} 200-950 N ABSOLUTE EOSINOPHILS (test code = ABSOLUTE EOSINOPHILS) 130 {cells/ uL} 15-500 N ABSOLUTE BASOPHILS (test code = ABSOLUTE BASOPHILS) 39 {cells/uL} 0 -200 N NEUTROPHILS (test code = NEUTROPHILS) 60.6 % N LYMPHOCYTES (test code = LYMPHOCYTES) 32.2 % N MONOCYTES; Normal (test code = 82456-2) 4.6 % N EOSINOPHILS; Normal (test code = 63541-1) 2.0 % N BASOPHILS; Normal (test code = 37710-3) 0.6 % N [facility]] TSH, 3RD GENERATION W/REFLEX TO FT4 2017-10-20 08:56:00* Test Item Value Reference Range Interpretation Comments TSH, 3RD GENERATION W/REFLEX TO FT4 (rocio t code = TSH, 3RD GENERATION W/REFLEX TO FT4) 0.92 {MIU/L} 0.40-4.50 N [facility][] VITAMIN B12/FOLATE, SERUM [id number] 08:56:00* Test Item Value Reference Range Interpretation Comments VITAMIN B12 (test code = VITAMIN B12) 546 pg/ml 200-1100 N FOLATE, SERUM (test code = FOLATE, SERUM) 18.6 ng/ml N Reference Range Low: <3.4 Borderline: 3.4-5.4 Normal: >5.4 [facility]] VITAMIN D, 25-HYDROXY, LC/MS/[id number] 08:56:00* Test Item Value Reference Range Interpretation Comments VITAMIN D,25-OH,TOTAL,IA (test code = VITAMIN D,25-OH,TOTAL,IA) 26 ng/ml 30-100 Vitamin D Status 25-OH Vitamin D : Deficiency: <20 ng/mLInsufficiency: 20 - 29 ng/mLOptimal: > or = 30 ng/mL For 25-OH Vitamin D testing on patients on D2-supplementation and patients for whom quantitation of D2 and D3 fractions is required, the QuestAssureD()25-OH VIT D, (D2,D3), LC/MS/MS is recommended: order code 38559 (patients >2yrs). For more information on this test, go to:http://[email or web address]/LJF630(This link is being provided for informational/educational purposes only.) [facility][O] Urine Dipstick (In Office)2017-10-20 08:42:00 * Test Item Value Reference Range Interpretation Comments LEUKOCYTES (test code = LEUKOCYTES) neg N NITRITE; Normal (test code = 42399-8) neg N UROBILINOGEN; Normal (test code = 44353-7) normal N PROTEIN; Normal (test code = 45118-4) neg N pH (test code = pH) 5 N URINE BLOOD (test code = 90684-3) about 250 SPECIFIC GRAVITY; Normal (test code = 2965-2) 1.015 N KETONES; Normal (test code = 67464-9) neg N BILIRUBIN; Normal (test code = 33226-0) neg N GLUCOSE; Normal (test code = 1547-9) normal N UROBILINOGEN; Normal (test code = 14042-5) normal N [facility]] CULTURE, URINE, [id number] 00:00:00* Test Item Value Reference Range Interpretation Comments CULTURE (test code = CULTURE) See Comment CULTURE, URINE, ROUTINE MICRO NUMBER: [id number] TEST STATUS: FINAL SPECIMEN SOURCE: URINE SPECIMEN QUALITY: ADEQUATE RESULT: No Growth [facility]] CMP [id number] 08:47:00* Test Item Value Reference Range Interpretation Comments GLUCOSE; Normal (test code = 1547-9) 78 mg/dl 65-99 N Fasting reference interval UREA NITROGEN (BUN) (test code = UREA NITROGEN (BUN)) 16 mg/dl 7-25 N CREATININE (test code = CREATININE) 0.86 mg/dl 0.60-0.93 N For patients >49 years of age, the reference limitfor Creatinine is approximately 13% higher for peopleidentified as -[place]. eGFR NON- (test code = eGFR NON-DANILO N CYMRAES) 67 {ML/MIN/1.7} > OR = 60 N eGFR (test code = eGFR ) 77 {ML/MIN/1.7} > OR = 60 N BUN/CREATININE RATIO (test code = BUN/CREATININE RATIO) NOT APPLICA BLE 6-22 SODIUM (test code = SODIUM) 144 mmol/L 135-146 N POTASSIUM (test code = POTASSIUM) 4.2 mmol/L 3.5-5.3 N CHLORIDE (test code = CHLORIDE) 105 mmol/L 98-110 N CARBON DIOXIDE (test code = CARBON DIOXIDE) 35 mmol/L 20-31 CALCIUM (test code = CALCIUM) 9.0 mg/dl 8.6-10.4 N PROTEIN, TOTAL (test code = PROTEIN, TOTAL) 6.9 g/dl 6.1-8.1 N ALBUMIN (test code = ALBUMIN) 3.9 g/dl 3.6-5.1 N GLOBULIN (test code = GLOBULIN) 3.0 {G/DL CALC} 1.9-3.7 N ALBUMIN/GLOBULIN RATIO (test code = ALBUMIN/GLOBULIN RATIO) 1.3 {CALC} 1.0-2.5 N BILIRUBIN, TOTAL; Normal (test code = 13612-9) 0.5 mg/dl 0.2-1.2 N ALKALINE PHOSPHATE (test code = ALKALINE PHOSPHATE) 67 u/l 33 -130 N AST; Normal (test code = 1916-6) 14 u/l 10-35 N ALT; Normal (test code = 1742-6) 11 u/l 6-29 N [facility]] CBC (INCLUDES DIFF/PLT)2017-07-25 08:47:00* Test Item Value Reference Range Interpretation Comments WHITE BLOOD CELL COUNT (test code = WHITE BLOOD CELL COUNT) 6.5 {Thousand/u} 3.8-10.8 N RED BLOOD CELL COUNT (test code = RED BLOOD CELL COUNT) 4.33 {Million/uL} 3.80-5.10 N HEMOGLOBIN; Normal (test code = 28021-0) 13.4 g/dl 11.7-15.5 N HEMATOCRIT; Normal (test code = 4544-3) 40.5 % 35.0-45.0 N MCV; Normal (test code = 787-2) 93.5 fL 80.0-100.0 N MCHC; Normal (test code = 10054-8) 33.1 g/dl 32.0-36.0 N RDW; Normal (test code = 788-0) 12.6 % 11.0-15.0 N PLATELET COUNT; Normal (test code = 777-3) 347 {Thousand/u} 140-400 N MPV; Normal (test code = 30948-7) 9.4 fL 7.5-12.5 N ABSOLUTE NEUTROPHILS (test code = ABSOLUTE NEUTROPHILS) 3016 {cells/uL} 0459-8167 N ABSOLUTE LYMPHOCYTES (test code = ABSOLUTE LYMPHOCYTES) 2938 {cells/uL} 850-3900 N ABSOLUTE MONOCYTES (test code = ABSOLUTE MONOCYTES) 397 {cells/uL} 200-950 N ABSOLUTE EOSINOPHILS (test code = ABSOLUTE EOSINOPHILS) 98 {cells/u L} 15-500 N ABSOLUTE BASOPHILS (test code = ABSOLUTE BASOPHILS) 52 {cells/uL} 0 -200 N NEUTROPHILS (test code = NEUTROPHILS) 46.4 % N LYMPHOCYTES (test code = LYMPHOCYTES) 45.2 % N MONOCYTES; Normal (test code = 71473-4) 6.1 % N EOSINOPHILS; Normal (test code = 91022-1) 1.5 % N BASOPHILS; Normal (test code = 70835-1) 0.8 % N [facility]] T4, [id number] 08:47:00* Test Item Value Reference Range Interpretation Comments T4, FREE (test code = T4, FREE) 1.6 ng/dl 0.8-1.8 N [facility]] TSH, 3RD GENERATION W/REFLEX TO FT4 2017-07-25 08:47:00* Test Item Value Reference Range Interpretation Comments TSH, 3RD GENERATION W/REFLEX TO FT4 (rocio t code = TSH, 3RD GENERATION W/REFLEX TO FT4) 0.18 {MIU/L} 0.40-4.50 [facility]] HEMOGLOBIN [id number] 08:47:00* Test Item Value Reference Range Interpretation Comments HEMOGLOBIN A1c; Normal (test code = 4548-4) 5.4 {% of total} <5.7 N For the purpose of screening for the presence ofdiabetes: <5.7% Consistent with the absence of diabetes5.7-6.4% Consistent with increased risk for diabetes (prediabetes)> or =6.5% Consistent with diabetes This assay result is consistent with a decreased riskof diabetes. Currently, no consensus exists regarding use ofhemoglobin A1c for diagnosis of diabetes in children. According to [place] Diabetes Association (ADA)guidelines, hemoglobin A1c <7.0% represents optimalcontrol in non- diabetic patients. Differentmetrics may apply to specific patient populations. Standards of Medical Care in Diabetes(ADA). [facility]
--- OUTSIDE RECORDS SUMMARY | 2020-03-26 14:47 | XMS REPORT | Summary of Care ---
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 13:30
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
[2020-03-26] MEDS ORDERED: SODIUM CHLORIDE FLUSH 10 ML SYR INJ PRN (15:30)
[2020-03-26] MEDS ORDERED: ONDANSETRON HCL INJ 2MG/ML 2ML 2 MG/ML VIAL IV PRN (15:30)
[2020-03-26] MEDS ORDERED: ASPIRIN 81 MG CHEW TAB PO ONE (15:30)
[2020-03-26] MEDS ORDERED: NITROGLYCERIN 0.4 MG SUBL SL PRN (15:30)
--- NOTE | 2020-03-26 15:37 | NUR ---
[facility] NOTIFIED OF TRANSFER. ETA 30-45
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
--- OUTSIDE RECORDS SUMMARY | 2020-03-26 15:55 | XMS REPORT ---
Author Author TOMAS MARTINEZ Organization Unknown Address Unknown Phone Care Team Providers Care Mercury Recoverer Name Role Phone MARIA GUADALUPE MARTINEZ PP Unavailable Reason for Referral No Reason for Referral was given. History of Present Illness No HPI available. Problems * Normal Routine History And Physical Senior Citizen (65-80) (V70.0); ( Active) * Chest Pain (786.50); (Active) * Visit For: Pre-procedural Cardiovascular Exam (V72.81); (Active) * Hypertension (401.9); (Active) * Esophageal Reflux (530.81); (Active) * Edema (782.3); (Active) * Lymphedema (457.1); (Active) * Abdomen Tenderness (789.60); (Active) Medication * Lisinopril 20 MG Oral Tablet; TAKE 1 TABLET DAILY; Start Date: ; End Date: (Active) * ALPRAZolam 0.25 MG Oral Tablet; TAKE 1 TABLET DAILY NEEDED. (Active) * Albuterol Sulfate NEBU; INHALE PUFFS PRN (Active) * Pravastatin Sodium 80 MG Oral Tablet; TAKE 1 TABLET DAILY. (Active) * Furosemide 40 MG Oral Tablet; TAKE 1 TABLET DAILY.; Start Date: 11/29/2012; End Date: (Active) * Citalopram Hydrobromide 10 MG Oral Tablet; TAKE 1 TABLET DAILY.; Start Date: 11/29/2012 (Active) * Cyclobenzaprine HCl 10 MG Oral Tablet; TAKE 1 TABLET AT BEDTIME. (Active) * Ibuprofen 800 MG Oral Tablet; TAKES 2 TABLETS IN AM (Active) * Levothyroxine Sodium 150 MCG Oral Tablet; TAKE 1 TABLET DAILY. (Active) * Nitrostat 0.4 MG Sublingual Tablet Sublingual; PLACE 1 TABLET Once & Go to Emergency Room; Start Date: 12/19/2012; End Date: (Active) * Vicodin ES 7.5-750 MG TABS; TAKE 1 TABLET 4 TIMES DAILY NEEDED. (Active) * Meloxicam 7.5 MG Oral Tablet; TAKE 1 TABLET DAILY. (Active) * Omeprazole 40 MG Oral Capsule Delayed Release; TAKE ONE CAPSULE BY MOUTH TWICE DAILY; Start Date: 04/19/2013; End Date: (Active) Allergies and Adverse Reactions [...] History of Cancer Comments: arm (199.1); (Resolved) Procedures Procedure Procedure Date Date Completed [...] Never Used Drugs (Active) Treatment Plan * Lymphedema Clinic Referral 04/26/2013 Routine Advance Directives * No Advance Directives available. Encounters * AUDIT 04/26/2013
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
--- OUTSIDE RECORDS SUMMARY | 2020-03-26 15:55 | XMS REPORT | Continuity of Care Document ---
Author Author [facility] [employer] Address Unknown Phone Unavailable Care Team Providers Care Plumbing And Heating Contractor Name Role Phone [facility] [employer] Information [employer] Unavailable Un available Problems Problem Status Onset Date Classification Date Reported Comments Source PANCREATIC MASS , DVT , PANCREATIC LESIO Active 01/18/2020 [facility] UNK Active 0 01/03/2020 [facility] DX: K86.9=DISEASE OF PANCREAS, UNSPECIFI Active 10/23/2019 [facility] Edema Active 12/17/2013 [facility] Chest Pain Active 12/17/2013 [facility] Hypertension Active 12/17/2013 [facility] Esophageal Reflux Active 12/17/2013 [facility] Lymphedema Active 12/17/2013 [facility] Abdomen Tenderness Active 12/17/2013 [facility] Hypothyroidism Active 12/17/2013 [facility] Acute Bronchitis Active 12/17/2013 [facility] Arthritis Active 12/17/2013 [facility] Lower Back Pain Chronic Active 12/17/2013 [facility] Shortness Of Breath Active 12/17/2013 [facility] Bronchitis Active 12/17/2013 [facility] Anxiety (Symptom) Active 12/17/2013 [facility] Allergic rhinitis (disorder) R esolved Problem [facility] Anxiety (finding) Resolved Problem 02/02/2020 [facility] Arthritis (disorder) Resolved Problem 02/02/2020 [facility] Atrial fibrillation (disorder) Resolved Problem [facility] Bronchitis (disorder) Resolved Problem 02/02/2020 [facility] Chronic low back pain (disorder) Resolved Problem [facility] Chronic obstructive lung disease (disorder) Resolved Problem 02/02/2020 [facility] Cyst of pancreas (disorder) Ac tive Problem [facility] Depression - motion (qualifier value) Resolved Problem 02/02/2020 [facility] Diabetes mellitus (disorder) R esolved Problem [facility] Dyslipidemia (disorder) Resolv ed Problem [facility] Gastroesophageal reflux disease (disorder) Resolved Problem 02/02/2020 [facility] Hypertensive disorder, systemic arterial (disorder) Resolved Problem 02/02/2020 [facility] Hypothyroidism (disorder) Reso lved Problem [facility] Malignant neoplasm of skin (disorder) Resolved Problem 02/02/2020 [facility] Polyp of colon (disorder) Reso lved Problem [facility] Rectal hemorrhage (disorder) R esolved Problem [facility] Smoker (finding) Resolved Problem 02/02/2020 [facility] Medications Medication Details Route Status Patient Instructions Ordering Provider Order Date Source Sodium Chloride 0.9% IV 1,000 mL 1,000 mL, Rate: 75 ml/hr, Infuse over: 13.3 hr, Route: IV, Dosing Weight 94.545 kg, Total Volume: 1,000, Start date: 01/18/20 10:35:00 CDT, Duration: 1 day, Stop date: 01/19/20 10:34:00 CDT, 2.13, m2, 0 Inactive 01/18/2020 [facility] Levothyroxine Sodium 200 MCG Oral Tablet ; Start Date: 11/26/2013; End Date: (Active) Active 11/26/2013 [facility] Cefdinir 300 MG Oral Capsule ; Start Date: 11/22/2013; End Date: 12/02/2013 (Active) Active 11/22/2013 [facility] PredniSONE 20 MG Oral Tablet ; Start Date: 11/22/2013; End Date: (Active) Active 11/22/2013 [facility] TraMADol HCl 50 MG Oral Tablet ; Start Date: 11/22/2013; End Date: (Active) Active 11/22/2013 [facility] Meloxicam 7.5 MG Oral Tablet ; Start Date: 07/04/2013; End Date: (Active) Active 07/04/2013 [facility] Budesonide 0.5 MG/2ML Inhalation Suspension ; Start Date: 06/25/2013; End Date: (Active) Active 06/25/2013 [facility] TraMADol HCl 50 MG Oral Tablet ; Start Date: 06/25/2013; End Date: (Active) Active 06/25/2013 [facility] ALPRAZolam 0.25 MG Oral Tablet ; Start Date: 06/13/2013 (Active) Active 06/13/2013 [facility] Omeprazole 40 MG Oral Capsule Delayed Release ; Start Date: 04/19/2013 (Active) Active 04/19/2013 [facility] Nitrostat 0.4 MG Sublingual Tablet Sublingual ; Start Date: 12/19/2012; End Date: (Active) Active 12/19/2012 [facility] Furosemide 40 MG Oral Tablet ; Start Date: 11/29/2012; End Date: (Active) Active 11/29/2012 [facility] Citalopram Hydrobromide 10 MG Oral Tablet ; Start Date: 11/29/2012; End Date: (Active) Active 11/29/2012 [facility] Pravastatin Sodium 80 MG Oral Tablet ; Start Date: 11/29/2012 (Active) Active 11/29/2012 [facility] Lisinopril 20 MG Oral Tablet ; Start Date: ; End Date: (Active) Inactive [facility] Levothyroxine Sodium 150 MCG Oral Tablet ; Start Date: ; End Date: (Active) Inactive [facility] Lisinopril 10 MG Oral Tablet (Active) Active [facility] ALPRAZolam 0.25 MG Oral Tablet (Active) Active [facility] Albuterol Sulfate NEBU (Activ e) Active [facility] Pravastatin Sodium 80 MG Oral Tablet (Active) Active [facility] Levothyroxine Sodium 125 MCG Oral Tablet (Active) Active [facility] Cyclobenzaprine HCl 10 MG Oral Tablet (Active) Active [facility] Ibuprofen 800 MG Oral Tablet (Active) Active [facility] Vicodin ES 7.5-750 MG TABS (A ctive) Active [facility] Clindamycin HCl 300 MG Oral Capsule (Active) Active [facility] Bactrim DS 800-160 MG Oral Tablet (Active) Active [facility] Meloxicam 7.5 MG Oral Tablet (Active) Active [facility] Levothyroxine Sodium 150 MCG Oral Tablet (Active) Active [facility] Pantoprazole Sodium 40 MG Oral Tablet Delayed Release (Active) Active [facility] Carafate 1 GM Oral Tablet (Ac tive) Active [facility] Dicyclomine HCl 20 MG Oral Tablet (Active) Active [facility] Hydrocodone-Acetaminophen 7.5-750 MG Oral Tablet (Active) Active [facility] Hydrocodone-Acetaminophen 7.5-750 MG TABS (Active) Active [facility] Allergies, Adverse Reactions, Alerts Substance Category Reaction Severity Reaction type Status Date Reported Comments Source No Known Drug Allergies drug a llergy drug aller gy Active [facility] cephalexin Assertion Drug allergy Active [facility] Immunizations Immunization Date Given Site Status Last Updated Comments Source Influenza completed [facility] Results Order Name Results Value Reference Range Date Interpretation Comments Source IMMUNOLOGY Coronavirus (COVID-19) NA A Not Detected (01/14/20 9:43 AM) Not Detected 01/14/2020 [facility] Pathology Reports No Data Provided for This Section Diagnostic Reports Report Value Date Source PET CT Tumor [id number] PROCEDURE INFORMATION: Exam: PET/CT Skull Base to Mid-thigh Exam date and time: 01/31/2020 2:26 PM Age: 79 years old Clinical indication: Pancreatic mass; Patient HX: No HX of CA; Additional info: Pancreatic mass/dlp= 534 mgy*cm , ctdivol= 5.84 mgy Treatment strategy for malignancy (PET staging): Initial Staging (PI) LABS AND CLINICAL REPORTS: Glucose: 121 mg/dl TECHNIQUE: Imaging protocol: Following at least four-hour fasting and following the injection of F-18-FDG, low dose CT images were obtained from the orbital meatal line through the pelvis. Then, PET images were obtained through the same region. Attenuation corrected images were constructed using the CT scan. Fused images of PET and CT were reviewed. The standardized uptake values (SUV) reported below are maximum values within a region of interest, expressed in gm/ml. 3D rendering: MIP and/or 3D reconstructe d images were created by the technologist. Radiopharmaceutical: 10.4 mCi F18-FDG, IV Time of imaging post radiopharmaceutical administration: 1 hour Injection site: Right antecubital region COMPARISON: Reported CT 09/27/2019 is not available. FINDINGS: Head: Visualized portion of the brain demonstrates no abnormal activity. Neck: Small active focus in the isthmus of the thyroid with SUV of 3.4, image 67. Chest: No suspicious activiity. Cardiomegaly, coronary artery calcifications, closure type device left atrial appendage. Calcified granuloma left lower lobe of the lung. Calcified lymph nodes left hilum. Possible scarring in the lung apices. 5 cm well-marginated fluid attenuation collection right cardiophrenic region is not active. Mild subpleural opacity left lower lobe of the lung has SUV of 1.9, image 121. Abdomen and Pelvis: The pancreas is atrophic; no active lesion is seen. Activity in the distal ascending colon/hepatic flexure with SUV 6.7, image 176. Small focus of activity in the caudate lobe of liver has SUV of 4.5, image 142. Infrarenal aorta measures 4.5 x 4.4 cm. Ventral hernia mesh. Bones/joints: No suspicious activity. Soft tissues: 10 mm active focus subcutaneous fat right gluteal region has SUV of 2.2, image 257. IMPRESSION: 1. No abnormal tracer activity in the pa ncreas. 2. Tracer uptake in the ascending colon/ hepatic flexure may be physiological. Correlate with colonoscopy to exclude neoplasm. 3. Mildly active opacity left lower lobe of the lung may reflect a pneumonia or pneumonitis. Follow-up CT chest in 6 months to re-evaluate as neoplasm is not excluded. 4. Small active focus isthmus of the thy roid. Thyroid ultrasound is advised to further evaluate for a nodule. 5. Small active focus caudate lobe of th e liver may be physiological. Correlate with report of CT 09/27/2019. 5. Small mildly active focus subcutaneou s fat right gluteal region is nonspecific, may reflect inflammation. 6. Low-attenuation lesion right cardioph renic region compatible with pericardial cyst. 7. 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 Samuel Flores MD On 01/31/2020 17:04:20; [id number] 01/31/2020 [facility] Lower Venous Doppler Bilat US PROCEDURE INFORMATION: Exam: US Duplex Lower Extremity Veins, Bilateral Exam date and time: 01/31/2020 12:02 PM Age: 79 years old Clinical indication: /dvt TECHNIQUE: Imaging protocol: Real-time duplex ultrasound of the extremities with 2-D ruiz scale, color Doppler flow and spectral waveform analysis with image documentation. Complete exam focused on the bilateral lower extremity veins. COMPARISON: No relevant prior studies available. FINDINGS: Right deep veins: The common femoral, femoral, popliteal veins and imaged calf veins are patent without thrombus. Normal Doppler waveforms. Normal compressibility and/or augmentation response. Right superficial veins: Saphenofemoral junction is patent without thrombus. Left deep veins: The common femoral, femoral, popliteal veins and imaged calf veins are patent without thrombus. Normal Doppler waveforms. Normal compressibility and/or augmentation response. Left superficial veins: Saphenofemoral junction is patent without thrombus. Soft tissues: No fluid collections. IMPRESSION: No evidence for acute DVT of either lower extremity. Cortez Marin MD On 01/31/2020 12:39:30; [id number] 01/31/2020 [facility] Consultation Notes No Data Provided for This Section Discharge Summaries No Data Provided for This Section History and Physicals No Data Provided for This Section Vital Signs Vital Sign Value Date Comments Source Respitory Rate 14 01/18/2020 [facility] Systolic (mm Hg) 132 01/18/2020 [facility] Diastolic (mm Hg) 67 01/18/2020 [facility] Respitory Rate 14 01/18/2020 [facility] Systolic (mm Hg) 126 01/18/2020 [facility] Diastolic (mm Hg) 98 01/18/2020 [facility] Respitory Rate 17 01/18/2020 [facility] Systolic (mm Hg) 131 01/18/2020 [facility] Diastolic (mm Hg) 85 01/18/2020 [facility] Height 167.64 cm 01/17/2020 [facility] Weight 94.545 01/17/2020 [facility] BMI Calculated 33.64 01/17/2020 [facility] Encounters Location Location Details Encounter Type Encounter Number Reason For Visit Attending Provider ADM Date DC Date Status Source AUDIT [id number] 12/20/2012 12/20/2012 [facility] ECL Provi chantal: MARIA GUADALUPE MARTINEZ, Status: Pen, Time: 8:00 AM [id number] 12/22/19 13 12/20/2012 [facility] Marielle OCONNOR chantal: SHIKHA LEWIS, Status: Pen, Time: 11:00 AM [id number] 01/25/20 13 12/20/2012 [facility] AUDIT [id number] 01/25/2013 01/25/2013 [facility] Marielle OCONNOR chantal: SHIKHA LEWIS, Status: Pen, Time: 2:00 PM [id number] 02/07/20 13 01/25/2013 [facility] AUDIT [id number] 02/06/2013 02/07/2013 [facility] AUDIT [id number] 04/26/2013 04/27/2013 [facility] AUDIT [id number] 04/28/2013 04/28/2013 [facility] AUDIT [id number] 06/13/2013 06/13/2013 [facility] AUDIT [id number] 06/18/2013 06/18/2013 [facility] AUDIT [id number] 06/25/2013 06/25/2013 [facility] AUDIT [id number] 07/04/2013 07/04/2013 [facility] AUDIT [id number] 09/18/2013 09/18/2013 [facility] AUDIT [id number] 09/20/2013 09/20/2013 [facility] AUDIT [id number] 10/18/2013 10/18/2013 [facility] AUDIT [id number] 10/25/2013 10/25/2013 [facility] ECL, Provi chantal: MARIA GUADALUPE MARTINEZ, Status: Pen, Time: 11:00 AM [id number] 11/02/1910/25/2013 [facility] AUDIT [id number] 11/12/2013 11/12/2013 [facility] AUDIT [id number] 11/14/2013 11/14/2013 [facility] AUDIT [id number] 11/22/2013 11/22/2013 [facility] AUDIT [id number] 11/22/2013 11/23/2013 [facility] AUDIT [id number] 12/17/2013 12/17/[address] [facility] Bedded Outpatient [id number] Lucero Marsh Liliana 01/18/2020 01/18/2020 [facility] Outpatient [id number] Irfan Jawed 01/31/2020 02/01/2020 [facility] Procedures Procedure Code Date Perfomer Comments Source Appendectomy [id number] [facility] Back care<sup>1</sup> [id number] back sx [facility] Bladder care management [id number] 002 [facility] section [id number] [facility] Colonoscopy [id number] [facility] D&C - Dilatation and curettage [id number] [facility] Esophagogastroduodenoscopy [id number] [facility] Hernia repair [id number] [facility] Hysterectomy [id number] [facility] Implantation of heart assist system<sup>2</sup> [id number] Watchman device [facility] Oophorectomy [id number] [facility] Operation [id number] [facility] Assessment and Plan No Data Provided for This Section Plan of Care Plan of Care Date Source XRAY Chest 2 views [id number] 11/22/2013 Rout ineXRAY Chest 2 views [id number] 11/22/2013 Routine 12/17/2013 [facility] XRAY Chest 2 views [id number] 11/22/2013 Rout ineXRAY Chest 2 views [id number] 11/22/2013 Routine 11/23/2013 [facility] XRAY Chest 2 views [id number] 11/22/2013 Rout ineXRAY Chest 2 views [id number] 11/22/2013 Routine 11/22/2013 [facility] [QL] TSH, 3RD GENERATION W/REFLEX TO FT 4 11/12/2013 Routine 11/14/2013 [facility] [QL] TSH, 3RD GENERATION W/REFLEX TO FT 4 11/12/2013 Routine 11/12/2013 [facility] Walker w/Wheels 10/18/2013 Routine 10/25/2013 [facility] Walker w/Wheels 10/18/2013 RoutineSocial Worker Referral 10/18/2013 Routine 10/18/2013 [facility] L[facility]hed[facility] Referral 04/26/2013 Routine 04/27/2013 [facility] [QL] CBC (INCLUDES DIFF/PLT) 01/24/2013 Routine[QL] BASIC METABOLIC PANEL W/EGFR 01/24/2013 Routine[QL] PROTHROMBIN W/INR + PARTIAL THROMBOPLASTIN TIMES 01/24/2013 Routine 01/25/2013 [facility] Social History Social History Date Source Social History TypeResponse Alcohol Past, Started age 18 Years. Stopped age 37 Years. Previous treatment: None. Alcohol use interferes with work or home: No. Drinks more than intended: No. Others hurt by drinking: No. Ready to change: No. Household alcohol concerns: No. 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 Highest education level: Other.1 Exercise Exercise duration: 40. Exercise frequency: 1-2 times/week. Self assessment: Fair condition. Exercise type: physical therapy. Substance Abuse Use: None. Smoking Status Current some day smoker; Type: Cigarettes; Previous treatment: None; Previous treatment: Nicotine replacement; Ready to change: No; Concerns about tobacco use in household: No; Exposure to Tobacco Smoke None; Cigarette Smoking Last 365 Days Yes; Reg Smoking Cessation Counseling Yes; Tobacco use per day: 20; Number of years: 60; Started at age: 17.0; Stopped at age: 77; 2 entered on: 01/18/20 19th [id number] still [address] [facility] Current Smoker (305.1); (Active) Smoker, Current Status Unknown (305.1); (Active) Marital History - Currently (Active) Current Every Day Smoker (305.1); (Active) Smoking Cigarettes - Very Heavy (>25 / Day) (Active) Never Drank Alcohol (Active) Never Used Drugs (Active) Occupation: Retired (Active) 12/17/2013 [facility] Family History Value Date S ource Paternal history of Coronary Artery Dise ase (V17.49); (Active) 12/17/2013 [facility] Paternal history of Coronary Artery Dise ase (V17.49); (Active) 11/23/2013 [facility] Paternal history of Coronary Artery Dise ase (V17.49); (Active) 11/22/2013 [facility] Paternal history of Coronary Artery Dise ase (V17.49); (Active) 11/14/2013 [facility] Paternal history of Coronary Artery Dise ase (V17.49); (Active) 11/12/2013 [facility] Paternal history of Coronary Artery Dise ase (V17.49); (Active) 10/25/2013 [facility] Paternal history of Coronary Artery Dise ase (V17.49); (Active) 10/18/2013 [facility] Paternal history of Coronary Artery Dise ase (V17.49); (Active) 09/20/2013 [facility] Paternal history of Coronary Artery Dise ase (V17.49); (Active) 09/18/2013 [facility] Paternal history of Coronary Artery Dise ase (V17.49); (Active) 07/04/2013 [facility] Paternal history of Coronary Artery Dise ase (V17.49); (Active) 06/25/2013 [facility] Paternal history of Coronary Artery Dise ase (V17.49); (Active) 06/18/2013 [facility] Paternal history of Coronary Artery Dise ase (V17.49); (Active) 06/13/2013 [facility] Paternal history of Coronary Artery Dise ase (V17.49); (Active) 04/28/2013 [facility] Paternal history of Coronary Artery Dise ase (V17.49); (Active) 04/27/2013 [facility] Advance Directives Order Name Results Value Date Source Advance Directives Advance Dir ectives No Advance Directives available. 12/17/2013 [facility] Advance Directives Advance Dir ectives No Advance Directives available. 11/23/2013 [facility] Advance Directives Advance Dir ectives No Advance Directives available. 11/22/2013 [facility] Advance Directives Advance Dir ectives No Advance Directives available. 11/14/2013 [facility] Advance Directives Advance Dir ectives No Advance Directives available. 11/12/2013 [facility] Advance Directives Advance Dir ectives No Advance Directives available. 10/25/2013 [facility] Advance Directives Advance Dir ectives No Advance Directives available. 10/18/2013 [facility] Advance Directives Advance Dir ectives No Advance Directives available. 09/20/2013 [facility] Advance Directives Advance Dir ectives No Advance Directives available. 09/18/2013 [facility] Advance Directives Advance Dir ectives No Advance Directives available. 07/04/2013 [facility] Advance Directives Advance Dir ectives No Advance Directives available. 06/25/2013 [facility] Advance Directives Advance Dir ectives No Advance Directives available. 06/18/2013 [facility] Advance Directives Advance Dir ectives No Advance Directives available. 06/13/2013 [facility] Advance Directives Advance Dir ectives No Advance Directives available. 04/28/2013 [facility] Advance Directives Advance Dir ectives No Advance Directives available. 04/27/2013 [facility] Advance Directives Advance Dir ectives No Advance Directives available. 02/07/2013 [facility] Advance Directives Advance Dir ectives No Advance Directives available. 01/25/2013 [facility] Advance Directives Advance Dir ectives No Advance Directives available. 12/20/2012 [facility] Functional Status No Data Provided for This Section
--- OUTSIDE RECORDS SUMMARY | 2020-03-26 15:55 | XMS REPORT ---
Author Author TOMAS LEWIS Organization Unknown Address Unknown Phone Care Team Providers Care Pension Fund Manager Name Role Phone YANSIHKHA FOREMAN PP Unavailable Reason for Referral No Reason for Referral was given. History of Present Illness No HPI available. Problems * Normal Routine History And Physical Senior Citizen (65-80) (V70.0); ( Active) * Edema (782.3); (Active) * Chest Pain (786.50); (Active) * Visit For: Pre-procedural Cardiovascular Exam (V72.81); (Active) * Hypertension (401.9); (Active) Medication * Lisinopril 20 MG Oral [...] TABLET DAILY.; Start Date: 11/29/2012 (Active) * Levothyroxine Sodium 125 MCG Oral Tablet; TAKE 1 TABLET DAILY. (Active) * Cyclobenzaprine HCl 10 MG Oral Tablet; TAKE 1 TABLET AT BEDTIME. (Active) * Ibuprofen 800 MG Oral Tablet; TAKES 2 TABLETS IN AM (Active) * Nitrostat 0.4 MG Sublingual Tablet Sublingual; PLACE 1 TABLET Once & Go to Emergency Room; Start Date: 12/19/2012; End Date: (Active) * Vicodin ES 7.5-750 MG TABS; TAKE 1 TABLET 4 TIMES DAILY NEEDED. (Active) * Clindamycin HCl 300 MG Oral Capsule (Active) * Bactrim DS 800-160 MG Oral Tablet (Active) * Meloxicam 7.5 MG Oral Tablet; TAKE 1 TABLET DAILY. (Active) Allergies and Adverse Reactions * No Known Drug Allergies (Active) Past Medical History * No Significant Medical History Social History * Current Smoker (305.1); (Active) * Smoker, Current Status Unknown (305.1); (Active) Advance Directives * No Advance Directives available. Encounters * AUDIT 02/06/2013
--- OUTSIDE RECORDS SUMMARY | 2020-03-26 15:55 | XMS REPORT ---
Author Author TOMAS MARTINEZ Organization Unknown Address Unknown Phone Care Team Providers Care Medical Secretary Name Role Phone MARIA GUADALUPE MARTINEZ PP Unavailable Reason for Referral No Reason for Referral was given. History of Present Illness No HPI available. Problems * Normal Routine History And Physical Senior Citizen (65-80) (V70.0); ( Active) * Chest Pain (786.50); (Active) * Visit For: Pre-procedural Cardiovascular Exam (V72.81); (Active) * Hypertension (401.9); (Active) * Lymphedema (457.1); (Active) * Edema (782.3); (Active) * Abdomen Tenderness (789.60); (Active) * Hypothyroidism (244.9); (Active) * Acute Bronchitis (466.0); (Active) * Arthritis (716.90); (Active) * Esophageal Reflux (530.81); (Active) * Lower Back Pain Chronic (724.2); (Active) Medication * Lisinopril 20 MG Oral Tablet; TAKE 1 TABLET DAILY; Start Date: ; End Date: (Active) * Albuterol Sulfate NEBU; INHALE PUFFS PRN (Active) * Cyclobenzaprine HCl 10 MG Oral Tablet; TAKE 1 TABLET AT BEDTIME. (Active) * Furosemide 40 MG Oral Tablet; TAKE 1 TABLET DAILY.; Start Date: 11/29/2012; End Date: (Active) * Ibuprofen 800 MG Oral Tablet; TAKES 2 TABLETS IN AM (Active) * Levothyroxine Sodium 150 MCG Oral Tablet; TAKE 1 TABLET BY MOUTH EVERY MORNINGneeds office visit to con't r/f's; Start Date: ; End Date: (Active) * Nitrostat 0.4 MG [...] PO four times a day (Active) * Omeprazole 40 MG Oral Capsule Delayed Release; TAKE ONE CAPSULE BY MOUTH TWICE DAILY; Start Date: 04/19/2013 (Active) * Pravastatin Sodium 80 MG Oral Tablet; TAKE ONE TABLET BY MOUTH EVERY DAY; Start Date: 11/29/2012 (Active) * Budesonide 0.5 MG/2ML Inhalation Suspension; [...] Start Date: 07/04/2013; End Date: (Active) * Citalopram Hydrobromide 10 MG Oral Tablet; TAKE ONE TABLET BY MOUTH EVERY DAY; Start Date: 11/29/2012; End Date: (Active) Allergies and Adverse Reactions [...] Never Used Drugs (Active) Treatment Plan * Placido rodríguez/Kaleb 10/18/2013 Routine * Contact Centre Supervisor Referral 10/18/2013 Routine Advance Directives * No Advance Directives available. Encounters * AUDIT 10/18/2013
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
--- OUTSIDE RECORDS SUMMARY | 2020-03-26 15:55 | XMS REPORT ---
Author Author TOMAS Akins Organization Unknown Address Unknown Phone Care Team Providers Care Cryolite Recovery Operator Name Role Phone Teressa Akins PP Unavailable Reason for Referral No Reason [...] Treatment Plan * Placido rodríguez/Kaleb 10/18/2013 Routine Advance Directives * No Advance Directives available. Encounters * AUDIT 10/25/2013 * ECL, Provider: MARIA GUADALUPE MARTINEZ, Status: Luis, Time: 11:00 AM 11/01/2013
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
--- OUTSIDE RECORDS SUMMARY | 2020-03-26 15:55 | XMS REPORT ---
Author Author TOMAS Day Organization Unknown Address Unknown Phone Care Team Providers Care Ben Day Artist Name Role Phone Jaky Day PP Unavailable [...] (789.60); (Active) * Hypothyroidism (244.9); (Active) * Arthritis (716.90); (Active) * Acute [...] End Date: (Active) * Hydrocodone-Acetaminophen 7.5-750 MG Oral Tablet; TAKE 1 TABLET 4 TIMES DAILY NEEDED. [...] Alcohol (Active) * Never Used Drugs (Active) Advance Directives * No Advance Directives available. Encounters * AUDIT 09/20/2013
--- OUTSIDE RECORDS SUMMARY | 2020-03-26 15:55 | XMS REPORT ---
Author Author TOMAS Norris Organization Unknown Address Unknown Phone Care Team Providers Care Sole Layer Name Role Phone Lizabeth Norris PP Unavailable Reason for Referral No Reason for Referral was given. History of Present Illness No HPI available. Problems * Normal Routine History And Physical Senior Citizen (65-80) (V70.0); ( Active) * Edema (782.3); (Active) * Chest Pain (786.50); (Active) Medication * Lisinopril 10 MG Oral Tablet; TAKE 1 TABLET DAILY. (Active) * ALPRAZolam 0.25 MG Oral Tablet; [...] 800 MG Oral Tablet; TAKES 2 TABLETS NEEDED FOR PAIN (Active) * Nitrostat 0.4 MG Sublingual Tablet Sublingual; PLACE 1 TABLET Once & Go to Emergency Room; Start Date: 12/19/2012; End Date: (Active) Allergies and Adverse Reactions * No Known Drug Allergies (Active) Past Medical History * No Significant Medical History Social History * Current Smoker (305.1); (Active) * Smoker, Current Status Unknown (305.1); (Active) Advance Directives * No Advance Directives available. Encounters * AUDIT 12/20/2012 * ECL, Provider: MARIA GUADALUPE MARTNIEZ, Status: Luis, Time: 8:00 AM 12/21/2012 * EST, Provider: SHIKHA LEWIS, Status: Luis, Time: 11:00 AM 01/24/2013
--- OUTSIDE RECORDS SUMMARY | 2020-03-26 15:55 | XMS REPORT ---
Author Author TOMAS Day Organization Unknown Address Unknown Phone Care Team Providers Care Nurse Receptionist Name Role Phone Jaky Day PP Unavailable [...] Sulfate NEBU; INHALE PUFFS PRN (Active) * Furosemide 40 MG Oral Tablet; [...] No Advance Directives available. Encounters * AUDIT 07/04/2013
--- OUTSIDE RECORDS SUMMARY | 2020-03-26 15:55 | XMS REPORT ---
Author Author TOMAS Day Organization Unknown Address Unknown Phone Care Team Providers Care Transformer Mechanic Name Role Phone Jaky Day PP Unavailable [...] Tenderness (789.60); (Active) * Hypothyroidism (244.9); (Active) Medication * [...] 150 MCG Oral Tablet; TAKE 1 TABLET DAILY.; Start Date: ; End Date: (Active) * [...] DAILY; Start Date: 04/19/2013; End Date: (Active) * Pravastatin Sodium 80 MG Oral Tablet; TAKE ONE TABLET BY MOUTH EVERY DAY; Start Date: 11/29/2012; End Date: (Active) * ALPRAZolam 0.25 MG Oral Tablet; 1 po BID prn; Start Date: 06/13/2013 (Active) Allergies and Adverse Reactions * No [...] No Advance Directives available. Encounters * AUDIT 06/18/2013
--- OUTSIDE RECORDS SUMMARY | 2020-03-26 15:55 | XMS REPORT ---
Author Author TOMAS Day Organization Unknown Address Unknown Phone Care Team Providers Care Environmental Science Professor Name Role Phone Jaky Day PP Unavailable [...] No Advance Directives available. Encounters * AUDIT 04/28/2013
--- OUTSIDE RECORDS SUMMARY | 2020-03-26 15:55 | XMS REPORT | Summary of Care ---
Author Author [facility] Organization [facility] Address Unknown Phone Unavailable Encounter ANITA Ann(JOVANA) [id number] Date(s): 01/31/20 - 01/31/20 [facility] [address] [place] [address]- [phone] Discharge Disposition: Home or Self Care Attending Physician: Lilly Leung MD Referring Physician: Lilly Leung MD Vital Signs No data available for this section Problem List Condition Effective Dates Status Health Status Informan t Allergic Resolved rhinitis(Confirmed) Anxiety(Confirmed) Resolved Arthritis(Confirmed) Resolved Atrial Resolved fibrillation(Confirm ed) Bronchitis(Confirmed Resolved ) Chronic low back Resolved pain(Confirmed) COPD (chronic Resolved obstructive pulmonary disease)(Confirmed) COPD(Confirmed) Resolved Pancreatic Active cyst(Confirmed) Depression(Confirmed Resolved ) Diabetes(Confirmed) Resolved Dyslipidemia(Confirm Resolved ed) GERD Resolved (gastroesophageal reflux disease)(Confirmed) HTN Resolved (hypertension)(Confi rmed) HTN Resolved (hypertension)(Confi rmed) Hypothyroid(Confirme Resolved d) Skin Resolved cancer(Confirmed) Colon Resolved polyps(Confirmed) Rectal Resolved bleeding(Confirmed) Smoker(Confirmed) Resolved Allergies, Adverse Reactions, Alerts Substance Reaction Severity Status cephalexin Active Medications No data available for this section Results No data available for this section Immunizations No data available for this section Procedures Procedure Date Related Diagnosis Body Site Status Appendectomy Completed Back care1 Completed Bladder care management Completed section Completed Colonoscopy Completed D&C - Dilatation and curettage Completed Esophagogastroduodenoscopy Completed Hernia repair Completed Hysterectomy Completed Implantation of heart assist system2 Completed Oophorectomy Completed Operation Completed Operation Completed Operation Completed 1back sx 2Watchman device Social History Social History Type Response Alcohol Past, Started age 18 Years . Stopped age 37 Years. Previous treatment: None. Alcohol use interferes with work or home: No. Drinks more than intended: No. Others hurt by drinking: No. Ready to change: No. Household alcohol concerns: No. 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 Highest education level: Other.1 Exercise Exercise duration: 40. Exe rcise frequency: 1-2 times/week. Self assessment: Fair condition. Exercise t ype: physical therapy. Substance Abuse Use: None. Smoking Status Current some day smoker; Ty pe: Cigarettes; Previous treatment: None; Previous treatment: Nicotine replacemen t; Ready to change: No; Concerns about tobacco use in household: No; Exp osure to Tobacco Smoke None; Cigarette Smoking Last 365 Days Yes; Re g Smoking Cessation Counseling Yes; Tobacco use per day: 20; Number of year s: 60; Started at age: 17.0; Stopped at age: 77; 2 entered on: 01/18/20 19th grade 2smoke still Assessment and Plan No data available for this section
--- OUTSIDE RECORDS SUMMARY | 2020-03-26 15:55 | XMS REPORT ---
Author Author TOMAS Cornell Organization Unknown Address Unknown Phone Care Team Providers Care Electrical Technician Instructor Name Role Phone Emy Cornell PP Unavailable Reason for Referral No Reason [...] 1 PO four times a day (Active) Allergies and Adverse Reactions * No [...] No Advance Directives available. Encounters * AUDIT 06/25/2013
--- OUTSIDE RECORDS SUMMARY | 2020-03-26 15:55 | XMS REPORT ---
Author Author TOMAS Day Organization Unknown Address Unknown Phone Care Team Providers Care Customer Service Advisor Name Role Phone Jaky Day PP Unavailable [...] No Advance Directives available. Encounters * AUDIT 06/13/2013
--- OUTSIDE RECORDS SUMMARY | 2020-03-26 15:55 | XMS REPORT ---
Author Author TOMAS Day Organization Unknown Address Unknown Phone Care Team Providers Care Disease Management Nurse Name Role Phone Jaky Day PP Unavailable [...] No Advance Directives available. Encounters * AUDIT 09/18/2013
--- OUTSIDE RECORDS SUMMARY | 2020-03-26 15:55 | XMS REPORT ---
Author Author TOMAS Norris Organization Unknown Address Unknown Phone Care Team Providers Care Strand And Binder Controller Name Role Phone Lizabeth Norris PP Unavailable Reason for Referral No Reason for Referral was given. History of Present Illness No HPI available. Problems * Normal Routine History And Physical Senior Citizen (65-80) (V70.0); ( Active) * Edema (782.3); (Active) * Chest Pain (786.50); (Active) * Visit For: Pre-procedural Cardiovascular Exam (V72.81); (Active) Medication * Lisinopril 10 MG Oral [...] * Smoker, Current Status Unknown (305.1); (Active) Treatment Plan * [QLH] CBC (INCLUDES DIFF/PLT) 01/24/2013 Routine * [QLH] BASIC METABOLIC PANEL W/EGFR 01/24/2013 Routine * [QLH] PROTHROMBIN W/INR + PARTIAL THROMBOPLASTIN TIMES 01/24/2013 Routine Advance Directives * No Advance Directives available. Encounters * AUDIT 01/25/2013 * EST, Provider: SHIKHA LEWIS, Status: Luis, Time: 2:00 PM 02/06/2013
--- OUTSIDE RECORDS SUMMARY | 2020-03-26 15:56 | XMS REPORT | Continuity of Care Document ---
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 Body height 2019-09-18 10:04:00 65 [in_us] [facility] Weight 2019-09-18 10:04:00 223.3125 [lb_av] [facility] Body mass index (BMI) [Ratio] 2019-09-18 10:04:00 37.16 kg/m2 [facility] Heart Rate 2019-09-18 10:04:00 147 /min Location: L Radial; [facility] BP Systolic 2019-09-11 13:44:00 108 mm[Hg] Location: ANUSHA; Positi on: Sitting [facility] BP Diastolic 2019-09-11 13:44:00 69 mm[Hg] Location: ANUSHA; Positi on: Sitting [facility] Height 2019-09-11 13:44:00 65 [in_us] [facility] Weight 2019-09-11 13:44:00 217.8 [lb_av] [facility] Body Mass Index Calculated 2019-09-11 13:44:00 36.24 kg/m2 [facility] Temperature 2019-09-11 13:44:00 98.3 [degF] Method: Temporal [facility] Respiration Rate 2019-09-11 13:44:00 20 /min [facility] Heart Rate 2019-09-11 13:44:00 115 /min [facility] BP Systolic 2019-08-22 10:09:00 129 mm[Hg] Location: ANUSHA; Positi on: Sitting [facility] BP Diastolic 2019-08-22 10:09:00 89 mm[Hg] Location: CHERYLE; Positi on: Sitting [facility] Height 2019-08-22 10:09:00 65 [in_us] [facility] Weight 2019-08-22 10:09:00 217.25 [lb_av] [facility] Body Mass Index Calculated 2019-08-22 10:09:00 36.15 kg/m2 [facility] Temperature 2019-08-22 10:09:00 97.9 [degF] Method: Temporal [facility] Respiration Rate 2019-08-22 10:09:00 16 /min [facility] Heart Rate 2019-08-22 10:09:00 114 /min [facility] BP Systolic 2019-08-03 11:01:00 107 mm[Hg] Location: ANUSHA; Positi on: Sitting [facility] BP Diastolic 2019-08-03 11:01:00 72 mm[Hg] Location: ANUSHA; Positi on: Sitting [facility] Height 2019-08-03 11:01:00 65 [in_us] [facility] Weight 2019-08-03 11:01:00 218.3125 [lb_av] [facility] Body Mass Index Calculated 2019-08-03 11:01:00 36.33 kg/m2 [facility] Temperature 2019-08-03 11:01:00 97.7 [degF] Method: Temporal [facility] Heart Rate 2019-08-03 11:01:00 117 /min [facility] Respiration Rate 2019-08-03 11:01:00 16 /min [facility] O2 SAT 2019-08-03 11:01:00 98 % [facility] BP Systolic 2019-07-07 09:28:00 94 mm[Hg] Location: CHERLYE; Positi on: Sitting [facility] BP Diastolic 2019-07-07 09:28:00 63 mm[Hg] Location: ANUSHA; Positi on: Sitting [facility] Height 2019-07-07 09:28:00 65 [in_us] [facility] Weight 2019-07-07 09:28:00 222.5 [lb_av] [facility] Body Mass Index Calculated 2019-07-07 09:28:00 37.03 kg/m2 [facility] Temperature 2019-07-07 09:28:00 98.8 [degF] Method: Temporal [facility] Heart Rate 2019-07-07 09:28:00 147 /min [facility] Respiration Rate 2019-07-07 09:28:00 16 /min [facility] BP Systolic 2019-06-19 09:18:00 118 mm[Hg] Location: ANUSHA; Positi on: Sitting [facility] BP Diastolic 2019-06-19 09:18:00 72 mm[Hg] Location: ANUSHA; Positi on: Sitting [facility] Height 2019-06-19 09:18:00 65 [in_us] [facility] Weight 2019-06-19 09:18:00 214 [lb_av] [facility] Body Mass Index Calculated 2019-06-19 09:18:00 35.61 kg/m2 [facility] Heart Rate 2019-06-19 09:18:00 65 /min Location: L Brachial Artery; [facility] BP Systolic 2019-06-08 09:49:00 134 mm[Hg] Location: ANUSHA; Positi on: Sitting [facility] BP Diastolic 2019-06-08 09:49:00 75 mm[Hg] Location: ANUSHA; Positi on: Sitting [facility] Height 2019-06-08 09:49:00 65 [in_us] [facility] Body Mass Index Calculated 2019-06-08 09:49:00 35.85 kg/m2 [facility] Weight 2019-06-08 09:49:00 215.4375 [lb_av] [facility] Temperature 2019-06-08 09:49:00 98.3 [degF] Method: Temporal [facility] Heart Rate 2019-06-08 09:49:00 69 /min [facility] Respiration Rate 2019-06-08 09:49:00 16 /min [facility] BP Systolic 2019-06-08 08:43:00 129 mm[Hg] Location: ANUSHA; Positi on: Sitting [facility] BP Diastolic 2019-06-08 08:43:00 83 mm[Hg] Location: LUE; Positi on: Sitting [facility] Height 2019-06-08 08:43:00 65 [in_us] [facility] Body Mass Index Calculated 2019-06-08 08:43:00 35.63 kg/m2 [facility] Weight 2019-06-08 08:43:00 214.125 [lb_av] [facility] Heart Rate 2019-06-08 08:43:00 76 /min [facility] Respiration Rate 2019-06-08 08:43:00 16 /min [facility] BP Systolic 2019-05-14 08:33:00 120 mm[Hg] Location: LUE; Positi on: Sitting [facility] BP Diastolic 2019-05-14 08:33:00 72 mm[Hg] Location: CHERYLE; Positi on: Sitting [facility] Height 2019-05-14 08:33:00 65 [in_us] [facility] Weight 2019-05-14 08:33:00 210.1875 [lb_av] [facility] Body Mass Index Calculated 2019-05-14 08:33:00 34.98 kg/m2 [facility] Temperature 2019-05-14 08:33:00 97.9 [degF] Method: Temporal [facility] Respiration Rate 2019-05-14 08:33:00 16 /min [facility] Heart Rate 2019-05-14 08:33:00 61 /min [facility] BP Systolic 2019-05-10 12:01:00 115 mm[Hg] Location: ANUSHA; Positi on: Sitting [facility] BP Diastolic 2019-05-10 12:01:00 74 mm[Hg] Location: CHERYLE; Positi on: Sitting [facility] Height 2019-05-10 12:01:00 65 [in_us] [facility] Weight 2019-05-10 12:01:00 212 [lb_av] [facility] Body Mass Index Calculated 2019-05-10 12:01:00 35.28 kg/m2 [facility] Temperature 2019-05-10 12:01:00 98 [degF] Method: Temporal [facility] Respiration Rate 2019-05-10 12:01:00 16 /min [facility] Heart Rate 2019-05-10 12:01:00 73 /min [facility] O2 SAT 2019-05-10 12:01:00 97 % [facility] BP Systolic 2019-04-23 10:33:00 132 mm[Hg] Location: LUE; Positi on: Sitting [facility] BP Diastolic 2019-04-23 10:33:00 82 mm[Hg] Location: LUE; Positi on: Sitting [facility] Height 2019-04-23 10:33:00 65 [in_us] [facility] Weight 2019-04-23 10:33:00 208.0625 [lb_av] [facility] Body Mass Index Calculated 2019-04-23 10:33:00 34.62 kg/m2 [facility] Temperature 2019-04-23 10:33:00 99.1 [degF] Method: Temporal [facility] Heart Rate 2019-04-23 10:33:00 68 /min Location: L Brachial Artery; [facility] Respiration Rate 2019-04-23 10:33:00 16 /min Quality: Normal [facility] BP Systolic 2019-03-21 08:42:00 133 mm[Hg] Location: LUE; Positi on: Sitting [facility] BP Diastolic 2019-03-21 08:42:00 74 mm[Hg] Location: LUE; Positi on: Sitting [facility] Height 2019-03-21 08:42:00 65 [in_us] [facility] Weight 2019-03-21 08:42:00 215.8 [lb_av] [facility] Body Mass Index Calculated 2019-03-21 08:42:00 35.91 kg/m2 [facility] Heart Rate 2019-03-21 08:42:00 64 /min Location: L Brachial Artery; [facility] Respiration Rate 2019-03-21 08:42:00 18 /min [facility] BP Systolic 2019-03-15 08:54:00 133 mm[Hg] Location: LUE; Positi on: Sitting [facility] BP Diastolic 2019-03-15 08:54:00 82 mm[Hg] Location: LUE; Positi on: Sitting [facility] Height 2019-03-15 08:54:00 65 [in_us] [facility] Weight 2019-03-15 08:54:00 215.3125 [lb_av] [facility] Body Mass Index Calculated 2019-03-15 08:54:00 35.83 kg/m2 [facility] Temperature 2019-03-15 08:54:00 98.3 [degF] Method: Temporal [facility] Respiration Rate 2019-03-15 08:54:00 16 /min [facility] Heart Rate 2019-03-15 08:54:00 75 /min [facility] BP Systolic 2019-03-08 13:31:00 80 mm[Hg] Location: LUE; Positi on: Sitting [facility] BP Diastolic 2019-03-08 13:31:00 49 mm[Hg] Location: LUE; Positi on: Sitting [facility] Heart Rate 2019-03-08 13:31:00 93 /min Location: L Radial; [facility] BP Systolic 2019-03-08 13:15:00 96 mm[Hg] Location: LUE; Positi on: Sitting [facility] BP Diastolic 2019-03-08 13:15:00 61 mm[Hg] Location: LUE; Positi on: Sitting [facility] Heart Rate 2019-03-08 13:15:00 97 /min Location: L Radial; [facility] BP Systolic 2019-03-08 13:14:00 84 mm[Hg] Location: LUE; Positi on: Sitting [facility] BP Diastolic 2019-03-08 13:14:00 54 mm[Hg] Location: LUE; Positi on: Sitting [facility] Heart Rate 2019-03-08 13:14:00 118 /min Location: L Radial; [facility] BP Systolic 2019-03-08 13:01:00 83 mm[Hg] Location: LUE; Positi on: Sitting [facility] BP Diastolic 2019-03-08 13:01:00 47 mm[Hg] Location: LUE; Positi on: Sitting [facility] Heart Rate 2019-03-08 13:01:00 105 /min [facility] Temperature 2019-03-08 13:01:00 99.4 [degF] Method: Oral [facility] BP Systolic 2019-03-01 08:30:00 122 mm[Hg] Location: RUE; Positi on: Sitting [facility] BP Diastolic 2019-03-01 08:30:00 73 mm[Hg] Location: RUE; Positi on: Sitting [facility] Height 2019-03-01 08:30:00 65 [in_us] [facility] Weight 2019-03-01 08:30:00 212.375 [lb_av] [facility] Calculated 2019-03-01 08:30:00 35.34 kg/m2 [facility] Temperature 2019-03-01 08:30:00 98.2 [degF] Method: [facility]poral [facility] Heart Rate 2019-03-01 08:30:00 62 /min [facility] Respiration Rate 2019-03-01 08:30:00 16 /min [facility] BP Systolic 2019-02-22 14:12:00 100 mm[Hg] Location: LUE; Positi on: Sitting [facility] BP Diastolic 2019-02-22 14:12:00 62 mm[Hg] Location: LUE; Positi on: Sitting [facility] Height 2019-02-22 14:12:00 65 [in_us] [facility] Weight 2019-02-22 14:12:00 220.3125 [lb_av] [facility] Body Mass Index Calculated 2019-02-22 14:12:00 36.66 kg/m2 [facility] Temperature 2019-02-22 14:12:00 98.9 [degF] Method: [facility]poral [facility] Heart Rate 2019-02-22 14:12:00 82 /min [facility] Respiration Rate 2019-02-22 14:12:00 16 /min [facility] BP Systolic 2019-02-13 09:50:00 128 mm[Hg] Location: LUE; Positi on: Sitting [facility] BP Diastolic 2019-02-13 09:50:00 78 mm[Hg] Location: LUE; Positi on: Sitting [facility] Height 2019-02-13 09:50:00 65 [in_us] [facility] Weight 2019-02-13 09:50:00 216 [lb_av] [facility] [place] [facility] Body Mass Index Calculated 2019-02-13 09:50:00 35.94 kg/m2 [facility] Heart Rate 2019-02-13 09:50:00 68 /min [facility] Respiration Rate 2019-02-13 09:50:00 16 /min [facility] BP Systolic 2019-01-30 07:59:00 130 mm[Hg] Location: LUE; Positi on: Sitting [facility] BP Diastolic 2019-01-30 07:59:00 82 mm[Hg] Location: LUE; Positi on: Sitting [facility] Height 2019-01-30 07:59:00 65 [in_us] [facility] Weight 2019-01-30 07:59:00 213.1875 [lb_av] [facility] Body Mass Index Calculated 2019-01-30 07:59:00 35.48 kg/m2 [facility] Temperature 2019-01-30 07:59:00 98 [degF] Method: Temporal [facility] Respiration Rate 2019-01-30 07:59:00 16 /min [facility] Heart Rate 2019-01-30 07:59:00 65 /min [facility] BP Systolic 2019-01-15 08:57:00 133 mm[Hg] Location: CHERYLE; Positi on: Sitting [facility] BP Diastolic 2019-01-15 08:57:00 77 mm[Hg] Location: CHERYLE; Positi on: Sitting [facility] O2 SAT 2019-01-15 08:57:00 98 % Source: RA [facility] Height 2019-01-15 08:57:00 65 [in_us] [facility] Weight 2019-01-15 08:57:00 209.1875 [lb_av] [facility] Body Mass Index Calculated 2019-01-15 08:57:00 34.81 kg/m2 [facility] Temperature 2019-01-15 08:57:00 97.7 [degF] Method: Temporal [facility] Heart Rate 2019-01-15 08:57:00 72 /min Location: L Brachial Artery; [facility] Respiration Rate 2019-01-15 08:57:00 16 /min Quality[facility] BP Systolic 2018-12-04 08:31:00 157 mm[Hg] Location: LUE; Positi on: Sitting [facility] BP Diastolic 2018-12-04 08:31:00 80 mm[Hg] Location: LUE; Positi on: Sitting [facility] Height 2018-12-04 08:31:00 65 [in_us] [facility] Weight 2018-12-04 08:31:00 211 [lb_av] [facility] Body Mass Index Calculated 2018-12-04 08:31:00 35.11 kg/m2 [facility] Heart Rate 2018-12-04 08:31:00 69 /min [facility] Respiration Rate 2018-12-04 08:31:00 16 /min [facility] BP Systolic 2018-12-01 10:21:00 120 mm[Hg] Location: CHERYLE; Positi on: Sitting [facility] BP Diastolic 2018-12-01 10:21:00 81 mm[Hg] Location: LUE; Positi on: Sitting [facility] Heart Rate 2018-12-01 10:21:00 67 /min [facility] BP Systolic 2018-12-01 09:57:00 147 mm[Hg] Location: CHERYLE; Positi on: Sitting [facility] BP Diastolic 2018-12-01 09:57:00 86 mm[Hg] Location: LUE; Positi on: Sitting [facility] Heart Rate 2018-12-01 09:57:00 71 /min [facility] Height 2018-12-01 09:57:00 65 [in_us] [facility] Weight 2018-12-01 09:57:00 208.0625 [lb_av] [facility] Body Mass Index Calculated 2018-12-01 09:57:00 34.62 kg/m2 [facility] Respiration Rate 2018-12-01 09:57:00 16 /min [facility] BP Systolic 2018-11-17 08:37:00 129 mm[Hg] Location: LUE; Positi on: Sitting [facility] BP Diastolic 2018-11-17 08:37:00 82 mm[Hg] Location: LUE; Positi on: Sitting [facility] Height 2018-11-17 08:37:00 65 [in_us] [facility] Weight 2018-11-17 08:37:00 212.375 [lb_av] [facility] Body Mass Index Calculated 2018-11-17 08:37:00 35.34 kg/m2 [facility] Heart Rate 2018-11-17 08:37:00 76 /min [facility] Respiration Rate 2018-11-17 08:37:00 16 /min [facility] BP Systolic 2018-11-07 11:52:00 127 mm[Hg] Location: LUE; Positi on: Sitting [facility] BP Diastolic 2018-11-07 11:52:00 79 mm[Hg] Location: CHERYLE; Positi on: Sitting [facility] Height 2018-11-07 11:52:00 65 [in_us] [facility] Weight 2018-11-07 11:52:00 208.1 [lb_av] [facility] Body Mass Index Calculated 2018-11-07 11:52:00 34.63 kg/m2 [facility] Temperature 2018-11-07 11:52:00 98.3 [degF] Method: Temporal [facility] Heart Rate 2018-11-07 11:52:00 82 /min [facility] O2 SAT 2018-11-07 11:52:00 96 % [facility] BP Systolic 2018-10-31 09:34:00 105 mm[Hg] Location: CHERYLE; Positi on: Sitting [facility] BP Diastolic 2018-10-31 09:34:00 69 mm[Hg] Location: ANUSHA; Positi on: Sitting [facility] Height 2018-10-31 09:34:00 65 [in_us] [facility] Weight 2018-10-31 09:34:00 211 [lb_av] [facility] Body Mass Index Calculated 2018-10-31 09:34:00 35.11 kg/m2 [facility] Heart Rate 2018-10-31 09:34:00 106 /min Location: L Radial; [facility] BP Systolic 2018-10-05 13:06:00 124 mm[Hg] Location: CHERYLE; Positi on: Sitting [facility] BP Diastolic 2018-10-05 13:06:00 78 mm[Hg] Location: CHERYLE; Positi on: Sitting [facility] Height 2018-10-05 13:06:00 65 [in_us] [facility] Weight 2018-10-05 13:06:00 212 [lb_av] [facility] Body Mass Index Calculated 2018-10-05 13:06:00 35.28 kg/m2 [facility] Heart Rate 2018-10-05 13:06:00 96 /min Location: L Radial; Q uality: Normal [facility] BP Systolic 2018-09-28 14:04:00 116 mm[Hg] Location: CHERYLE; Positi on: Sitting [facility] BP Diastolic 2018-09-28 14:04:00 69 mm[Hg] Location: CHERYLE; Positi on: Sitting [facility] Height 2018-09-28 14:04:00 65 [in_us] [facility] Weight 2018-09-28 14:04:00 215.375 [lb_av] [facility] Body Mass Index Calculated 2018-09-28 14:04:00 35.84 kg/m2 [facility] Temperature 2018-09-28 14:04:00 97.8 [degF] Method: Temporal [facility] Respiration Rate 2018-09-28 14:04:00 16 /min [facility] Heart Rate 2018-09-28 14:04:00 77 /min [facility] BP Systolic 2018-08-21 10:17:00 121 mm[Hg] Location: CHERYLE; Positi on: Sitting [facility] BP Diastolic 2018-08-21 10:17:00 79 mm[Hg] Location: ANUSHA; Positi on: Sitting [facility] Height 2018-08-21 10:17:00 65 [in_us] [facility] Weight 2018-08-21 10:17:00 205.125 [lb_av] [facility] Body Mass Index Calculated 2018-08-21 10:17:00 34.13 kg/m2 [facility] Temperature 2018-08-21 10:17:00 97.5 [degF] Method: [facility] Rate 2018-08-21 10:17:00 81 /min [facility] Respiration Rate 2018-08-21 10:17:00 16 /min [facility] O2 SAT 2018-08-21 10:17:00 98 % [facility] BP Systolic 2018-08-03 09:23:00 132 mm[Hg] Location: ANUSHA; Positi on: Sitting [facility] BP Diastolic 2018-08-03 09:23:00 84 mm[Hg] Location: ANUSHA; Positi on: Sitting [facility] Height 2018-08-03 09:23:00 65 [in_us] [facility] Weight 2018-08-03 09:23:00 205.25 [lb_av] [facility] Body Mass Index Calculated 2018-08-03 09:23:00 34.16 kg/m2 [facility] Temperature 2018-08-03 09:23:00 98.8 [degF] Method: Temporal [facility] Heart Rate 2018-08-03 09:23:00 74 /min [facility] Respiration Rate 2018-08-03 09:23:00 16 /min [facility] BP Systolic 2018-07-26 11:16:00 133 mm[Hg] [facility] BP Diastolic 2018-07-26 11:16:00 83 mm[Hg] Location: ELLIE Yo [facility] Height 2018-07-26 11:16:00 65 [in_us] [facility] Weight 2018-07-26 11:16:00 209 [lb_av] [facility] Body Mass Index Calculated 2018-07-26 11:16:00 34.78 kg/m2 [facility] Heart Rate 2018-07-26 11:16:00 75 /min Location: L Brachial Artery; [facility] BP Systolic 2018-06-13 08:27:00 149 mm[Hg] Location: ANUSHA; Positi on: Sitting [facility] BP Diastolic 2018-06-13 08:27:00 88 mm[Hg] Location: ANUSHA; Positi on: Sitting [facility] Heart Rate 2018-06-13 08:27:00 67 /min [facility] BP Systolic 2018-06-13 08:26:00 154 mm[Hg] Location: LUE; Positi on: Sitting [facility] BP Diastolic 2018-06-13 08:26:00 99 mm[Hg] Location: LUE; Positi on: Sitting [facility] Heart Rate 2018-06-13 08:26:00 73 /min [facility] Height 2018-06-13 08:26:00 65 [in_us] [facility] Weight 2018-06-13 08:26:00 194 [lb_av] [facility] Body Mass Index Calculated 2018-06-13 08:26:00 32.28 kg/m2 [facility] Temperature 2018-06-13 08:26:00 97.6 [degF] Method: Temporal [facility] Respiration Rate 2018-06-13 08:26:00 16 /min [facility] BP Systolic 2018-06-09 08:44:00 119 mm[Hg] Location: LUE; Positi on: Sitting [facility] BP Diastolic 2018-06-09 08:44:00 77 mm[Hg] Location: LUE; Positi on: Sitting [facility] Height 2018-06-09 08:44:00 65 [in_us] [facility] Weight 2018-06-09 08:44:00 198.3125 [lb_av] [facility] Body Mass Index Calculated 2018-06-09 08:44:00 33 kg/m2 [facility] Heart Rate 2018-06-09 08:44:00 58 /min [facility] Respiration Rate 2018-06-09 08:44:00 16 /min [facility] BP Systolic 2018-05-29 08:57:00 107 mm[Hg] Location: LUE; Positi on: Sitting [facility] BP Diastolic 2018-05-29 08:57:00 66 mm[Hg] Location: LUE; Positi on: Sitting [facility] Height 2018-05-29 08:57:00 65 [in_us] [facility] Weight 2018-05-29 08:57:00 200.375 [lb_av] [facility] Body Mass Index Calculated 2018-05-29 08:57:00 33.34 kg/m2 [facility] Heart Rate 2018-05-29 08:57:00 58 /min Location: L Radial; [facility] BP Systolic 2018-04-25 10:40:00 122 mm[Hg] Location: CHERYLE; Positi on: Sitting [facility] BP Diastolic 2018-04-25 10:40:00 86 mm[Hg] Location: CHERYLE; Positi on: Sitting [facility] Height 2018-04-25 10:40:00 65 [in_us] [facility] Weight 2018-04-25 10:40:00 193 [lb_av] [facility] Body Mass Index Calculated 2018-04-25 10:40:00 32.12 kg/m2 [facility] Heart Rate 2018-04-25 10:40:00 56 /min Location: L Radial; Q uality: Normal [facility] BP Systolic 2018-04-24 09:38:00 144 mm[Hg] Location: ANUSHA; Positi on: Sitting [facility] BP Diastolic 2018-04-24 09:38:00 79 mm[Hg] Location: ANUSHA; Positi on: Sitting [facility] Height 2018-04-24 09:38:00 65 [in_us] [facility] Weight 2018-04-24 09:38:00 196 [lb_av] [facility] Body Mass Index Calculated 2018-04-24 09:38:00 32.62 kg/m2 [facility] Heart Rate 2018-04-24 09:38:00 61 /min [facility] Respiration Rate 2018-04-24 09:38:00 16 /min [facility] BP Systolic 2018-04-07 13:45:00 111 mm[Hg] Location: ANUSHA; Positi on: Sitting [facility] BP Diastolic 2018-04-07 13:45:00 72 mm[Hg] Location: CHERYLE; Positi on: Sitting [facility] Height 2018-04-07 13:45:00 65 [in_us] [facility] Weight 2018-04-07 13:45:00 190.0 [lb_av] [facility] Body Mass Index Calculated 2018-04-07 13:45:00 31.62 kg/m2 [facility] Heart Rate 2018-04-07 13:45:00 70 /min [facility] BP Systolic 2018-03-31 08:40:00 125 mm[Hg] Location: LUE; Positi on: Sitting [facility] BP Diastolic 2018-03-31 08:40:00 81 mm[Hg] Location: LUE; Positi on: Sitting [facility] Height 2018-03-31 08:40:00 65 [in_us] [facility] Weight 2018-03-31 08:40:00 200.5625 [lb_av] [facility] Body Mass Index Calculated 2018-03-31 08:40:00 33.38 kg/m2 [facility] Temperature 2018-03-31 08:40:00 97.8 [degF] Method: [facility]poral [facility] Heart Rate 2018-03-31 08:40:00 65 /min [facility] Respiration Rate 2018-03-31 08:40:00 16 /min [facility] BP Systolic 2018-03-14 08:07:00 156 mm[Hg] Location: LUE; Positi on: Sitting [facility] BP Diastolic 2018-03-14 08:07:00 89 mm[Hg] Location: LUE; Positi on: Sitting [facility] Heart Rate 2018-03-14 08:07:00 61 /min [facility] BP Systolic 2018-03-14 08:05:00 172 mm[Hg] Location: LUE; Positi on: Sitting [facility] BP Diastolic 2018-03-14 08:05:00 92 mm[Hg] Location: LUE; Positi on: Sitting [facility] Heart Rate 2018-03-14 08:05:00 61 /min [facility] Height 2018-03-14 08:05:00 65 [in_us] [facility] Weight 2018-03-14 08:05:00 196 [lb_av] [facility] Body Mass Index Calculated 2018-03-14 08:05:00 32.62 kg/m2 [facility] Temperature 2018-03-14 08:05:00 98 [degF] Method: Temporal [facility] Respiration Rate 2018-03-14 08:05:00 16 /min [facility] BP Systolic 2018-02-21 15:16:00 130 mm[Hg] Location: LUE; Positi on: Supine [facility] BP Diastolic 2018-02-21 15:16:00 77 mm[Hg] Location: LUE; Positi on: Supine [facility] Heart Rate 2018-02-21 15:16:00 88 /min [facility] BP Systolic 2018-02-21 14:54:00 119 mm[Hg] Location: LUE; Positi on: Sitting [facility] BP Diastolic 2018-02-21 14:54:00 80 mm[Hg] Location: LUE; Positi on: Sitting [facility] Heart Rate 2018-02-21 14:54:00 80 /min [facility] Height 2018-02-21 14:54:00 65 [in_us] [facility] Weight 2018-02-21 14:54:00 198 [lb_av] [facility] Body Mass Index Calculated 2018-02-21 14:54:00 32.95 kg/m2 [facility] Temperature 2018-02-21 14:54:00 97.6 [degF] Method: [facility]poral [facility] Respiration Rate 2018-02-21 14:54:00 16 /min [facility] BP Systolic 2018-01-19 14:22:00 137 mm[Hg] Location: LUE; Positi on: Sitting [facility] BP Diastolic 2018-01-19 14:22:00 86 mm[Hg] Location: LUE; Positi on: Sitting [facility] Height 2018-01-19 14:22:00 65 [in_us] [facility] Weight 2018-01-19 14:22:00 198 [lb_av] [facility] Body Mass Index Calculated 2018-01-19 14:22:00 32.95 kg/m2 [facility] Temperature 2018-01-19 14:22:00 97.1 [degF] Method: [facility]poral [facility] Heart Rate 2018-01-19 14:22:00 88 /min [facility] Respiration Rate 2018-01-19 14:22:00 16 /min [facility] BP Systolic 2017-12-21 08:37:00 128 mm[Hg] Location: LUE; Positi on: Sitting [facility] BP Diastolic 2017-12-21 08:37:00 75 mm[Hg] Location: LUE; Positi on: Sitting [facility] Heart Rate 2017-12-21 08:37:00 56 /min [facility] BP Systolic 2017-12-21 08:34:00 147 mm[Hg] Location: LUE; Positi on: Sitting [facility] BP Diastolic 2017-12-21 08:34:00 78 mm[Hg] Location: LUE; Positi on: Sitting [facility] Heart Rate 2017-12-21 08:34:00 58 /min [facility] Height 2017-12-21 08:34:00 65 [in_us] [facility] Weight 2017-12-21 08:34:00 193 [lb_av] [facility] Body Mass Index Calculated 2017-12-21 08:34:00 32.12 kg/m2 [facility] Temperature 2017-12-21 08:34:00 97.9 [degF] Method: Temporal [facility] Respiration Rate 2017-12-21 08:34:00 16 /min [facility] BP Systolic 2017-11-18 08:12:00 133 mm[Hg] Location: LUE; Positi on: Sitting [facility] BP Diastolic 2017-11-18 08:12:00 81 mm[Hg] Location: LUE; Positi on: Sitting [facility] Height 2017-11-18 08:12:00 65 [in_us] [facility] Weight 2017-11-18 08:12:00 192 [lb_av] [facility] Body Mass Index Calculated 2017-11-18 08:12:00 31.95 kg/m2 [facility] Heart Rate 2017-11-18 08:12:00 66 /min [facility] Respiration Rate 2017-11-18 08:12:00 16 /min [facility] BP Systolic 2017-10-25 09:53:00 144 mm[Hg] Location: LUE; Positi on: Sitting [facility] BP Diastolic 2017-10-25 09:53:00 82 mm[Hg] Location: LUE; Positi on: Sitting [facility] Height 2017-10-25 09:53:00 65 [in_us] [facility] Weight 2017-10-25 09:53:00 194.375 [lb_av] [facility] Body Mass Index Calculated 2017-10-25 09:53:00 32.35 kg/m2 [facility] Heart Rate 2017-10-25 09:53:00 58 /min Location: L Radial; [facility] BP Systolic 2017-10-20 08:10:00 136 mm[Hg] Location: LUE; Positi on: Sitting [facility] BP Diastolic 2017-10-20 08:10:00 84 mm[Hg] Location: LUE; Positi on: Sitting [facility] Height 2017-10-20 08:10:00 65 [in_us] [facility] Weight 2017-10-20 08:10:00 190.1875 [lb_av] [facility] Body Mass Index Calculated 2017-10-20 08:10:00 31.65 kg/m2 [facility] Temperature 2017-10-20 08:10:00 97 [degF] Method: Temporal [facility] Respiration Rate 2017-10-20 08:10:00 16 /min [facility] Heart Rate 2017-10-20 08:10:00 67 /min [facility] BP Systolic 2017-07-21 14:00:00 138 mm[Hg] Location: LUE; Positi on: Sitting [facility] BP Diastolic 2017-07-21 14:00:00 82 mm[Hg] Location: LUE; Positi on: Sitting [facility] Height 2017-07-21 14:00:00 65 [in_us] [facility] Weight 2017-07-21 14:00:00 202.5 [lb_av] [facility] Body Mass Index Calculated 2017-07-21 14:00:00 33.7 kg/m2 [facility] Temperature 2017-07-21 14:00:00 97.2 [degF] Method: Temporal [facility] Respiration Rate 2017-07-21 14:00:00 16 /min [facility] Heart Rate 2017-07-21 14:00:00 60 /min [facility] Procedures Procedure Date / Time Performed Performing Clinician Sour e [QL] CULTURE, URINE, ROUTINE 2020-02-04 00:00:00 [facility] [QL] T4, FREE 2019-12-26 00:00:00 [facility] [QL] TSH, 3RD GENERATION W/REFLEX TO FT4 2019-12-26 00:00:00 [facility] [QL] CBC (INCLUDES DIFF/PLT) 2019-12-18 00:00:00 [facility] [QL] CMP W/EGFR 2019-12-18 00:00:00 [facility] o [facility] [QL] CEA 2019-12-18 00:00:00 Alba o [facility] [QL] CA 19-9 2019-12-18 00:00:00 Alba o [facility] [QLH] URINALYSIS, COMPLETE W/REFLEX TO CULTURE 2019-10-22 00:00: 00 [facility] [QLH] CMP W/EGFR 2019-08-22 00:00:00 [facility] [QLH] TSH, 3RD GENERATION W/REFLEX TO FT4 2019-08-22 00:00:00 [facility] [[facility]] CBC (INCLUDES DIFF/PLT) 2019-08-22 00:00:00 [facility] [QL] HEMOGLOBIN A1c 2019-08-22 00:00:00 [facility] XRAY Chest 2 views [id number] 2019-08-03 00:00:00 [facility] [id number] 2019-05-14 00:00:00 Un [facility] EKG (In Office) 2019-05-10 00:00:00 Alba o [facility] XRAY Chest 2 views [id number] 2019-05-10 00:00[facility]00 [facility] US Extremity lower venous Doppler Unilat [id number] 2019-02-22 00:00: 00 [facility] [QLH] CBC (INCLUDES DIFF/PLT) 2019-01-30 00:00:00 [facility] [QLH] CMP W/EGFR 2019-01-30 00:00:00 [facility] [QL] TSH, 3RD GENERATION W/REFLEX TO FT4 2019-01-30 00:00:00 [facility] [QL] VITAMIN B12 2019-01-30 00:00:00 [facility] [[facility]] Lupus Anticoagulant Panel 2018-12-01 00:00:00 [facility] [QL] BETA 2 GLYCOPROTEIN I AB (IGG,IGA,IGM) 2018-12-01 00:00:00 [facility] [QLH] CARDIOLIPIN AB (IGA,IGG,IGM) 2018-12-01 00:00:00 [facility] [QLH] CRYOGLOBULIN SCREEN W/REFLEX TO CRYOGLOBULIN PRO FILE, SERUM 2018-12-01 00:00:00 [facility] US Extremity lower venous Doppler Unilat [id number] 2018-10-31 00:00: 00 [facility] [N] Venous Duplex Lower Unilateral 2018-10-31 00:00:00 [facility] Colonoscopy 2018-10-11 00:00:00 [facility] [QLH] CBC (INCLUDES DIFF/PLT) 2018-05-26 00:00:00 [facility] US Transesophageal echo [id number] 2018-05-24 00:00:00 [facility] [QLH] CMP W/EGFR 2018-04-06 00:00:00 [facility] [QL] CBC (INCLUDES DIFF/PLT) 2018-04-06 00:00:00 [facility] [QLH] CBC (INCLUDES DIFF/PLT) 2018-03-31 00:00:00 [facility] [QLH] CMP W/EGFR 2018-03-31 00:00:00 [facility] XRAY Chest 2 views [id number] 2018-03-31 00:00:00 Uni [facility] CT Abdomen/Pelvis w contrast [id number] 2018-03-14 00:00:00 [facility] Computed tomography of soft tissues of neck with contrast 20 30-01-06 00:00:00 MARIUSZ BRADY [facility] [N] 2D Echo complete, with Doppler [id number] 2017-10-25 00:00:00 [facility] [QLH] CBC (INCLUDES DIFF/PLT) 2017-10-20 00:00:00 [facility] [QLH] CMP W/EGFR 2017-10-20 00:00:00 [facility] [QLH] VITAMIN D, 25-HYDROXY, LC/MS/MS 2017-10-20 00:00:00 [facility] [QL] VITAMIN B12/FOLATE, SERUM PANEL 2017-10-20 00:00:00 [facility] [QLH] TSH, 3RD GENERATION W/REFLEX TO FT4 2017-10-20 00:00:00 [facility] [[facility]] CULTURE, URINE, ROUTINE 2017-10-20 00:00:00 [facility] MA Digital Mammo Screening Hang [id number] 2017-10-20 00:00:00 [facility] [[facility]] CBC (INCLUDES DIFF/PLT) 2017-07-21 00:00:00 [facility] [[facility]] CMP W/EGFR 2017-07-21 00:00:00 [facility] [[facility]] TSH, 3RD GENERATION W/REFLEX TO FT4 2017-07-21 00:00:00 [facility] [[facility]] HEMOGLOBIN A1c 2017-07-21 00:00:00 [facility] History of Appendectomy [facility] History of Hysterectomy [facility] History of Oophorectomy - Bilat (Removal Of Both Ovaries) Laparo scopic [facility] History of Dilation And Curettage [facility] History of Hernia Repair [facility] History of [facility] History of Atrial appendage closure device insertion [facility] Appendectomy [facility] Back care<sup>1</sup> [facility] Bladder care management [facility] section [facility] n Colonoscopy [facility] D&C - Dilatation and curettage [facility] [place] Esophagogastroduodenoscopy Memor ial Cristhian Hernia repair [facility] Hysterectomy [facility] Implantation of heart assist system<sup>2</sup> [facility] Oophorectomy [facility] Operation [facility] Plan of Care Planned Activity Planned Date Details Comments Source Diagnostic Test Pending 2019-04-03 00:00:00 Colonoscopy [code = [id number]] [facility] Diagnostic Test Pending 2019-04-03 00:00:00 Colonoscopy [code = [id number]] [facility] Diagnostic Test Pending 2018-11-16 00:00:00 Colonoscopy [code = [id number]] [facility] Diagnostic Test Pending 2018-11-16 00:00:00 Colonoscopy [code = [id number]] [facility] Diagnostic Test Pending 2018-10-31 00:00:00 [N] Venous Duple x Lower Unilateral [code = [N] Venous Duplex Lower Unilateral] [facility] Diagnostic Test Pending 2018-05-24 00:00:00 US Rafa al echo [id number] [code = 18485] [facility] Diagnostic Test Pending 2018-04-14 00:00:00 [QLH] CMP W/EGFR [code = [QLH] CMP W/EGFR] [facility] Test Pending 2018-04-14 00:00:00 [QLH] CBC (INCLU GABI DIFF/PLT) [code = [QLH] CBC (INCLUDES DIFF/PLT)] [facility] Future Scheduled Test 2013-12-17 14:32:43 Plan of Care [code = 1877 6-5] [facility] Scheduled Test 2013-11-23 02:30:42 Plan of Care [code = 1877 6-5] [facility] Scheduled Test 2013-11-22 21:32:18 Plan of Care [code = 1877 6-5] [facility] Scheduled Test 2013-11-14 22:46:21 Plan of Care [code = 1877 6-5] [facility] Scheduled Test 2013-11-12 15:02:48 Plan of Care [code = 1877 6-5] [facility] Scheduled Test 2013-10-25 14:34:03 Plan of Care [code = 1877 6-5] [facility] Scheduled Test 2013-10-18 19:51:26 Plan of Care [code = 1877 6-5] [facility] Scheduled Test 2013-04-27 02:00:20 Plan of Care [code = 1877 6-5] [facility] Scheduled Test 2013-01-25 07:11:51 Plan of Care [code = 1877 6-5] [facility] Appointment 2020-05-23 10:00:00 Lela LAND, [facility] Future Appointment 2020-04-01 10:00:00 Cedric LERMA, [facility] Future Appointment 2020-03-31 13:45:00 Lela WYATT, [facility] Encounters Start Date/Time End Date/Time Encounter Type Admission Type [facility] Care Department Encounter ID Source 2020-01-09 07:43:06 Outpatient MHSE MHSE [id number] 2019-11-13 15:21:49 Outpatient MHSE MHSE [id number] [facility] 2019-11-06 08:55:38 Outpatient MHSE MHSE [id number] [facility] 2020-03-25 10:00:00 2020-03-25 10:00:00 Appointment; MARIA GUADALUPE MARTINEZ P.A. CRUZ, LETICIA, P.A. [facility] [id number] [facility] 2020-01-31 11:42:00 2020-01-31 23:59:00 Outpatient Lilly Lueng MHSE MHSE [id number] 2020-01-31 11:42:00 2020-01-31 11:42:00 Outpatient MHSE MHSE [id number] [facility] 2020-01-18 08:55:00 2020-01-18 14:00:00 Outpatient Lucero Oden MHSE MHSE [id number] 2019-12-18 10:00:00 2019-12-18 10:00:00 Appointment; Manyn Mina M.D. Quesada, Jorge, M.D. [facility], [address] [id number] [facility] 2019-11-20 12:40:00 2019-11-20 12:40:00 Appointment; SHANDA KITCHEN M.D. CHARITAKIS, KONSTANTINOS, M.D. [facility], [address] [id number] [facility] 2019-11-02 09:30:00 2019-11-02 09:30:00 Appointment; Manny Mina M.D. Quesada, Jorge, M.D. [facility] [id number] [facility] 2019-10-24 09:00:00 2019-10-24 09:00:00 Appointment; MARIA GUADALUPE MARTINEZ P.A. CRUZ, LETICIA, P.A. [facility], [place], [address] [id number] [facility] 2019-10-22 13:15:00 2019-10-22 13:15:00 Appointment; CODI HUI A PRN SAXE, KAILA, APRN [facility], [place] [id number] [facility] 2019-09-28 09:00:00 2019-09-28 09:00:00 Appointment; SHANDA KITCHEN M.D. CHARITAKIS, KONSTANTINOS, M.D. [facility] [id number] [facility] 2019-09-27 12:38:00 2019-09-27 06:27:00 Inpatient E MHSE MED [id number] [facility] 2019-09-21 09:30:00 2019-09-21 09:30:00 Appointment; MARIA GUADALUPE MARTINEZ P.A. CRUZ, LETICIA, P.A. [facility], [place], [address] [id number] [facility] 2019-09-18 09:40:00 2019-09-18 09:40:00 Appointment; SHANDA KITCHEN M.D. CHARITAKIS, KONSTANTINOS, M.D. [facility] [place] [address] [id number] [facility] 2019-09-14 10:30:00 2019-09-14 10:30:00 Appointment; RAMY REDMOND M.D. MARTIN, GORDON, M.D. [facility] Thoracic Surgery [facility] [id number] [facility] 2019-09-11 13:30:00 2019-09-11 13:30:00 Appointment; MARIA GUADALUPE MARTINEZ P.A. CRUZ, LETICIA, P.A. [facility], [place], [address] [id number] [facility] 2019-09-04 05:27:00 2019-09-04 05:27:00 Emergency E MHSE MHSE [id number] [facility] 2019-08-22 10:45:00 2019-08-22 10:45:00 Appointment; MARIA GUADALUPE MARTINEZ P.A. CRUZ, LETICIA, P.A. [facility], [place] [id number] [facility] 2019-08-21 14:00:00 2019-08-21 14:00:00 Appointment; MARIA GUADALUPE MARTINEZ P.A. CRUZ, LETICIA, P.A. [facility] [id number] [facility] 2019-08-16 12:30:00 2019-08-16 12:30:00 Appointment; ANASTASIYA MCKENZIE [employer]IMAL CARETAKERRODY HAIR APRN [facility] [id number] [facility] 2019-08-06 08:45:00 2019-08-06 08:45:00 Appointment; RAMY REDMOND M.D. MARTIN, GORDON, M.D. [facility] Thoracic Surgery [facility] [id number] [facility] 2019-08-03 11:00:00 2019-08-03 11:00:00 Appointment; MARIA GUADALUPE MARTINEZ P.A. CRUZ, LETICIA, P.A. [facility], [place], [address] [id number] [facility] 2019-07-20 11:00:00 2019-07-20 11:00:00 Appointment; RAMY REDMOND M.D. MARTIN, GORDON, M.D. [facility] Cardiothoracic & Vascular Surgery [facility] [id number] [facility] 2019-07-07 09:30:00 2019-07-07 09:30:00 Appointment; MARIA GUADALUPE MARTINEZ P.A. CRUZ, LETICIA, P.A. [facility], [place], [address] [id number] [facility] 2019-06-19 09:20:00 2019-06-19 09:20:00 Appointment; SHANDA KITCHEN M.D. CHARITAKIS, KONSTANTINOS, M.D. [facility], [address] [id number] [facility] 2019-06-08 09:45:00 2019-06-08 09:45:00 Appointment; MARIA GUADALUPE MARTINEZ P.A. CRUZ, LETICIA, P.A. [facility], [place], [address] [id number] [facility] 2019-06-08 08:30:00 2019-06-08 08:30:00 Appointment; EVELINE BURDEN M.D. KOSHELEV, MISHA, M.D. [facility], [address] [id number] [facility] 2019-05-14 08:30:00 2019-05-14 08:30:00 Appointment; MARIA GUADALUPE MARTINEZ P.A. CRUZ, LETICIA, P.A. [facility], [place], [address] [id number] [facility] 2019-05-10 12:00:00 2019-05-10 12:00:00 Appointment; ALESSANDRO MESA AP RN TRAN, THUY, APRN [facility], [place] [id number] [facility] 2019-04-23 10:45:00 2019-04-23 10:45:00 Appointment; ORTEGA LONGO APRN DUGAS, NANCY, APRN [facility], [place], [address] [id number] [facility] 2019-04-03 08:09:00 2019-04-03 08:09:00 Outpatient MHSE MHSE [id number] [facility] 2019-03-21 08:45:00 2019-03-21 08:45:00 Appointment; ANTIONETTE CABRERA APRN OBONYANO, THERESA, APRN [facility] [id number] [facility] 2019-03-15 08:30:00 2019-03-15 08:30:00 Appointment; MARIA GUADALUPE MARTINEZ P.A. CRUZ, LETICIA, P.A. [facility], [place], [address] [id number] [facility] 2019-03-08 14:29:00 2019-03-08 14:29:00 Emergency E MHSE MHSE [id number] [facility] 2019-03-08 13:00:00 2019-03-08 13:00:00 Appointment; YOSELIN DIXON M.D. CATALANO, MARC, M.D. [facility], [address] [id number] [facility] 2019-03-01 13:08:00 2019-03-01 13:08:00 Emergency E MHSE MHSE [id number] [facility] 2019-03-01 08:30:00 2019-03-01 08:30:00 Appointment; CODI HUI A PRN SAXE, KAILA, APRN [facility], [place] [id number] [facility] 2019-02-22 14:30:00 2019-02-22 14:30:00 Appointment; CODI HUI A PRN SAXE, KAILA, APRN [facility], [place] [id number] [facility] 2019-02-13 09:20:00 2019-02-13 09:20:00 Appointment; SHANDA KITCHEN M.D. CHARITAKIS, KONSTANTINOS, M.D. [facility] [place], [address] [id number] [facility] 2019-01-30 08:00:00 2019-01-30 08:00:00 Appointment; MARIA GUADALUPE MARTINEZ P.A. CRUZ, LETICIA, P.A. [facility], [place], [address] [id number] [facility] 2019-01-15 09:00:00 2019-01-15 09:00:00 Appointment; CODI HUI A PRN SAXE, KAILA, APRN [facility], [place] [id number] [facility] 2018-12-04 08:40:00 2018-12-04 08:40:00 Appointment; JEREMIAH VENTURA M.D. DHOBLE, ABHIJEET, M.D. [facility] [id number] [facility] 2018-12-01 10:00:00 2018-12-01 10:00:00 Appointment; EVLEINE BURDEN M.D. KOSHELEV, MISHA, M.D. [facility] [address] [id number] [facility] 2018-11-28 11:43:00 2018-11-28 11:43:00 Emergency E MHSE SE [id number] [facility] 2018-11-21 08:36:00 2018-11-21 08:36:00 Outpatient [facility] CAR [id number] [facility] 2018-11-17 08:00:00 2018-11-17 08:00:00 Appointment; EVELINE BURDEN M.D. KOSHELEV, MISHA, M.D. [facility] [address] [id number] [facility] 2018-11-17 08:00:00 2018-11-17 08:00:00 Appointment; EVELINE BURDEN M.D. KOSHELEV, MISHA, M.D. [facility] [id number] [facility] 2018-11-07 11:15:00 2018-11-07 11:15:00 Appointment; MARIA GUADALUPE AMRTINEZ P.A. CRUZ, LETICIA, P.A. [facility] Family [facility] [address] [id number] [facility] 2018-11-02 13:00:00 2018-11-02 13:00:00 Appointment; KENYETTA-MS, E KEVIN [facility], YARIEL [facility] [id number] [facility] 2018-10-31 09:20:00 2018-10-31 09:20:00 Appointment; SHANDA KITCHEN M.D. CHARITAKIS, KONSTANTINOS, M.D. [facility] ulti-Specialty [address] [id number] [facility] 2018-10-05 13:00:00 2018-10-05 13:00:00 Appointment; YOSELIN DIXON M.D. CATALANO, MARC, M.D. [facility] [address] [id number] [facility] 2018-09-28 14:00:00 2018-09-28 14:00:00 Appointment; MARIA GUADALUPE MARTINEZ P.A. CRUZ, LETICIA, P.A. [facility] [address] [id number] [facility] 2018-08-21 10:15:00 2018-08-21 10:15:00 Appointment; MARIA GUADALUPE MARTINEZ P.A. CRUZ, LETICIA PMadyson [facility] [address] [id number] [facility] 2018-08-09 10:20:00 2018-08-09 10:20:00 Appointment; JEREMIAH VENTURA M.D. DHOBLE, ABHIJEET, M.D. [facility] [id number] [facility] 2018-08-03 09:00:00 2018-08-03 09:00:00 Appointment; MARIA GUADALUPE MARTINEZ P.A. CRUZ, LETICIA, P.A. [facility] [address] [id number] [facility] 2018-07-26 11:40:00 2018-07-26 11:40:00 Appointment; JEREMIAH VENTURA M.D. DHOBLE, ABHIJEET, M.D. [facility] [id number] [facility] 2018-06-13 08:45:00 2018-06-13 08:45:00 Appointment; MARIA GUADALUPE MARTINEZ P.A. CRUZ, LETICIA, P.A. [facility] [address] [id number] [facility] 2018-06-09 08:15:00 2018-06-09 08:15:00 Appointment; THU CHEEMA M.D. SIMMONS, JOHN, M.D. [facility] [id number] [facility] 2018-05-29 09:00:00 2018-05-29 09:00:00 Appointment; JEREMIAH VENTURA M.D. DHOBLE, ABHIJEET, M.D. [facility] [address] [id number] [facility] 2018-04-25 11:00:00 2018-04-25 11:00:00 Appointment; SHANDA KITCHEN M.D. CHARITAKIS, KONSTANTINOS, M.D. [facility] [address] [id number] [facility] 2018-04-25 10:00:00 2018-04-25 10:00:00 Appointment; Herbert CHATMAN ECHO [facility] [id number] [facility] 2018-04-24 09:00:00 2018-04-24 09:00:00 Appointment; JEREMIAH VENTURA M.D. DHOBLE, ABHIJEET, M.D. [facility] [id number] [facility] 2018-04-07 13:30:00 2018-04-07 13:30:00 Appointment; THU CHEEMA M.D. SIMMONS, JOHN, M.D. [facility] [id number] [facility] 2018-03-31 09:15:00 2018-03-31 09:15:00 Appointment; MARIA GUADALUPE MARTINEZ P.A. CRUZ, LETICIA PKevenAKeven [facility] [address] [id number] [facility] 2018-03-21 13:30:00 2018-03-21 13:30:00 Appointment; NICO CORNEJO D.O. YEH, SHAO-CHUN, D.O. [facility] [id number] [facility] 2018-03-14 08:00:00 2018-03-14 08:00:00 Appointment; MARIA GUADALUPE MARTINEZ P.A. CRUZ, LETICIA P.AKeven [facility] [address] [id number] [facility] 2018-02-21 15:00:00 2018-02-21 15:00:00 Appointment; MARIA GUADALUPE MARTINEZ P.A. CRUZ, LETICIA P.AKeven [facility] [address] [id number] [facility] 2018-01-19 14:00:00 2018-01-19 14:00:00 Appointment; MARIA GUADALUPE MARTINEZ P.A. CRUZ, LETICIA PKevenAKeven [facility] [address] [id number] [facility] 2018-01-18 19:47:00 2018-01-18 23:55:00 Departed Emergency Room 1 MARIUSZ BRADY [facility] [id number] [facility] 2017-12-21 08:15:00 2017-12-21 08:15:00 Appointment; MARIA GUADALUPE MARTINEZ P.A. CRUZ, LETICIA P.AKeven [facility] [address] [id number] [facility] 2017-11-18 08:00:00 2017-11-18 08:00:00 Appointment; EVELINE BURDEN M.D. KOSHELEV, MISHA, M.D. [facility] Multi[facility] [address] [id number] [facility] 2017-10-25 10:20:00 2017-10-25 10:20:00 Appointment; SHANDA KITCHEN M.D. CHARITAKIS, KONSTANTINOS, M.D. [facility] [address] [id number] [facility] 2017-10-20 08:00:00 2017-10-20 08:00:00 Appointment; MARIA GUADALUPE MARTINEZ P.A. CRUZ, LETICIA, P.A. UTP [facility] [address] [id number] [facility] 2017-07-21 13:30:00 2017-07-21 13:30:00 Appointment; MARIA GUADALUPE MARTINEZ P.A. CRUZ, LETICIA, P.A. UTP [facility] [address] [id number] [facility] 2017-05-26 08:30:00 2017-05-26 08:30:00 Appointment; MARIA GUADALUPE MARTINEZ P.A. CRUZ, LETICIA, P.A. UTP UTP [id number] [facility] 2017-05-06 10:20:00 2017-05-06 10:20:00 Appointment; SHANDA KITCHEN M.D. CHARITAKIS, KONSTANTINOS, M.D. UTP UTP [id number] [facility] 2017-05-06 09:00:00 2017-05-06 09:00:00 Appointment; [place]-MS, Herbert BROWN [place]-MS, ECHO UTP UTP [id number] [facility] 2017-03-15 13:40:00 2017-03-15 13:40:00 Appointment; SHANDA KITCHEN M.D. CHARITAKIS, KONSTANTINOS, M.D. UTP UTP [id number] [facility] 2017-03-07 13:00:00 2017-03-07 13:00:00 Appointment; [place]-MS, E KEVIN [place]-MS, ECHO UTP UTP [id number] [facility] 2017-02-21 08:00:00 2017-02-21 08:00:00 Appointment; MARIA GUADALUPE MARTINEZ P.A. CRUZ, LETICIA, P.AKeven UTP UTP [id number] [facility] 2017-02-16 08:00:00 2017-02-16 08:00:00 Appointment; MARIA GUADALUPE AMRTINEZ P.A. CRUZ, LETICIA, P.A. UTP UTP [id number] [facility] 2017-01-19 10:15:00 2017-01-19 10:15:00 Appointment; MARIA GUADALUPE MARTINEZ P.A. CRUZ, LETICIA P.A. UTP UTP [id number] [facility] 2016-11-30 09:30:00 2016-11-30 09:30:00 Appointment; MARIA GUADALUPE MARTINEZ P.A. CRUZ, LETICIA, P.A. UTP UTP [id number] [facility] 2016-11-02 09:00:00 2016-11-02 09:00:00 Appointment; SHANDA KITCHEN M.D. CHARITAKIS, KONSTANTINOS, M.D. UTP UTP [id number] [facility] 2016-11-01 08:00:00 2016-11-01 08:00:00 Appointment; MARIA GUADALUPE MARTINEZ P.A. CRUZ, LETICIA, P.A. UTP UTP [id number] [facility] 2016-10-20 09:45:00 2016-10-20 09:45:00 Appointment; THU CHEEMA M.D. SIMMONS, JOHN, M.D. UTP UTP [id number] [facility] 2016-10-18 08:15:00 2016-10-18 08:15:00 Appointment; MARIA GUADALUPE MARTINEZ P.A. CRUZ, LETICIA, P.A. UTP UTP [id number] [facility] 2016-08-10 08:15:00 2016-08-10 08:15:00 Appointment; NING LECHUGA M.D. HARLIN, STUART, M.D. UTP UTP [id number] [facility] 2016-08-02 11:00:00 2016-08-02 11:00:00 Appointment; VASCULAR, SE VASCULAR, SE UTP UTP [id number] [facility] 2016-07-27 10:00:00 2016-07-27 10:00:00 Appointment; NING LECHUGA M.D. HARLIN, STUART, M.D. UTP UTP [id number] [facility] 2016-07-14 08:30:00 2016-07-14 08:30:00 Appointment; MARIA GUADALUPE MARTINEZ P.A. CRUZ, LETICIA P.A. UTP UTP [id number] [facility] 2016-05-31 11:00:00 2016-05-31 11:00:00 Appointment; MARIA GUADALUPE MARTINEZ P.A. CRUZ, LETICIA, P.A. UTP UTP [id number] [facility] 2016-05-26 15:15:00 2016-05-26 15:15:00 Appointment; MARIA GUADALUPE MARTINEZ P.A. CRUZ, LETICIA, P.A. UTP UTP [id number] [facility] 2016-05-24 16:00:00 2016-05-24 16:00:00 Appointment; MARIA GUADALUPE MARTINEZ P.A. CRUZ, LETICIA, P.A. UTP UTP [id number] [facility] 2016-05-18 13:30:00 2016-05-18 13:30:00 Appointment; MARIA GUADALUPE MARTINEZ P.A. CRUZ, LETICIA, P.A. UTP UTP [id number] [facility] 2016-05-04 10:40:00 2016-05-04 10:40:00 Appointment; SHANDA KITCHEN M.D. CHARITAKIS, KONSTANTINOS, M.D. UTP UTP [id number] [facility] 2016-05-04 08:45:00 2016-05-04 08:45:00 Appointment; NING LECHUGA M.D. HARLIN, STUART, M.D. UTP UTP [id number] [facility] 2016-04-26 13:00:00 2016-04-26 13:00:00 Appointment; [place]-[facility], E [facility] UTP UTP [id number] [facility] 2016-04-20 09:00:00 2016-04-20 09:00:00 Appointment; NING LECHUGA M.D. HARLIN, STUART, M.D. UTP UTP [id number] [facility] 2016-04-08 15:00:00 2016-04-08 15:00:00 Appointment; MARIA GUADALUPE MARTINEZ P.A. CRUZ, LETICIA P.A. UTP UTP [id number] [facility] 2016-03-15 08:30:00 2016-03-15 08:30:00 Appointment; NING LECHUGA M.D. HARLIN, STUART, M.D. UTP UTP [id number] [facility] 2016-03-05 13:00:00 2016-03-05 13:00:00 Appointment; [place]-MS, E [facility] ECHO UTP UTP [id number] [facility] 2016-03-01 09:15:00 2016-03-01 09:15:00 Appointment; NING LECHUGA M.D. HARLIN, STUART, M.D. UTP UTP [id number] [facility] 2016-02-24 09:40:00 2016-02-24 09:40:00 Appointment; SHANDA KITCHEN M.D. CHARITAKIS, KONSTANTINOS, M.D. UTP UTP [id number] [facility] 2016-02-11 11:30:00 2016-02-11 11:30:00 Appointment; ALESSANDRO MESA, JAVA J2EE LEAD MESAALESSANDRO, JAVA J2EE LEAD UTP UTP [id number] [facility] 2016-02-04 17:30:00 2016-02-04 17:30:00 Appointment; ALESSANDRO MESA JAVA J2EE LEAD MESA, ALESSANDRO, JAVA J2EE LEAD UTP UTP [id number] [facility] 2015-12-02 08:30:00 2015-12-02 08:30:00 Appointment; MARIA GUADALUPE MARTINEZ P.A. CRUZ, LETICIA, P.A. UTP UTP [id number] [facility] 2015-10-29 12:20:00 2015-10-29 12:20:00 Appointment; SHANDA KITCHEN M.D. CHARITAKIS, KONSTANTINOS, M.D. UTP UTP [id number] [facility] 2015-09-12 08:45:00 2015-09-12 08:45:00 Appointment; CHARLA BETTS P.A. CAMPOS, BERTHA, P.A. UTP UTP [id number] [facility] 2015-08-26 11:20:00 2015-08-26 11:20:00 Appointment; SHANDA KITCHEN M.D. CHARITAKIS, KONSTANTINOS, M.D. [facility] UTP [id number] [facility] 2015-08-13 09:30:00 2015-08-13 09:30:00 Appointment; CHARLA BETTS P.A. CAMPOS, BERTHA, P.A. UTP UTP [id number] [facility] 2013-12-17 09:32:43 2013-12-17 09:32:43 Outpatient MHIE MHIE [id number] 2013-11-22 21:30:43 2013-11-22 21:30:42 Outpatient MHIE MHIE [id number] 2013-11-22 16:32:19 2013-11-22 16:32:18 Outpatient MHIE MHIE [id number] 2013-11-22 14:15:00 2013-11-22 14:15:00 Appointment; MARIA GUADALUPE MARTINEZ P.A. CRUZ, LETICIA, P.A. UTP [facility] 2 [id number] [facility] 2013-11-14 17:46:22 2013-11-14 17:46:21 Outpatient MHIE MHIE [id number] 2013-11-12 10:02:49 2013-11-12 10:02:48 Outpatient MHIE MHIE [id number] 2013-10-25 09:34:03 2013-10-25 09:34:03 Outpatient MHIE MHIE [id number] 2013-10-18 13:51:27 2013-10-18 13:51:26 Outpatient MHIE MHIE [id number] 2013-09-20 15:06:43 2013-09-20 15:06:42 Outpatient MHIE MHIE [id number] 2013-09-18 15:47:13 2013-09-18 15:47:12 Outpatient MHIE MHIE [id number] 2013-07-04 17:47:33 2013-07-04 17:47:33 Outpatient MHIE MHIE [id number] 2013-06-25 08:16:14 2013-06-25 08:16:14 Outpatient MHIE MHIE [id number] 2013-06-18 17:31:26 2013-06-18 17:31:25 Outpatient MHIE MHIE [id number] 2013-06-13 18:02:07 2013-06-13 18:02:06 Outpatient BRANDON BRANDON [id number] 2013-04-28 14:00:22 2013-04-28 14:00:22 Outpatient BRANDON BRANDON [id number] 2013-04-26 21:00:20 2013-04-26 21:00:20 Outpatient HEIKE BURROUGHS [id number] 2013-02-06 23:04:23 2013-02-06 23:03:58 Outpatient BRANDON BURROUGHS [id number] 2013-01-25 02:12:10 2013-01-25 02:11:51 Outpatient BRANDON BRANDON [id number] 2012-12-20 00:14:19 2012-12-20 00:14:01 Outpatient BRANDON BRANDON [id number] Results Test Description Test Time Test Comments Results Result Comments Source CXR 2 VIEW - HOPD 2020-03-26 14:07:00 [place] [address] Patient Name: TOMAS PERAZA MR #: [id number] : 1940 Age/Sex: 79/F Req #: [id number] Adm Physician: Ordered by: ANNI MANN MD Report #: [id number] Location: [facility]ENDING SALE TO [facility] Room/Bed: Procedure: [id number] HOPD/CXR 2 VIEW - HOPD Exam Date: [...] Comment A CULTURE, URINE, ROUTINE Micro Number: [id number] Test Status: Final Specimen Source: URINE Specimen [...] cefdinir, cefpodoxime, cefprozil, cefuroxime, cephalexin and loracarbef. [facility] [id number] 14:43:00Not Detected (01/14/20 9:43 AM)[facility][QL] CMP W/[id number] 11:39:00* Test Item Value Reference Range Interpretation Comments GLUCOSE; Normal (test code = 1547-9) 120 mg/dl 65-139 N Non-fasting reference interval UREA NITROGEN (BUN) (test code = UREA NITROGEN (BUN)) 22 mg/dl 7-25 N CREATININE (test code = CREATININE) 1.61 mg/dl 0.60-0.93 For patients >49 years of age, the reference limitfor Creatinine is approximately 13% higher for peopleidentified as -[place]amo[place]. eGFR NON- (test code = eGFR NON-DANILO N MONEGASQUE) 31 {ML/MIN/1.7} > OR = 60 eGFR [...] N BILIRUBIN, TOTAL; Normal (test code = 64355-8) 0.3 mg/dl 0.2-1.2 N ALKALINE PHSPHATASE (test code = ALKALINE PHSPHATASE) 109 u/l 37-153 N AST; Normal (test code = 1916-6) 12 u/l 10-35 N ALT; Normal (test code = 1742-6) 9 u/l 6-29 N [facility][QL] CBC (INCLUDES DIFF/PLT)2019-12-18 11:39:00* Test Item Value Reference Range Interpretation Comments WHITE BLOOD CELL COUNT (test code = WHITE BLOOD CELL COUNT) 7.6 {Thousand/u} 3.8-10.8 N RED BLOOD CELL COUNT (test code = RED BLOOD CELL COUNT) 3.99 {Million/uL} 3.80-5.10 N HEMAGLOBIN; Normal (test code = 33297-7) 12.8 g/dl 11.7-15.5 N HEMATOCRIT; Normal (test code = 4544-3) 39.1 % 35.0-45.0 N MCV; Normal (test code = 787-2) 98.0 fL 80.0-100.0 N MCHC; Normal (test code = 25678-3) 32.7 g/dl 32.0-36.0 N RDW; Normal (test code = 788-0) 13.1 % 11.0-15.0 N PLATELET COUNT; Normal (test code = 777-3) 351 {Thousand/u} 140-400 N MPV; Normal (test code = 94174-3) 9.7 fL 7.5-12.5 N ABSOLUTE NEUTROPHILS (test code = ABSOLUTE NEUTROPHILS) 5480 {cells/uL} 0184-3778 N ABSOLUTE LYMPHOCYTES (test code = ABSOLUTE [...] % N MONOCYTES; Normal (test code = 11682-7) 5.4 % N EOSINOPHILS; Normal (test code = 99787-5) 2.4 % N BASOPHILS; Normal (test code = 70140-5) 0.4 % N [facility][QL] [id number] 11:39:00* Test Item Value Reference Range Interpretation Comments CEA (test code = CEA) 2.3 ng/ml N Non-Sm oker: <2.5Smoker: <5.0 This test was performed using the Siemens chemiluminescent method. Values obtained fromdifferent assay methods cannot be usedinterchangeably. CEA levels, regardle ss ofvalue, should not be interpreted as absoluteevidence of the presence or absence of disease. [facility][] [id number] 11:39:00* Test Item Value Reference Range Interpretation Comments CA 19-9 (test code = CA 19-9) 26 U/ml <34 N This test was performed using the Siemens chemiluminescent method. Values obtained fromdifferent assay methods cannot be usedinterchangeably. CA 19-9 levels, regardless ofvalue, should not be interpreted as absoluteevidence of the presence or absence of disease. [facility][O] Urine Dipstick (In Office)2019-10-22 13:07:00 * Test Item Value Reference Range Interpretation Comments Glucose (test code = Glucose) negative N LEUKOCYTES (test code = LEUKOCYTES) ++ A NITRITE; Abnormal (test code = 43037-6) Positive A UROBILINOGEN; Normal (test code = 86113-2) normal N PROTEIN; Abnormal (test code = 04575-7) +30 A pH (test code = pH) 6 N URINE BLOOD; Abnormal (test code = 47717-5) ~250 A SPECIFIC GRAVITY; Normal (test code = 2965-2) 1.015 N KETONES; Normal (test code = 76700-0) negative N BILIRUBIN; Normal (test code = 20885-2) negative N COLOR URINE; Abnormal (test code = 5778-6) dk yellow A APPEARANCE; Abnormal (test code = 5767-9) cloudy A COMMENT (test code = COMMENT) foul odor A [facility]] URINALYSIS, COMPLETE W/REFLEX TO CULTURE 2019-10-22 00:00:00* [...] NEGATIVE N BILIRUBIN; Normal (test code = 73251-2) NEGATIVE NEGATIVE N KETONES; Abnormal (test code = 76009-8) TRACE NEGATIVE A OCCULT BLOOD; Normal (test code = 69999-1) NEGATIVE NEGATIVE N PROTEIN; Abnormal (test code = 18010-6) 1+ NEGATIVE A NITRITE (test code = NITRITE) NEGATIVE NEGATIVE N LEUKOCYTE ESTERASE (test code = LEUKOCYTE ESTERASE) 2+ NE GATIVE A WBC; Abnormal (test code = 6690-2) PACKED < OR = 5 A RBC; Normal (test code = 789-8) 0-2 < OR = 2 N SQUAMOUS EPITHELIAL CELLS (test code = 15201-5) 0-5 < OR = 5 BACTERIA; Abnormal (test code = 630-4) MODERATE NONE SEEN A HYALINE CAST; Normal (test code = 17760-5) NONE SEEN NONE SEEN N NOTE (test code = NOTE) See Below This urine was analyzed for the presence of WBC, RBC, bacteria, casts, and other formed elements. Only those elements seen were reported. [facility][] REFLEXIVE URINE [id number] 00:00:00* Test Item Value Reference Range Interpretation Comments REFLEXIVE URINE CULTURE (test code = REFLEXIVE URINE C ULTURE) CULTURE INDICATED - RESULTS TO FOLLOW [facility]] CULTURE, URINE, [id number] 00:00:00* Test Item Value Reference Range Interpretation Comments CULTURE (test code = CULTURE) See Comment A CULTURE, URINE, ROUTINE Micro Number: [id number] Test Status: Final Specimen Source: URINE Specimen [...] cefdinir, cefpodoxime, cefprozil, cefuroxime, cephalexin and loracarbef. [facility][QL] URINALYSIS, COMPLETE W/REFLEX TO CULTURE 2019-10-22 [...] NEGATIVE N BILIRUBIN; Normal (test code = 79295-8) NEGATIVE NEGATIVE N KETONES; Abnormal (test code = 11572-9) TRACE NEGATIVE A OCCULT BLOOD; Normal (test code = 88800-8) NEGATIVE NEGATIVE N PROTEIN; Abnormal (test code = 48950-2) 1+ NEGATIVE A NITRITE (test code = NITRITE) NEGATIVE NEGATIVE N LEUKOCYTE ESTERASE (test code = LEUKOCYTE ESTERASE) 2+ NE GATIVE A WBC; Abnormal (test code = 6690-2) PACKED < OR = 5 A RBC; Normal (test code = 789-8) 0-2 < OR = 2 N SQUAMOUS EPITHELIAL CELLS (test code = 79010-0) 0-5 < OR = 5 BACTERIA; Abnormal (test code = 630-4) MODERATE NONE SEEN A HYALINE CAST; Normal (test code = 81246-1) NONE SEEN NONE SEEN N NOTE (test code = NOTE) See Below This urine was analyzed for the presence of WBC, RBC, bacteria, casts, and other formed elements. Only those elements seen were reported. [facility][] CULTURE, URINE, [id number] 00:00:00* Test Item Value Reference Range Interpretation Comments CULTURE (test code = CULTURE) See Comment A CULTURE, URINE, ROUTINE Micro Number: [id number] Test Status: Final Specimen Source: URINE Specimen [...] cefdinir, cefpodoxime, cefprozil, cefuroxime, cephalexin and loracarbef. [facility] Chest 2 views [id number] 13:31:00EXAM: XR CHEST 2 VIEWSDATE: 08/23/2019 13:31 [...] 4:01Electronically Signed by: Mariusz Arredondo MD 014:05FINAL REPORTLifePoint Hospitals Phys[facility]] CMP [id number] 12:51:00* Test Item Value Reference Range Interpretation [...] is approximately 13% higher for peopleidentified as -Samoan. eGFR NON- (test code = eGFR NON-DANILO N MONEGASQUE) 47 {ML/MIN/1.7} > OR = 60 eGFR [...] N BILIRUBIN, TOTAL; Normal (test code = 24297-9) 0.3 mg/dl 0.2-1.2 N ALKALINE PHSPHATASE (test code = ALKALINE PHSPHATASE) 67 u/l 33-130 N AST; Normal (test code = 1916-6) 14 u/l 10-35 N ALT; Normal (test code = 1742-6) 24 u/l 6-29 N [facility]] CBC (INCLUDES DIFF/PLT)2019-08-23 12:51:00* Test Item Value Reference Range Interpretation Comments WHITE BLOOD CELL COUNT (test code = WHITE BLOOD CELL COUNT) 6.7 {Thousand/u} 3.8-10.8 N RED BLOOD CELL COUNT (test code = RED BLOOD CELL COUNT) 3.69 {Million/uL} 3.80-5.10 HEMAGLOBIN; Normal (test code = 06850-9) 11.9 g/dl 11.7-15.5 N HEMATOCRIT; Normal (test code = 4544-3) 35.1 % 35.0-45.0 N MCV; Normal (test code = 787-2) 95.1 fL 80.0-100.0 N MCHC; Normal (test code = 11606-5) 33.9 g/dl 32.0-36.0 N RDW; Normal (test code = 788-0) 14.5 % 11.0-15.0 N PLATELET COUNT; Normal (test code = 777-3) 248 {Thousand/u} 140-400 N MPV; Normal (test code = 13392-5) 9.4 fL 7.5-12.5 N ABSOLUTE NEUTROPHILS (test code = ABSOLUTE NEUTROPHILS) 4663 {cells/uL} 0292-1887 N ABSOLUTE LYMPHOCYTES (test code = ABSOLUTE [...] % N MONOCYTES; Normal (test code = 45711-5) 5.7 % N EOSINOPHILS; Normal (test code = 49089-9) 1.0 % N BASOPHILS; Normal (test code = 98912-6) 0.4 % N [facility]] TSH, 3RD GENERATION W/REFLEX TO FT4 2019-08-23 12:51:00* Test Item Value Reference Range Interpretation Comments TSH, 3RD GENERATION W/REFLEX TO FT4 (rocio t code = TSH, 3RD GENERATION W/REFLEX TO FT4) 45.33 {MIU/L} 0.40-4.50 [facility]] T4, [id number] 12:51:00* Test Item Value Reference Range Interpretation Comments T4, FREE (test code = T4, FREE) 0.8 ng/dl 0.8-1.8 N [facility]] HEMOGLOBIN [id number] 12:51:00* Test Item Value Reference Range Interpretation Comments HEMOGLOBIN A1c; Above High Threshold (test code = 4548-4) 7.0 {% of total} <5.7 For someone without known diabetes, a he [facility] S4yjvvfl of 6.5% or greater indicates that they [...] A1c for diagnosis of diabetes for children. [facility] [id number] 01:05:00* Test Item Value Reference Range Interpretation Comments TROPONIN-I (test code = TROPI) 0.045 ng/mL 0-0.045 N COMMENTS TO POND SAWYER: COLLECT 3 HOURS AFTER PREVIOUS [id number] 21:38:00* Test Item Value Reference Range Interpretation Comments TROPONIN-I (test code = TROPI) 0.057 ng/mL 0-0.045 HH COMMENTS TO POND SAWYER: COLLECT 3 HOURS AFTER PREVIOUS SAMPLE- CT CHEST W/O [id number] 18:39:00 Name: TOMAS PERAZA [facility] : 1940 Age/S: 78 / F [address] Unit #: [id number] Loc: [place] [address] Phys: Dk Mesa MD Acct: [id number] Dis Date: Status: ADM IN PHONE #: [phone] Exam Date: 07/31/2019 180 FAX #: [phone] Reason: sob EXAMS: CPT CODE: [id number] CT CHEST W/O CONTRAST 18101 EXAM: CT of the chest without contrast; [...] Small left renal c yst. Location code: [facility] Electronically Si gned by Lela Diaz on 07/31/2019 at 1839 Reported and signed by: Abelino Diaz M.D. CC: Richard Dawson; Dk Mesa Technologist :[place] RT(R); GERMAIN Zendejas CTDI: DLP: Trnscb Date/Time: 07/15 (183) Patricia Orig Print D/T: S: 07/31/2019 (18 42) PAGE 1 Signed Report - CTA [id number] 16:02:00 Name: TOMAS PERAZA [facility] : 1940 Age/S: 78 / F [address] [facility] Unit #: [id number] Loc: [place] [address] Phys: Yan Rudolph MD Acct: [id number] Dis Date: 07/20/2019 Status: DIS IN PHONE #: [phone] Exam Date: 07/11/2019 1140 FAX #: [phone] Reason: AAA Report Has Been Amended EXAMS: CPT CODE: [id number] CTA ABDOMEN 35761 Addendum - 07/31/2019 SIGNED 07/31/2019 ADDENDUM: [id number] CT/CTABWWO Focal herniation of the left lung [...] 1 Signed Report (CONTINUED) Name: TOMAS PERAZA [facility] : 1940 Age/S: 78 / F [address] [facility] Unit #: [id number] Loc: [place] [address] Phys: Yan Rudolph MD Acct: [id number] Dis Date: 07/20/2019 Stat us: DIS IN PHONE #: [phone] Exam Date: 07/11/2019 1140 FAX #: [phone] Reason: AAA Report Has Been Amended EXAMS: CPT CODE: [id number] CTA ABDOMEN 65481 < Continued> mildly dilated measuring 3.2 cm [...] 2 Signed Report (CONTINUED) Name: TOMAS PERAZA [facility] : 1940 Age/S: 78 / F [address] [facility] Unit #: [id number] Loc: [place] [address] Phys: Yan Rudolph MD Acct: [id number] Dis Date: 07/20/2019 Status: DIS IN PHONE #: [phone] Exam Date: 07/11/2019 1140 FAX #: [phone] Reason: AAA Report Has Been Amended EXAMS: CPT CODE: [id number] CTA ABDOMEN 96074 < Continued> the left kidney. Prior hysterectomy. [...] may represent CHF with pulmonary edema. Location: [facility] at 1201 Reported and signed by: Vince Willett MD CC: Richard Dawson; Yan Rudolph MD Technologist:Chris Hastings RT(R) CTDI: DLP: Trnscb Date/Time: 07/11/2019 (1201) [email or web address] Orig Print D/T: S: 07/31/2019 (7214) PAGE 3 Signed Report - CTA [id number] 16:02:00 Name: TOMAS PERAZA [facility] : 1940 Age/S: 78 / F [address] [facility] Unit #: [id number] Loc: [place] [address] Phys: Yan Rudolph MD Acct: [id number] Dis Date: 07/20/2019 Status: DIS IN PHONE #: [phone] Exam Date: 07/11/2019 1141 FAX #: [phone] Reason: AAA Report Has Been Amended EXAMS: CPT CODE: [id number] CTA ABDOMEN 57576 Addendum - 07/31/2019 SIGNED 07/31/2019 ADDENDUM: [id number] CT/CTABWWO Focal herniation of the left lung as well as a stenotic change of the adjacent rib likely represents sequela of remote trauma. at 1602 Reported and signed by: Vince Willett MD Transcribed: 07/31/2019 (3447) [email or web address] Report REASON FOR EXAM: history of [...] 1 Signed Report (CONTINUED) Name: TOMAS PERAZA [facility] : 1940 Age/S: 78 / F [address] [facility] Unit #: [id number] Loc: [place] [address] Phys: Yan Rudolph MD Acct: [id number] Dis Date: 07/20/2019 Status: DIS IN PHONE #: [phone] Exam Date: 07/11/2019 1140 FAX #: [phone] Reason: AAA Report Has Been Amended EXAMS: CPT CODE: [id number] CTA ABDOMEN 95107 <Continued> mildly dilated measuring 3.2 cm in [...] 2 Signed Report (CONTINUED) Name: TOMAS PERAZA [facility] : 1940 Age /S: 78 / F [address] [facility] Unit #: [id number] Loc: [place] [address] Phys: Yan Rudolph MD Acct: [id number] Dis Date: 2018 Status: DIS IN PHONE #: [phone] Exam Date: 07/11/2019 1140 FAX #: [phone] Reason: AAA Repor t Has Been Amended EXAMS: CPT CODE: [id number] CTA ABDOMEN 53326 <Continued> the left kidney. Prior hysterectomy. Otherwise [...] may represent CHF with pulmonary edema. Location: [facility] at 1201 Reported and signed by: Vince Willett MD CC: Richard Dawson; Yan Rudolph MD Technologist:Chris Hastings RT(R) CTDI: DLP: Trnscb Date/Time: 07/11/2019 (1201) [email or web address] Orig Print D/T: S: 07/31/2019 (7768) PAGE 3 Signed Report - CTA [id number] 16:02:00 Name: TOMAS PERAZA [facility] : 1940 Age/S: 78 / F [address] [facility] Unit #: [id number] Loc: [place] [address] Phys: Yan Rudolph MD Acct: [id number] Dis Date: 07/20/2019 Status: DIS IN PHONE #: [phone] Exam Date: 07/11/2019 1123 FAX #: [phone] Reason: history of AAA< epigastric pain Report Has Been Amended EXAMS: CPT CODE: [id number] CTA CHEST 81726 Addendum - 07/31/2019 SIGNED 07/31/2019 ADDENDUM: [id number] CT/CTACHWWO Focal herniation of the left lung as well as a stenotic change of the adjacent rib likely represents sequela of remote trauma. at 1602 Reported and signed by: Vince Willett MD Transcribed: 07/31/2019 (1602) [email or web address] Addendum - 07/11/2019 SIGNED 07/11/2019 ADDENDUM: [id number] CT/CTACHWWO Focal herniation of the left lung [...] 1 Signed Report (CONTINUED) Name: TOMAS PERAZA [facility] : 1940 Age/S: 78 / F [address] [facility] Unit #: [id number] [place] [address] Phys: Yan Rudolph MD Acct: [id number] Dis Date: 07/20/2019 Status: DIS IN PHONE #: [phone] Exam Date: 07/11/2019 1123 FAX #: [phone] Reason: history of AAA< epigastric pain Report Has Been Amended EXAMS: CPT CODE: [id number] CTA CHEST 43504 <Continued> Timing of the contrast bolus is [...] S igned Report (CONTINUED) Name: TOMAS PERAZA [facility] : 1940 Age/S: 78 / F [address] [facility] Unit #: [id number] Loc: [place] [address] Phys: Yan Rudolph MD Acct: [id number] Dis Date: 07/20/2019 Status: DIS IN PHONE #: [phone] Exam Date: 9 1123 FAX #: [phone] Reason: history of AAA< epigastric pain Report Has Been Amend ed EXAMS: CPT CODE: [id number] CTA CHEST 85457 < Continued> Subcentimeter right hilar lymph nodes [...] may represent CHF with pulmonary edema. Location: [facility] at 1201 Reported and signed by: Vince Willett MD PAGE 3 Signed Report (CONTINUED) Name: TOMAS PERAZA [facility] : 1940 Age/S: 78 / F [address] [facility] Unit #: [id number] Loc: [place] [address] Phys: Yan Rudolph MD Acct: [id number] Dis Date: 07/20/2019 Status: DIS IN PHONE #: [phone] Exam Date: 07/11/2019 1123 FAX #: [phone] Reason: history of AAA< epigastric pain Report Has Been Amended EXAMS: CPT CODE: [id number] CTA CHEST 90544 <Continued> CC: Yan Rudolph MD Technologist:Chris Hastings RT(R) CTDI: DLP: Trnscb Date/Time: 07/11/2019 (1201) [email or web address] Orig Print D/T: S: 07/11/2019 (9697) PAGE 4 Signed Report - CTA [id number] 16:02:00 Name: TOMAS PERAZA [facility] : 1940 Age/S: 78 / F [address] [facility] Unit #: [id number] Loc: [place] [address] Phys: Yan Rudolph MD Acct: [id number] Dis Date: 07/20/2019 Status: DIS IN PHONE #: [phone] Exam Date: 07/11/2019 1123 FAX #: [phone] Reason: history of AAA< epigastric pain Report Has Been Amended EXAMS: CPT CODE: [id number] CTA CHEST 42649 Addendum - 07/31/2019 SIGNED 07/31/2019 ADDENDUM: [id number] CT/CTACHWWO Focal herniation of the left lung as well as a stenotic change of the adjacent rib likely represents sequela of remote trauma. at 1602 Reported and signed by: Vince Willett MD Transcribed: 07/31/2019 (1602) [email or web address] Addendum - 07/31/2019 SIGNED 07/31/2019 ADDENDUM: [id number] CT/CTACHWWO Focal herniation of the left lung as well as a stenotic change of the adjacent rib likely represents sequela of remote trauma. at 1602 Reported and signed by: Vince Willett MD Transcribed: 07/31/2019 (1602) VivRR31 Addendum - 07/11/2019 SIGNED 07/11/2019 ADDENDUM: [id number] CT/CTACHWWO Focal herniation of the left lung as well as a stenotic change of the adjacent rib likely represents sequela of remote trauma. at 1444 Reported and signed by: Vince Willett MD Transcribed: 07/11/2019 (8597) [email or web address] Report REASON FOR EXAM: history of AAA< epigastric pain EXAM ORDER DATE: 07/11/2019 10:06 AM Ordering M.D.: Yan Rudolph MD PROCEDURE: - CTA CHEST contrast-enhanced axial CT images were PAGE 1 Signed Report (CONTINUED) Name: TOMAS PERAZA [facility] : 1940 Age/S: 78 / F [address] [facility] Unit #: [id number] Loc: [place] [address] Phys: Yan Rudolph MD Acct: [id number] Dis Date: 07/20/2019 Status: DIS IN PHONE #: [phone] Exam Date: 07/11/2019 1123 FAX #: [phone] Reason: history of AAA< epigastric pain Report Has Been Amended EXAMS: CPT CODE: [id number] CTA CHEST 08204 <Continued> acquired through the chest/abdomen/pelvis. Sagittal and [...] 2 Signed Report (CONTINUED) Name: TOMAS PERAZA [facility] : 1940 Age/S: 78 / F [address] [facility] Unit #: [id number] Loc: [place] [address] Phys: Yan Rudolph MD Acct: [id number] Dis Date: 07/20/2019 Sta tus: DIS IN PHONE #: [phone] Exam Date : 07/11/2019 1123 FAX #: [phone] Reason: history of AAA< epigastric pain Report Has Been Amended EXAMS: CPT CODE: [id number] CTA CHEST 02184 <Continued> also bronchial wall thickening in the [...] Alona d Report (CONTINUED) Name: TOMAS PERAZA [facility] : 1940 Age/S: 78 / F [address] [facility] Unit #: [id number] Loc: [place] [address] Phys: Yan Rudolph MD Acct: [id number] Dis Date: 07/20/2019 Status: DIS IN PHONE #: [phone] Exam Date: 07/11/2019 1 123 FAX #: [phone] Reason: history of AAA< epigastric pain Report Has Been Amend ed EXAMS: CPT CODE: [id number] CTA CHEST 16080 < Continued> right bronchus may represent aspiration and/or infectious bronchiolitis. Cardiomegaly with small pleural effusions and groundglass opacities, may represent CHF with pulmonary edema. Location: [facility] at 1201 Reported and signed by: Vince Willett MD CC: Yan Rudolph MD Technologist:Chris Hastings RT(R) CTDI: DLP: Trnscb Date/Time: 07/11/2019 (1201) [email or web address] Orig Print D/T: S: 07/11/2019 (1205) PAGE 4 Signed Report B-TYPE NATRIURETIC [id number] 14:00:00* Test Item Value Reference Range Interpretation Comments B-TYPE NATRIURETIC PEPTIDE (test code = BNP) 292.89 pgram/mL 0-100 H BASIC METABOLIC [id number] 13:24:00* Test Item Value Reference Range Interpretation [...] code = CA) 8.8 mg/dL 8.5-10.1 N [id number] 13:24:00* Test Item Value Reference Range Interpretation Comments TROPONIN-I (test code = TROPI) 0.051 ng/mL 0-0.045 HH Results called to DR CALLE by [email or web address] 07/31/19 1322Critical results verified and read back by Nurse? Y BASIC METABOLIC [id number] 13:13:00* Test Item Value Reference Range Interpretation [...] code = CA) 8.8 mg/dL 8.5-10.1 N [id number] 13:13:00* Test Item Value Reference Range Interpretation Comments TROPONIN-I (test code = TROPI) ng/mL 0-0.045 CBC W/O [id number] 13:08:00* Test Item Value Reference Range Interpretation [...] fL 6.7-11.0 N - XR CHEST 2 [id number] 12:29:00 FAX: Franck Calle MD Foster: St: [facility] FAX: Richard Gabriel MD [phone] Name: TOMAS PERAZA [facility] : 1940 Age/S: 78/F [address] Unit #: [id number] Loc: [place] [address] Phys: Franck Calle MD Acct: [id number] Dis Date: Status: REG ER PHONE #: [phone] Exam Date: 07/31/2019 1219 FAX #: [phone] Reason: cough sob EXAMS: CPT CODE: [id number] XR CHEST 2 V 10068 HISTORY: Cough and shortness of breath. COMPARISON: [...] Dawson Technologist: Dawna Hansen(Fiona) Trnscrd Date/Time/By: 9 (1227) : By: VivTH4 Orig Print D/T: S: 07/31/2019 (8425) PAGE 1 Signed Report [id number] 06:19:00* Test Item Value Reference Range Interpretation Comments GLYCOSYLATED HEMOGLOBIN (HA1C) (test code = GLYHGB) 6.7 % HbA1 SUGGESTED DIAGNOSIS: HbA1C (%) Diabetic >6.4Prediabetes 5.7 - 6.4Normal <5.7 ESTIMATED AVERAGE GLUCOSE (test code = EAG) 146 MG/DL BASIC METABOLIC [id number] 05:49:00* Test Item Value Reference Range Interpretation [...] CA) 8.6 mg/dL 8.5-10.1 N BASIC METABOLIC [id number] 05:46:00* Test Item Value Reference Range Interpretation [...] CA) 8.6 mg/dL 8.5-10.1 N BASIC METABOLIC [id number] 07:55:00* Test Item Value Reference Range Interpretation [...] CA) 8.8 mg/dL 8.5-10.1 N BASIC METABOLIC [id number] 08:15:00* Test Item Value Reference Range Interpretation [...] CA) 9.0 mg/dL 8.5-10.1 N BASIC METABOLIC [id number] 08:09:00* Test Item Value Reference Range Interpretation [...] code = CA) mg/dL 8.5-10.1 CBC W/AUTO [id number] 07:42:00* Test Item Value Reference Range Interpretation [...] code = BA#) K/mm3 0.0-0.2 CBC W/AUTO [id number] 07:42:00* Test Item Value Reference Range Interpretation [...] NRBC#) 0.03 K/mm3 0.0-0.1 N BASIC METABOLIC [id number] 05:56:00* Test Item Value Reference Range Interpretation [...] CA) 8.7 mg/dL 8.5-10.1 N BASIC METABOLIC [id number] 05:52:00* Test Item Value Reference Range Interpretation [...] code = CA) mg/dL 8.5-10.1 CBC W/AUTO [id number] 05:31:00* Test Item Value Reference Range Interpretation [...] DIFF REQUIRED (test code = MDIFF) NO [id number] 18:05:00* Test Item Value Reference Range Interpretation Comments TROPONIN-I (test code = TROPI) <0.015 ng/mL 0-0.045 N [id number] 17:06:00* Test Item Value Reference Range Interpretation Comments MAGNESIUM (test code = MAG) 2.1 mg/dL 1.8-2.4 N THYROID STIMULATING [id number] 17:06:00* Test Item Value Reference Range Interpretation Comments THYROID STIMULATING HORMONE (test code = TSH) 3.410 uIU/mL 0.36-3.7 4 N TSH REFERENCE RANGES: EUTHYROID: 0.35 - 4.3 mIU/mL HYPO : > 5.5 mIU/mL HYPER : < 0.35 mIU/mL [id number] 16:36:00* Test Item Value Reference Range Interpretation Comments MAGNESIUM (test code = MAG) 2.1 mg/dL 1.8-2.4 N THYROID STIMULATING [id number] 16:36:00* Test Item Value Reference Range Interpretation Comments THYROID STIMULATING HORMONE (test code = TSH) uIU/mL 0.36-3.7 4 [id number] 15:41:00* Test Item Value Reference Range Interpretation Comments TROPONIN-I (test code = TROPI) <0.015 ng/mL 0-0.045 N - CTA [id number] 14:44:00 Name: TOMAS PERAZA [facility] : 1940 Age/S: 78 / F [address] [facility] Unit #: [id number] Loc: [place] [address] Phys: Yan Rudolph MD Acct: [id number] Dis Date: Status: ADM IN PHONE #: [phone] Exam Date: 07/11/2019 1123 FAX #: [phone] Reason: history of AAA< epigastric pain Report Has Been Amended EXAMS: CPT CODE: [id number] CTA CHEST 82618 Addendum - 07/11/2019 SIGNED 07/11/2019 ADDENDUM: [id number] CT/CTACHWWO Focal herniation of the left lung as well as a stenotic change of the adjacent rib likely represents sequela of remote trauma. at 1444 Reported and signed by: Vince Willett MD Transcribed: 07/11/2019 (6355) [email or web address] Report REASON FOR EXAM: history of [...] is PAGE 1 Signed Report (CONTINUED) Name: TOMSA PERAZA [facility] : 1940 Age/S: 78 / F [address] [facility] Unit #: [id number] [place] [address] Phys: Yan Rudolph MD Acct: [id number] Dis Date: Status: ADM IN PHONE #: [phone] Exam Date: 07/11/2019 1123 FAX #: [phone] Reason: history of AAA< epigastric pain Report Has Been Amend ed EXAMS: CPT CODE: [id number] CTA CHEST 31299 < Continued> mildly dilated measuring 3.2 cm [...] 2 Signed Report (CONTINUED) Name: TOMAS PERAZA [facility] : 1940 Age/S: 78 / F [address] [facility] Unit #: [id number] Loc: [place] [address] Phys: Yan Rudolph MD Acct: [id number] Dis Date: Status: ADM IN PHONE #: [phone] Exam Date: 07/11/2019 1123 FAX #: [phone] Reason: history of AAA< epigastric pain Report Has Been Amended EXAMS: CPT CODE: [id number] CTA CHEST 67842 < Continued> the left kidney. Prior hysterectomy. [...] may represent CHF with pulmonary edema. Location: [facility] at 1201 Reported and signed by: Vince Willett MD CC: Yan Rudolph MD Technologist:Chris Hastings RT(R) CTDI: DLP: Trnscb Date/Time: 07/11/2019 (1201) t.NIKR.RR31 Orig Print D/T: S: 07/11/2019 (5437) PAGE 3 Signed Report - CTA [id number] 12:01:00 Name: TOMAS PERAZA [facility] : 1940 Age/S: 78 / F [address] [facility] Unit #: [id number] Loc: [place] [address] Phys: Kyra Rudolph MD Acct: [id number] Di s Date: Status: REG ER PHONE #: Exam Date: 07/11/2019 1123 FAX #: [phone] Reason: history of AAA< epigastric pain EXAMS: CPT CODE: [id number] CTA CHEST 18571 REASON FOR EXAM: history of AAA< epigastric [...] 1 Signed Report (CONTINUED) Name: TOMAS PERAZA [facility] : 1940 Age/S: 78 / F [address] [facility] Unit #: [id number] Loc: [place] [address] Phys: Yan Rudolph MD Acct: [id number] Dis Date: Status: REG ER PHONE #: [phone] Exam Date: 07/11/2019 1123 FAX #: [phone] Reason: history of AAA< epigastric pain EXAMS: CPT CODE: [id number] CTA CHEST 29040 < Continued> Airways, Lungs and Pleura: Small [...] 2 Signed Report (CONTINUED) Name: TOMAS PERAZA [facility] : 1940 Age/S: 78 / F [address] [facility] Unit #: [id number] Loc: [place] [address] Phys: Yan Rudolph MD Acct: [id number] Dis Date: Status: REG ER PHONE #: [phone] Exam Date: 07/11/2019 1123 FAX #: [phone] Reason: history of AAA< epigastric pain EXAMS: CPT CODE: [id number] CTA CHEST 56337 < Continued> Severe atherosclerotic disease of the [...] (1201) VivRR31 Orig Print D/T: S: 07/11/2019 (5112) PAGE 3 Signed Report URINALYSIS [id number] 10:52:00* Test Item Value Reference Range Interpretation [...] ESTERASE DIPSTICK (test code = LEUU) 500 Philpi/uL (3+) u L NEGATIVE A UA WBC (test code = WBCU) TNTC per HPF 0-5 A UA RBC (test code = RBCU) 3-5 per HPF 0-5 A UA EPITHELIAL CELLS (test code = EPIU) Moderate (5-10/hpf) per HPF Few UA BACTERIA (test code = BACU) MANY per HPF NONE A Urine Source? Clean Catch- XR CHEST 1 [id number] 10:45:00 Name: TOMAS PERAZA [facility] : 1940 Age/S:78 /F [address] [facility] Unit#:[id number] Loc: [place] [address] Phys: Kyra Rudolph MD Dis Date: PHONE #: [phone] Status: REG ER FAX #: [phone] Exam Date: 07/11/2019 Re ason: CODE SEPSIS EXAMS: CPT CODE: [id number] XR CHEST 1 V 08673 REASON FOR EXAM: CODE SEPSIS Exam Order [...] pneumonia. The upper lungs are clear. Location: [facility] Electronically Signed by Vince Willett MD on at 1045 Reported and signed by: Vince Willett MD CC: Yan Rudolph MD Technologi st: [place] Venkata RT(R) Trnscrpt Data: 2018 (1045) [id number].SDR.RR31 Orig Print D/T: S: 07/11/2019 (21 96) PAGE 1 Signed Report B-TYPE NATRIURETIC [id number] 10:44:00* Test Item Value Reference Range Interpretation Comments B-TYPE NATRIURETIC PEPTIDE (test code = BNP) 489 pg/mL 0-100 H URINALYSIS [id number] 10:43:00* Test Item Value Reference Range Interpretation [...] HPF NONE Urine Source? Clean CatchBASIC METABOLIC [id number] 10:38:00* Test Item Value Reference Range Interpretation [...] CA) 8.9 mg/dL 8.4-10.2 N HEPATIC FUNCTION [id number] 10:38:00* Test Item Value Reference Range Interpretation [...] code = ALKP) 92 U/L 38-126 N [id number] 10:38:00* Test Item Value Reference Range Interpretation Comments TROPONIN-I (test code = TROPI) <0.015 ng/mL 0.00-0.056 N LACTIC [id number] 10:36:00* Test Item Value Reference Range Interpretation Comments LACTIC ACID (test code = LACT) 1.6 MMOL/L 0.4-1.9 N CBC W/AUTO [id number] 10:31:00* Test Item Value Reference Range Interpretation [...] = BA#) 0.02 K/mm3 0.0-0.2 N PROTHROMBIN [id number] 10:30:00* Test Item Value Reference Range Interpretation [...] (2.5-3.5) IS PATIENT ON ANTICOAGULANTS? NTHROMBOPLASTIN TIME [id number] 10:30:00* Test Item Value Reference Range Interpretation Comments THROMBOPLASTIN TIME PARTIAL (test code = PTT) 25.7 seconds 25.5-34. 3 N Therapeutic Range for patients on Heparin Therapy is 2 to2.5 times their baseline PTT level. IS PATIENT ON ANTICOAGULANTS? NCT Chest w contrast [id number] 15:55:00EXAM: CT CHEST WITH CONTRASTDATE: 05/15/2019 15:55 [...] was dictated by a Radiology Res ident/Fellow/Physician Lamp Stack Developer. Ihave personallyreviewed the images as well as the interpretation and agree with the findings.Read by: Ashwin Rios MD Resident/Fellow/PhysicianAssistant: Ashwin Rios MDDict ated Date/time: 05/16/19 08:23Electronically Signed by: Aayh Balderas MD 05/16/1912:17FINAL REPORTUnAcadia Healthcare PhysiciansXRAY Chest 2 views [id number] 13:13:00EXAM: XR CHEST 2 VIEWSDATE: 05/10/2019 13:13 [...] 14:58Electronically Signed by: Michael Stewart MD 05/10/1914:59FINAL REPORTUnAcadia Healthcare Physicians[QL] CMP W/EGFR 2019-01-30 09:03:00* Test Item Value Reference Range Interpretation Comments GLUCOSE; Normal (test code = 1547-9) 94 mg/dl 65-99 N Fasting reference interval UREA NITROGEN (BUN) (test code = UREA NITROGEN (BUN)) 24 mg/dl 7-25 N CREATININE (test code = CREATININE) 0.97 mg/dl 0.60-0.93 For patients >49 years of age, the reference limitfor Creatinine is approximately 13% higher for peopleidentified as -Samoan. eGFR NON- (test code = eGFR NON-DANILO N MONEGASQUE) 57 {ML/MIN/1.7} > OR = 60 eGFR [...] N BILIRUBIN, TOTAL; Normal (test code = 08591-2) 0.4 mg/dl 0.2-1.2 N ALKALINE PHSPHATASE (test code = ALKALINE PHSPHATASE) 67 u/l 33-130 N AST; Normal (test code = 1916-6) 16 u/l 10-35 N ALT; Normal (test code = 1742-6) 21 u/l 6-29 N [facility]] CBC (INCLUDES DIFF/PLT)2019-01-30 09:03:00* Test Item Value Reference Range Interpretation Comments WHITE BLOOD CELL COUNT (test code = WHITE BLOOD CELL COUNT) 6.5 {Thousand/u} 3.8-10.8 N RED BLOOD CELL COUNT (test code = RED BLOOD CELL COUNT) 4.00 {Million/uL} 3.80-5.10 N HEMAGLOBIN; Normal (test code = 39532-9) 12.4 g/dl 11.7-15.5 N HEMATOCRIT; Normal (test code = 4544-3) 37.9 % 35.0-45.0 N MCV; Normal (test code = 787-2) 94.8 fL 80.0-100.0 N MCHC; Normal (test code = 42704-8) 32.7 g/dl 32.0-36.0 N RDW; Normal (test code = 788-0) 13.3 % 11.0-15.0 N PLATELET COUNT; Normal (test code = 777-3) 347 {Thousand/u} 140-400 N MPV; Normal (test code = 57291-4) 9.3 fL 7.5-12.5 N ABSOLUTE NEUTROPHILS (test code = ABSOLUTE NEUTROPHILS) 4219 {cells/uL} 6971-7705 N ABSOLUTE LYMPHOCYTES (test code = ABSOLUTE [...] % N MONOCYTES; Normal (test code = 56285-8) 5.7 % N EOSINOPHILS; Normal (test code = 68069-3) 4.5 % N BASOPHILS; Normal (test code = 56420-7) 0.8 % N [facility]] VITAMIN [id number] 09:03:00* Test Item Value Reference Range Interpretation Comments VITAMIN B12 (test code = VITAMIN B12) 574 pg/ml 200-1100 N [facility]] TSH, 3RD GENERATION W/REFLEX TO FT4 2019-01-30 09:03:00* Test Item Value Reference Range Interpretation Comments TSH, 3RD GENERATION W/REFLEX TO FT4 (rocio t code = TSH, 3RD GENERATION W/REFLEX TO FT4) 3.58 {MIU/L} 0.40-4.50 N [facility][] BETA 2 GLYCOPROTEIN I AB (IGG,IGA,IGM) [...] the setting ofinfection, drug therapy or aging. [facility]] CRYOGLOBULIN SCREEN W/REFLEX TO CRYOGLOBULIN PROFILE, [id number] 10:46:00* Test Item Value Reference Range Interpretation Comments CRYOGLOBULIN SCR W/REFL CRYOGLOBULIN PRO FILE, S (test code = CRYOGLOBULIN SCR W/REFL CRYOGLOBULIN PROFILE, S) NEGATIVE Reference Range: NEGATIVE IN NORMAL INDIVIDUALS This test was developed and its analytical performancecharacteristics have been determined by [facility]. It has not beencleared or approved by FDA. This assay has been validatedpursuant to the CLIA regulations and is used for clinica lpurposes. [facility]] CARDIOLIPIN AB (IGA,IGG,IGM)2018-12-01 10:46:00* Test Item Value [...] IgG DORITA >40 MPL/GPL, IgM or IgG anti-d2YCIberqpdgrwy or a lupus anticoagulant). International consensus guidelines [...] Low to Medium Positive >80 High Positive [facility]] Lupus Anticoagulant [id number] 10:46:00 * Test Item Value Reference Range Interpretation Comments LUPUS ANTICOAGULANT (test code = LUPUS ANTICOAGULANT) TNP Test Not Performed. Specimen detected with excess platelets which could yield a false negative result. Please resubmit a platelet poor plasma (<10,000/uL). [facility] Path[facility] [id number] 00:00:00* Test Item Value Reference Range Interpretation Comments REPORT (test code = REPORT) See Comment [facility] [id number] 09:20:00* Test Item Value Reference Range Interpretation Comments Completed (test code = Completed) DONE [facility][O] Streptococcus Test Rapid (In Office)2018-08-21 10:27:00* Test Item Value Reference Range Interpretation Comments Group A Strep Screen; Abnormal (test code = 69252-5) positive A [facility] Use [id number] 16:50:00* Test Item Value Reference Range Interpretation Comments Completed (test code = Completed) DONE [facility]] CBC (INCLUDES DIFF/PLT)2018-05-27 09:15:00* Test Item Value Reference Range Interpretation Comments WHITE BLOOD CELL COUNT (test code = WHITE BLOOD CELL COUNT) 6.8 {Thousand/u} 3.8-10.8 N RED BLOOD CELL COUNT (test code = RED BLOOD CELL COUNT) 3.44 {Million/uL} 3.80-5.10 HEMAGLOBIN; Below Low Threshold (test code = 77376-3) 10.9 g/dl 11.7-15.5 HEMATOCRIT; Below Low Threshold (test code = 4544-3) 32.1 % 3 5.0-45.0 MCV; Normal (test code = 787-2) 93.3 fL 80.0-100.0 N MCHC; Normal (test code = 98208-5) 34.0 g/dl 32.0-36.0 N RDW; Normal (test code = 788-0) 12.4 % 11.0-15.0 N PLATELET COUNT; Normal (test code = 777-3) 332 {Thousand/u} 140-400 N MPV; Normal (test code = 80939-0) 9.9 fL 7.5-12.5 N ABSOLUTE NEUTROPHILS (test code = ABSOLUTE NEUTROPHILS) 4121 {cells/uL} 4079-4844 N ABSOLUTE LYMPHOCYTES (test code = ABSOLUTE [...] % N MONOCYTES; Normal (test code = 77185-1) 6.2 % N EOSINOPHILS; Normal (test code = 21855-2) 4.3 % N BASOPHILS; Normal (test code = 14515-6) 0.6 % N [facility]] CMP [id number] 08:20:00* Test Item Value Reference Range Interpretation Comments GLUCOSE; Normal (test code = 1547-9) 93 mg/dl 65-99 N Fasting reference interval UREA NITROGEN (BUN) (test code = UREA NITROGEN (BUN)) 12 mg/dl 7-25 N CREATININE (test code = CREATININE) 0.80 mg/dl 0.60-0.93 N For patients >49 years of age, the reference limitfor Creatinine is approximately 13% higher for peopleidentified as -Samoan. eGFR NON- (test code = eGFR NON-DANILO N MONEGASQUE) 72 {ML/MIN/1.7} > OR = 60 N [...] N BILIRUBIN, TOTAL; Normal (test code = 34882-9) 0.4 mg/dl 0.2-1.2 N ALKALINE PHSPHATASE (test code = ALKALINE PHSPHATASE) 70 u/l 33-130 N AST; Normal (test code = 1916-6) 15 u/l 10-35 N ALT; Normal (test code = 1742-6) 12 u/l 6-29 N [facility]] CBC (INCLUDES DIFF/PLT)2018-05-04 08:20:00* Test Item Value Reference Range Interpretation Comments WHITE BLOOD CELL COUNT (test code = WHITE BLOOD CELL COUNT) 5.3 {Thousand/u} 3.8-10.8 N RED BLOOD CELL COUNT (test code = RED BLOOD CELL COUNT) 4.06 {Million/uL} 3.80-5.10 N HEMAGLOBIN; Normal (test code = 83686-5) 12.5 g/dl 11.7-15.5 N HEMATOCRIT; Normal (test code = 4544-3) 38.4 % 35.0-45.0 N MCV; Normal (test code = 787-2) 94.6 fL 80.0-100.0 N MCHC; Normal (test code = 55112-6) 32.6 g/dl 32.0-36.0 N RDW; Normal (test code = 788-0) 12.8 % 11.0-15.0 N PLATELET COUNT; Normal (test code = 777-3) 358 {Thousand/u} 140-400 N MPV; Normal (test code = 02108-9) 9.5 fL 7.5-12.5 N ABSOLUTE NEUTROPHILS (test code = ABSOLUTE NEUTROPHILS) 3132 {cells/uL} 3474-0357 N ABSOLUTE LYMPHOCYTES (test code = ABSOLUTE [...] % N MONOCYTES; Normal (test code = 93339-2) 6.2 % N EOSINOPHILS; Normal (test code = 70203-5) 3.2 % N BASOPHILS; Normal (test code = 38765-1) 0.4 % N [facility] 2 views [id number] 10:18:00EXAM: XR CHEST 2 VIEWSDATE: 03/31/2018 10:18 [...] 10:42Electronically Signed by: John Andrews MD 03/31/1810:47FINAL REPORTLifePoint Hospitals Physicians[[facility]] CMP [id number] 09:51:00* Test Item Value Reference Range Interpretation Comments GLUCOSE; Normal (test code = 1547-9) 77 mg/dl 65-99 N Fasting reference interval UREA NITROGEN (BUN) (test code = UREA NITROGEN (BUN)) 16 mg/dl 7-25 N CREATININE (test code = CREATININE) 0.93 mg/dl 0.60-0.93 N For patients >49 years of age, the reference limitfor Creatinine is approximately 13% higher for peopleidentified as -Samoan. eGFR NON- (test code = eGFR NON-DANILO N MONEGASQUE) 60 {ML/MIN/1.7} > OR = 60 N [...] N BILIRUBIN, TOTAL; Normal (test code = 45673-9) 0.2 mg/dl 0.2-1.2 N ALKALINE PHSPHATASE (test code = ALKALINE PHSPHATASE) 67 u/l 33-130 N AST; Normal (test code = 1916-6) 11 u/l 10-35 N ALT; Normal (test code = 1742-6) 8 u/l 6-29 N [facility]] CBC (INCLUDES DIFF/PLT)2018-03-31 09:51:00* Test Item Value Reference Range Interpretation Comments WHITE BLOOD CELL COUNT (test code = WHITE BLOOD CELL COUNT) 6.8 {Thousand/u} 3.8-10.8 N RED BLOOD CELL COUNT (test code = RED BLOOD CELL COUNT) 3.13 {Million/uL} 3.80-5.10 HEMAGLOBIN; Below Low Threshold (test code = 26987-7) 9.9 g/dl 11.7-15.5 HEMATOCRIT; Below Low Threshold (test code = 4544-3) 29.9 % 3 5.0-45.0 MCV; Normal (test code = 787-2) 95.5 fL 80.0-100.0 N MCHC; Normal (test code = 79451-5) 33.1 g/dl 32.0-36.0 N RDW; Normal (test code = 788-0) 12.3 % 11.0-15.0 N PLATELET COUNT; Above High Threshold (test code = 777-3) 512 {Thousand/u} 140-400 MPV; Normal (test code = 82490-4) 9.1 fL 7.5-12.5 N ABSOLUTE NEUTROPHILS (test code = ABSOLUTE NEUTROPHILS) 4468 {cells/uL} 9312-2562 N ABSOLUTE LYMPHOCYTES (test code = ABSOLUTE [...] % N MONOCYTES; Normal (test code = 91022-8) 5.7 % N EOSINOPHILS; Normal (test code = 36998-9) 3.1 % N BASOPHILS; Normal (test code = 47909-7) 0.6 % N [facility] [id number] 21:50:00 [facility] [address] [address] Patient Name: TOMAS PERAZA MR #: [id number] : 1940 Age/Sex: 77/F Req #: [id number] Adm Physician: Ordered by: MARIUSZ BRADY MD Report #: [id number] Location: ER Room/Bed: Procedure: [id number] CT/CT SOFT TISSUE NEC K W Exam [...] on 01/18/182155 COPY TO: MARIUSZ CERVANTES MD [[facility]] CMP [id number] 08:56:00* Test Item Value Reference Range Interpretation [...] is approximately 13% higher for peopleidentified as -Samoan. eGFR NON- (test code = eGFR NON-DANILO N MONEGASQUE) 75 {ML/MIN/1.7} > OR = 60 N [...] N BILIRUBIN, TOTAL; Normal (test code = 85295-5) 0.4 mg/dl 0.2-1.2 N ALKALINE PHSPHATASE (test code = ALKALINE PHSPHATASE) 72 u/l 33-130 N AST; Normal (test code = 1916-6) 15 u/l 10-35 N ALT; Normal (test code = 1742-6) 10 u/l 6-29 N [facility]] CBC (INCLUDES DIFF/PLT)2017-10-20 08:56:00* Test Item Value Reference Range Interpretation Comments WHITE BLOOD CELL COUNT (test code = WHITE BLOOD CELL COUNT) 6.5 {Thousand/u} 3.8-10.8 N RED BLOOD CELL COUNT (test code = RED BLOOD CELL COUNT) 4.54 {Million/uL} 3.80-5.10 N HEMOGLOBIN; Normal (test code = 42617-9) 14.1 g/dl 11.7-15.5 N HEMATOCRIT; Normal (test code = 4544-3) 42.0 % 35.0-45.0 N MCV; Normal (test code = 787-2) 92.5 fL 80.0-100.0 N MCHC; Normal (test code = 93923-6) 33.6 g/dl 32.0-36.0 N RDW; Normal (test code = 788-0) 12.8 % 11.0-15.0 N PLATELET COUNT; Normal (test code = 777-3) 330 {Thousand/u} 140-400 N MPV; Normal (test code = 77487-6) 9.8 fL 7.5-12.5 N ABSOLUTE NEUTROPHILS (test code = ABSOLUTE NEUTROPHILS) 3939 {cells/uL} 2241-5915 N ABSOLUTE LYMPHOCYTES (test code = ABSOLUTE [...] % N MONOCYTES; Normal (test code = 53503-3) 4.6 % N EOSINOPHILS; Normal (test code = 37850-6) 2.0 % N BASOPHILS; Normal (test code = 88870-6) 0.6 % N [facility]] TSH, 3RD GENERATION W/REFLEX TO FT4 2017-10-20 08:56:00* Test Item Value Reference Range Interpretation Comments TSH, 3RD GENERATION W/REFLEX TO FT4 (rocio t code = TSH, 3RD GENERATION W/REFLEX TO FT4) 0.92 {MIU/L} 0.40-4.50 N [facility][] VITAMIN B12/FOLATE, SERUM [id number] 08:56:00* Test Item Value Reference Range Interpretation Comments VITAMIN B12 (test code = VITAMIN B12) 546 pg/ml 200-1100 N FOLATE, SERUM (test code = FOLATE, SERUM) 18.6 ng/ml N Reference Range Low: <3.4 Borderline: 3.4-5.4 Normal: >5.4 [facility]] VITAMIN D, 25-HYDROXY, LC/MS/[id number] 08:56:00* Test Item Value Reference Range Interpretation [...] D, (D2,D3), LC/MS/MS is recommended: order code 55652 (patients >2yrs). For more information on this test, go to:http://education.Elle[employer].CO-Value/faq/YIT225(This link is being provided for informational/educational purposes only.) [facility][O] Urine Dipstick (In Office)2017-10-20 08:42:00 * Test Item Value Reference Range Interpretation Comments LEUKOCYTES (test code = LEUKOCYTES) neg N NITRITE; Normal (test code = 12600-3) neg N UROBILINOGEN; Normal (test code = 29112-1) normal N PROTEIN; Normal (test code = 71622-8) neg N pH (test code = pH) 5 N URINE BLOOD (test code = 61067-6) about 250 SPECIFIC GRAVITY; Normal (test code = 2965-2) 1.015 N KETONES; Normal (test code = 78224-8) neg N BILIRUBIN; Normal (test code = 45595-2) neg N GLUCOSE; Normal (test code = 1547-9) normal N UROBILINOGEN; Normal (test code = 14486-3) normal N [facility]] CULTURE, URINE, [id number] 00:00:00* Test Item Value Reference Range Interpretation Comments CULTURE (test code = CULTURE) See Comment CULTURE, URINE, ROUTINE MICRO NUMBER: [id number] TEST STATUS: FINAL SPECIMEN SOURCE: URINE SPECIMEN QUALITY: ADEQUATE RESULT: No Growth [facility]] CMP [id number] 08:47:00* Test Item Value Reference Range Interpretation Comments GLUCOSE; Normal (test code = 1547-9) 78 mg/dl 65-99 N Fasting reference interval UREA NITROGEN (BUN) (test code = UREA NITROGEN (BUN)) 16 mg/dl 7-25 N CREATININE (test code = CREATININE) 0.86 mg/dl 0.60-0.93 N For patients >49 years of age, the reference limitfor Creatinine is approximately 13% higher for peopleidentified as -Samoan. eGFR NON- (test code = eGFR NON-DANILO N MONEGASQUE) 67 {ML/MIN/1.7} > OR = 60 N [...] N BILIRUBIN, TOTAL; Normal (test code = 47828-0) 0.5 mg/dl 0.2-1.2 N ALKALINE PHOSPHATE (test code = ALKALINE PHOSPHATE) 67 u/l 33 -130 N AST; Normal (test code = 1916-6) 14 u/l 10-35 N ALT; Normal (test code = 1742-6) 11 u/l 6-29 N [facility]] CBC (INCLUDES DIFF/PLT)2017-07-25 08:47:00* Test Item Value Reference Range Interpretation Comments WHITE BLOOD CELL COUNT (test code = WHITE BLOOD CELL COUNT) 6.5 {Thousand/u} 3.8-10.8 N RED BLOOD CELL COUNT (test code = RED BLOOD CELL COUNT) 4.33 {Million/uL} 3.80-5.10 N HEMOGLOBIN; Normal (test code = 86694-4) 13.4 g/dl 11.7-15.5 N HEMATOCRIT; Normal (test code = 4544-3) 40.5 % 35.0-45.0 N MCV; Normal (test code = 787-2) 93.5 fL 80.0-100.0 N MCHC; Normal (test code = 55605-9) 33.1 g/dl 32.0-36.0 N RDW; Normal (test code = 788-0) 12.6 % 11.0-15.0 N PLATELET COUNT; Normal (test code = 777-3) 347 {Thousand/u} 140-400 N MPV; Normal (test code = 06916-2) 9.4 fL 7.5-12.5 N ABSOLUTE NEUTROPHILS (test code = ABSOLUTE NEUTROPHILS) 3016 {cells/uL} 6434-4710 N ABSOLUTE LYMPHOCYTES (test code = ABSOLUTE [...] % N MONOCYTES; Normal (test code = 04929-1) 6.1 % N EOSINOPHILS; Normal (test code = 38963-8) 1.5 % N BASOPHILS; Normal (test code = 04319-1) 0.8 % N [facility]] T4, [id number] 08:47:00* Test Item Value Reference Range Interpretation Comments T4, FREE (test code = T4, FREE) 1.6 ng/dl 0.8-1.8 N [facility]] TSH, 3RD GENERATION W/REFLEX TO FT4 2017-07-25 08:47:00* Test Item Value Reference Range Interpretation Comments TSH, 3RD GENERATION W/REFLEX TO FT4 (rocio t code = TSH, 3RD GENERATION W/REFLEX TO FT4) 0.18 {MIU/L} 0.40-4.50 [facility]] HEMOGLOBIN [id number] 08:47:00* Test Item Value Reference Range Interpretation [...] diagnosis of diabetes in children. According to [place] Diabetes Association (ADA)guidelines, hemoglobin A1c <7.0% represents optimalcontrol in non- diabetic patients. Differentmetrics may apply to specific patient populations. Standards of Medical Care in Diabetes(ADA). [facility]
--- OUTSIDE RECORDS SUMMARY | 2020-03-26 15:56 | XMS REPORT | Summary of Care ---
Author Author [facility] Organization [facility] Address Unknown Phone Unavailable Encounter ANITA Ann(JOVANA) [id number] Date(s): 01/18/20 - 01/18/20 [facility] [address] [place] [address]- Discharge Disposition: Home or Self Care Attending Physician: Lucero Ford MD Referring Physician: Lucero Ford MD Vital Signs 1 2 3 Most recent to oldest [Reference Range]: 167.64 cm (01/17/20 2:49 PM) Height 132/67 mmHg (01/18/20 1:45 PM) 126/98 mmHg (01/18/20 1:30 PM) 131/85 mmHg (01/18/20 1:19 PM) Blood Pressure [90-140/60-90 mmHg] 14 BRMIN (01/18/20 1:45 PM) 14 BRMIN (01/18/20 1:30 PM) 17 BRMIN (01/18/20 1:19 PM) Respiratory Rate [14-20 BRMIN] 94.545 kg (01/17/20 2:49 PM) Weight 33.64 m2 (01/17/20 2:49 PM) Body Mass Index Problem List Condition Effective Dates Status Health [...] Substance Reaction Severity Status cephalexin Active Medications Sodium Chloride 0.9% IV 1,000 mL 1,000 mL, Rate: 75 ml/hr, Infuse over: 13.3 hr, Route: IV, Dosing Weight 94.545 kg, Total Volume: 1,000, Start date: 01/18/20 10:35:00 CDT, Duration: 1 day, Sto p date: 01/19/20 10:34:00 CDT, 2.13, m2, 0 Start Date: 01/18/20 Stop Date: 01/18/20 Status: Discontinued Results Most recent to 1 oldest [Reference Range]: Coronavirus Not Detected (COVID-19) MABLE [Not (01/14/20 9:43 AM) Detected] Immunizations No data available for this section [...] No. 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 Highest education level: Other.1 Exercise Exercise [...]
--- OUTSIDE RECORDS SUMMARY | 2020-03-26 16:03 | XMS REPORT | Continuity of Care Document ---
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 Name Role Phone [facility] [employer] Information Exchange Unavailable Un available Problems Problem Status Onset Date Classification Date Reported Comments Source PANCREATIC MASS , DVT , PANCREATIC LESIO Active 01/18/2020 [facility] UNK Active 0 01/03/2020 [facility] DX: K86.9=DISEASE OF PANCREAS, UNSPECIFI Active [...] Active 12/17/2013 [facility] Bronchitis Active 12/17/2013 [facility] Anxiety (Symptom) Active 12/17/2013 [facility] Allergic rhinitis (disorder) R esolved Problem [facility] Anxiety (finding) Resolved Problem 02/02/2020 [facility] Arthritis (disorder) Resolved Problem 02/02/2020 [facility] Atrial fibrillation (disorder) Resolved Problem [facility] Bronchitis (disorder) Resolved Problem 02/02/2020 [facility] Chronic low back pain (disorder) Resolved Problem [facility] Chronic obstructive lung disease (disorder) Resolved Problem 02/02/2020 [facility] Cyst of pancreas (disorder) Ac tive Problem [facility] Depression - motion (qualifier value) Resolved Problem 02/02/2020 [facility] Diabetes mellitus (disorder) R esolved Problem [facility] Dyslipidemia (disorder) Resolv ed Problem [facility] Gastroesophageal reflux disease (disorder) Resolved Problem 02/02/2020 [facility] Hypertensive disorder, systemic arterial (disorder) Resolved Problem 02/02/2020 [facility] Hypothyroidism (disorder) Reso lved Problem [facility] Malignant neoplasm of skin (disorder) Resolved Problem 02/02/2020 [facility] Polyp of colon (disorder) Reso lved Problem [facility] Rectal hemorrhage (disorder) R esolved Problem [facility] Smoker (finding) Resolved Problem 02/02/2020 [facility] Medications Medication Details Route Status Patient Instructions Ordering Provider Order Date Source Sodium Chloride 0.9% IV 1,000 mL 1,000 mL, Rate: 75 ml/hr, Infuse over: 13.3 hr, Route: IV, Dosing Weight 94.545 kg, Total Volume: 1,000, Start date: 01/18/20 10:35:00 CDT, Duration: 1 day, Stop date: 01/19/20 10:34:00 CDT, 2.13, m2, 0 Inactive 01/18/2020 [facility] Levothyroxine Sodium 200 MCG Oral Tablet ; Start Date: 11/26/2013; End Date: (Active) Active 11/26/2013 [facility] Cefdinir 300 MG Oral Capsule ; Start Date: 11/22/2013; End Date: 12/02/2013 (Active) Active 11/22/2013 [facility] PredniSONE 20 MG Oral Tablet ; Start Date: 11/22/2013; End Date: (Active) Active 11/22/2013 [facility] TraMADol HCl 50 MG Oral Tablet ; Start Date: 11/22/2013; End Date: (Active) Active 11/22/2013 [facility] Meloxicam 7.5 MG Oral Tablet ; Start Date: 07/04/2013; End Date: (Active) Active 07/04/2013 [facility] Budesonide 0.5 MG/2ML Inhalation Suspension ; [...] Hydrocodone-Acetaminophen 7.5-750 MG Oral Tablet (Active) Active [facility] Hydrocodone-Acetaminophen 7.5-750 MG TABS (Active) Active [facility] Allergies, Adverse Reactions, Alerts Substance Category Reaction Severity Reaction type Status Date Reported Comments Source No Known Drug Allergies drug a llergy drug aller gy Active [facility] cephalexin Assertion Drug allergy Active [facility] Immunizations Immunization Date Given Site Status Last Updated Comments Source Influenza completed [facility] Results Order Name Results Value Reference Range Date Interpretation Comments Source IMMUNOLOGY Coronavirus (COVID-19) NA A Not Detected (01/14/20 9:43 AM) Not Detected 01/14/2020 [facility] Pathology Reports No Data Provided for This Section Diagnostic Reports Report Value Date Source PET CT Tumor [id number] PROCEDURE INFORMATION: Exam: PET/CT Skull Base to [...] aorta. Samuel Flores MD On 01/31/2020 17:04:20; [id number] 01/31/2020 [facility] Lower Venous Doppler Bilat US PROCEDURE [...] extremity. Cortez Marin MD On 01/31/2020 12:39:30; [id number] 01/31/2020 [facility] Consultation Notes No Data Provided for This Section Discharge Summaries No Data Provided for This Section History and Physicals No Data Provided for This Section Vital Signs Vital Sign Value Date Comments Source Respitory Rate 14 01/18/2020 [facility] Systolic (mm Hg) 132 01/18/2020 [facility] Diastolic (mm Hg) 67 01/18/2020 [facility] Respitory Rate 14 01/18/2020 [facility] Systolic (mm Hg) 126 01/18/2020 [facility] Diastolic (mm Hg) 98 01/18/2020 [facility] Respitory Rate 17 01/18/2020 [facility] Systolic (mm Hg) 131 01/18/2020 [facility] Diastolic (mm Hg) 85 01/18/2020 [facility] Height 167.64 cm 01/17/2020 [facility] Weight 94.545 01/17/2020 [facility] BMI Calculated 33.64 01/17/2020 [facility] Encounters Location Location Details Encounter Type Encounter Number Reason For Visit Attending Provider ADM Date DC Date Status Source AUDIT [id number] 12/20/2012 12/20/2012 [facility] ECL Provi chantal: MARIA GUADALUPE MARTINEZ, Status: Pen, Time: 8:00 AM [id number] 12/22/19 13 12/20/2012 [facility] Marielle OCONNOR chantal: SHIKHA LEWIS, Status: Pen, Time: 11:00 AM [id number] 01/25/20 13 12/20/2012 [facility] AUDIT [id number] 01/25/2013 01/25/2013 [facility] Marielle OCONNOR chantal: SHIKHA LEWIS, Status: Pen, Time: 2:00 PM [id number] 02/07/20 13 01/25/2013 [facility] AUDIT [id number] 02/06/2013 02/07/2013 [facility] AUDIT [id number] 04/26/2013 04/27/2013 [facility] AUDIT [id number] 04/28/2013 04/28/2013 [facility] AUDIT [id number] 06/13/2013 06/13/2013 [facility] AUDIT [id number] 06/18/2013 06/18/2013 [facility] AUDIT [id number] 06/25/2013 06/25/2013 [facility] AUDIT [id number] 07/04/2013 07/04/2013 [facility] AUDIT [id number] 09/18/2013 09/18/2013 [facility] AUDIT [id number] 09/20/2013 09/20/2013 [facility] AUDIT [id number] 10/18/2013 10/18/2013 [facility] AUDIT [id number] 10/25/2013 10/25/2013 [facility] ECL, Provi chantal: MARIA GUADALUPE MARTINEZ, Status: Pen, Time: 11:00 AM [id number] 11/02/1910/25/2013 [facility] AUDIT [id number] 11/12/2013 11/12/2013 [facility] AUDIT [id number] 11/14/2013 11/14/2013 [facility] AUDIT [id number] 11/22/2013 11/22/2013 [facility] AUDIT [id number] 11/22/2013 11/23/2013 [facility] AUDIT [id number] 12/17/2013 12/17/2013 [facility] Bedded Outpatient [id number] Lucero Marsh Liliana 01/18/2020 01/18/2020 [facility] Outpatient [id number] Irfan Jawed 01/31/2020 02/01/2020 [facility] Procedures Procedure Code Date Perfomer Comments Source Appendectomy [id number] [facility] Back care<sup>1</sup> [id number] back sx [facility] Bladder care management [id number] [facility] section [id number] [facility] Colonoscopy [id number] [facility] D&C - Dilatation and curettage [id number] [facility] Esophagogastroduodenoscopy [id number] [facility] Hernia repair [id number] [facility] Hysterectomy [id number] [facility] Implantation of heart assist system<sup>2</sup> [id number] Watchman device [facility] Oophorectomy [id number] [facility] Operation [id number] [facility] Assessment and Plan No Data Provided for This Section Plan of Care Plan of Care Date Source XRAY Chest 2 views [id number] 11/22/2013 [facility] ineXRAY Chest 2 views [id number] 11/22/2013 Routine 12/17/2013 [facility] XRAY Chest 2 views [id number] 11/22/2013 Rout ineXRAY Chest 2 views [id number] 11/22/2013 Routine 11/23/2013 [facility] XRAY Chest 2 views [id number] 11/22/2013 Rout ineXRAY Chest 2 views [id number] 11/22/2013 Routine 11/22/2013 [facility] [QL] TSH, 3RD GENERATION W/REFLEX TO FT 4 11/12/2013 Routine 11/14/2013 [facility] [QL] TSH, 3RD GENERATION W/REFLEX TO FT 4 11/12/2013 Routine 11/12/2013 [facility] Walker w/Wheels 10/18/2013 Routine 10/25/2013 [facility] Walker w/Wheels 10/18/2013 RoutineSocial Worker Referral 10/18/2013 Routine 10/18/2013 [facility] L[facility]hedema [facility] Referral 04/26/2013 Routine 04/27/2013 [facility] [QL] CBC (INCLUDES DIFF/PLT) 01/24/2013 Routine[QL] BASIC METABOLIC PANEL W/EGFR 01/24/2013 Routine[QL] PROTHROMBIN W/INR + PARTIAL THROMBOPLASTIN TIMES 01/24/2013 Routine 01/25/2013 [facility] Social History Social History Date Source Social History TypeResponse Alcohol Past, Started age 18 Years. Stopped age 37 Years. Previous treatment: None. Alcohol use interferes with work or home: No. Drinks more than intended: No. Others hurt by drinking: No. Ready to change: No. Household alcohol concerns: No. 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 Highest education level: Other.1 Exercise Exercise [...] age: 77; 2 entered on: 01/18/20 19th [id number] still 018 [facility] Current Smoker (305.1); (Active) Smoker, Current Status Unknown (305.1); (Active) Marital History - Currently (Active) Current Every Day Smoker (305.1); (Active) Smoking Cigarettes - Very Heavy (>25 / Day) (Active) Never Drank Alcohol (Active) Never Used Drugs (Active) Occupation: Retired (Active) 12/17/2013 [facility] Family History Value Date S ource Paternal history of Coronary Artery Dise ase (V17.49); (Active) 12/17/2013 [facility] Paternal history of Coronary Artery Dise ase (V17.49); (Active) 11/23/2013 [facility] Paternal history of Coronary Artery Dise ase (V17.49); (Active) 11/22/2013 [facility] Paternal history of Coronary Artery Dise ase (V17.49); (Active) 11/14/2013 [facility] Paternal history of Coronary Artery Dise ase (V17.49); (Active) 11/12/2013 [facility] Paternal history of Coronary Artery Dise ase (V17.49); (Active) 10/25/2013 [facility] Paternal history of Coronary Artery Dise ase (V17.49); (Active) 10/18/2013 [facility] Paternal history of Coronary Artery Dise ase (V17.49); (Active) 09/20/2013 [facility] Paternal history of Coronary Artery Dise ase (V17.49); (Active) 09/18/2013 [facility] Paternal history of Coronary Artery Dise ase (V17.49); (Active) 07/04/2013 [facility] Paternal history of Coronary Artery Dise ase (V17.49); (Active) 06/25/2013 [facility] Paternal history of Coronary Artery Dise ase (V17.49); (Active) 06/18/2013 [facility] Paternal history of Coronary Artery Dise ase (V17.49); (Active) 06/13/2013 [facility] Paternal history of Coronary Artery Dise ase (V17.49); (Active) 04/28/2013 [facility] Paternal history of Coronary Artery Dise ase (V17.49); (Active) 04/27/2013 [facility] Advance Directives Order Name Results Value Date Source Advance Directives Advance Dir ectives No Advance Directives available. 12/17/2013 [facility] Advance Directives Advance Dir ectives No Advance Directives available. 11/23/2013 [facility] Advance Directives Advance Dir ectives No Advance Directives available. 11/22/2013 [facility] Advance Directives Advance Dir ectives No Advance Directives available. 11/14/2013 [facility] Advance Directives Advance Dir ectives No Advance Directives available. 11/12/2013 [facility] Advance Directives Advance Dir ectives No Advance Directives available. 10/25/2013 [facility] Advance Directives Advance Dir ectives No Advance Directives available. 10/18/2013 [facility] Advance Directives Advance Dir ectives No Advance Directives available. 09/20/2013 [facility] Advance Directives Advance Dir ectives No Advance Directives available. 09/18/2013 [facility] Advance Directives Advance Dir ectives No Advance Directives available. 07/04/2013 [facility] Advance Directives Advance Dir ectives No Advance Directives available. 06/25/2013 [facility] Advance Directives Advance Dir ectives No Advance Directives available. 06/18/2013 [facility] Advance Directives Advance Dir ectives No Advance Directives available. 06/13/2013 [facility] Advance Directives Advance Dir ectives No Advance Directives available. 04/28/2013 [facility] Advance Directives Advance Dir ectives No Advance Directives available. 04/27/2013 [facility] Advance Directives Advance Dir ectives No Advance Directives available. 02/07/2013 [facility] Advance Directives Advance Dir ectives No Advance Directives available. 01/25/2013 [facility] Advance Directives Advance Dir ectives No Advance Directives available. 12/20/2012 [facility] Functional Status No Data Provided for This Section
--- OUTSIDE RECORDS SUMMARY | 2020-03-26 16:04 | XMS REPORT | Continuity of Care Document ---
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 ation: ANUSHA; Position: Sitting [facility] Body height 2019-09-18 10:04:00 65 [in_us] [facility] Weight 2019-09-18 10:04:00 223.3125 [lb_av] [facility] Body mass index (BMI) [Ratio] 2019-09-18 10:04:00 37.16 kg/m2 [facility] Heart Rate 2019-09-18 10:04:00 147 /min Location: L Radial; [facility] BP Systolic 2019-09-11 13:44:00 108 mm[Hg] Location: ANUSHA; Positi on: Sitting [facility] BP Diastolic 2019-09-11 13:44:00 69 mm[Hg] Location: ANUSHA; Positi on: Sitting [facility] Height 2019-09-11 13:44:00 65 [in_us] [facility] Weight 2019-09-11 13:44:00 217.8 [lb_av] [facility] Body Mass Index Calculated 2019-09-11 13:44:00 36.24 kg/m2 [facility] Temperature 2019-09-11 13:44:00 98.3 [degF] Method: Temporal [facility] Respiration Rate 2019-09-11 13:44:00 20 /min [facility] Heart Rate 2019-09-11 13:44:00 115 /min [facility] BP Systolic 2019-08-22 10:09:00 129 mm[Hg] Location: ANUSHA; Positi on: Sitting [facility] BP Diastolic 2019-08-22 10:09:00 89 mm[Hg] Location: CHERYLE; Positi on: Sitting [facility] Height 2019-08-22 10:09:00 65 [in_us] [facility] Weight 2019-08-22 10:09:00 217.25 [lb_av] [facility] Body Mass Index Calculated 2019-08-22 10:09:00 36.15 kg/m2 [facility] Temperature 2019-08-22 10:09:00 97.9 [degF] Method: Temporal [facility] Respiration Rate 2019-08-22 10:09:00 16 /min [facility] Heart Rate 2019-08-22 10:09:00 114 /min [facility] BP Systolic 2019-08-03 11:01:00 107 mm[Hg] Location: ANUSHA; Positi on: Sitting [facility] BP Diastolic 2019-08-03 11:01:00 72 mm[Hg] Location: ANUSHA; Positi on: Sitting [facility] Height 2019-08-03 11:01:00 65 [in_us] [facility] Weight 2019-08-03 11:01:00 218.3125 [lb_av] [facility] Body Mass Index Calculated 2019-08-03 11:01:00 36.33 kg/m2 [facility] Temperature 2019-08-03 11:01:00 97.7 [degF] Method: Temporal [facility] Heart Rate 2019-08-03 11:01:00 117 /min [facility] Respiration Rate 2019-08-03 11:01:00 16 /min [facility] O2 SAT 2019-08-03 11:01:00 98 % [facility] BP Systolic 2019-07-07 09:28:00 94 mm[Hg] Location: CHERYLE; Positi on: Sitting [facility] BP Diastolic 2019-07-07 09:28:00 63 mm[Hg] Location: ANUSHA; Positi on: Sitting [facility] Height 2019-07-07 09:28:00 65 [in_us] [facility] Weight 2019-07-07 09:28:00 222.5 [lb_av] [facility] Body Mass Index Calculated 2019-07-07 09:28:00 37.03 kg/m2 [facility] Temperature 2019-07-07 09:28:00 98.8 [degF] Method: Temporal [facility] Heart Rate 2019-07-07 09:28:00 147 /min [facility] Respiration Rate 2019-07-07 09:28:00 16 /min [facility] BP Systolic 2019-06-19 09:18:00 118 mm[Hg] Location: ANUSHA; Positi on: Sitting [facility] BP Diastolic 2019-06-19 09:18:00 72 mm[Hg] Location: ANUSHA; Positi on: Sitting [facility] Height 2019-06-19 09:18:00 65 [in_us] [facility] Weight 2019-06-19 09:18:00 214 [lb_av] [facility] Body Mass Index Calculated 2019-06-19 09:18:00 35.61 kg/m2 [facility] Heart Rate 2019-06-19 09:18:00 65 /min Location: L Brachial Artery; [facility] BP Systolic 2019-06-08 09:49:00 134 mm[Hg] Location: ANUSHA; Positi on: Sitting [facility] BP Diastolic 2019-06-08 09:49:00 75 mm[Hg] Location: ANUSHA; Positi on: Sitting [facility] Height 2019-06-08 09:49:00 65 [in_us] [facility] Body Mass Index Calculated 2019-06-08 09:49:00 35.85 kg/m2 [facility] Weight 2019-06-08 09:49:00 215.4375 [lb_av] [facility] Temperature 2019-06-08 09:49:00 98.3 [degF] Method: Temporal [facility] Heart Rate 2019-06-08 09:49:00 69 /min [facility] Respiration Rate 2019-06-08 09:49:00 16 /min [facility] BP Systolic 2019-06-08 08:43:00 129 mm[Hg] Location: ANUSHA; Positi on: Sitting [facility] BP Diastolic 2019-06-08 08:43:00 83 mm[Hg] Location: LUE; Positi on: Sitting [facility] Height 2019-06-08 08:43:00 65 [in_us] [facility] Body Mass Index Calculated 2019-06-08 08:43:00 35.63 kg/m2 [facility] Weight 2019-06-08 08:43:00 214.125 [lb_av] [facility] Heart Rate 2019-06-08 08:43:00 76 /min [facility] Respiration Rate 2019-06-08 08:43:00 16 /min [facility] BP Systolic 2019-05-14 08:33:00 120 mm[Hg] Location: LUE; Positi on: Sitting [facility] BP Diastolic 2019-05-14 08:33:00 72 mm[Hg] Location: CHERYLE; Positi on: Sitting [facility] Height 2019-05-14 08:33:00 65 [in_us] [facility] Weight 2019-05-14 08:33:00 210.1875 [lb_av] [facility] Body Mass Index Calculated 2019-05-14 08:33:00 34.98 kg/m2 [facility] Temperature 2019-05-14 08:33:00 97.9 [degF] Method: Temporal [facility] Respiration Rate 2019-05-14 08:33:00 16 /min [facility] Heart Rate 2019-05-14 08:33:00 61 /min [facility] BP Systolic 2019-05-10 12:01:00 115 mm[Hg] Location: ANUSHA; Positi on: Sitting [facility] BP Diastolic 2019-05-10 12:01:00 74 mm[Hg] Location: CHERYLE; Positi on: Sitting [facility] Height 2019-05-10 12:01:00 65 [in_us] [facility] Weight 2019-05-10 12:01:00 212 [lb_av] [facility] Body Mass Index Calculated 2019-05-10 12:01:00 35.28 kg/m2 [facility] Temperature 2019-05-10 12:01:00 98 [degF] Method: Temporal [facility] Respiration Rate 2019-05-10 12:01:00 16 /min [facility] Heart Rate 2019-05-10 12:01:00 73 /min [facility] O2 SAT 2019-05-10 12:01:00 97 % [facility] BP Systolic 2019-04-23 10:33:00 132 mm[Hg] Location: LUE; Positi on: Sitting [facility] BP Diastolic 2019-04-23 10:33:00 82 mm[Hg] Location: LUE; Positi on: Sitting [facility] Height 2019-04-23 10:33:00 65 [in_us] [facility] Weight 2019-04-23 10:33:00 208.0625 [lb_av] [facility] Body Mass Index Calculated 2019-04-23 10:33:00 34.62 kg/m2 [facility] Temperature 2019-04-23 10:33:00 99.1 [degF] Method: Temporal [facility] Heart Rate 2019-04-23 10:33:00 68 /min Location: L Brachial Artery; [facility] Respiration Rate 2019-04-23 10:33:00 16 /min Quality: Normal [facility] BP Systolic 2019-03-21 08:42:00 133 mm[Hg] Location: LUE; Positi on: Sitting [facility] BP Diastolic 2019-03-21 08:42:00 74 mm[Hg] Location: LUE; Positi on: Sitting [facility] Height 2019-03-21 08:42:00 65 [in_us] [facility] Weight 2019-03-21 08:42:00 215.8 [lb_av] [facility] Body Mass Index Calculated 2019-03-21 08:42:00 35.91 kg/m2 [facility] Heart Rate 2019-03-21 08:42:00 64 /min Location: L Brachial Artery; [facility] Respiration Rate 2019-03-21 08:42:00 18 /min [facility] BP Systolic 2019-03-15 08:54:00 133 mm[Hg] Location: LUE; Positi on: Sitting [facility] BP Diastolic 2019-03-15 08:54:00 82 mm[Hg] Location: LUE; Positi on: Sitting [facility] Height 2019-03-15 08:54:00 65 [in_us] [facility] Weight 2019-03-15 08:54:00 215.3125 [lb_av] [facility] Body Mass Index Calculated 2019-03-15 08:54:00 35.83 kg/m2 [facility] Temperature 2019-03-15 08:54:00 98.3 [degF] Method: Temporal [facility] Respiration Rate 2019-03-15 08:54:00 16 /min [facility] Heart Rate 2019-03-15 08:54:00 75 /min [facility] BP Systolic 2019-03-08 13:31:00 80 mm[Hg] Location: LUE; Positi on: Sitting [facility] BP Diastolic 2019-03-08 13:31:00 49 mm[Hg] Location: LUE; Positi on: Sitting [facility] Heart Rate 2019-03-08 13:31:00 93 /min Location: L Radial; [facility] BP Systolic 2019-03-08 13:15:00 96 mm[Hg] Location: LUE; Positi on: Sitting [facility] BP Diastolic 2019-03-08 13:15:00 61 mm[Hg] Location: LUE; Positi on: Sitting [facility] Heart Rate 2019-03-08 13:15:00 97 /min Location: L Radial; [facility] BP Systolic 2019-03-08 13:14:00 84 mm[Hg] Location: LUE; Positi on: Sitting [facility] BP Diastolic 2019-03-08 13:14:00 54 mm[Hg] Location: LUE; Positi on: Sitting [facility] Heart Rate 2019-03-08 13:14:00 118 /min Location: L Radial; [facility] BP Systolic 2019-03-08 13:01:00 83 mm[Hg] Location: LUE; Positi on: Sitting [facility] BP Diastolic 2019-03-08 13:01:00 47 mm[Hg] Location: LUE; Positi on: Sitting [facility] Heart Rate 2019-03-08 13:01:00 105 /min [facility] Temperature 2019-03-08 13:01:00 99.4 [degF] Method: Oral [facility] BP Systolic 2019-03-01 08:30:00 122 mm[Hg] Location: RUE; Positi on: Sitting [facility] BP Diastolic 2019-03-01 08:30:00 73 mm[Hg] Location: RUE; Positi on: Sitting [facility] Height 2019-03-01 08:30:00 65 [in_us] [facility] Weight 2019-03-01 08:30:00 212.375 [lb_av] [facility] Calculated 2019-03-01 08:30:00 35.34 kg/m2 [facility] Temperature 2019-03-01 08:30:00 98.2 [degF] Method: Temporal [facility] Heart Rate 2019-03-01 08:30:00 62 /min [facility] Respiration Rate 2019-03-01 08:30:00 16 /min [facility] BP Systolic 2019-02-22 14:12:00 100 mm[Hg] Location: LUE; Positi on: Sitting [facility] BP Diastolic 2019-02-22 14:12:00 62 mm[Hg] Location: LUE; Positi on: Sitting [facility] Height 2019-02-22 14:12:00 65 [in_us] [facility] Weight 2019-02-22 14:12:00 220.3125 [lb_av] [facility] Body Mass Index Calculated 2019-02-22 14:12:00 36.66 kg/m2 [facility] Temperature 2019-02-22 14:12:00 98.9 [degF] Method: Temporal [facility] Heart Rate 2019-02-22 14:12:00 82 /min [facility] Respiration Rate 2019-02-22 14:12:00 16 /min [facility] BP Systolic 2019-02-13 09:50:00 128 mm[Hg] Location: LUE; Positi on: Sitting [facility] BP Diastolic 2019-02-13 09:50:00 78 mm[Hg] Location: LUE; Positi on: Sitting [facility] Height 2019-02-13 09:50:00 65 [in_us] [facility] Weight 2019-02-13 09:50:00 216 [lb_av] [facility] [place] [facility] Body Mass Index Calculated 2019-02-13 09:50:00 35.94 kg/m2 [facility] Heart Rate 2019-02-13 09:50:00 68 /min [facility] Respiration Rate 2019-02-13 09:50:00 16 /min [facility] BP Systolic 2019-01-30 07:59:00 130 mm[Hg] Location: LUE; Positi on: Sitting [facility] BP Diastolic 2019-01-30 07:59:00 82 mm[Hg] Location: LUE; Positi on: Sitting [facility] Height 2019-01-30 07:59:00 65 [in_us] [facility] Weight 2019-01-30 07:59:00 213.1875 [lb_av] [facility] Body Mass Index Calculated 2019-01-30 07:59:00 35.48 kg/m2 [facility] Temperature 2019-01-30 07:59:00 98 [degF] Method: Temporal [facility] Respiration Rate 2019-01-30 07:59:00 16 /min [facility] Heart Rate 2019-01-30 07:59:00 65 /min [facility] BP Systolic 2019-01-15 08:57:00 133 mm[Hg] Location: CHERYLE; Positi on: Sitting [facility] BP Diastolic 2019-01-15 08:57:00 77 mm[Hg] Location: CHERYLE; Positi on: Sitting [facility] O2 SAT 2019-01-15 08:57:00 98 % Source: RA [facility] Height 2019-01-15 08:57:00 65 [in_us] [facility] Weight 2019-01-15 08:57:00 209.1875 [lb_av] [facility] Body Mass Index Calculated 2019-01-15 08:57:00 34.81 kg/m2 [facility] Temperature 2019-01-15 08:57:00 97.7 [degF] Method: Temporal [facility] Heart Rate 2019-01-15 08:57:00 72 /min Location: L Brachial Artery; [facility] Respiration Rate 2019-01-15 08:57:00 16 /min Quality[facility] BP Systolic 2018-12-04 08:31:00 157 mm[Hg] Location: LUE; Positi on: Sitting [facility] BP Diastolic 2018-12-04 08:31:00 80 mm[Hg] Location: LUE; Positi on: Sitting [facility] Height 2018-12-04 08:31:00 65 [in_us] [facility] Weight 2018-12-04 08:31:00 211 [lb_av] [facility] Body Mass Index Calculated 2018-12-04 08:31:00 35.11 kg/m2 [facility] Heart Rate 2018-12-04 08:31:00 69 /min [facility] Respiration Rate 2018-12-04 08:31:00 16 /min [facility] BP Systolic 2018-12-01 10:21:00 120 mm[Hg] Location: CHERYLE; Positi on: Sitting [facility] BP Diastolic 2018-12-01 10:21:00 81 mm[Hg] Location: LUE; Positi on: Sitting [facility] Heart Rate 2018-12-01 10:21:00 67 /min [facility] BP Systolic 2018-12-01 09:57:00 147 mm[Hg] Location: CHERYLE; Positi on: Sitting [facility] BP Diastolic 2018-12-01 09:57:00 86 mm[Hg] Location: LUE; Positi on: Sitting [facility] Heart Rate 2018-12-01 09:57:00 71 /min [facility] Height 2018-12-01 09:57:00 65 [in_us] [facility] Weight 2018-12-01 09:57:00 208.0625 [lb_av] [facility] Body Mass Index Calculated 2018-12-01 09:57:00 34.62 kg/m2 [facility] Respiration Rate 2018-12-01 09:57:00 16 /min [facility] BP Systolic 2018-11-17 08:37:00 129 mm[Hg] Location: LUE; Positi on: Sitting [facility] BP Diastolic 2018-11-17 08:37:00 82 mm[Hg] Location: LUE; Positi on: Sitting [facility] Height 2018-11-17 08:37:00 65 [in_us] [facility] Weight 2018-11-17 08:37:00 212.375 [lb_av] [facility] Body Mass Index Calculated 2018-11-17 08:37:00 35.34 kg/m2 [facility] Heart Rate 2018-11-17 08:37:00 76 /min [facility] Respiration Rate 2018-11-17 08:37:00 16 /min [facility] BP Systolic 2018-11-07 11:52:00 127 mm[Hg] Location: LUE; Positi on: Sitting [facility] BP Diastolic 2018-11-07 11:52:00 79 mm[Hg] Location: CHERYLE; Positi on: Sitting [facility] Height 2018-11-07 11:52:00 65 [in_us] [facility] Weight 2018-11-07 11:52:00 208.1 [lb_av] [facility] Body Mass Index Calculated 2018-11-07 11:52:00 34.63 kg/m2 [facility] Temperature 2018-11-07 11:52:00 98.3 [degF] Method: Temporal [facility] Heart Rate 2018-11-07 11:52:00 82 /min [facility] O2 SAT 2018-11-07 11:52:00 96 % [facility] BP Systolic 2018-10-31 09:34:00 105 mm[Hg] Location: CHERYLE; Positi on: Sitting [facility] BP Diastolic 2018-10-31 09:34:00 69 mm[Hg] Location: ANUSHA; Positi on: Sitting [facility] Height 2018-10-31 09:34:00 65 [in_us] Universi ty [facility] Weight 2018-10-31 09:34:00 211 [lb_av] [facility] Body Mass Index Calculated 2018-10-31 09:34:00 35.11 kg/m2 [facility] Heart Rate 2018-10-31 09:34:00 106 /min Location: L Radial; [facility] BP Systolic 2018-10-05 13:06:00 124 mm[Hg] Location: CHERYLE; Positi on: Sitting [facility] BP Diastolic 2018-10-05 13:06:00 78 mm[Hg] Location: CHERYLE; Positi on: Sitting [facility] Height 2018-10-05 13:06:00 65 [in_us] [facility] Weight 2018-10-05 13:06:00 212 [lb_av] [facility] Body Mass Index Calculated 2018-10-05 13:06:00 35.28 kg/m2 [facility] Heart Rate 2018-10-05 13:06:00 96 /min Location: L Radial; Q uality: Normal [facility] BP Systolic 2018-09-28 14:04:00 116 mm[Hg] Location: CHERYLE; Positi on: Sitting [facility] BP Diastolic 2018-09-28 14:04:00 69 mm[Hg] Location: CHERYLE; Positi on: Sitting [facility] Height 2018-09-28 14:04:00 65 [in_us] [facility] Weight 2018-09-28 14:04:00 215.375 [lb_av] Unive [facility] Body Mass Index Calculated 2018-09-28 14:04:00 35.84 kg/m2 [facility] Temperature 2018-09-28 14:04:00 97.8 [degF] Method: Temporal [facility] Respiration Rate 2018-09-28 14:04:00 16 /min [facility] Heart Rate 2018-09-28 14:04:00 77 /min [facility] BP Systolic 2018-08-21 10:17:00 121 mm[Hg] Location: CHERYLE; Positi on: Sitting [facility] BP Diastolic 2018-08-21 10:17:00 79 mm[Hg] Location: ANUSHA; Positi on: Sitting [facility] Height 2018-08-21 10:17:00 65 [in_us] [facility] Weight 2018-08-21 10:17:00 205.125 [lb_av] Unive [facility] Body Mass Index Calculated 2018-08-21 10:17:00 34.13 kg/m2 [facility] Temperature 2018-08-21 10:17:00 97.5 [degF] Method: [facility]poral [facility] Heart Rate 2018-08-21 10:17:00 81 /min [facility] Respiration Rate 2018-08-21 10:17:00 16 /min [facility] O2 SAT 2018-08-21 10:17:00 98 % [facility] BP Systolic 2018-08-03 09:23:00 132 mm[Hg] Location: ANUSHA; Positi on: Sitting [facility] BP Diastolic 2018-08-03 09:23:00 84 mm[Hg] Location: ANUSHA; Positi on: Sitting [facility] Height 2018-08-03 09:23:00 65 [in_us] [facility] Weight 2018-08-03 09:23:00 205.25 [lb_av] [facility] Body Mass Index Calculated 2018-08-03 09:23:00 34.16 kg/m2 [facility] Temperature 2018-08-03 09:23:00 98.8 [degF] Method: Temporal [facility] Heart Rate 2018-08-03 09:23:00 74 /min [facility] Respiration Rate 2018-08-03 09:23:00 16 /min [facility] BP Systolic 2018-07-26 11:16:00 133 mm[Hg] [facility] BP Diastolic 2018-07-26 11:16:00 83 mm[Hg] Location: ELLIE Yo [facility] Height 2018-07-26 11:16:00 65 [in_us] [facility] Weight 2018-07-26 11:16:00 209 [lb_av] [facility] Body Mass Index Calculated 2018-07-26 11:16:00 34.78 kg/m2 [facility] Heart Rate 2018-07-26 11:16:00 75 /min Location: L Brachial Artery; [facility] BP Systolic 2018-06-13 08:27:00 149 mm[Hg] Location: ANUSHA; Positi on: Sitting [facility] BP Diastolic 2018-06-13 08:27:00 88 mm[Hg] Location: ANUSHA; Positi on: Sitting [facility] Heart Rate 2018-06-13 08:27:00 67 /min [facility] BP Systolic 2018-06-13 08:26:00 154 mm[Hg] Location: LUE; Positi on: Sitting [facility] BP Diastolic 2018-06-13 08:26:00 99 mm[Hg] Location: LUE; Positi on: Sitting [facility] Heart Rate 2018-06-13 08:26:00 73 /min [facility] Height 2018-06-13 08:26:00 65 [in_us] [facility] Weight 2018-06-13 08:26:00 194 [lb_av] [facility] Body Mass Index Calculated 2018-06-13 08:26:00 32.28 kg/m2 [facility] Temperature 2018-06-13 08:26:00 97.6 [degF] Method: Temporal [facility] Respiration Rate 2018-06-13 08:26:00 16 /min [facility] BP Systolic 2018-06-09 08:44:00 119 mm[Hg] Location: LUE; Positi on: Sitting [facility] BP Diastolic 2018-06-09 08:44:00 77 mm[Hg] Location: LUE; Positi on: Sitting [facility] Height 2018-06-09 08:44:00 65 [in_us] [facility] Weight 2018-06-09 08:44:00 198.3125 [lb_av] [facility] Body Mass Index Calculated 2018-06-09 08:44:00 33 kg/m2 [facility] Heart Rate 2018-06-09 08:44:00 58 /min [facility] Respiration Rate 2018-06-09 08:44:00 16 /min [facility] BP Systolic 2018-05-29 08:57:00 107 mm[Hg] Location: LUE; Positi on: Sitting [facility] BP Diastolic 2018-05-29 08:57:00 66 mm[Hg] Location: LUE; Positi on: Sitting [facility] Height 2018-05-29 08:57:00 65 [in_us] [facility] Weight 2018-05-29 08:57:00 200.375 [lb_av] [facility] Body Mass Index Calculated 2018-05-29 08:57:00 33.34 kg/m2 [facility] Heart Rate 2018-05-29 08:57:00 58 /min Location: L Radial; [facility] BP Systolic 2018-04-25 10:40:00 122 mm[Hg] Location: CHERYLE; Positi on: Sitting [facility] BP Diastolic 2018-04-25 10:40:00 86 mm[Hg] Location: CHERYLE; Positi on: Sitting [facility] Height 2018-04-25 10:40:00 65 [in_us] [facility] Weight 2018-04-25 10:40:00 193 [lb_av] [facility] Body Mass Index Calculated 2018-04-25 10:40:00 32.12 kg/m2 [facility] Heart Rate 2018-04-25 10:40:00 56 /min Location: L Radial; Q uality: Normal [facility] BP Systolic 2018-04-24 09:38:00 144 mm[Hg] Location: ANUSHA; Positi on: Sitting [facility] BP Diastolic 2018-04-24 09:38:00 79 mm[Hg] Location: ANUSHA; Positi on: Sitting [facility] Height 2018-04-24 09:38:00 65 [in_us] [facility] Weight 2018-04-24 09:38:00 196 [lb_av] [facility] Body Mass Index Calculated 2018-04-24 09:38:00 32.62 kg/m2 [facility] Heart Rate 2018-04-24 09:38:00 61 /min [facility] Respiration Rate 2018-04-24 09:38:00 16 /min [facility] BP Systolic 2018-04-07 13:45:00 111 mm[Hg] Location: ANUSHA; Positi on: Sitting [facility] BP Diastolic 2018-04-07 13:45:00 72 mm[Hg] Location: CHERYLE; Positi on: Sitting [facility] Height 2018-04-07 13:45:00 65 [in_us] [facility] Weight 2018-04-07 13:45:00 190.0 [lb_av] [facility] Body Mass Index Calculated 2018-04-07 13:45:00 31.62 kg/m2 [facility] Heart Rate 2018-04-07 13:45:00 70 /min [facility] BP Systolic 2018-03-31 08:40:00 125 mm[Hg] Location: LUE; Positi on: Sitting [facility] BP Diastolic 2018-03-31 08:40:00 81 mm[Hg] Location: LUE; Positi on: Sitting [facility] Height 2018-03-31 08:40:00 65 [in_us] [facility] Weight 2018-03-31 08:40:00 200.5625 [lb_av] [facility] Body Mass Index Calculated 2018-03-31 08:40:00 33.38 kg/m2 [facility] Temperature 2018-03-31 08:40:00 97.8 [degF] Method: Temporal [facility] Heart Rate 2018-03-31 08:40:00 65 /min [facility] Respiration Rate 2018-03-31 08:40:00 16 /min [facility] BP Systolic 2018-03-14 08:07:00 156 mm[Hg] Location: LUE; Positi on: Sitting [facility] BP Diastolic 2018-03-14 08:07:00 89 mm[Hg] Location: LUE; Positi on: Sitting [facility] Heart Rate 2018-03-14 08:07:00 61 /min [facility] BP Systolic 2018-03-14 08:05:00 172 mm[Hg] Location: LUE; Positi on: Sitting [facility] BP Diastolic 2018-03-14 08:05:00 92 mm[Hg] Location: LUE; Positi on: Sitting [facility] Heart Rate 2018-03-14 08:05:00 61 /min [facility] Height 2018-03-14 08:05:00 65 [in_us] [facility] Weight 2018-03-14 08:05:00 196 [lb_av] [facility] Body Mass Index Calculated 2018-03-14 08:05:00 32.62 kg/m2 [facility] Temperature 2018-03-14 08:05:00 98 [degF] Method: Temporal [facility] Respiration Rate 2018-03-14 08:05:00 16 /min [facility] BP Systolic 2018-02-21 15:16:00 130 mm[Hg] Location: LUE; Positi on: Supine [facility] BP Diastolic 2018-02-21 15:16:00 77 mm[Hg] Location: LUE; Positi on: Supine [facility] Heart Rate 2018-02-21 15:16:00 88 /min Universi ty [facility] BP Systolic 2018-02-21 14:54:00 119 mm[Hg] Location: LUE; Positi on: Sitting [facility] BP Diastolic 2018-02-21 14:54:00 80 mm[Hg] Location: LUE; Positi on: Sitting [facility] Heart Rate 2018-02-21 14:54:00 80 /min [facility] Height 2018-02-21 14:54:00 65 [in_us] Universi ty [facility] Weight 2018-02-21 14:54:00 198 [lb_av] [facility] Body Mass Index Calculated 2018-02-21 14:54:00 32.95 kg/m2 [facility] Temperature 2018-02-21 14:54:00 97.6 [degF] Method: Temporal [facility] Respiration Rate 2018-02-21 14:54:00 16 /min [facility] BP Systolic 2018-01-19 14:22:00 137 mm[Hg] Location: LUE; Positi on: Sitting [facility] BP Diastolic 2018-01-19 14:22:00 86 mm[Hg] Location: LUE; Positi on: Sitting [facility] Height 2018-01-19 14:22:00 65 [in_us] [facility] Weight 2018-01-19 14:22:00 198 [lb_av] [facility] Body Mass Index Calculated 2018-01-19 14:22:00 32.95 kg/m2 [facility] Temperature 2018-01-19 14:22:00 97.1 [degF] Method: Temporal [facility] Heart Rate 2018-01-19 14:22:00 88 /min [facility] Respiration Rate 2018-01-19 14:22:00 16 /min [facility] BP Systolic 2017-12-21 08:37:00 128 mm[Hg] Location: LUE; Positi on: Sitting [facility] BP Diastolic 2017-12-21 08:37:00 75 mm[Hg] Location: LUE; Positi on: Sitting [facility] Heart Rate 2017-12-21 08:37:00 56 /min [facility] BP Systolic 2017-12-21 08:34:00 147 mm[Hg] Location: LUE; Positi on: Sitting [facility] BP Diastolic 2017-12-21 08:34:00 78 mm[Hg] Location: LUE; Positi on: Sitting [facility] Heart Rate 2017-12-21 08:34:00 58 /min Universi ty [facility] Height 2017-12-21 08:34:00 65 [in_us] Universi ty [facility] Weight 2017-12-21 08:34:00 193 [lb_av] [facility] Body Mass Index Calculated 2017-12-21 08:34:00 32.12 kg/m2 [facility] Temperature 2017-12-21 08:34:00 97.9 [degF] Method: Temporal [facility] Respiration Rate 2017-12-21 08:34:00 16 /min [facility] BP Systolic 2017-11-18 08:12:00 133 mm[Hg] Location: LUE; Positi on: Sitting [facility] BP Diastolic 2017-11-18 08:12:00 81 mm[Hg] Location: LUE; Positi on: Sitting [facility] Height 2017-11-18 08:12:00 65 [in_us] [facility] Weight 2017-11-18 08:12:00 192 [lb_av] [facility] Body Mass Index Calculated 2017-11-18 08:12:00 31.95 kg/m2 [facility] Heart Rate 2017-11-18 08:12:00 66 /min [facility] Respiration Rate 2017-11-18 08:12:00 16 /min [facility] BP Systolic 2017-10-25 09:53:00 144 mm[Hg] Location: LUE; Positi on: Sitting [facility] BP Diastolic 2017-10-25 09:53:00 82 mm[Hg] Location: LUE; Positi on: Sitting [facility] Height 2017-10-25 09:53:00 65 [in_us] Universi ty [facility] Weight 2017-10-25 09:53:00 194.375 [lb_av] [facility] Body Mass Index Calculated 2017-10-25 09:53:00 32.35 kg/m2 [facility] Heart Rate 2017-10-25 09:53:00 58 /min Location: L Radial; [facility] BP Systolic 2017-10-20 08:10:00 136 mm[Hg] Location: LUE; Positi on: Sitting [facility] BP Diastolic 2017-10-20 08:10:00 84 mm[Hg] Location: LUE; Positi on: Sitting [facility] Height 2017-10-20 08:10:00 65 [in_us] [facility] Weight 2017-10-20 08:10:00 190.1875 [lb_av] [facility] Body Mass Index Calculated 2017-10-20 08:10:00 31.65 kg/m2 [facility] Temperature 2017-10-20 08:10:00 97 [degF] Method: Temporal [facility] Respiration Rate 2017-10-20 08:10:00 16 /min [facility] Heart Rate 2017-10-20 08:10:00 67 /min [facility] BP Systolic 2017-07-21 14:00:00 138 mm[Hg] Location: LUE; Positi on: Sitting [facility] BP Diastolic 2017-07-21 14:00:00 82 mm[Hg] Location: LUE; Positi on: Sitting [facility] Height 2017-07-21 14:00:00 65 [in_us] [facility] Weight 2017-07-21 14:00:00 202.5 [lb_av] [facility] Body Mass Index Calculated 2017-07-21 14:00:00 33.7 kg/m2 [facility] Temperature 2017-07-21 14:00:00 97.2 [degF] Method: Temporal [facility] Respiration Rate 2017-07-21 14:00:00 16 /min [facility] Heart Rate 2017-07-21 14:00:00 60 /min [facility] Procedures Procedure Date / Time Performed Performing Clinician Sour e [QL] CULTURE, URINE, ROUTINE 2020-02-04 00:00:00 [facility] [QL] T4, FREE 2019-12-26 00:00:00 [place] [facility] [QL] TSH, 3RD GENERATION W/REFLEX TO FT4 2019-12-26 00:00:00 [facility] [QL] CBC (INCLUDES DIFF/PLT) 2019-12-18 00:00:00 [facility] [QL] CMP W/EGFR 2019-12-18 00:00:00 [place] [facility] [QL] CEA 2019-12-18 00:00:00 [place] [facility] [QL] CA 19-9 2019-12-18 00:00:00 [place] [facility] [QLH] URINALYSIS, COMPLETE W/REFLEX TO CULTURE 2019-10-22 00:00: 00 [facility] [QLH] CMP W/EGFR 2019-08-22 00:00:00 [facility] [QLH] TSH, 3RD GENERATION W/REFLEX TO FT4 2019-08-22 00:00:00 [facility] [[facility]] CBC (INCLUDES DIFF/PLT) 2019-08-22 00:00:00 [facility] [QL] HEMOGLOBIN A1c 2019-08-22 00:00:00 [facility] ity [facility] XRAY Chest 2 views [id number] 2019-08-03 00:00:00 Uni versity [facility] CT Chest w contrast [id number] 2019-05-14 00:00:00 Un iversity [facility] EKG (In Office) 2019-05-10 00:00:00 [place] [facility] XRAY Chest 2 views [id number] 2019-05-10 00:00:00 [facility] US Extremity lower venous Doppler Unilat [id number] 2019-02-22 00:00: 00 [facility] [QLH] CBC (INCLUDES DIFF/PLT) 2019-01-30 00:00:00 [facility] [QLH] CMP W/EGFR 2019-01-30 00:00:00 [facility] [QL] TSH, 3RD GENERATION W/REFLEX TO FT4 2019-01-30 00:00:00 [facility] [QL] VITAMIN B12 2019-01-30 00:00:00 [facility] [[facility]] Lupus Anticoagulant Panel 2018-12-01 00:00:00 [facility] [QL] BETA 2 GLYCOPROTEIN I AB (IGG,IGA,IGM) 2018-12-01 00:00:00 University [facility] [QLH] CARDIOLIPIN AB (IGA,IGG,IGM) 2018-12-01 00:00:00 University [facility] [QLH] CRYOGLOBULIN SCREEN W/REFLEX TO CRYOGLOBULIN PRO FILE, SERUM 2018-12-01 00:00:00 [facility] US Extremity lower venous Doppler Unilat [id number] 2018-10-31 00:00: 00 University [facility] [N] Venous Duplex Lower Unilateral 2018-10-31 00:00:00 University [facility] Colonoscopy 2018-10-11 00:00:00 [facility] [QLH] CBC (INCLUDES DIFF/PLT) 2018-05-26 00:00:00 [facility] US Transesophageal echo [id number] 2018-05-24 00:00:00 [facility] [QL[facility]] CMP W/EGFR 2018-04-06 00:00:00 [facility] [QL] CBC (INCLUDES DIFF/PLT) 2018-04-06 00:00:00 [facility] [QL[facility]] CBC (INCLUDES DIFF/PLT) 2018-03-31 00:00:00 University [facility] [QLH] CMP W/EGFR 2018-03-31 00:00:00 [facility] XRAY Chest 2 views [id number] 2018-03-31 00:00:00 Uni [facility] CT Abdomen/Pelvis w contrast [id number] 2018-03-14 00:00:00 University [facility] Computed tomography of soft tissues of neck with contrast 20 30-01-06 00:00:00 MARIUSZ BRADY [facility] [N] 2D Echo complete, with Doppler [id number] 2017-10-25 00:00:00 University [facility] [QLH] CBC (INCLUDES DIFF/PLT) 2017-10-20 00:00:00 University [facility] [QLH] CMP W/EGFR 2017-10-20 00:00:00 [facility] [QLH] VITAMIN D, 25-HYDROXY, LC/MS/MS 2017-10-20 00:00:00 University [facility] [QL] VITAMIN B12/FOLATE, SERUM PANEL 2017-10-20 00:00:00 University [facility] [QLH] TSH, 3RD GENERATION W/REFLEX TO FT4 2017-10-20 00:00:00 [facility] [[facility]] CULTURE, URINE, ROUTINE 2017-10-20 00:00:00 [facility] MA Digital Mammo Screening Hang [id number] 2017-10-20 00:00:00 [facility] [[facility]] CBC (INCLUDES DIFF/PLT) 2017-07-21 00:00:00 [facility] [[facility]] CMP W/EGFR 2017-07-21 00:00:00 [facility] [[facility]] TSH, 3RD GENERATION W/REFLEX TO FT4 2017-07-21 00:00:00 [facility] [[facility]] HEMOGLOBIN A1c 2017-07-21 00:00:00 Univers [facility] History of Appendectomy [facility] History of Hysterectomy [facility] History of Oophorectomy - Bilat (Removal Of Both Ovaries) Laparo scopic [facility] History of Dilation And Curettage [facility] History of Bladder Surgery [facility] History of Hernia Repair [facility] History of Atrial appendage closure device insertion [facility] Appendectomy [facility] Back care<sup>1</sup> [facility] Bladder care management [facility] section [facility] n Colonoscopy [facility] D&C - Dilatation and curettage [facility] Esophagogastroduodenoscopy Memor ial [facility] Hernia repair [facility] Hysterectomy [facility] Implantation of heart assist system<sup>2</sup> [facility] Oophorectomy [facility] Operation [facility] Plan of Care Planned Activity Planned Date Details Comments Source Diagnostic Test Pending 2019-04-03 00:00:00 Colonoscopy [code = 737 21078] [facility] Diagnostic Test Pending 2019-04-03 00:00:00 Colonoscopy [code = 737 44990] [facility] Diagnostic Test Pending 2018-11-16 00:00:00 Colonoscopy [code = 737 41899] [facility] Diagnostic Test Pending 2018-11-16 00:00:00 Colonoscopy [code = 737 73658] [facility] Diagnostic Test Pending 2018-10-31 00:00:00 [N] Venous Duple x Lower Unilateral [code = [N] Venous Duplex Lower Unilateral] [facility] Diagnostic Test Pending 2018-05-24 00:00:00 US Rafa al echo [id number] [code = 91181] [facility] Diagnostic Test Pending 2018-04-14 00:00:00 [QLH] CMP W/EGFR [code = [QLH] CMP W/EGFR] [facility] Diagnostic Test Pending 2018-04-14 00:00:00 [QLH] CBC (INCLU GABI DIFF/PLT) [code = [QLH] CBC (INCLUDES DIFF/PLT)] [facility] Future Scheduled Test 2013-12-17 14:32:43 Plan of Care [code = 1877 6-5] [facility] Scheduled Test 2013-11-23 02:30:42 Plan of Care [code = 1877 6-5] [facility] Scheduled Test 2013-11-22 21:32:18 Plan of Care [code = 1877 6-5] [facility] Scheduled Test 2013-11-14 22:46:21 Plan of Care [code = 1877 6-5] [facility] Scheduled Test 2013-11-12 15:02:48 Plan of Care [code = 1877 6-5] [facility] Scheduled Test 2013-10-25 14:34:03 Plan of Care [code = 1877 6-5] [facility] Scheduled Test 2013-10-18 19:51:26 Plan of Care [code = 1877 6-5] [facility] Scheduled Test 2013-04-27 02:00:20 Plan of Care [code = 1877 6-5] [facility] Scheduled Test 2013-01-25 07:11:51 Plan of Care [code = 1877 6-5] [facility] Appointment 2020-05-23 10:00:00 Lela LAND, [facility] Future Appointment 2020-04-01 10:00:00 Cedric LERMA, [facility] Future Appointment 2020-03-31 13:45:00 Lela WYATT, [facility] Encounters Start Date/Time End Date/Time Encounter Type Admission Type [facility] Care Department Encounter ID Source 2020-01-09 07:43:06 Outpatient MHSE MHSE [id number] [facility] 2019-11-13 15:21:49 Outpatient MHSE MHSE [id number] [facility] 2019-11-06 08:55:38 Outpatient MHSE MHSE [id number] [facility] 2020-03-25 10:00:00 2020-03-25 10:00:00 Appointment; MARIA GUADALUPE MARTINEZ P.A. CRUZ, LETICIA, P.A. [facility] [id number] [facility] 2020-01-31 11:42:00 2020-01-31 23:59:00 Outpatient Lilly Leung MHSE MHSE [id number] 2020-01-31 11:42:00 2020-01-31 11:42:00 Outpatient MHSE MHSE [id number] [facility] 2020-01-18 08:55:00 2020-01-18 14:00:00 Outpatient Lucero Oden MHSE MHSE [id number] 2019-12-18 10:00:00 2019-12-18 10:00:00 Appointment; Manny Mina M.D. Quesada, Jorge, M.D. [facility], [address] [id number] [facility] 2019-11-20 12:40:00 2019-11-20 12:40:00 Appointment; SHANDA KITCHEN M.D. CHARITAKIS, KONSTANTINOS, M.D. [facility], [address] [id number] [facility] 2019-11-02 09:30:00 2019-11-02 09:30:00 Appointment; Manny Mina M.D. Quesada, Jorge, M.D. [facility] [id number] [facility] 2019-10-24 09:00:00 2019-10-24 09:00:00 Appointment; MARIA GUADALUPE MARTINEZ P.A. CRUZ, LETICIA, P.A. [facility], [address] [id number] [facility] 2019-10-22 13:15:00 2019-10-22 13:15:00 Appointment; CODI HUI A PRN SAXE, KAILA, APRN [facility] [id number] [facility] 2019-09-28 09:00:00 2019-09-28 09:00:00 Appointment; SHANDA KITCHEN M.D. CHARITAKIS, KONSTANTINOS, M.D. [facility] [id number] [facility] 2019-09-27 12:38:00 2019-09-27 06:27:00 Inpatient E MHSE MED [id number] [facility] 2019-09-21 09:30:00 2019-09-21 09:30:00 Appointment; MARIA GUADALUPE MARTINEZ P.A. CRUZ, LETICIA, P.A. [facility], [address] [id number] [facility] 2019-09-18 09:40:00 2019-09-18 09:40:00 Appointment; SHANDA KITCHEN M.D. CHARITAKIS, KONSTANTINOS, M.D. [facility] [address] [id number] [facility] 2019-09-14 10:30:00 2019-09-14 10:30:00 Appointment; RAMY REDMOND M.D. MARTIN, GORDON, M.D. [facility] Thoracic Surgery [facility] [id number] [facility] 2019-09-11 13:30:00 2019-09-11 13:30:00 Appointment; MARIA GUADALUPE MARTINEZ P.A. CRUZ, LETICIA, P.A. [facility], [address] [id number] [facility] 2019-09-04 05:27:00 2019-09-04 05:27:00 Emergency E MHSE MHSE [id number] [facility] 2019-08-22 10:45:00 2019-08-22 10:45:00 Appointment; MARIA GUADALUPE MARTINEZ P.A. CRUZ, LETICIA, P.A. [facility] [id number] [facility] 2019-08-21 14:00:00 2019-08-21 14:00:00 Appointment; MARIA GUADALUPE MARTINEZ P.A. CRUZ, LETICIA, P.A. [facility] [id number] [facility] 2019-08-16 12:30:00 2019-08-16 12:30:00 Appointment; ANASTASIYA MCKENZIE COIL WINDERRODY HAIR APRN [facility] [id number] [facility] 2019-08-06 08:45:00 2019-08-06 08:45:00 Appointment; RAMY REDMOND M.D. MARTIN, GORDON, M.D. [facility] Thoracic Surgery [facility] [id number] [facility] 2019-08-03 11:00:00 2019-08-03 11:00:00 Appointment; MARIA GUADALUPE MARTINEZ P.A. CRUZ, LETICIA, P.A. [facility], [address] [id number] [facility] 2019-07-20 11:00:00 2019-07-20 11:00:00 Appointment; RAMY REDMOND M.D. MARTIN, GORDON, M.D. [facility] Cardiothoracic & Vascular Surgery [facility] [id number] [facility] 2019-07-07 09:30:00 2019-07-07 09:30:00 Appointment; MARIA GUADALUPE MARTINEZ P.A. CRUZ, LETICIA, P.A. [facility], [address] [id number] [facility] 2019-06-19 09:20:00 2019-06-19 09:20:00 Appointment; SHANDA KITCHEN M.D. CHARITAKIS, KONSTANTINOS, M.D. [facility], [address] [id number] [facility] 2019-06-08 09:45:00 2019-06-08 09:45:00 Appointment; MARIA GUADALUPE MARTINEZ P.A. CRUZ, LETICIA, P.A. [facility], [address] [id number] [facility] 2019-06-08 08:30:00 2019-06-08 08:30:00 Appointment; EVELINE BURDEN M.D. KOSHELEV, MISHA, M.D. [facility], [address] [id number] [facility] 2019-05-14 08:30:00 2019-05-14 08:30:00 Appointment; MARIA GUADALUPE MARTINEZ P.A. CRUZ, LETICIA, P.A. [facility], [address] [id number] [facility] 2019-05-10 12:00:00 2019-05-10 12:00:00 Appointment; ALESSANDRO MESA AP RN TRAN, THUY, APRN [facility] [id number] [facility] 2019-04-23 10:45:00 2019-04-23 10:45:00 Appointment; ORTEGA LONGO APRN DUGAS, NANCY, APRN [facility], [address] [id number] [facility] 2019-04-03 08:09:00 2019-04-03 08:09:00 Outpatient MHSE MHSE [id number] [facility] 2019-03-21 08:45:00 2019-03-21 08:45:00 Appointment; ANTIONETTE CABRERA APRN OBONYANO, THERESA, APRN [facility] [id number] [facility] 2019-03-15 08:30:00 2019-03-15 08:30:00 Appointment; MARIA GUADALUPE MARTINEZ P.A. CRUZ, LETICIA, P.A. [facility], [address] [id number] [facility] 2019-03-08 14:29:00 2019-03-08 14:29:00 Emergency E MHSE MHSE [id number] [facility] 2019-03-08 13:00:00 2019-03-08 13:00:00 Appointment; YOSELIN DIXON M.D. CATALANO, MARC, M.D. [facility], [address] [id number] [facility] 2019-03-01 13:08:00 2019-03-01 13:08:00 Emergency E MHSE MHSE [id number] [facility] 2019-03-01 08:30:00 2019-03-01 08:30:00 Appointment; CODI HUI A PRN SAXE, KAILA, APRN [facility] [id number] [facility] 2019-02-22 14:30:00 2019-02-22 14:30:00 Appointment; CODI HUI A PRN SAXE, KAILA, APRN [facility] [id number] [facility] 2019-02-13 09:20:00 2019-02-13 09:20:00 Appointment; SHANDA KITCHEN M.D. CHARITAKIS, KONSTANTINOS, M.D. [facility] [address] [id number] [facility] 2019-01-30 08:00:00 2019-01-30 08:00:00 Appointment; MARIA GUADALUPE MARTINEZ P.A. CRUZ, LETICIA, P.A. [facility], [address] [id number] [facility] 2019-01-15 09:00:00 2019-01-15 09:00:00 Appointment; CODI HUI A PRN SAXE, KAILA, APRN [facility] [id number] [facility] 2018-12-04 08:40:00 2018-12-04 08:40:00 Appointment; JEREMIAH VENTURA M.D. DHOBLE, ABHIJEET, M.D. [facility] [id number] [facility] 2018-12-01 10:00:00 2018-12-01 10:00:00 Appointment; EVELINE BURDEN M.D. KOSHELEV, MISHA, M.D. [facility] [address] [id number] [facility] 2018-11-28 11:43:00 2018-11-28 11:43:00 Emergency E MHSE SE [id number] [facility] 2018-11-21 08:36:00 2018-11-21 08:36:00 Outpatient [facility] CAR [id number] [facility] 2018-11-17 08:00:00 2018-11-17 08:00:00 Appointment; EVELINE BURDEN M.D. KOSHELEV, MISHA, M.D. [facility] [address] [id number] [facility] 2018-11-17 08:00:00 2018-11-17 08:00:00 Appointment; EVELINE BURDEN M.D. KOSHELEV, MISHA, M.D. [facility] [id number] [facility] 2018-11-07 11:15:00 2018-11-07 11:15:00 Appointment; MARIA GUADALUPE MARTINEZ P.A. CRUZ, LETICIA, P.A. [facility] [address] [id number] [facility] 2018-11-02 13:00:00 2018-11-02 13:00:00 Appointment; KENYETTA-MS, E KEVIN [facility], YARIEL [facility] [id number] [facility] 2018-10-31 09:20:00 2018-10-31 09:20:00 Appointment; SHANDA KITCHEN M.D. CHARITAKIS, KONSTANTINOS, M.D. [facility] [address] [id number] [facility] 2018-10-05 13:00:00 2018-10-05 13:00:00 Appointment; YOSLEIN DIXON M.D. CATALANO, MARC, M.D. [facility] [address] [id number] [facility] 2018-09-28 14:00:00 2018-09-28 14:00:00 Appointment; MARIA GUADALUPE MARTINEZ P.A. CRUZ, LETICIA, P.A. [facility] [address] [id number] [facility] 2018-08-21 10:15:00 2018-08-21 10:15:00 Appointment; MARIA GUADALUPE MARTINEZ P.A. CRUZ, LETICIA PMadyson [facility] [address] [id number] [facility] 2018-08-09 10:20:00 2018-08-09 10:20:00 Appointment; JEREMIAH VENTURA M.D. DHOBLE, ABHIJEET, M.D. [facility] [id number] [facility] 2018-08-03 09:00:00 2018-08-03 09:00:00 Appointment; MARIA GUADALUPE MARTINEZ P.A. CRUZ, LETICIA, P.A. [facility] [address] [id number] [facility] 2018-07-26 11:40:00 2018-07-26 11:40:00 Appointment; JEREMIAH VENTURA M.D. DHOBLE, ABHIJEET, M.D. [facility] [id number] [facility] 2018-06-13 08:45:00 2018-06-13 08:45:00 Appointment; MARIA GUADALUPE MARTINEZ P.A. CRUZ, LETICIA, P.A. [facility] [address] [id number] [facility] 2018-06-09 08:15:00 2018-06-09 08:15:00 Appointment; THU CHEEMA M.D. SIMMONS, JOHN, M.D. [facility] [id number] [facility] 2018-05-29 09:00:00 2018-05-29 09:00:00 Appointment; JEREMIAH VENTURA M.D. DHOBLE, ABHIJEET, M.D. [facility] [address] [id number] [facility] 2018-04-25 11:00:00 2018-04-25 11:00:00 Appointment; SHANDA KITCHEN M.D. CHARITAKIS, KONSTANTINOS, M.D. [facility] [address] [id number] [facility] 2018-04-25 10:00:00 2018-04-25 10:00:00 Appointment; Herbert CHATMAN ECHO [facility] [id number] [facility] 2018-04-24 09:00:00 2018-04-24 09:00:00 Appointment; JEREMIAH VENTURA M.D. DHOBLE, ABHIJEET, M.D. [facility] [id number] [facility] 2018-04-07 13:30:00 2018-04-07 13:30:00 Appointment; THU CHEEMA M.D. SIMMONS, JOHN, M.D. [facility] [id number] [facility] 2018-03-31 09:15:00 2018-03-31 09:15:00 Appointment; MARIA GUADALUPE MARTINEZ P.A. CRUZ, LETICIA PKevenAKeven [facility] [address] [id number] [facility] 2018-03-21 13:30:00 2018-03-21 13:30:00 Appointment; NICO CORNEJO D.O. YEH, SHAO-CHUN, D.O. [facility] [id number] [facility] 2018-03-14 08:00:00 2018-03-14 08:00:00 Appointment; MARIA GUADALUPE MARTINEZ P.A. CRUZ, LETICIA P.AKeven [facility] [address] [id number] [facility] 2018-02-21 15:00:00 2018-02-21 15:00:00 Appointment; MARIA GUADALUPE MARTINEZ P.A. CRUZ, LETICIA P.AKeven [facility] [address] [id number] [facility] 2018-01-19 14:00:00 2018-01-19 14:00:00 Appointment; MARIA GUADALUPE MARTINEZ P.A. CRUZ, LETICIA PKevenAKeven [facility] [address] [id number] [facility] 2018-01-18 19:47:00 2018-01-18 23:55:00 Departed Emergency Room 1 MARIUSZ BRADY [facility] [id number] [facility] 2017-12-21 08:15:00 2017-12-21 08:15:00 Appointment; MARIA GUADALUPE MARTINEZ P.A. CRUZ, LETICIA P.AKeven [facility] [address] [id number] [facility] 2017-11-18 08:00:00 2017-11-18 08:00:00 Appointment; EVELINE BURDEN M.D. KOSHELEV, MISHA, M.D. [facility] [address] [id number] [facility] 2017-10-25 10:20:00 2017-10-25 10:20:00 Appointment; SHANDA KITCHEN M.D. CHARITAKIS, KONSTANTINOS, M.D. [facility] [address] [id number] [facility] 2017-10-20 08:00:00 2017-10-20 08:00:00 Appointment; MARIA GUADALUPE MARTINEZ P.A. CRUZ, LETICIA, P.A. UTP [facility] [address] [id number] [facility] 2017-07-21 13:30:00 2017-07-21 13:30:00 Appointment; MARIA GUADALUPE MARTINEZ P.A. CRUZ, LETICIA, P.A. UTP [facility] [address] [id number] [facility] 2017-05-26 08:30:00 2017-05-26 08:30:00 Appointment; MARIA GUADALUPE MARTINEZ P.A. CRUZ, LETICIA, P.A. UTP UTP [id number] [facility] 2017-05-06 10:20:00 2017-05-06 10:20:00 Appointment; SHANDA KITCHEN M.D. CHARITAKIS, KONSTANTINOS, M.D. UTP UTP [id number] [facility] 2017-05-06 09:00:00 2017-05-06 09:00:00 Appointment; [place]-MS, Herbert BROWN [place]-MS, ECHO UTP UTP [id number] [facility] 2017-03-15 13:40:00 2017-03-15 13:40:00 Appointment; SHANDA KITCHEN M.D. CHARITAKIS, KONSTANTINOS, M.D. UTP UTP [id number] [facility] 2017-03-07 13:00:00 2017-03-07 13:00:00 Appointment; [place]-MS, E KEVIN [facility], ECHO UTP UTP [id number] [facility] 2017-02-21 08:00:00 2017-02-21 08:00:00 Appointment; MARIA GUADALUPE MARTINEZ P.A. CRUZ, LETICIA, P.AKeven UTP UTP [id number] [facility] 2017-02-16 08:00:00 2017-02-16 08:00:00 Appointment; MARIA GUADALUPE MARTINEZ P.A. CRUZ, LETICIA, P.A. UTP UTP [id number] [facility] 2017-01-19 10:15:00 2017-01-19 10:15:00 Appointment; MARIA GUADALUPE MARTINEZ P.A. CRUZ, LETICIA P.A. UTP UTP [id number] [facility] 2016-11-30 09:30:00 2016-11-30 09:30:00 Appointment; MARIA GUADALUPE MARTINEZ P.A. CRUZ, LETICIA, P.A. UTP UTP [id number] [facility] 2016-11-02 09:00:00 2016-11-02 09:00:00 Appointment; SHANDA KITCHEN M.D. CHARITAKIS, KONSTANTINOS, M.D. UTP UTP [id number] [facility] 2016-11-01 08:00:00 2016-11-01 08:00:00 Appointment; MARIA GUADALUPE MARTINEZ P.A. CRUZ, LETICIA, P.A. UTP UTP [id number] [facility] 2016-10-20 09:45:00 2016-10-20 09:45:00 Appointment; THU CHEEMA M.D. SIMMONS, JOHN, M.D. UTP UTP [id number] [facility] 2016-10-18 08:15:00 2016-10-18 08:15:00 Appointment; MARIA GUADALUPE MARTINEZ P.A. CRUZ, LETICIA, P.A. UTP UTP [id number] [facility] 2016-08-10 08:15:00 2016-08-10 08:15:00 Appointment; NING LECHUGA M.D. HARLIN, STUART, M.D. UTP UTP [id number] [facility] 2016-08-02 11:00:00 2016-08-02 11:00:00 Appointment; VASCULAR, SE VASCULAR, SE UTP UTP [id number] [facility] 2016-07-27 10:00:00 2016-07-27 10:00:00 Appointment; NING LECHUGA M.D. HARLIN, STUART, M.D. UTP UTP [id number] [facility] 2016-07-14 08:30:00 2016-07-14 08:30:00 Appointment; MARIA GUADALUPE MARTINEZ P.A. CRUZ, LETICIA P.A. UTP UTP [id number] [facility] 2016-05-31 11:00:00 2016-05-31 11:00:00 Appointment; MARIA GUADALUPE MARTINEZ P.A. CRUZ, LETICIA, P.A. UTP UTP [id number] [facility] 2016-05-26 15:15:00 2016-05-26 15:15:00 Appointment; MARIA GUADALUPE MARTINEZ P.A. CRUZ, LETICIA, P.A. UTP UTP [id number] [facility] 2016-05-24 16:00:00 2016-05-24 16:00:00 Appointment; MARIA GUADALUPE MARTINEZ P.A. CRUZ, LETICIA, P.A. UTP UTP [id number] [facility] 2016-05-18 13:30:00 2016-05-18 13:30:00 Appointment; MARIA GUADALUPE MARTINEZ P.A. CRUZ, LETICIA, P.A. UTP UTP [id number] [facility] 2016-05-04 10:40:00 2016-05-04 10:40:00 Appointment; SHANDA KITCHEN M.D. CHARITAKIS, KONSTANTINOS, M.D. UTP UTP [id number] [facility] 2016-05-04 08:45:00 2016-05-04 08:45:00 Appointment; NING LECHUGA M.D. HARLIN, STUART, M.D. UTP UTP [id number] [facility] 2016-04-26 13:00:00 2016-04-26 13:00:00 Appointment; [place]-MS, E [facility]IN [facility] ECHO UTP UTP [id number] [facility] 2016-04-20 09:00:00 2016-04-20 09:00:00 Appointment; NING LECHUGA M.D. HARLIN, STUART, M.D. UTP UTP [id number] [facility] 2016-04-08 15:00:00 2016-04-08 15:00:00 Appointment; MARIA GUADALUPE MARTNIEZ P.A. CRUZ, LETICIA P.A. UTP UTP [id number] [facility] 2016-03-15 08:30:00 2016-03-15 08:30:00 Appointment; NING LECHUGA M.D. HARLIN, STUART, M.D. UTP UTP [id number] [facility] 2016-03-05 13:00:00 2016-03-05 13:00:00 Appointment; [place]-MS, E CHO [facility] ECHO UTP UTP [id number] [facility] 2016-03-01 09:15:00 2016-03-01 09:15:00 Appointment; NING LECHUGA M.D. HARLIN, STUART, M.D. UTP UTP [id number] [facility] 2016-02-24 09:40:00 2016-02-24 09:40:00 Appointment; SHANDA KITCHEN M.D. CHARITAKIS, KONSTANTINOS, M.D. UTP UTP [id number] [facility] 2016-02-11 11:30:00 2016-02-11 11:30:00 Appointment; ALESSANDRO MESA, EVENT PRODUCER MESAALESSANDRO, EVENT PRODUCER UTP UTP [id number] [facility] 2016-02-04 17:30:00 2016-02-04 17:30:00 Appointment; ALESSANDRO MESA EVENT PRODUCER MESA, ALESSANDRO, EVENT PRODUCER UTP UTP [id number] [facility] 2015-12-02 08:30:00 2015-12-02 08:30:00 Appointment; MARIA GUADALUPE MARTINEZ P.A. CRUZ, LETICIA, P.A. UTP UTP [id number] [facility] 2015-10-29 12:20:00 2015-10-29 12:20:00 Appointment; SHANDA KITCHEN M.D. CHARITAKIS, KONSTANTINOS, M.D. UTP UTP [id number] [facility] 2015-09-12 08:45:00 2015-09-12 08:45:00 Appointment; CHARLA BETTS P.A. CAMPOS, BERTHA, P.A. UTP UTP [id number] [facility] 2015-08-26 11:20:00 2015-08-26 11:20:00 Appointment; SHANDA KITCHEN M.D. CHARITAKIS, KONSTANTINOS, M.D. [facility] UTP [id number] [facility] 2015-08-13 09:30:00 2015-08-13 09:30:00 Appointment; CHARLA BETTS P.A. CAMPOS, BERTHA, P.A. UTP UTP [id number] [facility] 2013-12-17 09:32:43 2013-12-17 09:32:43 Outpatient MHIE MHIE [id number] 2013-11-22 21:30:43 2013-11-22 21:30:42 Outpatient MHIE MHIE [id number] 2013-11-22 16:32:19 2013-11-22 16:32:18 Outpatient MHIE MHIE [id number] 2013-11-22 14:15:00 2013-11-22 14:15:00 Appointment; MARIA GUADALUPE MARTINEZ P.A. CRUZ, LETICIA, P.A. UTP [facility] 2 [id number] [facility] 2013-11-14 17:46:22 2013-11-14 17:46:21 Outpatient MHIE MHIE [id number] 2013-11-12 10:02:49 2013-11-12 10:02:48 Outpatient MHIE MHIE [id number] 2013-10-25 09:34:03 2013-10-25 09:34:03 Outpatient MHIE MHIE [id number] 2013-10-18 13:51:27 2013-10-18 13:51:26 Outpatient MHIE MHIE [id number] 2013-09-20 15:06:43 2013-09-20 15:06:42 Outpatient MHIE MHIE [id number] 2013-09-18 15:47:13 2013-09-18 15:47:12 Outpatient MHIE MHIE [id number] 2013-07-04 17:47:33 2013-07-04 17:47:33 Outpatient MHIE MHIE [id number] 2013-06-25 08:16:14 2013-06-25 08:16:14 Outpatient MHIE MHIE [id number] 2013-06-18 17:31:26 2013-06-18 17:31:25 Outpatient MHIE MHIE [id number] 2013-06-13 18:02:07 2013-06-13 18:02:06 Outpatient BRANDON BRANDON [id number] 2013-04-28 14:00:22 2013-04-28 14:00:22 Outpatient BRANDON BRANDON [id number] 2013-04-26 21:00:20 2013-04-26 21:00:20 Outpatient HEIKE BURROUGHS [id number] 2013-02-06 23:04:23 2013-02-06 23:03:58 Outpatient BRANDON BURROUGHS [id number] 2013-01-25 02:12:10 2013-01-25 02:11:51 Outpatient BRANDON BRANDON [id number] 2012-12-20 00:14:19 2012-12-20 00:14:01 Outpatient BRANDON BRANDON [id number] Results Test Description Test Time Test Comments Results Result Comments Source CXR 2 VIEW - HOPD 2020-03-26 14:07:00 [place] [address] Patient Name: TOMAS PERAZA MR #: [id number] : 1940 Age/Sex: 79/F Req #: [id number] Adm Physician: Ordered by: ANNI MANN MD Report #: [id number] Location: [facility] Room/Bed: Procedure: [id number] HOPD/CXR 2 VIEW - HOPD Exam Date: [...] Comment A CULTURE, URINE, ROUTINE Micro Number: [id number] Test Status: Final Specimen Source: URINE Specimen [...] cefdinir, cefpodoxime, cefprozil, cefuroxime, cephalexin and loracarbef. [facility] [id number] 14:43:00Not Detected (01/14/20 9:43 AM)[facility][QL] CMP [id number] 11:39:00* Test Item Value Reference Range Interpretation Comments GLUCOSE; Normal (test code = 1547-9) 120 mg/dl 65-139 N Non-fasting reference interval UREA NITROGEN (BUN) (test code = UREA NITROGEN (BUN)) 22 mg/dl 7-25 N CREATININE (test code = CREATININE) 1.61 mg/dl 0.60-0.93 For patients >49 years of age, the reference limitfor Creatinine is approximately 13% higher for peopleidentified as -Swiss. eGFR NON- (test code = eGFR NON-DANILO N IRANIAN) 31 {ML/MIN/1.7} > OR = 60 eGFR [...] N BILIRUBIN, TOTAL; Normal (test code = 97666-2) 0.3 mg/dl 0.2-1.2 N ALKALINE PHSPHATASE (test code = ALKALINE PHSPHATASE) 109 u/l 37-153 N AST; Normal (test code = 1916-6) 12 u/l 10-35 N ALT; Normal (test code = 1742-6) 9 u/l 6-29 N [facility][QL] CBC (INCLUDES DIFF/PLT)2019-12-18 11:39:00* Test Item Value Reference Range Interpretation Comments WHITE BLOOD CELL COUNT (test code = WHITE BLOOD CELL COUNT) 7.6 {Thousand/u} 3.8-10.8 N RED BLOOD CELL COUNT (test code = RED BLOOD CELL COUNT) 3.99 {Million/uL} 3.80-5.10 N HEMAGLOBIN; Normal (test code = 10108-6) 12.8 g/dl 11.7-15.5 N HEMATOCRIT; Normal (test code = 4544-3) 39.1 % 35.0-45.0 N MCV; Normal (test code = 787-2) 98.0 fL 80.0-100.0 N MCHC; Normal (test code = 16745-3) 32.7 g/dl 32.0-36.0 N RDW; Normal (test code = 788-0) 13.1 % 11.0-15.0 N PLATELET COUNT; Normal (test code = 777-3) 351 {Thousand/u} 140-400 N MPV; Normal (test code = 89690-1) 9.7 fL 7.5-12.5 N ABSOLUTE NEUTROPHILS (test code = ABSOLUTE NEUTROPHILS) 5480 {cells/uL} 9920-5924 N ABSOLUTE LYMPHOCYTES (test code = ABSOLUTE [...] % N MONOCYTES; Normal (test code = 43916-0) 5.4 % N EOSINOPHILS; Normal (test code = 70413-9) 2.4 % N BASOPHILS; Normal (test code = 10874-0) 0.4 % N [facility][QL] [id number] 11:39:00* Test Item Value Reference Range Interpretation Comments CEA (test code = CEA) 2.3 ng/ml N Non-Sm oker: <2.5Smoker: <5.0 This test was performed using the Siemens chemiluminescent method. Values obtained fromdifferent assay methods cannot be usedinterchangeably. CEA levels, regardle ss ofvalue, should not be interpreted as absoluteevidence of the presence or absence of disease. [facility][] [id number] 11:39:00* Test Item Value Reference Range Interpretation Comments CA 19-9 (test code = CA 19-9) 26 U/ml <34 N This test was performed using the Siemens chemiluminescent method. Values obtained fromdifferent assay methods cannot be usedinterchangeably. CA 19-9 levels, regardless ofvalue, should not be interpreted as absoluteevidence of the presence or absence of disease. [facility][O] Urine Dipstick (In Office)2019-10-22 13:07:00 * Test Item Value Reference Range Interpretation Comments Glucose (test code = Glucose) negative N LEUKOCYTES (test code = LEUKOCYTES) ++ A NITRITE; Abnormal (test code = 35156-8) Positive A UROBILINOGEN; Normal (test code = 64232-0) normal N PROTEIN; Abnormal (test code = 13686-1) +30 A pH (test code = pH) 6 N URINE BLOOD; Abnormal (test code = 63148-2) ~250 A SPECIFIC GRAVITY; Normal (test code = 2965-2) 1.015 N KETONES; Normal (test code = 28214-6) negative N BILIRUBIN; Normal (test code = 22787-9) negative N COLOR URINE; Abnormal (test code = 5778-6) dk yellow A APPEARANCE; Abnormal (test code = 5767-9) cloudy A COMMENT (test code = COMMENT) foul odor A [facility]] URINALYSIS, COMPLETE W/REFLEX TO CULTURE 2019-10-22 [...] NEGATIVE N BILIRUBIN; Normal (test code = 02994-7) NEGATIVE NEGATIVE N KETONES; Abnormal (test code = 68091-1) TRACE NEGATIVE A OCCULT BLOOD; Normal (test code = 36699-7) NEGATIVE NEGATIVE N PROTEIN; Abnormal (test code = 42469-4) 1+ NEGATIVE A NITRITE (test code = NITRITE) NEGATIVE NEGATIVE N LEUKOCYTE ESTERASE (test code = LEUKOCYTE ESTERASE) 2+ NE GATIVE A WBC; Abnormal (test code = 6690-2) PACKED < OR = 5 A RBC; Normal (test code = 789-8) 0-2 < OR = 2 N SQUAMOUS EPITHELIAL CELLS (test code = 61789-9) 0-5 < OR = 5 BACTERIA; Abnormal (test code = 630-4) MODERATE NONE SEEN A HYALINE CAST; Normal (test code = 06896-1) NONE SEEN NONE SEEN N NOTE (test code = NOTE) See Below This urine was analyzed for the presence of WBC, RBC, bacteria, casts, and other formed elements. Only those elements seen were reported. [facility][] REFLEXIVE URINE [id number] 00:00:00* Test Item Value Reference Range Interpretation Comments REFLEXIVE URINE CULTURE (test code = REFLEXIVE URINE C ULTURE) CULTURE INDICATED - RESULTS TO FOLLOW [facility]] CULTURE, URINE, [id number] 00:00:00* Test Item Value Reference Range Interpretation Comments CULTURE (test code = CULTURE) See Comment A CULTURE, URINE, ROUTINE Micro Number: [id number] Test Status: Final Specimen Source: URINE Specimen [...] cefdinir, cefpodoxime, cefprozil, cefuroxime, cephalexin and loracarbef. [facility][QL] URINALYSIS, COMPLETE W/REFLEX TO CULTURE 2019-10-22 [...] NEGATIVE N BILIRUBIN; Normal (test code = 78485-8) NEGATIVE NEGATIVE N KETONES; Abnormal (test code = 38752-1) TRACE NEGATIVE A OCCULT BLOOD; Normal (test code = 56985-2) NEGATIVE NEGATIVE N PROTEIN; Abnormal (test code = 33691-1) 1+ NEGATIVE A NITRITE (test code = NITRITE) NEGATIVE NEGATIVE N LEUKOCYTE ESTERASE (test code = LEUKOCYTE ESTERASE) 2+ NE GATIVE A WBC; Abnormal (test code = 6690-2) PACKED < OR = 5 A RBC; Normal (test code = 789-8) 0-2 < OR = 2 N SQUAMOUS EPITHELIAL CELLS (test code = 18244-0) 0-5 < OR = 5 BACTERIA; Abnormal (test code = 630-4) MODERATE NONE SEEN A HYALINE CAST; Normal (test code = 37127-9) NONE SEEN NONE SEEN N NOTE (test code = NOTE) See Below This urine was analyzed for the presence of WBC, RBC, bacteria, casts, and other formed elements. Only those elements seen were reported. [facility][] CULTURE, URINE, [id number] 00:00:00* Test Item Value Reference Range Interpretation Comments CULTURE (test code = CULTURE) See Comment A CULTURE, URINE, ROUTINE Micro Number: [id number] Test Status: Final Specimen Source: URINE Specimen [...] cefdinir, cefpodoxime, cefprozil, cefuroxime, cephalexin and loracarbef. [facility] Chest 2 views [id number] 13:31:00EXAM: XR CHEST 2 VIEWSDATE: 08/23/2019 13:31 [...] 4:01Electronically Signed by: Mariusz Arredondo MD 014:05FINAL REPORTBe[facility] Valley Hospital [facility]] CMP [id number] 12:51:00* Test Item Value Reference Range Interpretation [...] higher for peopleidentified as -Swiss. eGFR NON- (test code = eGFR NON-DANILO N IRANIAN) 47 {ML/MIN/1.7} > OR = 60 eGFR [...] N BILIRUBIN, TOTAL; Normal (test code = 19740-7) 0.3 mg/dl 0.2-1.2 N ALKALINE PHSPHATASE (test code = ALKALINE PHSPHATASE) 67 u/l 33-130 N AST; Normal (test code = 1916-6) 14 u/l 10-35 N ALT; Normal (test code = 1742-6) 24 u/l 6-29 N [facility]] CBC (INCLUDES DIFF/PLT)2019-08-23 12:51:00* Test Item Value Reference Range Interpretation Comments WHITE BLOOD CELL COUNT (test code = WHITE BLOOD CELL COUNT) 6.7 {Thousand/u} 3.8-10.8 N RED BLOOD CELL COUNT (test code = RED BLOOD CELL COUNT) 3.69 {Million/uL} 3.80-5.10 HEMAGLOBIN; Normal (test code = 94953-7) 11.9 g/dl 11.7-15.5 N HEMATOCRIT; Normal (test code = 4544-3) 35.1 % 35.0-45.0 N MCV; Normal (test code = 787-2) 95.1 fL 80.0-100.0 N MCHC; Normal (test code = 93636-1) 33.9 g/dl 32.0-36.0 N RDW; Normal (test code = 788-0) 14.5 % 11.0-15.0 N PLATELET COUNT; Normal (test code = 777-3) 248 {Thousand/u} 140-400 N MPV; Normal (test code = 53713-9) 9.4 fL 7.5-12.5 N ABSOLUTE NEUTROPHILS (test code = ABSOLUTE NEUTROPHILS) 4663 {cells/uL} 1677-0428 N ABSOLUTE LYMPHOCYTES (test code = ABSOLUTE [...] % N MONOCYTES; Normal (test code = 99146-0) 5.7 % N EOSINOPHILS; Normal (test code = 43620-6) 1.0 % N BASOPHILS; Normal (test code = 85683-7) 0.4 % N [facility]] TSH, 3RD GENERATION W/REFLEX TO FT4 2019-08-23 12:51:00* Test Item Value Reference Range Interpretation Comments TSH, 3RD GENERATION W/REFLEX TO FT4 (rocio t code = TSH, 3RD GENERATION W/REFLEX TO FT4) 45.33 {MIU/L} 0.40-4.50 [facility]] T4, [id number] 12:51:00* Test Item Value Reference Range Interpretation Comments T4, FREE (test code = T4, FREE) 0.8 ng/dl 0.8-1.8 N [facility]] HEMOGLOBIN [id number] 12:51:00* Test Item Value Reference Range Interpretation Comments HEMOGLOBIN A1c; Above High Threshold (test code = 4548-4) 7.0 {% of total} <5.7 For someone without known diabetes, a he muscogeelobin I2nayvjn of 6.5% or greater indicates that they [...] A1c for diagnosis of diabetes for children. 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 Location code: [facility] Electronically Si gned by Lela Diaz on 07/31/2019 at 1839 Reported and signed by: Abelino Diaz M.D. CC: Richard Dawson; Dk Mesa Technologist :Mily [place] RT(R); GERMAIN Zendejas CTDI: DLP: Trnscb Date/Time: 07/15 (183) Patricia Orig Print D/T: S: 07/31/2019 (18 42) PAGE 1 Signed Report - CTA [id number] 16:02:00 Name: TOMAS PERAZA [facility] : 1940 Age/S: 78 / F [address] Unit #: [id number] Loc: [place] [address] Phys: Yan Rudolph MD Acct: [id number] Dis Date: 07/20/2019 Status: DIS IN PHONE #: [phone] Exam Date: 07/11/2019 1140 FAX #: [phone] Reason: AAA Report Has Been Amended EXAMS: CPT CODE: [id number] CTA ABDOMEN 23941 Addendum - 07/31/2019 SIGNED 07/31/2019 ADDENDUM: [id number] CT/CTABWWO Focal herniation of the left lung [...] : 1940 Age/S: 78 / F [address] Unit #: [id number] Loc: [place] [address] Phys: Yan Rudolph MD Acct: [id number] Dis Date: 07/20/2019 Stat us: DIS IN PHONE #: [phone] Exam Date: 07/11/2019 1140 FAX #: [phone] Reason: AAA Report Has Been Amended EXAMS: CPT CODE: [id number] CTA ABDOMEN 87512 < Continued> mildly dilated measuring 3.2 cm [...] : 1940 Age/S: 78 / F [address] Unit #: [id number] Loc: [place] [address] Phys: Yan Rudolph MD Acct: [id number] Dis Date: 07/20/2019 Status: DIS IN PHONE #: [phone] Exam Date: 07/11/2019 1140 FAX #: [phone] Reason: AAA Report Has Been Amended EXAMS: CPT CODE: [id number] CTA ABDOMEN 32740 < Continued> the left kidney. Prior hysterectomy. [...] CHF with pulmonary edema. Location: [facility] at 1201 Reported and signed by: Vince Willett MD CC: Richard Dawson; Yan Rudolph MD Technologist:Chris Hastings RT(R) CTDI: DLP: Trnscb Date/Time: 07/11/2019 (1201) [email or web address] Orig Print D/T: S: 07/31/2019 (2558) PAGE 3 Signed Report - CTA [id number] 16:02:00 Name: TOMAS PERAZA [facility] : 1940 Age/S: 78 / F [address] Unit #: [id number] Loc: [place] [address] Phys: Yan Rudolph MD Acct: [id number] Dis Date: 07/20/2019 Status: DIS IN PHONE #: [phone] Exam Date: 07/11/2019 1142 FAX #: [phone] Reason: AAA Report Has Been Amended EXAMS: CPT CODE: [id number] CTA ABDOMEN 90857 Addendum - 07/31/2019 SIGNED 07/31/2019 ADDENDUM: [id number] CT/CTABWWO Focal herniation of the left lung as well as a stenotic change of the adjacent rib likely represents sequela of remote trauma. at 1602 Reported and signed by: Vince Willett MD Transcribed: 07/31/2019 (8314) [email or web address] Report REASON FOR EXAM: history of [...] : 1940 Age/S: 78 / F [address] Unit #: [id number] Loc: [place] [address] Phys: Yan Rudolph MD Acct: [id number] Dis Date: 07/20/2019 Status: DIS IN PHONE #: [phone] Exam Date: 07/11/2019 1140 FAX #: [phone] Reason: AAA Report Has Been Amended EXAMS: CPT CODE: [id number] CTA ABDOMEN 07261 <Continued> mildly dilated measuring 3.2 cm in [...] 1940 Age /S: 78 / F [address] Unit #: [id number] Loc: [place] [address] Phys: Yan Rudolph MD Acct: [id number] Dis Date: 2018 Status: DIS IN PHONE #: [phone] Exam Date: 07/11/2019 1140 FAX #: [phone] Reason: AAA Repor t Has Been Amended EXAMS: CPT CODE: [id number] CTA ABDOMEN 79653 <Continued> the left kidney. Prior hysterectomy. Otherwise [...] CHF with pulmonary edema. Location: [facility] at 1201 Reported and signed by: Vince Willett MD CC: Richard Dawson; Yan Rudolph MD Technologist:Chris Hastings RT(R) CTDI: DLP: Trnscb Date/Time: 07/11/2019 (1201) [email or web address] Orig Print D/T: S: 07/31/2019 (4489) PAGE 3 Signed Report - CTA [id number] 16:02:00 Name: TOMAS PERAZA [facility] : 1940 Age/S: 78 / F [address] Unit #: [id number] Loc: [place] [address] Phys: Yan Rudolph MD Acct: [id number] Dis Date: 07/20/2019 Status: DIS IN PHONE #: [phone] Exam Date: 07/11/2019 1123 FAX #: [phone] Reason: history of AAA< epigastric pain Report Has Been Amended EXAMS: CPT CODE: [id number] CTA CHEST 94713 Addendum - 07/31/2019 SIGNED 07/31/2019 ADDENDUM: [id number] CT/CTACHWWO Focal herniation of the left lung as well as a stenotic change of the adjacent rib likely represents sequela of remote trauma. at 1602 Reported and signed by: Vince Willett MD Transcribed: 07/31/2019 (1602) [email or web address] Addendum - 07/11/2019 SIGNED 07/11/2019 ADDENDUM: [id number] CT/CTACHWWO Focal herniation of the left lung [...] : 1940 Age/S: 78 / F [address] Unit #: [id number] [place]: [place] [address] Phys: Yan Rudolph MD Acct: [id number] Dis Date: 07/20/2019 Status: DIS IN PHONE #: [phone] Exam Date: 07/11/2019 1123 FAX #: [phone] Reason: history of AAA< epigastric pain Report Has Been Amended EXAMS: CPT CODE: [id number] CTA CHEST 56685 <Continued> Timing of the contrast bolus is [...] : 1940 Age/S: 78 / F [address] Unit #: [id number] Loc: [place] [address] Phys: Yan Rudolph MD Acct: [id number] Dis Date: 07/20/2019 Status: DIS IN PHONE #: [phone] Exam Date: 9 1123 FAX #: [phone] Reason: history of AAA< epigastric pain Report Has Been Amend ed EXAMS: CPT CODE: [id number] CTA CHEST 91809 < Continued> Subcentimeter right hilar lymph nodes [...] CHF with pulmonary edema. Location: [facility] at 1201 Reported and signed by: Vince Willett MD PAGE 3 Signed Report (CONTINUED) Name: TOMAS PERAZA [facility] : 1940 Age/S: 78 / F [address] Unit #: [id number] Loc: [place] [address] Phys: Yan Rudolph MD Acct: [id number] Dis Date: 07/20/2019 Status: DIS IN PHONE #: [phone] Exam Date: 07/11/2019 1123 FAX #: [phone] Reason: history of AAA< epigastric pain Report Has Been Amended EXAMS: CPT CODE: [id number] CTA CHEST 53131 <Continued> CC: Yan Rudolph MD Technologist:Chris Hastings RT(R) CTDI: DLP: Trnscb Date/Time: 07/11/2019 (1201) [email or web address] Orig Print D/T: S: 07/11/2019 (9234) PAGE 4 Signed Report - CTA [id number] 16:02:00 Name: TOMAS PERAZA [facility] : 1940 Age/S: 78 / F [address] Unit #: [id number] Loc: [place] [address] Phys: Yan Rudolhp MD Acct: [id number] Dis Date: 07/20/2019 Status: DIS IN PHONE #: [phone] Exam Date: 07/11/2019 1123 FAX #: [phone] Reason: history of AAA< epigastric pain Report Has Been Amended EXAMS: CPT CODE: [id number] CTA CHEST 52436 Addendum - 07/31/2019 SIGNED 07/31/2019 ADDENDUM: [id number] CT/CTACHWWO Focal herniation of the left lung as well as a stenotic change of the adjacent rib likely represents sequela of remote trauma. at 1602 Reported and signed by: Vince Willett MD Transcribed: 07/31/2019 (1602) [email or web address] Addendum - 07/31/2019 SIGNED 07/31/2019 ADDENDUM: [id number] CT/CTACHWWO Focal herniation of the left lung as well as a stenotic change of the adjacent rib likely represents sequela of remote trauma. at 1602 Reported and signed by: Vince Willett MD Transcribed: 07/31/2019 (1602) [email or web address] Addendum - 07/11/2019 SIGNED 07/11/2019 ADDENDUM: [id number] CT/CTACHWWO Focal herniation of the left lung as well as a stenotic change of the adjacent rib likely represents sequela of remote trauma. at 1444 Reported and signed by: Vince Willett MD Transcribed: 07/11/2019 (2909) [email or web address] Report REASON FOR EXAM: history of AAA< epigastric pain EXAM ORDER DATE: 07/11/2019 10:06 AM Ordering M.D.: Yan Rudolph MD PROCEDURE: - CTA CHEST contrast-enhanced axial CT images were PAGE 1 Signed Report (CONTINUED) Name: TOMAS PERAZA [facility] : 1940 Age/S: 78 / F [address] Unit #: [id number] Loc: [place] [address] Phys: Yan Rudolph MD Acct: [id number] Dis Date: 07/20/2019 Status: DIS IN PHONE #: [phone] Exam Date: 07/11/2019 1123 FAX #: [phone] Reason: history of AAA< epigastric pain Report Has Been Amended EXAMS: CPT CODE: [id number] CTA CHEST 27356 <Continued> acquired through the chest/abdomen/pelvis. Sagittal and [...] 2 Signed Report (CONTINUED) Name: TOMAS PERAZA [facility] : 1940 Age/S: 78 / F [address] Unit #: [id number] Loc: [place] [address] Phys: Yan Rudolph MD Acct: [id number] Dis Date: 07/20/2019 Sta tus: DIS IN PHONE #: [phone] Exam Date : 07/11/2019 1123 FAX #: [phone] Reason: history of AAA< epigastric pain Report Has Been Amended EXAMS: CPT CODE: [id number] CTA CHEST 11523 <Continued> also bronchial wall thickening in the [...] Alona d Report (CONTINUED) Name: TOMAS PERAZA [facility] : 1940 Age/S: 78 / F [address] Unit #: [id number] Loc: [place] [address] Phys: Yan Rudolph MD Acct: [id number] Dis Date: 07/20/2019 Status: DIS IN PHONE #: [phone] Exam Date: 07/11/2019 1 123 FAX #: [phone] Reason: history of AAA< epigastric pain Report Has Been Amend ed EXAMS: CPT CODE: [id number] CTA CHEST 48177 < Continued> right bronchus may represent aspiration and/or infectious bronchiolitis. Cardiomegaly with small pleural effusions and groundglass opacities, may represent CHF with pulmonary edema. Location: [facility] at 1201 Reported and signed by: Vince Willett MD CC: Yan Rudolph MD Technologist:Chris Hastings RT(R) CTDI: DLP: Trnscb Date/Time: 07/11/2019 (1201) [email or web address] Orig Print D/T: S: 07/11/2019 (1205) PAGE 4 Signed Report B-TYPE NATRIURETIC [id number] 14:00:00* Test Item Value Reference Range Interpretation Comments B-TYPE NATRIURETIC PEPTIDE (test code = BNP) 292.89 pgram/mL 0-100 H BASIC METABOLIC [id number] 13:24:00* Test Item Value Reference Range Interpretation [...] code = CA) 8.8 mg/dL 8.5-10.1 N [id number] 13:24:00* Test Item Value Reference Range Interpretation Comments TROPONIN-I (test code = TROPI) 0.051 ng/mL 0-0.045 HH Results called to DR CALLE by [email or web address] 07/31/19 1322Critical results verified and read back by Nurse? Y BASIC METABOLIC [id number] 13:13:00* Test Item Value Reference Range Interpretation [...] code = CA) 8.8 mg/dL 8.5-10.1 N [id number] 13:13:00* Test Item Value Reference Range Interpretation Comments TROPONIN-I (test code = TROPI) ng/mL 0-0.045 CBC W/O [id number] 13:08:00* Test Item Value Reference Range Interpretation [...] fL 6.7-11.0 N - XR CHEST 2 [id number] 12:29:00 FAX: Franck Calle MD [place]: St: [facility] FAX: Richard Gabriel MD [phone] Name: TOMAS PERAZA [facility] : 1940 Age/S: 78/F [address] Unit #: [id number] Loc: [place] [address] Phys: Franck Calle MD Acct: [id number] Dis Date: Status: REG ER PHONE #: [phone] Exam Date: 07/31/2019 1219 FAX #: [phone] Reason: cough sob EXAMS: CPT CODE: [id number] XR CHEST 2 V 51104 HISTORY: Cough and shortness of breath. COMPARISON: [...] Dawson Technologist: Dawna Hansen(Fiona) Trnscrd Date/Time/By: 9 (1221) : By: VivTH4 Orig Print D/T: S: 07/31/2019 (0204) PAGE 1 Signed Report [id number] 06:19:00* Test Item Value Reference Range Interpretation Comments GLYCOSYLATED HEMOGLOBIN (HA1C) (test code = GLYHGB) 6.7 % HbA1 SUGGESTED DIAGNOSIS: HbA1C (%) Diabetic >6.4Prediabetes 5.7 - 6.4Normal <5.7 ESTIMATED AVERAGE GLUCOSE (test code = EAG) 146 MG/DL BASIC METABOLIC [id number] 05:49:00* Test Item Value Reference Range Interpretation [...] CA) 8.6 mg/dL 8.5-10.1 N BASIC METABOLIC [id number] 05:46:00* Test Item Value Reference Range Interpretation [...] CA) 8.6 mg/dL 8.5-10.1 N BASIC METABOLIC [id number] 07:55:00* Test Item Value Reference Range Interpretation [...] CA) 8.8 mg/dL 8.5-10.1 N BASIC METABOLIC [id number] 08:15:00* Test Item Value Reference Range Interpretation [...] CA) 9.0 mg/dL 8.5-10.1 N BASIC METABOLIC [id number] 08:09:00* Test Item Value Reference Range Interpretation [...] code = CA) mg/dL 8.5-10.1 CBC W/AUTO [id number] 07:42:00* Test Item Value Reference Range Interpretation [...] code = BA#) K/mm3 0.0-0.2 CBC W/AUTO [id number] 07:42:00* Test Item Value Reference Range Interpretation [...] NRBC#) 0.03 K/mm3 0.0-0.1 N BASIC METABOLIC [id number] 05:56:00* Test Item Value Reference Range Interpretation [...] CA) 8.7 mg/dL 8.5-10.1 N BASIC METABOLIC [id number] 05:52:00* Test Item Value Reference Range Interpretation [...] code = CA) mg/dL 8.5-10.1 CBC W/AUTO [id number] 05:31:00* Test Item Value Reference Range Interpretation [...] DIFF REQUIRED (test code = MDIFF) NO [id number] 18:05:00* Test Item Value Reference Range Interpretation Comments TROPONIN-I (test code = TROPI) <0.015 ng/mL 0-0.045 N [id number] 17:06:00* Test Item Value Reference Range Interpretation Comments MAGNESIUM (test code = MAG) 2.1 mg/dL 1.8-2.4 N THYROID STIMULATING [id number] 17:06:00* Test Item Value Reference Range Interpretation Comments THYROID STIMULATING HORMONE (test code = TSH) 3.410 uIU/mL 0.36-3.7 4 N TSH REFERENCE RANGES: EUTHYROID: 0.35 - 4.3 mIU/mL HYPO : > 5.5 mIU/mL HYPER : < 0.35 mIU/mL [id number] 16:36:00* Test Item Value Reference Range Interpretation Comments MAGNESIUM (test code = MAG) 2.1 mg/dL 1.8-2.4 N THYROID STIMULATING [id number] 16:36:00* Test Item Value Reference Range Interpretation Comments THYROID STIMULATING HORMONE (test code = TSH) uIU/mL 0.36-3.7 4 [id number] 15:41:00* Test Item Value Reference Range Interpretation Comments TROPONIN-I (test code = TROPI) <0.015 ng/mL 0-0.045 N - CTA [id number] 14:44:00 Name: TOMAS PERAZA [facility] : 1940 Age/S: 78 / F [address] Unit #: [id number] Loc: [place] [address] Phys: Yan Rudolph MD Acct: [id number] Dis Date: Status: ADM IN PHONE #: [phone] Exam Date: 07/11/2019 1123 FAX #: [phone] Reason: history of AAA< epigastric pain Report Has Been Amended EXAMS: CPT CODE: [id number] CTA CHEST 39975 Addendum - 07/11/2019 SIGNED 07/11/2019 ADDENDUM: [id number] CT/CTACHWWO Focal herniation of the left lung as well as a stenotic change of the adjacent rib likely represents sequela of remote trauma. at 1444 Reported and signed by: Vince Willett MD Transcribed: 07/11/2019 (2139) [email or web address] Report REASON FOR EXAM: history of [...] : 1940 Age/S: 78 / F [address] Unit #: [id number] Loc: [place] [address] Phys: Yan Rudolph MD Acct: [id number] Dis Date: Status: ADM IN PHONE #: [phone] Exam Date: 07/11/2019 1123 FAX #: [phone] Reason: history of AAA< epigastric pain Report Has Been Amend ed EXAMS: CPT CODE: [id number] CTA CHEST 43695 < Continued> mildly dilated measuring 3.2 cm [...] : 1940 Age/S: 78 / F [address] [facility] Unit #: [id number] Loc: [place] [address] Phys: Yan Rudolph MD Acct: [id number] Dis Date: Status: ADM IN PHONE #: [phone] Exam Date: 07/11/2019 1123 FAX #: [phone] Reason: history of AAA< epigastric pain Report Has Been Amended EXAMS: CPT CODE: [id number] CTA CHEST 41700 < Continued> the left kidney. Prior hysterectomy. [...] CHF with pulmonary edema. Location: [facility] at 1201 Reported and signed by: Vince Willett MD CC: Yan Rudolph MD Technologist:Chris Hastings RT(R) CTDI: DLP: Trnscb Date/Time: 07/11/2019 (1201) [email or web address] Orig Print D/T: S: 07/11/2019 (2883) PAGE 3 Signed Report - CTA [id number] 12:01:00 Name: TOMAS PERAZA [facility] : 1940 Age/S: 78 / F [address] Unit #: [id number] Loc: [place] [address] Phys: Kyra Rudolph MD Acct: [id number] Di s Date: Status: REG ER PHONE #: [phone] Exam Date: 07/11/2019 1123 FAX #: Reason: history of AAA< epigastric pain EXAMS: CPT CODE: [id number] CTA CHEST 94622 REASON FOR EXAM: history of AAA< epigastric [...] : 1940 Age/S: 78 / F [address] Unit #: [id number] Loc: [place] [address] Phys: Yan Rudolph MD Acct: [id number] Dis Date: Status: REG ER PHONE #: [phone] Exam Date: 07/11/2019 1123 FAX #: [phone] Reason: history of AAA< epigastric pain EXAMS: CPT CODE: [id number] CTA CHEST 45978 < Continued> Airways, Lungs and Pleura: Small [...] : 1940 Age/S: 78 / F [address] [facility] Unit #: [id number] Loc: [place] [address] Phys: Yan Rudolph MD Acct: [id number] Dis Date: Status: REG ER PHONE #: [phone] Exam Date: 07/11/2019 1123 FAX #: [phone] Reason: history of AAA< epigastric pain EXAMS: CPT CODE: [id number] CTA CHEST 43883 < Continued> Severe atherosclerotic disease of the [...] (1201) [id number] Orig Print D/T: S: 07/11/2019 (0836) PAGE 3 Signed Report URINALYSIS [id number] 10:52:00* Test Item Value Reference Range Interpretation [...] Urine Source? Clean Catch- XR CHEST 1 [id number] 10:45:00 Name: TOMAS PERAZA [facility] [facility] 1940 Age/S:78 /F [address] [facility] Unit#:[id number] Loc: Sarah Hinson [address] Phys: Kyra Rudolph MD Dis Date: PHONE #: [phone] Status: REG ER FAX #: [phone] Exam Date: 07/11/2019 Re ason: CODE SEPSIS EXAMS: CPT CODE: [id number] XR CHEST 1 V 58569 REASON FOR EXAM: CODE SEPSIS Exam Order [...] upper lungs are clear. Location: [facility] Electronically Signed by Vince Willett MD on at 1045 Reported and signed by: Vince Willett MD CC: Yan Rudolph MD Technologi st: [facility] Venkata RT(R) Trnscrpt Data: 2018 (1045) t.SDR.RR31 Orig Print D/T: S: 07/11/2019 (40 29) PAGE 1 Signed Report B-TYPE NATRIURETIC [id number] 10:44:00* Test Item Value Reference Range Interpretation Comments B-TYPE NATRIURETIC PEPTIDE (test code = BNP) 489 pg/mL 0-100 H URINALYSIS [id number] 10:43:00* Test Item Value Reference Range Interpretation [...] HPF NONE Urine Source? Clean CatchBASIC METABOLIC [id number] 10:38:00* Test Item Value Reference Range Interpretation [...] CA) 8.9 mg/dL 8.4-10.2 N HEPATIC FUNCTION [id number] 10:38:00* Test Item Value Reference Range Interpretation [...] code = ALKP) 92 U/L 38-126 N [id number] 10:38:00* Test Item Value Reference Range Interpretation Comments TROPONIN-I (test code = TROPI) <0.015 ng/mL 0.00-0.056 N LACTIC [id number] 10:36:00* Test Item Value Reference Range Interpretation Comments LACTIC ACID (test code = LACT) 1.6 MMOL/L 0.4-1.9 N CBC W/AUTO [id number] 10:31:00* Test Item Value Reference Range Interpretation [...] = BA#) 0.02 K/mm3 0.0-0.2 N PROTHROMBIN [id number] 10:30:00* Test Item Value Reference Range Interpretation [...] (2.5-3.5) IS PATIENT ON ANTICOAGULANTS? NTHROMBOPLASTIN TIME [id number] 10:30:00* Test Item Value Reference Range Interpretation Comments THROMBOPLASTIN TIME PARTIAL (test code = PTT) 25.7 seconds 25.5-34. 3 N Therapeutic Range for patients on Heparin Therapy is 2 to2.5 times their baseline PTT level. IS PATIENT ON ANTICOAGULANTS? NCT Chest w contrast [id number] 15:55:00EXAM: CT CHEST WITH CONTRASTDATE: 05/15/2019 15:55 [...] was dictated by a Radiology Res ident/Fellow/Physician Assembler Tubing. Ihave personallyreviewed the images as well as the interpretation and agree with the findings.Read by: Ashwin Rios MD Resident/Fellow/PhysicianAssistant: Ashwin Rios MDDict ated Date/time: 05/16/19 08:23Electronically Signed by: Ayah Balderas MD 05/16/1912:17FINAL REPORTUnSt. Mark's Hospital PhysiciansXRAY Chest 2 views [id number] 13:13:00EXAM: XR CHEST 2 VIEWSDATE: 05/10/2019 13:13 [...] 14:58Electronically Signed by: Michael Stewart MD 05/10/1914:59FINAL REPORTUnSt. Mark's Hospital Physicians[QL] CMP W/EGFR 2019-01-30 09:03:00* Test [...] higher for peopleidentified as -Swiss. eGFR NON- (test code = eGFR NON-DANILO N IRANIAN) 57 {ML/MIN/1.7} > OR = 60 eGFR [...] N BILIRUBIN, TOTAL; Normal (test code = 56510-6) 0.4 mg/dl 0.2-1.2 N ALKALINE PHSPHATASE (test code = ALKALINE PHSPHATASE) 67 u/l 33-130 N AST; Normal (test code = 1916-6) 16 u/l 10-35 N ALT; Normal (test code = 1742-6) 21 u/l 6-29 N [facility]] CBC (INCLUDES DIFF/PLT)2019-01-30 09:03:00* Test Item Value Reference Range Interpretation Comments WHITE BLOOD CELL COUNT (test code = WHITE BLOOD CELL COUNT) 6.5 {Thousand/u} 3.8-10.8 N RED BLOOD CELL COUNT (test code = RED BLOOD CELL COUNT) 4.00 {Million/uL} 3.80-5.10 N HEMAGLOBIN; Normal (test code = 76315-7) 12.4 g/dl 11.7-15.5 N HEMATOCRIT; Normal (test code = 4544-3) 37.9 % 35.0-45.0 N MCV; Normal (test code = 787-2) 94.8 fL 80.0-100.0 N MCHC; Normal (test code = 19843-1) 32.7 g/dl 32.0-36.0 N RDW; Normal (test code = 788-0) 13.3 % 11.0-15.0 N PLATELET COUNT; Normal (test code = 777-3) 347 {Thousand/u} 140-400 N MPV; Normal (test code = 85831-4) 9.3 fL 7.5-12.5 N ABSOLUTE NEUTROPHILS (test code = ABSOLUTE NEUTROPHILS) 4219 {cells/uL} 6367-3213 N ABSOLUTE LYMPHOCYTES (test code = ABSOLUTE [...] % N MONOCYTES; Normal (test code = 32517-6) 5.7 % N EOSINOPHILS; Normal (test code = 07481-5) 4.5 % N BASOPHILS; Normal (test code = 07104-9) 0.8 % N [facility]] VITAMIN [id number] 09:03:00* Test Item Value Reference Range Interpretation Comments VITAMIN B12 (test code = VITAMIN B12) 574 pg/ml 200-1100 N [facility]] TSH, 3RD GENERATION W/REFLEX TO FT4 2019-01-30 09:03:00* Test Item Value Reference Range Interpretation Comments TSH, 3RD GENERATION W/REFLEX TO FT4 (rocio t code = TSH, 3RD GENERATION W/REFLEX TO FT4) 3.58 {MIU/L} 0.40-4.50 N [facility][] BETA 2 GLYCOPROTEIN I AB (IGG,IGA,IGM) [...] the setting ofinfection, drug therapy or aging. [facility]] CRYOGLOBULIN SCREEN W/REFLEX TO CRYOGLOBULIN PROFILE, [id number] 10:46:00* Test Item Value Reference Range Interpretation Comments CRYOGLOBULIN SCR W/REFL CRYOGLOBULIN PRO FILE, S (test code = CRYOGLOBULIN SCR W/REFL CRYOGLOBULIN PROFILE, S) NEGATIVE Reference Range: NEGATIVE IN NORMAL INDIVIDUALS This test was developed and its analytical performancecharacteristics have been determined by [facility]. It has not beencleared or approved by FDA. This assay has been validatedpursuant to the CLIA regulations and is used for clinica lpurposes. [facility]] CARDIOLIPIN AB (IGA,IGG,IGM)2018-12-01 10:46:00* Test Item [...] IgG DORITA >40 MPL/GPL, IgM or IgG anti-t1CKUyqqgnyjkkg or a lupus anticoagulant). International consensus guidelines [...] Low to Medium Positive >80 High Positive [facility]] Lupus Anticoagulant [id number] 10:46:00 * Test Item Value Reference Range Interpretation Comments LUPUS ANTICOAGULANT (test code = LUPUS ANTICOAGULANT) TNP Test Not Performed. Specimen detected with excess platelets which could yield a false negative result. Please resubmit a platelet poor plasma (<10,000/uL). [facility]iciansUT Pathology [id number] 00:00:00* Test Item Value Reference Range Interpretation Comments REPORT (test code = REPORT) See Comment [facility] [id number] 09:20:00* Test Item Value Reference Range Interpretation Comments Completed (test code = Completed) DONE [facility][O] Streptococcus Test Rapid (In Office)2018-08-21 10:27:00* Test Item Value Reference Range Interpretation Comments Group A Strep Screen; Abnormal (test code = 86671-2) positive A [facility] Use [id number] 16:50:00* Test Item Value Reference Range Interpretation Comments Completed (test code = Completed) DONE [facility]] CBC (INCLUDES DIFF/PLT)2018-05-27 09:15:00* Test Item Value Reference Range Interpretation Comments WHITE BLOOD CELL COUNT (test code = WHITE BLOOD CELL COUNT) 6.8 {Thousand/u} 3.8-10.8 N RED BLOOD CELL COUNT (test code = RED BLOOD CELL COUNT) 3.44 {Million/uL} 3.80-5.10 HEMAGLOBIN; Below Low Threshold (test code = 88944-4) 10.9 g/dl 11.7-15.5 HEMATOCRIT; Below Low Threshold (test code = 4544-3) 32.1 % 3 5.0-45.0 MCV; Normal (test code = 787-2) 93.3 fL 80.0-100.0 N MCHC; Normal (test code = 10769-7) 34.0 g/dl 32.0-36.0 N RDW; Normal (test code = 788-0) 12.4 % 11.0-15.0 N PLATELET COUNT; Normal (test code = 777-3) 332 {Thousand/u} 140-400 N MPV; Normal (test code = 60543-1) 9.9 fL 7.5-12.5 N ABSOLUTE NEUTROPHILS (test code = ABSOLUTE NEUTROPHILS) 4121 {cells/uL} 8519-9638 N ABSOLUTE LYMPHOCYTES (test code = ABSOLUTE [...] % N MONOCYTES; Normal (test code = 62016-2) 6.2 % N EOSINOPHILS; Normal (test code = 23034-3) 4.3 % N BASOPHILS; Normal (test code = 16749-7) 0.6 % N [facility]] CMP [id number] 08:20:00* Test Item Value Reference Range Interpretation Comments GLUCOSE; Normal (test code = 1547-9) 93 mg/dl 65-99 N Fasting reference interval UREA NITROGEN (BUN) (test code = UREA NITROGEN (BUN)) 12 mg/dl 7-25 N CREATININE (test code = CREATININE) 0.80 mg/dl 0.60-0.93 N For patients >49 years of age, the reference limitfor Creatinine is approximately 13% higher for peopleidentified as -Swiss. eGFR NON- (test code = eGFR NON-DANILO N IRANIAN) 72 {ML/MIN/1.7} > OR = 60 N [...] N BILIRUBIN, TOTAL; Normal (test code = 68972-1) 0.4 mg/dl 0.2-1.2 N ALKALINE PHSPHATASE (test code = ALKALINE PHSPHATASE) 70 u/l 33-130 N AST; Normal (test code = 1916-6) 15 u/l 10-35 N ALT; Normal (test code = 1742-6) 12 u/l 6-29 N [facility]] CBC (INCLUDES DIFF/PLT)2018-05-04 08:20:00* Test Item Value Reference Range Interpretation Comments WHITE BLOOD CELL COUNT (test code = WHITE BLOOD CELL COUNT) 5.3 {Thousand/u} 3.8-10.8 N RED BLOOD CELL COUNT (test code = RED BLOOD CELL COUNT) 4.06 {Million/uL} 3.80-5.10 N HEMAGLOBIN; Normal (test code = 78827-7) 12.5 g/dl 11.7-15.5 N HEMATOCRIT; Normal (test code = 4544-3) 38.4 % 35.0-45.0 N MCV; Normal (test code = 787-2) 94.6 fL 80.0-100.0 N MCHC; Normal (test code = 19005-3) 32.6 g/dl 32.0-36.0 N RDW; Normal (test code = 788-0) 12.8 % 11.0-15.0 N PLATELET COUNT; Normal (test code = 777-3) 358 {Thousand/u} 140-400 N MPV; Normal (test code = 64300-8) 9.5 fL 7.5-12.5 N ABSOLUTE NEUTROPHILS (test code = ABSOLUTE NEUTROPHILS) 3132 {cells/uL} 4464-5701 N ABSOLUTE LYMPHOCYTES (test code = ABSOLUTE [...] % N MONOCYTES; Normal (test code = 95262-5) 6.2 % N EOSINOPHILS; Normal (test code = 89152-6) 3.2 % N BASOPHILS; Normal (test code = 18193-1) 0.4 % N [facility] Chest 2 views [id number] 10:18:00EXAM: XR CHEST 2 VIEWSDATE: 03/31/2018 10:18 [...] 10:42Electronically Signed by: John Andrews MD 03/31/1810:47FINAL REPORTBeaver Valley Hospital Physicians[[facility]] CMP [id number] 09:51:00* Test Item Value Reference Range Interpretation Comments GLUCOSE; Normal (test code = 1547-9) 77 mg/dl 65-99 N Fasting reference interval UREA NITROGEN (BUN) (test code = UREA NITROGEN (BUN)) 16 mg/dl 7-25 N CREATININE (test code = CREATININE) 0.93 mg/dl 0.60-0.93 N For patients >49 years of age, the reference limitfor Creatinine is approximately 13% higher for peopleidentified as -Swiss. eGFR NON- (test code = eGFR NON-DANILO N IRANIAN) 60 {ML/MIN/1.7} > OR = 60 N [...] N BILIRUBIN, TOTAL; Normal (test code = 20921-3) 0.2 mg/dl 0.2-1.2 N ALKALINE PHSPHATASE (test code = ALKALINE PHSPHATASE) 67 u/l 33-130 N AST; Normal (test code = 1916-6) 11 u/l 10-35 N ALT; Normal (test code = 1742-6) 8 u/l 6-29 N [facility]] CBC (INCLUDES DIFF/PLT)2018-03-31 09:51:00* Test Item Value Reference Range Interpretation Comments WHITE BLOOD CELL COUNT (test code = WHITE BLOOD CELL COUNT) 6.8 {Thousand/u} 3.8-10.8 N RED BLOOD CELL COUNT (test code = RED BLOOD CELL COUNT) 3.13 {Million/uL} 3.80-5.10 HEMAGLOBIN; Below Low Threshold (test code = 11188-0) 9.9 g/dl 11.7-15.5 HEMATOCRIT; Below Low Threshold (test code = 4544-3) 29.9 % 3 5.0-45.0 MCV; Normal (test code = 787-2) 95.5 fL 80.0-100.0 N MCHC; Normal (test code = 21018-8) 33.1 g/dl 32.0-36.0 N RDW; Normal (test code = 788-0) 12.3 % 11.0-15.0 N PLATELET COUNT; Above High Threshold (test code = 777-3) 512 {Thousand/u} 140-400 MPV; Normal (test code = 20847-0) 9.1 fL 7.5-12.5 N ABSOLUTE NEUTROPHILS (test code = ABSOLUTE NEUTROPHILS) 4468 {cells/uL} 0634-5476 N ABSOLUTE LYMPHOCYTES (test code = ABSOLUTE [...] % N MONOCYTES; Normal (test code = 97764-9) 5.7 % N EOSINOPHILS; Normal (test code = 21432-0) 3.1 % N BASOPHILS; Normal (test code = 53973-9) 0.6 % N [facility] [id number] 21:50:00 [facility] [address] [address] Patient Name: TOMAS PERAZA MR #: [id number] : 1940 Age/Sex: 77/F Req #: [id number] Adm Physician: Ordered by: MARIUSZ BRADY MD Report #: [id number] Location: ER Room/Bed: Procedure: [id number] CT/CT SOFT TISSUE NEC K W Exam [...] on 01/18/182155 COPY TO: MARIUSZ CERVANTES MD [[facility]] CMP [id number] 08:56:00* Test Item Value Reference Range Interpretation [...] higher for peopleidentified as -Swiss. eGFR NON- (test code = eGFR NON-DANILO N IRANIAN) 75 {ML/MIN/1.7} > OR = 60 N [...] N BILIRUBIN, TOTAL; Normal (test code = 82978-5) 0.4 mg/dl 0.2-1.2 N ALKALINE PHSPHATASE (test code = ALKALINE PHSPHATASE) 72 u/l 33-130 N AST; Normal (test code = 1916-6) 15 u/l 10-35 N ALT; Normal (test code = 1742-6) 10 u/l 6-29 N [facility]] CBC (INCLUDES DIFF/PLT)2017-10-20 08:56:00* Test Item Value Reference Range Interpretation Comments WHITE BLOOD CELL COUNT (test code = WHITE BLOOD CELL COUNT) 6.5 {Thousand/u} 3.8-10.8 N RED BLOOD CELL COUNT (test code = RED BLOOD CELL COUNT) 4.54 {Million/uL} 3.80-5.10 N HEMOGLOBIN; Normal (test code = 65861-5) 14.1 g/dl 11.7-15.5 N HEMATOCRIT; Normal (test code = 4544-3) 42.0 % 35.0-45.0 N MCV; Normal (test code = 787-2) 92.5 fL 80.0-100.0 N MCHC; Normal (test code = 23297-4) 33.6 g/dl 32.0-36.0 N RDW; Normal (test code = 788-0) 12.8 % 11.0-15.0 N PLATELET COUNT; Normal (test code = 777-3) 330 {Thousand/u} 140-400 N MPV; Normal (test code = 77460-7) 9.8 fL 7.5-12.5 N ABSOLUTE NEUTROPHILS (test code = ABSOLUTE NEUTROPHILS) 3939 {cells/uL} 6843-4678 N ABSOLUTE LYMPHOCYTES (test code = ABSOLUTE [...] % N MONOCYTES; Normal (test code = 43834-6) 4.6 % N EOSINOPHILS; Normal (test code = 95958-7) 2.0 % N BASOPHILS; Normal (test code = 07645-8) 0.6 % N [facility]] TSH, 3RD GENERATION W/REFLEX TO FT4 2017-10-20 08:56:00* Test Item Value Reference Range Interpretation Comments TSH, 3RD GENERATION W/REFLEX TO FT4 (rocio t code = TSH, 3RD GENERATION W/REFLEX TO FT4) 0.92 {MIU/L} 0.40-4.50 N [facility][] VITAMIN B12/FOLATE, SERUM [id number] 08:56:00* Test Item Value Reference Range Interpretation Comments VITAMIN B12 (test code = VITAMIN B12) 546 pg/ml 200-1100 N FOLATE, SERUM (test code = FOLATE, SERUM) 18.6 ng/ml N Reference Range Low: <3.4 Borderline: 3.4-5.4 Normal: >5.4 [facility]] VITAMIN D, 25-HYDROXY, LC/MS/[id number] 08:56:00* Test Item Value Reference Range Interpretation [...] D, (D2,D3), LC/MS/MS is recommended: order code 04666 (patients >2yrs). For more information on this test, go to:http://education.[email or web address]/faq/KCR349(This link is being provided for informational/educational purposes only.) [facility][O] Urine Dipstick (In Office)2017-10-20 08:42:00 * Test Item Value Reference Range Interpretation Comments LEUKOCYTES (test code = LEUKOCYTES) neg N NITRITE; Normal (test code = 59640-8) neg N UROBILINOGEN; Normal (test code = 80297-3) normal N PROTEIN; Normal (test code = 23878-1) neg N pH (test code = pH) 5 N URINE BLOOD (test code = 36651-1) about 250 SPECIFIC GRAVITY; Normal (test code = 2965-2) 1.015 N KETONES; Normal (test code = 36588-6) neg N BILIRUBIN; Normal (test code = 45985-8) neg N GLUCOSE; Normal (test code = 1547-9) normal N UROBILINOGEN; Normal (test code = 11834-5) normal N [facility]] CULTURE, URINE, [id number] 00:00:00* Test Item Value Reference Range Interpretation Comments CULTURE (test code = CULTURE) See Comment CULTURE, URINE, ROUTINE MICRO NUMBER: [id number] TEST STATUS: FINAL SPECIMEN SOURCE: URINE SPECIMEN QUALITY: ADEQUATE RESULT: No Growth [facility]] CMP W/[id number] 08:47:00* Test Item Value Reference Range Interpretation Comments GLUCOSE; Normal (test code = 1547-9) 78 mg/dl 65-99 N Fasting reference interval UREA NITROGEN (BUN) (test code = UREA NITROGEN (BUN)) 16 mg/dl 7-25 N CREATININE (test code = CREATININE) 0.86 mg/dl 0.60-0.93 N For patients >49 years of age, the reference limitfor Creatinine is approximately 13% higher for peopleidentified as -Swiss. eGFR NON- (test code = eGFR NON-DANILO N IRANIAN) 67 {ML/MIN/1.7} > OR = 60 N [...] N BILIRUBIN, TOTAL; Normal (test code = 53016-6) 0.5 mg/dl 0.2-1.2 N ALKALINE PHOSPHATE (test code = ALKALINE PHOSPHATE) 67 u/l 33 -130 N AST; Normal (test code = 1916-6) 14 u/l 10-35 N ALT; Normal (test code = 1742-6) 11 u/l 6-29 N [facility]] CBC (INCLUDES DIFF/PLT)2017-07-25 08:47:00* Test Item Value Reference Range Interpretation Comments WHITE BLOOD CELL COUNT (test code = WHITE BLOOD CELL COUNT) 6.5 {Thousand/u} 3.8-10.8 N RED BLOOD CELL COUNT (test code = RED BLOOD CELL COUNT) 4.33 {Million/uL} 3.80-5.10 N HEMOGLOBIN; Normal (test code = 29112-3) 13.4 g/dl 11.7-15.5 N HEMATOCRIT; Normal (test code = 4544-3) 40.5 % 35.0-45.0 N MCV; Normal (test code = 787-2) 93.5 fL 80.0-100.0 N MCHC; Normal (test code = 18543-6) 33.1 g/dl 32.0-36.0 N RDW; Normal (test code = 788-0) 12.6 % 11.0-15.0 N PLATELET COUNT; Normal (test code = 777-3) 347 {Thousand/u} 140-400 N MPV; Normal (test code = 78292-0) 9.4 fL 7.5-12.5 N ABSOLUTE NEUTROPHILS (test code = ABSOLUTE NEUTROPHILS) 3016 {cells/uL} 5486-5504 N ABSOLUTE LYMPHOCYTES (test code = ABSOLUTE [...] % N MONOCYTES; Normal (test code = 93813-2) 6.1 % N EOSINOPHILS; Normal (test code = 23728-4) 1.5 % N BASOPHILS; Normal (test code = 68610-2) 0.8 % N [facility]] T4, [id number] 08:47:00* Test Item Value Reference Range Interpretation Comments T4, FREE (test code = T4, FREE) 1.6 ng/dl 0.8-1.8 N [facility]] TSH, 3RD GENERATION W/REFLEX TO FT4 2017-07-25 08:47:00* Test Item Value Reference Range Interpretation Comments TSH, 3RD GENERATION W/REFLEX TO FT4 (rocio t code = TSH, 3RD GENERATION W/REFLEX TO FT4) 0.18 {MIU/L} 0.40-4.50 [facility]] HEMOGLOBIN [id number] 08:47:00* Test Item Value Reference Range Interpretation [...] diagnosis of diabetes in children. According to [place] Diabetes Association (ADA)guidelines, hemoglobin A1c <7.0% represents optimalcontrol in non- diabetic patients. Differentmetrics may apply to specific patient populations. Standards of Medical Care in Diabetes(ADA). [facility]
[2020-03-26 17:18] VITALS: BP 117/66
[2020-03-26 17:38] VITALS: BP 117/66
--- NOTE | 2020-03-26 17:39 | NUR ---
PATIENT ARRIVED ON THE UNIT AT 1640 [facility]. PATIENT IS AWAKE, ALERT, AND IN STABLE CONDITION WITH NO S/S OF RESPIRATORY DISTRESS. PATIENT C/O LOWER EXTREMITIES 8/10. 2+ EDEMA NOTED TO LOWER EXTREMITIES AND SKIN IS WARM TO TOUCH- NO REDNESS NOTED AT THIS TIME. PATIENT PERSONAL CANE AND A WALKER ARE AVAILABLE FOR THE PATIENT NEAR HER BEDSIDE. CALL LIGHT IS WITHIN REACH, PATIENT INSTRUCTED TO CALL FOR ASSISTANCE NEEDED.
--- NOTE | 2020-03-26 19:25 | NUR ---
PATIENT IS IN STABLE CONDITION WITH NO S/S OF RESPIRATORY DISTRESS. PATIENT C/O HEADACHE - CALL PLACED OUT TO DR. MESA BUT NO CALL RETURN AT THIS TIME, NIGHT NURSE AWARE. TELEMETRY APPLIED. CALL LIGHT IS WITHIN REACH, PATIENT INSTRUCTED TO CALL FOR ASSISTANCE NEEDED. BEDSIDE SHIFT REPORT GIVEN TO ONCOMING NURSE.
--- NOTE | 2020-03-26 19:45 | NUR ---
Received the patient in report.aaox3.ambulates with cane.has c/o headache and zeke.lower extremity pain.notified to .received new orders.bed locked and in lowest position.phone and call light within reach.instructed to call for assistance as needed.patient is unable to provide her home medication.
[2020-03-26 20:00] VITALS: BP 136/65
[2020-03-26 20:37] LABS: CREATINE KINASE MB 3.5 ng/mL (0-5.0)
[2020-03-26] MEDS: GABAPENTIN 300 MG CAP PO SCH (20:49)
[2020-03-26] MEDS: ACETAMINOPHEN 325 MG TAB PO PRN (20:49)
[2020-03-26 21:00] VITALS: BP 136/65
--- NOTE | 2020-03-26 22:00 | NUR ---
Assisted to use rest room. voided.back to bed safely.bed locked and in lowest position.phone and call light within reach.instructed to call for assistance as needed.
[2020-03-27] VITALS (7 sets, daily range): BP systolic 148–152; BP diastolic 77–99
--- NOTE | 2020-03-27 06:28 | NUR ---
Call placed to answering service and spoke to Ms Bang regarding consults.
--- NOTE | 2020-03-27 07:00 | NUR ---
Bed side shift report given to oncoming Rn.stable condition.
--- NOTE | 2020-03-27 07:05 | NUR ---
PATIENT IS ALERT AND IN STABLE CONDITION WITH NO S/S OF RESPIRATORY DISTRESS. PATIENT C/O HEADACHE 03/24- REQUEST TYLENOL WITH HER MORNING MEDS. TELEMETRY APPLIED. PATIENT'S PERSONAL CAN AVAILABLE NEAR HER BEDSIDE. CALL LIGHT IS WITHIN REACH, PATIENT INSTRUCTED TO CALL FOR ASSISTANCE NEEDED.
[2020-03-27] MEDS: GABAPENTIN 300 MG CAP PO SCH ×3 (07:48→22:25)
[2020-03-27] MEDS: ACETAMINOPHEN 325 MG TAB PO PRN (07:48)
[2020-03-27] MEDS ORDERED: FUROSEMIDE INJ 10 MG/ML 4 ML VIAL IV SCH (09:00)
[2020-03-27] MEDS ORDERED: PERCOCET 10-321 EACH PO (09:06)
[2020-03-27] MEDS ORDERED: GABAPENTIN300 MG PO (09:06)
[2020-03-27 09:15] LABS: BASOPHILS % 0.4 % (0.0-1.0); EOSINOPHILS # (AUTO) 0.2 (0.0-0.4); EOSINOPHILS % 2.8 % (0.0-6.0); HEMATOCRIT 39.7 % (34.2-44.1); HEMOGLOBIN 12.8 g/dL (12.0-16.0); LYMPHOCYTES # (AUTO) 1.5 (1.0-3.2); LYMPHOCYTES % 19.3 % (18.0-39.1); MEAN CORPUSCULAR HEMOGLOBIN 31.3 pg (28-32); MEAN CORPUSCULAR HGB CONC 32.2 g/dL (31-35); MEAN CORPUSCULAR VOLUME 97.1 fL (81-99); MONOCYTES # (AUTO) 0.4 (0.2-0.8); MONOCYTES % 5.1 % (4.4-11.3); NEUTROPHILS # (AUTO) 5.5 (2.1-6.9); PLATELET COUNT 313 x10e3/uL (140-360); RED BLOOD COUNT 4.09 x10e6/uL (3.6-5.1); RED CELL DISTRIBUTION WIDTH 13.2 % (11.7-14.4)
[2020-03-27] MEDS ORDERED: DIGOXIN250 MCG PO (09:18)
[2020-03-27] MEDS ORDERED: LIPITOR20 MG PO (09:18)
[2020-03-27] MEDS ORDERED: LISINOPRIL10 MG PO (09:18)
[2020-03-27] MEDS ORDERED: METOPROLOL SUCC50 MG PO (09:18)
[2020-03-27] MEDS ORDERED: LEVOTHYROXINE SODIUM PO (09:18)
[2020-03-27] MEDS ORDERED: FAMOTIDINE20 MG PO (09:18)
[2020-03-27] MEDS ORDERED: DIAZEPAM10 MG PO (09:18)
[2020-03-27] MEDS ORDERED: PANTOPRAZOLE SO40 MG PO (09:18)
[2020-03-27 09:21] LABS: CREATINE KINASE MB 3.6 ng/mL (0-5.0)
[2020-03-27] MEDS ORDERED: FAMOTIDINE 20 MG TAB PO SCH (09:30)
[2020-03-27] MEDS ORDERED: NON-FORMULARY MEDICATION (Diazepam 10 MG) PO PRN (09:30)
[2020-03-27] MEDS ORDERED: ALBUTEROL/IPRATROPIUM 3 ML NEB NEB PRN (09:30)
[2020-03-27] MEDS ORDERED: ASPIRIN 325 MG TAB PO SCH (09:30)
[2020-03-27] MEDS ORDERED: GABAPENTIN 300 MG CAP PO SCH (09:30)
[2020-03-27] MEDS ORDERED: NON-FORMULARY MEDICATION (Oxycodone Hcl/Acetaminophen (Percocet 10-325 Mg Tablet) 1 TAB) PO PRN (09:30)
[2020-03-27 09:44] LABS: ALANINE AMINOTRANSFERASE 11 IU/L (0-55); ALBUMIN 3.2 g/dL (3.5-5.0); ALKALINE PHOSPHATASE 86 IU/L (40-150); ANION GAP 14.7 mmol/L (8-16); BLOOD UREA NITROGEN 15 mg/dL (7-26); BUN/CREATININE RATIO 18 (6-25); CALCIUM 8.7 mg/dL (8.4-10.2); CARBON DIOXIDE 26 mmol/L (22-29); CHLORIDE 108 mmol/L (98-107); CREATININE, SERUM 0.85 mg/dL (0.57-1.11); EST GLOMERULAR FILTRATION RATE > 60 ML/MIN (60-); GLUCOSE 204 mg/dL (74-118); POTASSIUM 3.7 mmol/L (3.5-5.1); SODIUM 145 mmol/L (136-145)
--- NOTE | 2020-03-27 09:59 | History and Physical ---
PRIMARY CARE PHYSICIAN: Dr. Richard Dawson. DISTRICT ATTORNEY: Dr. Fabricio Cruz. CHIEF COMPLAINT: Atypical chest pain associated with short of breath and wheezing. HISTORY OF PRESENT ILLNESS: The patient is a 79-year-old female with COPD, has an inhaler that she is not using, but apparently she was having increasing wheezing and short of breath. The patient still smoke. She thought that she may have had heart failure. Therefore, she came to the emergency room for visit. Chest x-ray show emphysematous and possible vascular congestion. The patient does have chronic atrial fibrillation. She is on baby aspirin. She does have Watchman procedures. She also has history of IVC filter placement previously. Her chest pain and tightness have now resolved. She has no more further wheezing. PAST MEDICAL HISTORY: COPD, hypertension, chronic atrial fibrillation, dyslipidemia, hypothyroidism, history of DVT with IVC filter placement. Watchman procedures for atrial fibrillation. Coronary artery disease. PAST SURGICAL HISTORY: Appendectomy, hysterectomy, Watchman procedures, IVC filter placement, multiple joint surgery. SOCIAL HISTORY: The patient is a smoker. She has smoked for many years. Usually on average half a pack to pack per day. No alcohol consumption. No regular drugs. ALLERGIES: KEFLEX. HOME MEDICATIONS: Not yet available for review. REVIEW OF SYSTEMS: As mentioned above. PHYSICAL EXAMINATION: VITAL SIGNS: Temperature is 98, blood pressure 152/85, pulse rate is 60, respirations 18. GENERAL: The patient is not in acute distress. She is awake. HEENT: Normocephalic and atraumatic. Anicteric. NECK: Supple grossly. PULMONARY: Mild rhonchi without any wheezing. There are some rales at the bases. CARDIOVASCULAR: S1, S2. Irregular rhythm and rate controlled. ABDOMEN: Soft, nontender, nondistended. EXTREMITIES: Trace edema. NEUROLOGIC: No focal deficit. LABORATORY DATA: Sodium 142, potassium 3.8, chloride 102, bicarb is 30, glucose 145, BUN 22, creatinine 1.3. AST is 22, ALT 15, alkaline phosphatase 83. Chest x-ray show mild inflated lung with atelectasis, no focal pneumonia or pulmonary congestion. WBC is 10, hemoglobin is 13.7, hematocrit 43, platelet is 380. IMPRESSION: 1. Shortness of breath, most likely secondary to acute exacerbation of chronic obstructive pulmonary disease. 2. Shortness of breath also combination with mild apweq-ac-vlfpyil diastolic dysfunction, congestive heart failure. 3. Multiple baseline medical problems. PLAN: I would like to go ahead and consult Dr. Fabricio Cruz. Echocardiogram. V/Q scan. Resume home medication when available. Nebulizer treatment. We will follow up on the patient's status. We will give the patient Levaquin since she is allergic to cephalexin, which is cephalosporin. MD ZE Rosas/AMARILIS /[id number]
[2020-03-27] MEDS ORDERED: POTASSIUM CHLORIDE 10MEQ EA PO ONE (10:00)
[2020-03-27] MEDS ORDERED: FUROSEMIDE INJ 10 MG/ML 4 ML VIAL IV ONE (10:00)
[2020-03-27] MEDS ORDERED: DIAZEPAM 5 MG TAB PO PRN (10:00)
[2020-03-27] MEDS ORDERED: FUROSEMIDE40 MG PO (10:20)
[2020-03-27 10:27] LABS: INR 0.89; PROTHROMBIN TIME 12.5 seconds (11.9-14.5)
[2020-03-27] MEDS: ASPIRIN 81 MG ENTERIC COATED PO SCH (10:28)
[2020-03-27] MEDS: ALBUTEROL/IPRATROPIUM 3 ML NEB NEB SCH ×3 (11:00→19:00)
--- NOTE | 2020-03-27 11:15 | Consultation ---
DATE OF CONSULTATION: Cardiology Consult HISTORY OF PRESENT ILLNESS: Audrey Saenz is a 79-year-old female with primary history of hypertension, atrial fibrillation, status post Watchman in 2019, CHF, additional COPD, and admitted complaining of worsening bilateral lower extremity throbbing pain, swelling and discoloration, no aggravating or relieving factors. The patient also reports shortness of breath with exertion and that she uses two pillows to sleep at night. The patient denies any chest pain, palpitations, dizziness, or any syncopal episodes. The patient denies any history of CVA or stroke. No history of blood clots or PE. PAST MEDICAL HISTORY: Hypertension, atrial fibrillation, CHF, and COPD. Additional medical history, hypothyroidism and GERD. SURGICAL HISTORY: Had a Watchman procedure done in 2019. FAMILY HISTORY: Noncontributory. SOCIAL HISTORY: No alcohol use. The patient is a former smoker. HOME MEDICATIONS: Includes, digoxin 0.25 mg daily, atorvastatin 20 mg daily, famotidine 20 mg daily, gabapentin 300 mg two tablets p.o. every 8 hours, lisinopril 10 mg p.o. daily, metoprolol succinate 50 mg daily, pantoprazole 40 mg daily, levothyroxine 137 mcg p.o. daily. PHYSICAL EXAMINATION: CURRENT VITAL SIGNS: 98.3 temperature, heart rate of 62, respirations 20, pulse oximetry 96% on room air, blood pressure is 152/85. GENERAL: The patient is well developed and well nourished. No acute respiratory distress. SKIN: The patient's lower extremity with skin discoloration, warm and dry. HEENT: The patient's cranium is normocephalic and atraumatic. Pupils are equally round and reactive to light and accommodation. Sclerae nonicteric. Ears are normal. Mucosa is moist. Throat is clear. NECK: Supple. Full range of motion. No lymphadenopathy. No thyromegaly. Carotid upstroke is normal bilaterally without bruits. No JVD noted. RESPIRATORY: Normal respiratory effort. LUNGS: Diminished bilaterally. No wheezing, rhonchi, or rales. CARDIOVASCULAR: S1 and S2 is audible. Irregular rate. No significant murmurs heard. GI: Soft, nontender, and nondistended. Bowel sounds are present. EXTREMITIES: With +2 edema and discoloration. NEUROVASCULAR: Motor is intact. Pulses are diminished, but palpable. NEUROLOGIC: Motor and sensory examination of the upper and lower extremities are normal. Reflexes are normal and symmetrical bilaterally. IMAGING AND LABORATORY DATA: EKG, atrial fibrillation with controlled ventricular rhythm. Troponin at 0.016 and 0.021. Chest x-ray shows no pulmonary edema. An echocardiogram is pending. Venous Doppler pending. V/Q scan pending. IMPRESSION: 1. Acute on chronic heart failure. 2. Fluid overload/edema. 3. Chronic atrial fibrillation. PLAN: 1. Monitor hemodynamics and continue telemetry monitoring. 2. Echocardiogram to evaluate valve and LV function. 3. Diurese with IV Lasix. Monitor intake and output and replace electrolytes as needed. 4. Agree with lower extremity venous Doppler, V/Q scan as ordered by primary team. 5. Restart cardiac medication, trend BMP, obtain lipid panel. 6. Further recommendation will follow according to the patient's clinical course. Thank you for this consultation. Dictated by Dawna Cai NP MD DANIA Hernandez/AMARILIS /[id number]
--- NOTE | 2020-03-27 13:16 | NUR ---
PATIENT OFF THE UNIT PER WHEELCHAIR TO NUCLEAR MEDICINE. PATIENT IN STABLE CONDITION WITH NO S/S OF RESPIRATORY DISTRESS. TELE APPLIED.
--- NOTE | 2020-03-27 16:11 | Diagnostic Imaging Report ---
Perfusion Lung Scan NOTE: Lung ventilation studies with xenon are not being performed per the recommendation of the Society of Nuclear [employer] and [employer]. It is not possible to be certain that the ventilation system is adequately disinfected. Ventilation studies with Tc-99m DTPA particles is contraindicated because the delivery by nebulization generates too many water droplets from the patient's airway. Clinical Information: 79 F with chest pain and dyspnea Comparison: Chest radiograph 03/26/2020 Discussion: Ventilation images were not obtained. See note above. Perfusion images of the lungs were obtained in multiple projections following intravenous administration of approximately 6 mCi of Tc-99m MAA. Distribution of tracer is mildly irregular throughout the lungs. There are no segmental perfusion defects of any size. The cardiomediastinal silhouette is unremarkable. Impression: 1. Scan findings represent a VERY LOW probability for acute pulmonary embolic disease based on the perfusion-only PIOPED II criteria. Concurrent ventilation study would not alter this assigned probability. 2. Scan findings are compatible with diffuse parenchymal and/or obstructive lung disease. Signed by: Dr. Ruby Al M.D. on 03/27/2020 4:08 PM
--- NOTE | 2020-03-27 19:28 | NUR ---
PATIENT IS IN STABLE CONDITION WITH NO S/S OF RESPIRATORY DISTRESS. NO PAIN VOICED. TELEMETRY APPLIED. ASSISTED PATIENT WITH DIAPER CHANGE. CALL LIGHT IS WITHIN REACH, PATIENT INSTRUCTED TO CALL FOR ASSISTANCE NEEDED. BEDSIDE SHIFT REPORT GIVEN TO ONCOMING NURSE.
[2020-03-27] MEDS ORDERED: ATORVASTATIN 20 MG TAB PO SCH (21:00)
[2020-03-27] MEDS ORDERED: METOPROLOL SUCCINATE 50 MG TAB XL PO SCH (21:00)
[2020-03-28] VITALS (7 sets, daily range): BP systolic 105–140; BP diastolic 74–88
[2020-03-28] MEDS: ACETAMINOPHEN 325 MG TAB PO PRN (01:15)
[2020-03-28] MEDS: OXYCODONE/ACETAMINOPHEN 5-325 1 EACH TABLET PO PRN ×2 (04:31→14:37)
[2020-03-28] MEDS ORDERED: LEVOTHYROXINE SODIUM 25 MCG TABLET PO SCH (06:00)
[2020-03-28] MEDS ORDERED: LEVOTHYROXINE SODIUM 112 MCG TAB PO SCH (06:00)
[2020-03-28] MEDS: GABAPENTIN 300 MG CAP PO SCH ×2 (06:18→13:55)
--- NOTE | 2020-03-28 07:00 | NUR ---
PATIENT IS ALERT AND IN STABLE CONDITION WITH NO S/S OF RESPIRATORY DISTRESS- NO PAIN VOICED. TELEMETRY APPLIED. CALL LIGHT IS WITHIN REACH, PATIENT INSTRUCTED TO CALL FOR ASSISTANCE NEEDED.
[2020-03-28] MEDS: ALBUTEROL/IPRATROPIUM 3 ML NEB NEB SCH ×2 (07:16→13:25)
[2020-03-28] MEDS: ASPIRIN 81 MG ENTERIC COATED PO SCH (08:17)
[2020-03-28] MEDS ORDERED: POTASSIUM CHLORIDE 10MEQ EA PO SCH (09:00)
[2020-03-28] MEDS ORDERED: LEVOTHYROXINE SODIUM 137 MCG PO SCH (09:00)
[2020-03-28] MEDS ORDERED: PANTOPRAZOLE SOD 40 MG TABEC PO SCH (09:00)
[2020-03-28] MEDS ORDERED: FUROSEMIDE INJ 10 MG/ML 4 ML VIAL IV SCH (09:00)
[2020-03-28] MEDS ORDERED: FUROSEMIDE40 MG PO (09:04)
--- NOTE | 2020-03-28 09:38 | Discharge Summary ---
PRIMARY CARE PHYSICIAN: Dr. Richard Dawson. PACKAGING ASSOCIATE: Dr. Fabricio Cruz. FINAL DIAGNOSES: 1. Acute on chronic diastolic dysfunction, congestive heart failure associated with most likely pulmonary hypertension. 2. Status post acute exacerbation of chronic obstructive pulmonary disease. 3. Compliancy to medication. DISCHARGE MEDICATIONS: Lasix 40 mg twice a day. ProAir HFA 2 puffs q.6h p.r.n. for shortness of breath. Pulmicort inhaler 90 mcg two puffs b.i.d. Instruction for the patient to follow up with Dr. Richard Dawson and her environmental services attendant within a week. Instruction for the patient to follow up with routine outpatient colon screening. SUMMARY: This is a 79-year-old female, came in with atypical chest pain because she was having wheezing and shortness of breath. The patient is a smoker approximately half a pack to pack per day for many years. Chest x-ray that was done showed mild inflated lung. No infiltration. V/Q scan showed low probability for pulmonary embolism. The patient is stable after giving nebulizer treatments and IV furosemide. Venous Doppler of the lower extremity, there is no gross blood clot. No DVT. Although, the patient has previous DVT and Watchman procedures, there is no sign of clotting. The patient had an echocardiogram showed ejection fraction of 55%. The lung V/Q scan again showing low probability. The patient did have a Watchman procedure. She is stable with the previous procedure. She is comfortable at this time. She is asymptomatic. She want to go home and I agreed. She will follow up with her family physician within 1 to 2 weeks and her environmental services attendant along with her nuclear auxiliary operator as an outpatient. The patient will resume home medication and we will increase her Lasix from 40 mg once a day supposedly that she was not taken to 40 mg twice a day for now until her stabilize and follow up with her family doctor for any adjustment. The patient will have a cardiac diet. Activity as tolerated. Medication reconciliation is done. MD ZE Rosas/AMARILIS /[id number]
--- NOTE | 2020-03-28 16:34 | NUR ---
PATIENT DISCHARGE HOME- PATIENT OFF THE UNIT AT 1559 PER WHEELCHAIR ACCOMPANIED BY PCT TO THE FRONT LOBBY. PATIENT IN STABLE CONDITION WITH NO S/S OF RESPIRATORY DISTRESS. PATIENT RECEIVED PAIN MEDICATION FOR HEADACHE 03/24; PAIN REASSESSED BEFORE DISCHARGE 11/22. IV REMOVED WITH TIP INTACT PRIOR TO DISCHARGE. DISCHARGE TEACHING, INSTRUCTIONS, AND MEDICATIONS GIVEN TO THE PATIENT. ALL PERSONAL ITEMS WERE TAKEN BY THE PATIENT.
== END 2020-03-28 15:39 | disposition home or self-care (01) ==
LOC: FSED 12:48 → ERHOLD 15:31 → UNDOADMOB 15:52 → MED/SURG2 16:47
PROVIDERS: ADMIT Internal Medicine; ATTEND Internal Medicine
DX: I11.0 Hypertensive heart disease with heart failure (principal); I50.33 Acute on chronic diastolic (congestive) heart failure; J44.1 Chronic obstructive pulmonary disease with (acute) exacerbation; I48.20 Chronic atrial fibrillation, unspecified; R07.89 Other chest pain; I25.10 Atherosclerotic heart disease of native coronary artery without angina pectoris; E78.5 Hyperlipidemia, unspecified; Z86.718 Personal history of other venous thrombosis and embolism; Z95.818 Presence of other cardiac implants and grafts; Z88.8 Allergy status to other drugs, medicaments and biological substances; F17.210 Nicotine dependence, cigarettes, uncomplicated; K21.9 Gastro-esophageal reflux disease without esophagitis; E03.9 Hypothyroidism, unspecified
CPT/HCPCS: 36415 ×2; 71046; 78582; 80053 ×2; 81003; 82550 ×2; 82553 ×2; 83880 ×2; 84484 ×2; 85025 ×2; 85610; 93005; 93306; 93970; 94640 ×2; 99284; A9540; G0378 ×3; J1940 ×2; S0164; U0002; J2405